=== PATIENT | male | born 1960 | race Caucasian/White ===

== ENCOUNTER 2016-07-12 05:23 | Emergency (ER) | payer BC ==
[2016-07-12] MEDS ORDERED: ONDANSETRON HCL INJ/PF 4 MG/2 ML SDV IV ONE (05:46)
[2016-07-12 05:53] LABS: ABSOLUTE BASOPHILS # (AUTO) 0.1 10^3/uL (0.0-0.2); ABSOLUTE EOSINOPHILS # (AUTO) 0.1 10^3/uL (0.0-0.6); ABSOLUTE LYMPHOCYTES (AUTO) 0.6 10^3/uL (0.5-4.7); ABSOLUTE MONOCYTES (AUTO) 0.3 10^3/uL (0.1-1.4); ABSOLUTE NEUT (AUTO) 9.6 10^3/uL (1.7-8.2); BASOPHILS % (AUTO) 0.7 % (0-2); EOSINOPHILS % (AUTO) 0.6 % (0-6); HEMATOCRIT 43.1 % (37.9-51.0); HGB HCT DIFFERENCE 1.9; LYMPHOCYTES % (AUTO) 5.7 % (13-45); MEAN CORPUSCULAR HEMOGLOBIN 31.4 pg (27.0-33.4); MEAN CORPUSCULAR HGB CONC 34.9 g/dL (32.0-36.0); MEAN CORPUSCULAR VOLUME 90 fl (80-97); MONOCYTES % (AUTO) 2.7 % (3-13); RED CELL DISTRIBUTION WIDTH 14.2 % (11.5-14.0); SEGMENTED NEUTROPHILS % (AUTO) 90.3 % (42-78); WHITE BLOOD COUNT 10.7 10^3/uL (4.0-10.5)
[2016-07-12 06:05] LABS: ALANINE AMINOTRANSFERASE 45 U/L (21-72); ALBUMIN 3.3 g/dL (3.5-5.0); ALKALINE PHOSPHATASE 145 U/L (38-126); ANION GAP 9 (5-19); ASPARTATE AMINO TRANSFERASE 26 U/L (17-59); BILIRUBIN,TOTAL 0.9 mg/dL (0.2-1.3); BLOOD UREA NITROGEN 18 mg/dL (7-20); CALCIUM 8.4 mg/dL (8.4-10.2); CARBON DIOXIDE 22 mmol/L (22-30); CHLORIDE 108 mmol/L (98-107); CREATININE RESULT 0.91 mg/dL (0.52-1.25); GLUCOSE 124 mg/dL (75-110); POTASSIUM 4.3 mmol/L (3.6-5.0); SODIUM 139.2 mmol/L (137-145); TOTAL PROTEIN 5.3 g/dL (6.3-8.2)
--- NOTE | 2016-07-12 06:48 | ER Document Report ---
ED General - General Time seen by provider: 06:33 Mode of Arrival: Ambulatory Information source: Patient TRAVEL OUTSIDE OF THE [place] IN LAST 30 DAYS: No - HPI Onset: This morning - see HPI notes Associated symptoms: Vomiting, Sweating <PALLAVI DUDLEY - Last Filed: 07/12/16 06:43> <JB VILLALOBOS - Last Filed: 07/12/16 07:26> - General Chief Complaint: Nausea/Vomiting Stated Complaint: NAUSEA,VOMITING Notes: Patient is a 55-year-old male presenting to the emergency department with complaints of dizziness, vomiting and headache. Patient states that he woke up to use the bathroom and had some dizziness where the room was spinning. Patient states he started vomiting and after he felt very "sweaty." Patient states that he vomited about 4 times. Patient also complains of a headache. At time of exam patient states that his symptoms are gone that he does not feel dizzy anymore. Patient states that he had an episode of similar dizziness that occurred approximately 10 years ago. Patient states that he had a positive flu test 1 week ago at [facility]. Patient states his symptoms were fever, chills, and body aches. Patient was taking Tamaflu for 4-5 days and has finished this dose. Patient has a history of a valve replacement in 2014, and 2 hernia surgeries. Patient takes 25 mg of metoprolol daily along with atorvastatin, ASA , Prozac, aspirin, and Claritin. Patient is allergic to penicillin. (PALLAVI DUDLEY) - Related Data Allergies/Adverse Reactions: Penicillins Allergy (Verified 06/23/15 08:07) Past Medical History - General Information source: Patient - Social History Smoking Status: Never Smoker Cigarette use (# per day): No Chew tobacco use (# tins/day): No Frequency of alcohol use: None Family History: CAD, CVA, DM, Hyperlipidemia, Hypertension, Malignancy, Other - Father is living in a assisted. At a 62 had a traumatic brain injury. He is not 82. - Past Medical History Cardiac Medical History: Reports: Hx Congestive Heart Failure - Possible, Hx Hypertension Pulmonary Medical History: Reports: Hx Pneumonia Musculoskeltal Medical History: Reports Hx Arthritis, Reports Hx Musculoskeletal Trauma - ribs Psychiatric Medical History: Reports: Hx Depression Traumatic Medical History: Reports: Hx Fractures - ribs Past Surgical History: Reports: Hx Abdominal Surgery - hernia ventral, Hx Cardiac Surgery - congenital heart defect, Hx Cholecystectomy, Hx Umbilical Hernia, Hx Valve Replacement - Immunizations Immunizations up to date: Yes Hx Diphtheria, Pertussis, Tetanus Vaccination: Yes <PALLAVI DUDLEY - Last Filed: 07/12/16 06:43> Review of Systems - Review of Systems Constitutional: See HPI, Diaphoresis EENT: No symptoms reported Cardiovascular: See HPI, Dizziness Respiratory: No symptoms reported Gastrointestinal: See HPI, Vomiting Genitourinary: No symptoms reported Male Genitourinary: No symptoms reported Musculoskeletal: No symptoms reported Skin: No symptoms reported Hematologic/Lymphatic: No symptoms reported Neurological/Psychological: See HPI, Headaches -: Yes All other systems reviewed and negative <PALLAVI DUDLEY - Last Filed: 07/12/16 06:43> Physical Exam - Vital signs Interpretation: Normal - General General appearance: Appears well, Alert In distress: Mild - HEENT Head: Normocephalic, Atraumatic Eyes: Normal Pupils: PERRL Mucous membranes: Moist - Respiratory Respiratory status: No respiratory distress Chest status: Nontender Breath sounds: Normal Chest palpation: Normal - Cardiovascular Rhythm: Regular Heart sounds: Normal auscultation Murmur: Yes - systolic ejection murmur - Abdominal Inspection: Other - paraumbilical hernia, soft and reducible Distension: No distension Bowel sounds: Normal Tenderness: Tender - paraumbilical hernia has some mild tenderness to palpation Organomegaly: No organomegaly - Back Back: Normal, Nontender - Extremities General upper extremity: Normal inspection, Normal ROM, Normal strength General lower extremity: Normal inspection, Normal ROM, Normal strength - Neurological Neuro grossly intact: Yes Cognition: Normal Orientation: AAOx4 Adelanto Coma Scale Eye Opening: Spontaneous Esteban Coma Scale Verbal: Oriented Adelanto Coma Scale Motor: Obeys Commands Esteban Coma Scale Total: 15 Speech: Normal - Psychological Associated symptoms: Normal affect, Normal mood - Skin Skin Temperature: Warm Skin Moisture: Dry <PALLAVI DUDLEY - Last Filed: 07/12/16 06:43> - Neurological Cranial nerves: Normal Cerebellar coordination: Normal Motor strength normal: LUE, RUE, LLE, RLE 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 He reports that he has had 1 prior episode of this about 10 years ago that was self-limited. The patient labs are unremarkable. Exam was normal. There were no focal neurologic deficits. There is no nystagmus. Given there are no neurologic abnormalities the patient's symptoms are gone do not feel advanced imaging of the brain is warranted at this time. Diagnosis most consistent with benign paroxysmal vertigo. We'll have patient follow up with his PCP and provided return precautions. (JB VILLALOBOS) - Vital Signs Vital signs: Temp Pulse Resp BP Pulse Ox 97.8 F 68 14 112/67 97 07/12/16 05:32 07/12/16 05:32 07/12/16 05:32 07/12/16 05:32 07/12/16 05:32 (PALLAVI DUDLEY) (JB VILLALOBOS) - Laboratory Laboratory results interpreted by me: 07/12/16 07/12/16 05:38 05:38 WBC 10.7 H RDW 14.2 H Plt Count 144 L Seg Neutrophils % 90.3 H Lymphocytes % 5.7 L Monocytes % 2.7 L Absolute Neutrophils 9.6 H Chloride 108 H Glucose 124 H Alkaline Phosphatase 145 H Total Protein 5.3 L Albumin 3.3 L (PALLAVI DUDLEY) (JB VILLALOBOS) Discharge <PALLAVI DUDLEY - Last Filed: 07/12/16 06:43> <JB VILLALOBOS - Last Filed: 07/12/16 07:26> - Discharge Clinical Impression: Paroxysmal vertigo Condition: Stable Disposition: HOME, SELF-CARE Instructions: Vertigo ([facility]) Additional Instructions: Drink plenty fluids to stay well hydrated. Follow-up the primary physician for reevaluation. Return to emergency department for recurrent vertigo, vision or speech difficulties, chest pain, difficulty breathing, numbness tingling or weakness in extremities, or any other worsening or concerning symptoms. Prescriptions: Meclizine HCl 25 mg PO PRN PRN #10 tab.chew PRN Reason: Referrals: JASON BELLE PA-C [Primary Care Provider] - Follow up as needed Scribe Attestation: 07/12/16 07:21 I personally performed the services described in the documentation, reviewed and edited the documentation which was dictated to the scribe in my presence, and it accurately records my words and actions. (JB VILLALOBOS) Scribe Documentation - Scribe Written by Scribe:: Pallavi Dudley 07/12/16 06:44 acting as scribe for :: Paz <PALLAVI DUDLEY - Last Filed: 07/12/16 06:43>
[2016-07-12 09:14] VITALS: BP 108/82
== END 2016-07-12 07:35 | disposition home or self-care (01) ==
LOC: ER 05:23
DX: H81.10 Benign paroxysmal vertigo, unspecified ear (principal); R11.2 Nausea with vomiting, unspecified; R51 Headache; I10 Essential (primary) hypertension; R61 Generalized hyperhidrosis; K42.9 Umbilical hernia without obstruction or gangrene; F32.9 Major depressive disorder, single episode, unspecified; Z95.2 Presence of prosthetic heart valve; Z79.899 Other long term (current) drug therapy; Z79.82 Long term (current) use of aspirin; Z88.0 Allergy status to penicillin; Z98.890 Other specified postprocedural states; Z90.49 Acquired absence of other specified parts of digestive tract
CPT/HCPCS: 36415; 80053; 85025; 99283

== ENCOUNTER 2016-07-18 13:26 | Emergency (ER) | payer BC ==
[2016-07-18] MEDS ORDERED: ALBUTEROL SULFATE 0.083% NEB 2.5 MG/3 ML AMPUL NEB ONE (13:50)
--- NOTE | 2016-07-18 13:50 | ER Document Report ---
ED Medical Screen (RME) - General Stated Complaint: DIFFICULTY BREATHING Notes: 55 yo male c/o difficulty breathing, chest feels "stopped up". Dx with pneumonia at [facility] on Saturday, started on Levaquin. no fever. Sat 96%. + wheezing, decreased breath sounds in left base TRAVEL OUTSIDE OF THE [place] IN LAST 30 DAYS: No - Related Data Allergies/Adverse Reactions: Penicillins Allergy (Verified 07/18/16 13:46) Past Medical History - Past Medical History Cardiac Medical History: Reports: Hx Congestive Heart Failure - Possible, Hx Hypertension Pulmonary Medical History: Reports: Hx Pneumonia Musculoskeltal Medical History: Reports Hx Arthritis, Reports Hx Musculoskeletal Trauma - ribs Psychiatric Medical History: Reports: Hx Depression Traumatic Medical History: Reports: Hx Fractures - ribs Past Surgical History: Reports: Hx Abdominal Surgery - hernia ventral, Hx Cardiac Surgery - congenital heart defect, Hx Cholecystectomy, Hx Umbilical Hernia, Hx Valve Replacement - Immunizations Immunizations up to date: Yes Hx Diphtheria, Pertussis, Tetanus Vaccination: Yes Physical Exam - Vital signs Vitals: Temp Pulse Resp BP Pulse Ox 98.1 F 76 18 100/61 96 07/18/16 13:44 07/18/16 13:44 07/18/16 13:44 07/18/16 13:44 07/18/16 13:44 Course - Vital Signs Vital signs: Temp Pulse Resp BP Pulse Ox 98.1 F 76 18 100/61 96 07/18/16 13:44 07/18/16 13:44 07/18/16 13:44 07/18/16 13:44 07/18/16 13:44
[2016-07-18] MEDS ORDERED: PREDNISONE 20 MG TABLET PO ONE (13:51)
[2016-07-18 14:06] LABS: ABSOLUTE EOSINOPHILS # (AUTO) 0.1 10^3/uL (0.0-0.6); ABSOLUTE LYMPHOCYTES (AUTO) 0.9 10^3/uL (0.5-4.7); ABSOLUTE MONOCYTES (AUTO) 0.6 10^3/uL (0.1-1.4); ABSOLUTE NEUT (AUTO) 5.8 10^3/uL (1.7-8.2); BASOPHILS % (AUTO) 0.7 % (0-2); EOSINOPHILS % (AUTO) 1.9 % (0-6); HEMATOCRIT 41.4 % (37.9-51.0); HEMOGLOBIN 14.3 g/dL (13.5-17.0); HGB HCT DIFFERENCE 1.5; LYMPHOCYTES % (AUTO) 11.8 % (13-45); MEAN CORPUSCULAR HEMOGLOBIN 30.9 pg (27.0-33.4); MEAN CORPUSCULAR HGB CONC 34.5 g/dL (32.0-36.0); MEAN CORPUSCULAR VOLUME 90 fl (80-97); MONOCYTES % (AUTO) 7.7 % (3-13); RED BLOOD COUNT 4.62 10^6/uL (4.35-5.55); RED CELL DISTRIBUTION WIDTH 13.4 % (11.5-14.0); SEGMENTED NEUTROPHILS % (AUTO) 77.9 % (42-78); WHITE BLOOD COUNT 7.4 10^3/uL (4.0-10.5)
[2016-07-18 14:20] LABS: ALANINE AMINOTRANSFERASE 40 U/L (21-72); ALBUMIN 3.2 g/dL (3.5-5.0); ALKALINE PHOSPHATASE 108 U/L (38-126); ANION GAP 11 (5-19); ASPARTATE AMINO TRANSFERASE 21 U/L (17-59); BILIRUBIN,TOTAL 0.4 mg/dL (0.2-1.3); BLOOD UREA NITROGEN 13 mg/dL (7-20); CALCIUM 8.4 mg/dL (8.4-10.2); CARBON DIOXIDE 20 mmol/L (22-30); CHLORIDE 110 mmol/L (98-107); CREATININE RESULT 0.83 mg/dL (0.52-1.25); GLUCOSE 126 mg/dL (75-110); SODIUM 140.8 mmol/L (137-145)
[2016-07-18] MEDS ORDERED: IPRATROPIUM/ALBUTEROL 0.5-2.5 MG/3 ML AMPUL NEB ONE (18:56)
[2016-07-18] MEDS ORDERED: ALBUTEROL SULFATE HFA (90 MCG/PUFF) 8 GM MDI (1 MDI/ER DISP) IH PRN (18:59)
--- NOTE | 2016-07-18 19:02 | ER Document Report ---
ED General - General Chief Complaint: Shortness Of Breath Stated Complaint: DIFFICULTY BREATHING Notes: Patient is a 55-year-old male without past medical history who presents with 4 days of cough, shortness of breath, and sputum production. States he was seen in urgent care 2 days ago and started on levofloxacin for a diagnosis of pneumonia although he notes a chest x-ray was not done. Denies any vomiting or diarrhea. States that his symptoms have worsened since onset which prompted him to come to the emergency department today. Nothing improves or worsens symptoms and he has not noted any change since starting levofloxacin. He denies any history of COPD or asthma. Denies any smoking. He denies any chest pain, syncope, or difficulty tolerating oral intake. Denies a history of similar symptoms in the past. TRAVEL OUTSIDE OF THE [place] IN LAST 30 DAYS: No - Related Data Allergies/Adverse Reactions: Penicillins Allergy (Verified 07/18/16 13:46) Past Medical History - General Information source: Patient - Social History Smoking Status: Never Smoker Chew tobacco use (# tins/day): No Frequency of alcohol use: None Drug Abuse: None Lives with: Alone Family History: CAD, CVA, DM, Hyperlipidemia, Hypertension, Malignancy, Other - Father is living in a care home. At a 62 had a traumatic brain injury. He is not 82. Patient has suicidal ideation: No Patient has homicidal ideation: No - Past Medical History Cardiac Medical History: Reports: Hx Congestive Heart Failure - Possible, Hx Hypertension Pulmonary Medical History: Reports: Hx Pneumonia Renal/ Medical History: Denies: Hx Peritoneal Dialysis Musculoskeltal Medical History: Reports Hx Arthritis, Reports Hx Musculoskeletal Trauma - ribs Psychiatric Medical History: Reports: Hx Depression Traumatic Medical History: Reports: Hx Fractures - ribs Past Surgical History: Reports: Hx Abdominal Surgery - hernia ventral, Hx Cardiac Surgery - congenital heart defect, Hx Cholecystectomy, Hx Umbilical Hernia, Hx Valve Replacement - Immunizations Immunizations up to date: Yes Hx Diphtheria, Pertussis, Tetanus Vaccination: Yes Review of Systems - Review of Systems Notes: Constitutional: Negative for fever. HENT: Negative for sore throat. Eyes: Negative for visual changes. Cardiovascular: Negative for chest pain. Respiratory: Positive for shortness of breath. Gastrointestinal: Negative for abdominal pain, vomiting or diarrhea. Genitourinary: Negative for dysuria. Musculoskeletal: Negative for back pain. Skin: Negative for rash. Neurological: Negative for headaches, weakness or numbness. 10 point ROS negative except as marked above and in HPI. Physical Exam - Vital signs Vitals: Temp Pulse Resp BP Pulse Ox 98.1 F 76 18 100/61 96 07/18/16 13:44 07/18/16 13:44 07/18/16 13:44 07/18/16 13:44 07/18/16 13:44 Interpretation: Normal Notes: PHYSICAL EXAMINATION: GENERAL: Well-appearing, well-nourished and in no acute distress. HEAD: Atraumatic, normocephalic. EYES: Pupils equal round and reactive to light, extraocular movements intact, sclera anicteric, conjunctiva are normal. ENT: nares patent, oropharynx clear without exudates. Moist mucous membranes. NECK: Normal range of motion, supple without lymphadenopathy LUNGS: Breath sounds clear to auscultation bilaterally and equal. Scattered faint wheezes throughout HEART: Regular rate and rhythm without murmurs ABDOMEN: Soft, nontender, normoactive bowel sounds. No guarding, no rebound. No masses appreciated. EXTREMITIES: Normal range of motion, no pitting or edema. No cyanosis. NEUROLOGICAL: No focal neurological deficits. Moves all extremities spontaneously and on command. PSYCH: Normal mood, normal affect. SKIN: Warm, Dry, normal turgor, no rashes or lesions noted. Course - Re-evaluation Re-evalutation: 07/18/16 18:57 Patient presents with mild shortness of breath, wheezing bilaterally but quite minimally. He is already on levofloxacin that was prescribed in urgent care for a clinical diagnosis of pneumonia but is not had any improvement. I suspect his diagnosis more likely to be an acute bronchitis given his persistent coughing as well as wheezing on exam without any history of COPD or asthma. He is in no respiratory distress time of arrival, vitals within normal limits. Saturating 97% on room air. No tachypnea or retractions. He denies any chest pain in his primary complaint is persistent coughing. Laboratories unremarkable without evidence of leukocytosis, acute kidney injury and chest x- ray does not demonstrate any evidence of pulmonary edema. Patient is been treated with nebulizer see her with moderate improvement of his symptoms. He will be discharged on a course of steroids and recommended that he continue the antibiotics as prescribed.At this time will discharge with return precautions and follow-up recommendations. Verbal discharge instructions given a the bedside and opportunity for questions given. Medication warnings reviewed. Patient is in agreement with this plan and has verbalized understanding of return precautions and the need for primary care follow-up in the next 24-72 hours. - Vital Signs Vital signs: Temp Pulse Resp BP Pulse Ox 97.9 F 76 18 113/80 96 07/18/16 19:43 07/18/16 13:44 07/18/16 19:01 07/18/16 19:01 07/18/16 19:01 - Laboratory Result Diagrams: 07/18/16 13:55 07/18/16 13:55 Laboratory results interpreted by me: 07/18/16 07/18/16 13:55 13:55 Lymphocytes % 11.8 L Chloride 110 H Carbon Dioxide 20 L Glucose 126 H Total Protein 5.0 L Albumin 3.2 L - Diagnostic Test Radiology reviewed: Image reviewed, Reports reviewed Radiology results interpreted by me: 07/19/16 04:24 Chest x-ray: No acute infiltrate Discharge - Discharge Clinical Impression: Bronchitis, Shortness of breath Condition: Good Disposition: HOME, SELF-CARE Additional Instructions: You were seen for symptoms most consistent with bronchitis. This can take up to 12 weeks to fully resolve. This is generally due to a viral infection. However , you should complete the antibiotic since this has already been started. Your chest x-ray does not show any evidence of a pneumonia. Your labs here today are normal. There is no evidence of congestive heart failure on your chest x- ray. Please follow-up with your primary doctor in the next 2-3 days. You are being sent home with an albuterol inhaler with a spacer. You can use this as needed for shortness of breath and coughing. You have also been sent home with a course of steroids. Please take as directed. Return if you develop worsening cough, vomiting, fever >100.4, pass out, begin coughing blood, or have any other symptoms that are concerning to you. Please use the medications prescribed today as directed. Prescriptions: Prednisone [Deltasone 20 mg Tablet] 3 tab PO DAILY 5 Days Referrals: JASON BELLE PA-C [Primary Care Provider] - Follow up in 3-5 days
[2016-07-18 19:05] VITALS: BP 113/80
== END 2016-07-18 19:43 | disposition home or self-care (01) ==
LOC: ER 13:26
DX: J40 Bronchitis, not specified as acute or chronic (principal); R06.02 Shortness of breath; I10 Essential (primary) hypertension; Z90.49 Acquired absence of other specified parts of digestive tract; Z88.0 Allergy status to penicillin; Z95.2 Presence of prosthetic heart valve
CPT/HCPCS: 94640 ×2; 99285; 36415; 85025; 80053; 71020; J7512; J3490; J7620

== ENCOUNTER 2017-10-11 16:43 | Emergency (ER) | payer BC ==
[2017-10-11] MEDS ORDERED: NORMAL SALINE 500 ML IV ONE (17:38)
--- NOTE | 2017-10-11 17:41 | ER Document Report ---
ED Medical Screen (RME) - General Chief Complaint: Diarrhea Stated Complaint: DIARRHEA Time Seen by Provider: 10/11/17 17:34 Notes: RAPID MEDICAL EVALUATION DISCLOSURE I have seen this patient as part of a Rapid Medical Evaluation and, if applicable, placed any initially appropriate orders. The patient will be seen and fully evaluated, including a full history and physical exam, by a provider ( in Main ED or Fast Track) when a room becomes available. 56-year-old male here with complaints of abdominal pain and diarrhea ongoing since earlier today. He has had several episodes and has "messed my pants". No nausea vomiting fevers chills dysuria hematuria. Denies any prior history of IBS colitis diverticulitis. No known sick contacts. EXAM Left lower greater than upper quadrant tenderness NOTE Patient reports his systolic blood pressure is not normally less than 100 but averages around 120 TRAVEL OUTSIDE OF THE [place] IN LAST 30 DAYS: No - Related Data Allergies/Adverse Reactions: doxycycline Allergy (Verified 10/11/17 16:46) levofloxacin [From Levaquin] Allergy (Verified 10/11/17 16:46) Penicillins Allergy (Verified 10/11/17 16:46) Past Medical History - Past Medical History Cardiac Medical History: Reports: Hx Congestive Heart Failure - Possible, Hx Hypertension Pulmonary Medical History: Reports: Hx Pneumonia Renal/ Medical History: Denies: Hx Peritoneal Dialysis Musculoskeltal Medical History: Reports Hx Arthritis, Reports Hx Musculoskeletal Trauma - ribs Psychiatric Medical History: Reports: Hx Depression Traumatic Medical History: Reports: Hx Fractures - ribs Past Surgical History: Reports: Hx Abdominal Surgery - hernia ventral, Hx Cardiac Surgery - congenital heart defect, Hx Cholecystectomy, Hx Umbilical Hernia, Hx Valve Replacement - Immunizations Immunizations up to date: Yes Hx Diphtheria, Pertussis, Tetanus Vaccination: Yes Physical Exam - Vital signs Vitals: Temp Pulse Resp BP Pulse Ox 97.8 F 58 L 16 99/60 L 98 10/11/17 16:53 10/11/17 16:53 10/11/17 16:53 10/11/17 16:53 10/11/17 16:53 Course - Vital Signs Vital signs: Temp Pulse Resp BP Pulse Ox 97.8 F 58 L 16 99/60 L 98 10/11/17 16:53 10/11/17 16:53 10/11/17 16:53 10/11/17 16:53 10/11/17 16:53
[2017-10-11 18:18] LABS: ABSOLUTE BASOPHILS # (AUTO) 0.1 10^3/uL (0.0-0.2); ABSOLUTE EOSINOPHILS # (AUTO) 0.2 10^3/uL (0.0-0.6); ABSOLUTE LYMPHOCYTES (AUTO) 1.5 10^3/uL (0.5-4.7); ABSOLUTE MONOCYTES (AUTO) 0.6 10^3/uL (0.1-1.4); ABSOLUTE NEUT (AUTO) 4.9 10^3/uL (1.7-8.2); BASOPHILS % (AUTO) 0.9 % (0-2); EOSINOPHILS % (AUTO) 2.3 % (0-6); HEMATOCRIT 46.6 % (37.9-51.0); HEMOGLOBIN 15.7 g/dL (13.5-17.0); LYMPHOCYTES % (AUTO) 20.2 % (13-45); MEAN CORPUSCULAR HGB CONC 33.8 g/dL (32.0-36.0); MEAN CORPUSCULAR VOLUME 92 fl (80-97); MONOCYTES % (AUTO) 8.3 % (3-13); PLATELET COUNT 139 10^3/uL (150-450); RED BLOOD COUNT 5.09 10^6/uL (4.35-5.55); RED CELL DISTRIBUTION WIDTH 14.1 % (11.5-14.0); SEGMENTED NEUTROPHILS % (AUTO) 68.3 % (42-78); TOTAL CELLS COUNTED % (AUTO) 100 %; WHITE BLOOD COUNT 7.2 10^3/uL (4.0-10.5)
[2017-10-11 18:37] LABS: ALANINE AMINOTRANSFERASE 62 U/L (21-72); ALBUMIN 3.7 g/dL (3.5-5.0); ALKALINE PHOSPHATASE 109 U/L (38-126); ANION GAP 13 (5-19); ASPARTATE AMINO TRANSFERASE 36 U/L (17-59); BILIRUBIN,DIRECT 0.2 mg/dL (0.0-0.4); BILIRUBIN,TOTAL 0.2 mg/dL (0.2-1.3); BLOOD UREA NITROGEN 15 mg/dL (7-20); CALCIUM 9.1 mg/dL (8.4-10.2); CARBON DIOXIDE 22 mmol/L (22-30); CHLORIDE 112 mmol/L (98-107); GLUCOSE 65 mg/dL (75-110); LIPASE 225.7 U/L (23-300); POTASSIUM 3.8 mmol/L (3.6-5.0); SODIUM 146.9 mmol/L (137-145); TOTAL PROTEIN 5.4 g/dL (6.3-8.2)
[2017-10-11 19:36] LABS: APPEARANCE,URINE CLEAR; BILIRUBIN,URINE NEGATIVE (NEGATIVE); COLOR,URINE YELLOW; GLUCOSE, URINE NEGATIVE (NEGATIVE); KETONES,URINE NEGATIVE (NEGATIVE); LEUKOCYTE ESTERASE,URINE NEGATIVE (NEGATIVE); NITRITE,URINE NEGATIVE (NEGATIVE); PROTEIN,URINE NEGATIVE (NEGATIVE); URINE SPECIFIC GRAVITY 1.016; UROBILINOGEN,URINE NEGATIVE mg/dL (<2.0)
--- NOTE | 2017-10-11 20:59 | RADIOLOGY REPORT (SQ) ---
EXAM DESCRIPTION: CT ABD/PELVIS WITH IV ONLY COMPLETED DATE/TIME: 10/11/2017 8:44 pm REASON FOR STUDY: LUQ/LLQ pain diarrhea; eval colitis diverticulitis COMPARISON: None. TECHNIQUE: CT scan of the abdomen and pelvis performed using helical scanning technique with dynamic intravenous contrast injection. No oral contrast. Images reviewed with lung, soft tissue, and bone windows. Reconstructed coronal and sagittal MPR images reviewed. Delayed images for evaluation of the urinary system also acquired. All images stored on PACS. All CT scanners at this facility use dose modulation, iterative reconstruction, and/or weight based d osing when appropriate to reduce radiation dose to as low as reasonably achievable (ALARA). [facility]: Dose Right [facility]: CareDose [facility]: Dose Right [facility]: Teradose 4D [facility]: Wiren Board CONTRAST TYPE AND DOSE: contrast/concentration: Isovue 370.00 mg/ml; Total Contrast Delivered: 78.0 ml; Total Saline Delivered: 67.0 ml RENAL FUNCTION: GFR > 60. RADIATION DOSE: CT Rad equipment meets quality standard of care and radiation dose reduction techniq ues were employed. CTDIvol: 6.8 - 9.1 mGy. DLP: 901 mGy-cm.. LIMITATIONS: None. FINDINGS: LOWER CHEST: No significant findings. No nodules or infiltrates. LIVER: Normal size. No masses. No dilated ducts. SPLEEN: Normal size. No focal lesions. PANCREAS: No masses. No significant calcifications. No adjacent inflammation or peripancreatic fluid collections. Pancreatic duct not dilated. GALLBLADDER: No identified stones by CT criteria. No inflammatory changes to suggest cholecystitis. ADRENAL GLANDS: No significant masses or asymmetry. RIGHT KIDNEY AND URETER: No solid masses. No significant calcifications. No hydronephrosis or hyd roureter. LEFT KIDNEY AND URETER: No solid masses. No significant calcifications. No hydronephrosis or hydr oureter. AORTA AND VESSELS: No aneurysm. No dissection. Renal arteries, SMA, celiac without stenosis. RETROPERITONEUM: No retroperitoneal adenopathy, hemorrhage or masses. BOWEL AND PERITONEAL CAVITY: There is diffuse colonic submucosal fat deposition which may be physiolo gic or can be seen in a patient with history of inflammatory bowel disease. There is mild asymmetric mural thickening involving the descending colon seen on series 3, image 68. No significant pericolo shashank stranding. Small bowel loops are grossly normal. APPENDIX: Not visualized. PELVIS: No mass. No free fluid. Normal bladder. ABDOMINAL WALL: No masses. The patient is status post repair of a periumbilical hernia with residual / recurrent hernia just above and the left of the mesh with 2.4 cm factual defect and 7.2 cm fat cont aining hernia sac. There is a 2nd factual defect involving the left anterolateral abdominal wall see n on series 3, image 14 measuring 12 mm with 7 cm fat containing hernia sac. BONES: Degenerative change without fracture or suspicious osseous lesion. OTHER: No other significant finding. IMPRESSION: MILD ASYMMETRIC MURAL THICKENING INVOLVING THE DESCENDING COLON WHICH COULD REPRESENT DI VERTICULITIS OR FOCAL INFECTIOUS/INFLAMMATORY COLITIS. RECOMMEND FOLLOWUP COLONOSCOPY IF NOT RECENTL Y PERFORMED TO ENSURE NO UNDERLYING MASS. FAT CONTAINING ABDOMINAL WALL HERNIAS DESCRIBED ABOVE. ADDITIONAL CHRONIC CHANGES ABOVE. TECHNICAL DOCUMENTATION: JOB ID: [id number] Quality ID # [id number]: Final reports with documentation of one or more dose reduction techniques (e.g., Au tomated exposure control, adjustment of the mA and/or kV according to patient size, use of iterative reconstruction technique) 2010 [employer]- All Rights Reserved Reading location - IP/workstation name: [email or web address]
--- NOTE | 2017-10-11 21:12 | ER Document Report ---
ED General - General Chief Complaint: Diarrhea Stated Complaint: DIARRHEA Time Seen by Provider: 10/11/17 17:34 Mode of Arrival: Ambulatory Information source: Patient Notes: 56 yr old male presents with complaints of diarrhea all day. pt denies any fevers or chills, denies any nausea or vomiting. Patient has been on multiple doses of antibiotics since May TRAVEL OUTSIDE OF THE [place] IN LAST 30 DAYS: No - HPI Onset: This morning Onset/Duration: Sudden Quality of pain: No pain Severity: Moderate Pain Level: Denies Associated symptoms: Diarrhea Exacerbated by: Denies Relieved by: Denies Similar symptoms previously: No Recently seen / treated by doctor: No - Related Data Allergies/Adverse Reactions: doxycycline Allergy (Verified 10/11/17 16:46) levofloxacin [From Levaquin] Allergy (Verified 10/11/17 16:46) Penicillins Allergy (Verified 10/11/17 16:46) Past Medical History - Social History Smoking Status: Never Smoker Cigarette use (# per day): No Chew tobacco use (# tins/day): No Smoking Education Provided: No Frequency of alcohol use: None Drug Abuse: None Family History: CAD, CVA, DM, Hyperlipidemia, Hypertension, Malignancy, Other - Father is living in a fdc. At a 62 had a traumatic brain injury. He is not 82. Patient has suicidal ideation: No Patient has homicidal ideation: No - Past Medical History Cardiac Medical History: Reports: Hx Congestive Heart Failure - Possible, Hx Hypertension Pulmonary Medical History: Reports: Hx Pneumonia Renal/ Medical History: Denies: Hx Peritoneal Dialysis Musculoskeltal Medical History: Reports Hx Arthritis, Reports Hx Musculoskeletal Trauma - ribs Psychiatric Medical History: Reports: Hx Depression Traumatic Medical History: Reports: Hx Fractures - ribs Past Surgical History: Reports: Hx Abdominal Surgery - hernia ventral, Hx Cardiac Surgery - congenital heart defect, Hx Cholecystectomy, Hx Umbilical Hernia, Hx Valve Replacement - Immunizations Immunizations up to date: Yes Hx Diphtheria, Pertussis, Tetanus Vaccination: Yes Review of Systems - Review of Systems Notes: REVIEW OF SYSTEMS: CONSTITUTIONAL : Denies fever, chills, or sweats. Denies recent illness. EENT: Denies eye, ear, throat, or mouth pain or symptoms. Denies nasal or sinus congestion or discharge. Denies throat, tongue, or mouth swelling or difficulty swallowing. CARDIOVASCULAR: Denies chest pain. Denies palpitations or racing or irregular heart beat. Denies ankle edema. RESPIRATORY: Denies cough, cold, or chest congestion. Denies shortness of breath, difficulty breathing, or wheezing. GASTROINTESTINAL: Admits to diarrhea GENITOURINARY: Denies difficulty urinating, painful urination, burning, frequency, blood in urine, or discharge. MUSCULOSKELETAL: Denies back or neck pain or stiffness. Denies joint pain or swelling. SKIN: Denies rash, lesions or sores. HEMATOLOGIC : Denies easy bruising or bleeding. LYMPHATIC: Denies swollen, enlarged glands. NEUROLOGICAL: Denies confusion or altered mental status. Denies passing out or loss of consciousness. Denies dizziness or lightheadedness. Denies headache. Denies weakness or paralysis or loss of use of either side. Denies problems with gait or speech. Denies sensory loss, numbness, or tingling. Denies seizures. PSYCHIATRIC: Denies anxiety or stress. Denies depression, suicidal ideation, or homicidal ideation. ALL OTHER SYSTEMS REVIEWED AND NEGATIVE. Dictation was performed using [employer] voice recognition software PHYSICAL EXAMINATION: GENERAL: Well-appearing, well-nourished and in no acute distress. HEAD: Atraumatic, normocephalic. EYES: Pupils equal round and reactive to light, extraocular movements intact, sclera anicteric, conjunctiva are normal. ENT: Nares patent, oropharynx clear without exudates. Moist mucous membranes. NECK: Normal range of motion, supple without lymphadenopathy LUNGS: Breath sounds clear to auscultation bilaterally and equal. No wheezes rales or rhonchi. HEART: Regular rate and rhythm without murmurs ABDOMEN: Soft, nontender, nondistended abdomen. No guarding, no rebound. No masses appreciated. Musculoskeletal: Normal range of motion, no pitting or edema. No cyanosis. NEUROLOGICAL: Cranial nerves grossly intact. Normal speech, normal gait. Normal sensory, motor exams PSYCH: Normal mood, normal affect. SKIN: Warm, Dry, normal turgor, no rashes or lesions noted. Physical Exam - Vital signs Vitals: Temp Pulse Resp BP Pulse Ox 97.8 F 58 L 16 99/60 L 98 10/11/17 16:53 10/11/17 16:53 10/11/17 16:53 10/11/17 16:53 10/11/17 16:53 Course - Re-evaluation Re-evalutation: 10/11/17 23:01 Patient was C. difficile positive, he will be started on Flagyl, he has no white count, patient has been given very strict return precautions as well as handwashing instructions CT was consistent with colitis I do not believe there is any mass underlying this however will give the patient follow-up with GI After performing a Medical Screening Examination, I estimate there is LOW risk for ACUTE APPENDICITIS, BOWEL OBSTRUCTION, ACUTE CHOLECYSTITIS, PERFORATED DIVERTICULITIS, INCARCERATED HERNIA, PANCREATITIS, TESTICULAR TORSION or PERFORATED ULCER, thus I consider the discharge disposition reasonable. Also, there is no evidence or peritonitis, sepsis, or toxicity. I have reevaluated this patient multiple times and no significant life threatening changes are noted. The patient and I have discussed the diagnosis and risks, and we agree with discharging home with close follow-up with the understanding that symptoms and presentations can change. We also discussed returning to the Emergency Department immediately if new or worsening symptoms occur. We have discussed the symptoms which are most concerning (e.g., bloody stool, fever, changing or worsening pain, intractable vomiting - standard verbal up date) that necessitate immediate return. - Vital Signs Vital signs: Temp Pulse Resp BP Pulse Ox 98.2 F 78 18 112/72 99 10/11/17 21:46 10/11/17 21:46 10/11/17 21:46 10/11/17 21:46 10/11/17 21:46 - Laboratory Result Diagrams: 10/11/17 18:09 10/11/17 18:09 Laboratory results interpreted by me: 10/11/17 10/11/17 18:09 18:09 RDW 14.1 H Plt Count 139 L Sodium 146.9 H Chloride 112 H Glucose 65 L Total Protein 5.4 L - Diagnostic Test Radiology reviewed: Image reviewed - CT abdomen pelvis consistent with colitis, Reports reviewed Discharge - Discharge Clinical Impression: C. difficile colitis Condition: Stable Disposition: HOME, SELF-CARE Instructions: C. (Clostridium) Difficile Infection ([facility]) Prescriptions: Metronidazole [Flagyl 500 mg Tablet] 500 mg PO Q8 #42 tablet Referrals: BRAYAN ZAZUETA MD [ACTIVE STAFF] - Follow up in 3-5 days
[2017-10-11] MEDS ORDERED: CIPROFLOXACIN HCL 500 MG TABLET PO ONE (21:22)
[2017-10-11] MEDS ORDERED: METRONIDAZOLE 500 MG TABLET PO ONE (21:22)
[2017-10-11 21:56] VITALS: BP 112/72
== END 2017-10-11 21:56 | disposition home or self-care (01) ==
LOC: ER 16:43
DX: A04.72 Enterocolitis due to Clostridium difficile, not specified as recurrent (principal); I50.9 Heart failure, unspecified; I11.0 Hypertensive heart disease with heart failure; Z88.0 Allergy status to penicillin; Z90.49 Acquired absence of other specified parts of digestive tract; Z95.2 Presence of prosthetic heart valve
CPT/HCPCS: 99284; 96360; 36415; 87209; 83690; 87177; 85025; 80053; 81001; 87493; 74177; J7040

== ENCOUNTER 2018-02-23 06:06 | Emergency (ER) | payer BC ==
--- NOTE | 2018-02-23 07:06 | ER Document Report ---
ED General - General Mode of Arrival: Ambulatory Information source: Patient TRAVEL OUTSIDE OF THE [place] IN LAST 30 DAYS: No <JOHN LIANG - Last Filed: 02/23/18 06:57> <TRACE HOLMAN - Last Filed: 02/23/18 07:49> - General Chief Complaint: Rib Pain Stated Complaint: RIGHT RIB PAIN Time Seen by Provider: 02/23/18 06:45 Notes: 57-year-old male who presents to the emergency department today with complaints of right upper lateral rib pain. Patient states he fell out of the back of a truck on February 19. Patient states he has had pain since the accident but was "trying not to come in". Patient states he was taking Tylenol at home with minimal relief. Patient has previously fractured ribs on the left and he states his pain today is similar to then. (JOHN LIANG) - Related Data Allergies/Adverse Reactions: doxycycline Allergy (Verified 02/23/18 06:16) levofloxacin [From Levaquin] Allergy (Verified 02/23/18 06:16) Penicillins Allergy (Verified 02/23/18 06:16) Past Medical History - General Information source: Patient, COUNT INCLUDES [facility] Records - Social History Smoking Status: Former Smoker Cigarette use (# per day): No Frequency of alcohol use: None Drug Abuse: None Lives with: Family Family History: CAD, CVA, DM, Hyperlipidemia, Hypertension, Malignancy, Other - Father is living in a senior care. At a 62 had a traumatic brain injury. He is not 82. - Past Medical History Cardiac Medical History: Reports: Hx Hypertension Pulmonary Medical History: Reports: Hx Pneumonia Musculoskeletal Medical History: Reports Hx Arthritis, Reports Hx Musculoskeletal Trauma - ribs left sided Psychiatric Medical History: Reports: Hx Depression Traumatic Medical History: Reports: Hx Fractures - ribs left sidedddddddd Past Surgical History: Reports: Hx Abdominal Surgery - hernia ventral, Hx Cardiac Surgery - PDA repair, Hx Cholecystectomy, Hx Umbilical Hernia, Hx Valve Replacement - bovine pericardial tissue aortic valve replacement February 2015 - Immunizations Immunizations up to date: Yes Hx Diphtheria, Pertussis, Tetanus Vaccination: Yes <JOHN LIANG - Last Filed: 02/23/18 06:57> Review of Systems - Review of Systems Constitutional: No symptoms reported EENT: No symptoms reported Cardiovascular: No symptoms reported Respiratory: No symptoms reported Gastrointestinal: No symptoms reported Genitourinary: No symptoms reported Male Genitourinary: No symptoms reported Musculoskeletal: See HPI, Other - right lateral upper rib pain Skin: No symptoms reported Hematologic/Lymphatic: No symptoms reported Neurological/Psychological: No symptoms reported -: Yes All other systems reviewed and negative <JOHN LIANG - Last Filed: 02/23/18 06:57> Physical Exam <JOHN LIANG - Last Filed: 02/23/18 06:57> <MANDATRACE - Last Filed: 02/23/18 07:49> - Notes Notes: Physical Exam: General: Alert, appears well. HEENT: Normocephalic. Atraumatic. PERRL. Extraocular movements intact. Oropharynx clear. Neck: Supple. Non-tender. Respiratory: No respiratory distress. Clear and equal breath sounds bilaterally. Right upper anterior axillary line tenderness with palpation at about the level of T3. Cardiovascular: Regular rate and rhythm. Abdominal: Supraumbilical hernia, left lateral abdominal wall hernia, both easily reducible. Non-tender. No distension. Normal Bowel Sounds. Back: Non-tender. No deformity or step off. Extremities: Moves all four extremities. Upper extremities: Normal inspection. Normal ROM. Lower extremities: Normal inspection. No edema. Normal ROM. Neurological: Normal cognition. AAOx4. Normal speech. Psychological: Normal affect. Normal Mood. Skin: Warm. Dry. Normal color. (JOHN LIANG) Course - Diagnostic Test Radiology reviewed: Image reviewed - No acute fractures noted., Reports reviewed - No fractures reported, old deformity in the right fourth seventh and eighth ribs. Chest x-ray reading is central pulmonary vascular congestion. <TRACE HOLMAN - Last Filed: 02/23/18 07:49> Discharge <JOHN LIANG - Last Filed: 02/23/18 06:57> <TRACE HOLMAN - Last Filed: 02/23/18 07:49> - Discharge Clinical Impression: Contusion of rib on right side Qualifiers: Encounter type: initial encounter Qualified Code(s): S20.211A - Contusion of right front wall of thorax, initial encounter Condition: Stable Disposition: HOME, SELF-CARE Additional Instructions: Rib Contusion You have been diagnosed as having bruised ribs. It will usually take a few weeks for these injured ribs to heal. You should cough or take a deep breath at least every hour or two to prevent lung complications. You should not engage in any strenuous physical activity until released by your physician. The usual rule is "if it hurts, don' t do it." Return if you develop any of the following: (1) Fever or chills. (2) Persistent cough, coughing up blood, or shortness of breath. (3) Increasing pain. (4) Weakness, lightheadedness, or fainting. There were no new fractures seen on your rib x-rays today. Bruised ribs that often hurt as bad as fractured ribs. Take the pain medication as prescribed for the next few days. Take ibuprofen 600 mg every 8 hours, or 2 Aleve every 12 hours for the next several days. Drink plenty of fluids and rest. It is not practical to participate in your usual occupation while you are ribs are so tender. Follow-up with a local medical doctor for reevaluation this week if not improving. RETURN TO THE EMERGENCY ROOM IF ANY NEW OR WORSENING SYMPTOMS. Prescriptions: Oxycodone HCl/Acetaminophen [Percocet 5-325 mg Tablet] 1 - 2 tab PO ASDIR PRN # 20 tablet PRN Reason: Referrals: SAMI CHO MD [Primary Care Provider] - Follow up as needed Scribe Attestation: 02/23/18 07:48 I personally performed the services described in the documentation, reviewed and edited the documentation which was dictated to the scribe in my presence, and it accurately records my words and actions. (TRACE HOLMAN)
--- NOTE | 2018-02-23 07:36 | RADIOLOGY REPORT (SQ) ---
EXAM DESCRIPTION: XR RIBS UNILATERAL WITH CHEST COMPLETED DATE/TME: 02/23/2018 07:00 CLINICAL HISTORY: 57 years Male, R upper ant axillary line trauma, pain COMPARISON: 2.22.17, report only. NUMBER OF VIEWS/TECHNIQUE: 3 FINDINGS: No pneumothorax. Moderate central edema pattern, normal cardiac silhouette, sternotomy. Right upper abdominal clips. Cardiac valve prosthesis. Mild rib deformities include the right fourth anterior, seventh anterior, and eighth anterolateral ribs. Small smooth bilateral pleural based thickening. IMPRESSION: 1. Mild rib deformities on the right. 2. Mild central pulmonary edema pattern.
== END 2018-02-23 08:02 | disposition home or self-care (01) ==
LOC: ER 06:06
DX: S20.211A Contusion of right front wall of thorax, initial encounter (principal); R07.81 Pleurodynia; W17.89XA Other fall from one level to another, initial encounter; Y93.89 Activity, other specified; R09.89 Other specified symptoms and signs involving the circulatory and respiratory systems; K43.9 Ventral hernia without obstruction or gangrene; I10 Essential (primary) hypertension; Z87.891 Personal history of nicotine dependence; Z95.3 Presence of xenogenic heart valve; Z88.1 Allergy status to other antibiotic agents; Z88.0 Allergy status to penicillin; Z87.81 Personal history of (healed) traumatic fracture
CPT/HCPCS: 99283

== ENCOUNTER 2018-03-19 21:26 | Emergency (ER) | payer BC ==
[2018-03-19 21:36] VITALS: BP 116/67
[2018-03-19] MEDS ORDERED: CEPHALEXIN 500 MG CAPSULE PO ONE (22:47)
[2018-03-19] MEDS ORDERED: SULFAMETHOXAZOLE/TRIMETHOPRIM 800-160 MG TABLET PO ONE (22:47)
--- NOTE | 2018-03-19 22:51 | ER Document Report ---
HPI - HPI Pain Level: 2 Notes: Patient is a 57-year-old male who presents with chief complaint of rash to his right wrist. 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 Patient also reports a smaller area of erythema to the left wrist. Patient denies any history of MRSA. - REPRODUCTIVE Reproductive: DENIES: : Past Medical History - General Information source: Patient - Social History Smoking Status: Never Smoker Family History: CAD, CVA, DM, Hyperlipidemia, Hypertension, Malignancy, Other - Father is living in a usp. At a 62 had a traumatic brain injury. He is not 82. - Past Medical History Cardiac Medical History: Denies: Hx Hypertension - heart valve replacement. Pulmonary Medical History: Reports: Hx Pneumonia Renal/ Medical History: Denies: Hx Peritoneal Dialysis Musculoskeletal Medical History: Reports Hx Arthritis, Reports Hx Musculoskeletal Trauma - ribs left sided Psychiatric Medical History: Reports: Hx Depression Traumatic Medical History: Reports: Hx Fractures - ribs left sidedddddddd Past Surgical History: Reports: Hx Abdominal Surgery - hernia ventral, Hx Cardiac Surgery - PDA repair, Hx Cholecystectomy, Hx Umbilical Hernia, Hx Valve Replacement - bovine pericardial tissue aortic valve replacement February 2015 - Immunizations Immunizations up to date: Yes Hx Diphtheria, Pertussis, Tetanus Vaccination: Yes Vertical Provider Document - CONSTITUTIONAL Notes: PHYSICAL EXAMINATION: GENERAL: Well-appearing, well-nourished and in no acute distress. HEAD: Atraumatic, normocephalic. EYES: Pupils equal round extraocular movements intact, conjunctiva are normal. ENT: Nares patent NECK: Normal range of motion LUNGS: No respiratory distress Musculoskeletal: Normal range of motion NEUROLOGICAL: Normal speech, normal gait. PSYCH: Normal mood, normal affect. SKIN: Warm, Dry, normal turgor, erythema noted to bilateral wrists, more so to the right wrist. There are also areas with white pustules across the right wrist. Nothing that is drainable, no fluctuance or induration. - INFECTION CONTROL TRAVEL OUTSIDE OF THE [place] IN LAST 30 DAYS: No Course - Re-evaluation Re-evalutation: Patient's examination is consistent with cellulitis. Patient is allergic to doxycycline and Levaquin which are both the indicated antibiotics for cellulitis in the presence of salt water exposure. I will start patient on both Bactrim and Keflex at this time. Patient instructed to have close follow- up with his primary care, have them do a wound recheck in 2-3 days. Return to the emergency department if he develops worsening symptoms. Patient and family member at bedside verbalized understanding of same. - Vital Signs Vital signs: Temp Pulse Resp BP Pulse Ox 97.8 F 60 18 116/67 98 03/19/18 21:35 03/19/18 21:35 03/19/18 21:35 03/19/18 21:35 03/19/18 21:35 Discharge - Discharge Clinical Impression: Cellulitis Qualifiers: Site of cellulitis: extremity Site of cellulitis of extremity: upper extremity Laterality: right Qualified Code(s): L03.113 - Cellulitis of right upper limb Condition: Stable Disposition: HOME, SELF-CARE Additional Instructions: Cellulitis You have an infection of your skin and underlying soft tissues called cellulitis. This is due to bacteria, which can enter through any break in the skin, or even through an irritated hair follicle. Untreated, cellulitis will usually worsen. Antibiotics are required. Usually, warm packs or warm soaks, and elevation of the infected area are recommended. You should start getting better within 24 to 36 hours. Most infections respond quickly to the right medication. Follow-up care is important, however, to check for abscess (boil) formation, unsuspected foreign body, or resistant infection. If you develop fever, chills, or if the area of infection is becoming rapidly more swollen or painful, call the doctor at once. Please follow-up with your primary care provider in the next 3-5 days for follow-up. Apply warm compresses 3-4 times daily. Keep the area clean and dry. Prescriptions: Cephalexin [Cephalexin 500 MG Tablet] 500 mg PO QID #28 tablet Sulfamethoxazole/Trimethoprim [Bactrim Ds Tablet] 1 tab PO BID #14 tablet Referrals: SAMI CHO MD [Primary Care Provider] - Follow up as needed
== END 2018-03-19 23:00 | disposition home or self-care (01) ==
LOC: ER 21:26
DX: L03.113 Cellulitis of right upper limb (principal); R21 Rash and other nonspecific skin eruption
CPT/HCPCS: 99282

== ENCOUNTER 2018-09-05 01:08 | Emergency (ER) | payer BC ==
[2018-09-05] MEDS ORDERED: NORMAL SALINE 1000 ML 1,000 ML IV ONE (02:36)
[2018-09-05] MEDS ORDERED: ONDANSETRON HCL INJ/PF 4 MG/2 ML SDV IV ONE (02:36)
--- NOTE | 2018-09-05 02:36 | ER Document Report ---
ED General - General Chief Complaint: Nausea/Vomiting/Diarrhea Stated Complaint: NAUSEA Time Seen by Provider: 09/05/18 02:06 Primary Care Provider: BRAYAN ZAZUETA MD [ACTIVE STAFF] - Follow up in 3-5 days SAMI CHO MD [Primary Care Provider] - Follow up in 3-5 days Notes: Patient is a 57-year-old male that presents to the emergency department for chief complaint of chronic diarrhea. Patient reports his been having diarrhea for about 2 weeks now, nonbloody and watery. Today he has been having some nausea and vomiting associated as well. He states that he was recently on Diflucan, for esophageal candidiasis, he was on it for 10 days, but states he was having diarrhea prior to this. He denies having any fevers, chills, night sweats, chest pain, shortness of breath or difficulty breathing. He is been having some abdominal cramping, but denies any significant abdominal pain associated with this. He was prescribed Bentyl to try to help with some of his symptoms. Past Medical History: COPD Past Surgical History: Cholecystectomy, heart valve replacement Social History: Denies tobacco, alcohol or illicit drug use. Family History: Reviewed and noncontributory for presenting illness Allergies: Reviewed, see documented allergy list. REVIEW OF SYSTEMS: Other than noted above, the 12 point review of systems was reviewed with the patient and were negative, all pertinent findings are included in the HPI. PHYSICAL EXAMINATION: Vital signs reviewed, nursing noted reviewed. GENERAL: Well-appearing, well-nourished and in no acute distress. HEAD: Atraumatic, normocephalic. EYES: Eyes appear normal, extraocular movements intact, sclera anicteric, conjunctiva are normal. ENT: nares patent, oropharynx clear without exudates. Moist mucous membranes. NECK: Normal range of motion, supple without lymphadenopathy LUNGS: Breath sounds clear to auscultation bilaterally and equal. No wheezes rales or rhonchi. HEART: Regular rate and rhythm without murmurs ABDOMEN: Soft, nontender, normoactive bowel sounds. No rebound, guarding, or rigidity. No masses appreciated. Ventral hernia palpated, large, and reducible, there is a second hernia noted laterally, also noted to be rather large, these are chronic according to the patient and are nontender. EXTREMITIES: Nontender, good range of motion, no pitting or edema. NEUROLOGICAL: No focal neurological deficits. Moves all extremities spontaneously Motor and sensory grossly intact on exam. PSYCH: Normal mood, normal affect. SKIN: Warm, Dry, normal turgor, no rashes or lesions noted on exposed skin TRAVEL OUTSIDE OF THE [place] IN LAST 30 DAYS: No - Related Data Allergies/Adverse Reactions: doxycycline Allergy (Verified 02/23/18 06:16) levofloxacin [From Levaquin] Allergy (Verified 02/23/18 06:16) Past Medical History - Social History Smoking Status: Never Smoker Family History: CAD, CVA, DM, Hyperlipidemia, Hypertension, Malignancy, Other - Father is living in a shelter. At a 62 had a traumatic brain injury. He is not 82. - Past Medical History Cardiac Medical History: Denies: Hx Hypertension - heart valve replacement. Pulmonary Medical History: Reports: Hx Pneumonia Renal/ Medical History: Denies: Hx Peritoneal Dialysis Musculoskeletal Medical History: Reports Hx Arthritis, Reports Hx Musculoskeletal Trauma - ribs left sided Psychiatric Medical History: Reports: Hx Depression Traumatic Medical History: Reports: Hx Fractures - ribs left sidedddddddd Past Surgical History: Reports: Hx Abdominal Surgery - hernia ventral, Hx Cardiac Surgery - PDA repair, Hx Cholecystectomy, Hx Umbilical Hernia, Hx Valve Replacement - bovine pericardial tissue aortic valve replacement February 2015 - Immunizations Immunizations up to date: Yes Hx Diphtheria, Pertussis, Tetanus Vaccination: Yes Physical Exam - Vital signs Vitals: Temp Pulse Resp BP Pulse Ox 97.8 F 71 24 H 116/66 97 09/05/18 01:13 09/05/18 01:13 09/05/18 01:13 09/05/18 01:13 09/05/18 01:13 Course - Re-evaluation Re-evalutation: Patient seen and examined vital signs reviewed. Laboratory data and/or imaging were ordered as appropriate for the patient's presenting symptoms and complaint, with consideration of any critical or life threatening conditions that may be associated with their obtained history and exam as noted above. Patient was treated with 2 L of IV fluids and IV Zofran Results were reviewed when available and demonstrated prerenal azotemia, likely secondary to the patient's chronic diarrhea he is been experiencing, is also noted to have mild metabolic acidosis, likely due to bicarbonate losses from diarrhea. The patient was re-evaluated and was improved, no vomiting, did not have diarrhea in the ED, he was noted to be C. difficile negative. Evaluation was most consistent with chronic diarrhea, with mild metabolic acidosis and prerenal azotemia, which should improve dramatically just with the IV fluids, advised follow-up with his primary care, and follow-up with gastroenterology, patient was agreeable, given prescription for Zofran, he was advised if he absolutely wanted to he could use [id number] antidiarrheal medications given he had a negative C. difficile. Stool cultures were sent and pending. Results were discussed with the patient at this point, after careful consideration I feel that that patient can be discharged from the emergency department, the patient was educated treatments and reasons to return to the [facility] based on their presumed diagnosis as noted above, they were advised to followup with a primary care physician in 2-3 days. Patient was agreeable to plan of care. *Note is created using voice recognition software and may contain spelling, syntax or grammatical errors. Laboratory 09/05/18 09/05/18 09/05/18 02:42 02:42 02:42 WBC 9.8 RBC 5.29 Hgb 16.2 Hct 46.7 MCV 88 MCH 30.7 MCHC 34.7 RDW 14.1 H Plt Count 201 Seg Neutrophils % 87.5 H Lymphocytes % 6.5 L Monocytes % 5.2 Eosinophils % 0.5 Basophils % 0.3 Absolute Neutrophils 8.6 H Absolute Lymphocytes 0.6 Absolute Monocytes 0.5 Absolute Eosinophils 0.1 Absolute Basophils 0.0 Sodium 140.1 Potassium 4.9 Chloride 112 H Carbon Dioxide 17 L Anion Gap 11 BUN 35 H Creatinine 1.27 H Est GFR ( Amer) > 60 Est GFR (Non-Af Amer) 58 L Glucose 132 H Calcium 9.6 Total Bilirubin 0.6 Direct Bilirubin 0.3 Neonat Total Bilirubin Not Reportable Neonat Direct Bilirubin Not Reportable Neonat Indirect Bili Not Reportable AST 23 ALT 28 Alkaline Phosphatase 117 Total Protein 6.0 L Albumin 4.1 Lipase 122.8 Urine Color Urine Appearance Urine pH Ur Specific [place] Urine Protein Urine Glucose (UA) Urine Ketones Urine Blood Urine Nitrite Urine Bilirubin Urine Urobilinogen Ur Leukocyte Esterase Urine WBC (Auto) Urine RBC (Auto) Squamous Epi Cells Auto Urine Mucus (Auto) Urine Ascorbic Acid C. difficile Tox (PCR) NEGATIVE 09/05/18 02:42 WBC RBC Hgb Hct MCV MCH MCHC RDW Plt Count Seg Neutrophils % Lymphocytes % Monocytes % Eosinophils % Basophils % Absolute Neutrophils Absolute Lymphocytes Absolute Monocytes Absolute Eosinophils Absolute Basophils Sodium Potassium Chloride Carbon Dioxide Anion Gap BUN Creatinine Est GFR ( Amer) Est GFR (Non-Af Amer) Glucose Calcium Total Bilirubin Direct Bilirubin Neonat Total Bilirubin Neonat Direct Bilirubin Neonat Indirect Bili AST ALT Alkaline Phosphatase Total Protein Albumin Lipase Urine Color CAROL Urine Appearance SLIGHTLY-CLOUDY Urine pH 5.0 Ur Specific [place] 1.029 Urine Protein NEGATIVE Urine Glucose (UA) NEGATIVE Urine Ketones NEGATIVE Urine Blood NEGATIVE Urine Nitrite NEGATIVE Urine Bilirubin NEGATIVE Urine Urobilinogen NEGATIVE Ur Leukocyte Esterase NEGATIVE Urine WBC (Auto) 2 Urine RBC (Auto) 1 Squamous Epi Cells Auto 2 Urine Mucus (Auto) FEW Urine Ascorbic Acid NEGATIVE C. difficile Tox (PCR) - Vital Signs Vital signs: Temp Pulse Resp BP Pulse Ox 98 F 84 14 120/72 98 09/05/18 04:10 09/05/18 04:10 09/05/18 04:10 09/05/18 04:10 09/05/18 04:10 - Laboratory Result Diagrams: 09/05/18 02:42 09/05/18 02:42 Laboratory results interpreted by me: 09/05/18 09/05/18 02:42 02:42 RDW 14.1 H Seg Neutrophils % 87.5 H Lymphocytes % 6.5 L Absolute Neutrophils 8.6 H Chloride 112 H Carbon Dioxide 17 L BUN 35 H Creatinine 1.27 H Est GFR (Non-Af Amer) 58 L Glucose 132 H Total Protein 6.0 L Discharge - Discharge Clinical Impression: Chronic diarrhea, Dehydration, Prerenal azotemia, Metabolic acidosis Condition: Stable Disposition: HOME, SELF-CARE Instructions: Diarrhea, Nonspecific ([facility]), Vomiting ([facility]) Additional Instructions: Please return to the emergency department if you have any worsening, or concern of your symptoms. Please return to the emergency department if you develop chest pain, difficulty breathing, severe abdominal pain, or ongoing vomiting. Please follow-up with your primary care physician in 2-3 days and any other recommended physicians. If prescribed, take all medications as directed. If you have any questions or concerns do not hesitate to return the emergency department for evaluation. Prescriptions: Ondansetron [Zofran Odt 4 mg Tablet] 1 tab PO Q8H PRN #15 tab.rapdis PRN Reason: For Nausea/Vomiting Referrals: SAMI CHO MD [Primary Care Provider] - Follow up in 3-5 days BRAYAN ZAZUETA MD [ACTIVE STAFF] - Follow up in 3-5 days
[2018-09-05 03:05] LABS: APPEARANCE,URINE SLIGHTLY-CLOUDY; BILIRUBIN,URINE NEGATIVE (NEGATIVE); COLOR,URINE AMBER; GLUCOSE, URINE NEGATIVE (NEGATIVE); KETONES,URINE NEGATIVE (NEGATIVE); LEUKOCYTE ESTERASE,URINE NEGATIVE (NEGATIVE); NITRITE,URINE NEGATIVE (NEGATIVE); PROTEIN,URINE NEGATIVE (NEGATIVE); URINE SPECIFIC GRAVITY 1.029; UROBILINOGEN,URINE NEGATIVE mg/dL (<2.0)
[2018-09-05 03:15] LABS: ABSOLUTE EOSINOPHILS # (AUTO) 0.1 10^3/uL (0.0-0.6); ABSOLUTE LYMPHOCYTES (AUTO) 0.6 10^3/uL (0.5-4.7); ABSOLUTE MONOCYTES (AUTO) 0.5 10^3/uL (0.1-1.4); ABSOLUTE NEUT (AUTO) 8.6 10^3/uL (1.7-8.2); BASOPHILS % (AUTO) 0.3 % (0-2); EOSINOPHILS % (AUTO) 0.5 % (0-6); HEMATOCRIT 46.7 % (37.9-51.0); HEMOGLOBIN 16.2 g/dL (13.5-17.0); LYMPHOCYTES % (AUTO) 6.5 % (13-45); MEAN CORPUSCULAR HEMOGLOBIN 30.7 pg (27.0-33.4); MEAN CORPUSCULAR HGB CONC 34.7 g/dL (32.0-36.0); MEAN CORPUSCULAR VOLUME 88 fl (80-97); MONOCYTES % (AUTO) 5.2 % (3-13); PLATELET COUNT 201 10^3/uL (150-450); RED BLOOD COUNT 5.29 10^6/uL (4.35-5.55); RED CELL DISTRIBUTION WIDTH 14.1 % (11.5-14.0); SEGMENTED NEUTROPHILS % (AUTO) 87.5 % (42-78); TOTAL CELLS COUNTED % (AUTO) 100 %; WHITE BLOOD COUNT 9.8 10^3/uL (4.0-10.5)
[2018-09-05 03:23] LABS: ALANINE AMINOTRANSFERASE 28 U/L (21-72); ALBUMIN 4.1 g/dL (3.5-5.0); ALKALINE PHOSPHATASE 117 U/L (38-126); ANION GAP 11 (5-19); ASPARTATE AMINO TRANSFERASE 23 U/L (17-59); BILIRUBIN,DIRECT 0.3 mg/dL (0.0-0.4); BILIRUBIN,TOTAL 0.6 mg/dL (0.2-1.3); BLOOD UREA NITROGEN 35 mg/dL (7-20); CALCIUM 9.6 mg/dL (8.4-10.2); CARBON DIOXIDE 17 mmol/L (22-30); CHLORIDE 112 mmol/L (98-107); GLUCOSE 132 mg/dL (75-110); LIPASE 122.8 U/L (23-300); POTASSIUM 4.9 mmol/L (3.6-5.0); SODIUM 140.1 mmol/L (137-145)
[2018-09-05] MEDS ORDERED: RINGERS SOLUTION,LACTATED 1,000 ML IV ONE (03:39)
[2018-09-05 05:29] VITALS: BP 110/69
== END 2018-09-05 05:29 | disposition home or self-care (01) ==
LOC: ER 01:08
DX: K52.9 Noninfective gastroenteritis and colitis, unspecified (principal); E86.0 Dehydration; R79.89 Other specified abnormal findings of blood chemistry; E87.2 Acidosis; Z90.49 Acquired absence of other specified parts of digestive tract; Z95.3 Presence of xenogenic heart valve
CPT/HCPCS: 99284; 96361; 96374; 36415; 87045; 87205; 83690; 85025; 80053; 81001; 87493; J2405; J7030; J7120

== ENCOUNTER 2018-11-11 22:59 | Inpatient (IN) | payer BC ==
[2018-11-11] MEDS ORDERED: RINGERS SOLUTION,LACTATED 1,000 ML IV ONE (23:28)
[2018-11-11] MEDS ORDERED: ONDANSETRON HCL INJ/PF 4 MG/2 ML SDV IV ONE (23:30)
[2018-11-11] MEDS ORDERED: ACETAMINOPHEN 325 MG TABLET PO ONE (23:31)
--- NOTE | 2018-11-11 23:32 | ER Document Report ---
ED General - General Chief Complaint: Nausea/Vomiting Stated Complaint: ABDOMINAL PAIN Time Seen by Provider: 11/11/18 23:22 Notes: Patient is a pleasant 58-year-old male who presents with complaint of fever, diarrhea, and some vomiting. Patient says that he has had diarrhea now for over a month. He was seen by Dr. Inman, local GI physician, who did a colonoscopy approximately 2 weeks ago. After colonoscopy he said he has some mild inflammation: Therefore placement steroids. Is been taking steroids. 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 Today he was on a boat started to feel very bad and then therefore came to ER. When paramedics arrived at his house he was mildly hypotensive and had a fever and therefore they gave him Tylenol. Patient denies any blood in stool. He says his diarrhea became much worse today and is been consistently passing watery stools throughout the day. No recent antibiotic use. TRAVEL OUTSIDE OF THE [place] IN LAST 30 DAYS: No - Related Data Allergies/Adverse Reactions: doxycycline Allergy (Verified 02/23/18 06:16) levofloxacin [From Levaquin] Allergy (Verified 02/23/18 06:16) Past Medical History - Social History Smoking Status: Unknown if Ever Smoked Frequency of alcohol use: Occasional Drug Abuse: None Family History: CAD, CVA, DM, Hyperlipidemia, Hypertension, Malignancy, Other - Father is living in a [facility]. At a 62 had a traumatic brain injury. He is not 82. - Past Medical History Cardiac Medical History: Denies: Hx Hypertension - heart valve replacement. Pulmonary Medical History: Reports: Hx Pneumonia Renal/ Medical History: Denies: Hx Peritoneal Dialysis Musculoskeletal Medical History: Reports Hx Arthritis, Reports Hx Musculoskeletal Trauma - ribs left sided Psychiatric Medical History: Reports: Hx Depression Traumatic Medical History: Reports: Hx Fractures - ribs left sidedddddddd Past Surgical History: Reports: Hx Abdominal Surgery - hernia ventral, Hx Cardiac Surgery - PDA repair, Hx Cholecystectomy, Hx Umbilical Hernia, Hx Valve Replacement - bovine pericardial tissue aortic valve replacement February 2015 - Immunizations Immunizations up to date: Yes Hx Diphtheria, Pertussis, Tetanus Vaccination: Yes Review of Systems - Review of Systems Notes: My Normal Review Basic REVIEW OF SYSTEMS: CONSTITUTIONAL : Denies fever, chills, or sweats. Denies recent illness. RESPIRATORY: Denies cough, cold, or chest congestion. Denies shortness of breath, difficulty breathing, or wheezing. GASTROINTESTINAL: Mild diffuse abdominal pain. Recurrent watery stools. GENITOURINARY: Denies difficulty urinating, painful urination, burning, frequency, or blood in urine. MUSCULOSKELETAL: Denies neck or back pain or joint pain or swelling. SKIN: Denies rash or skin lesions. NEUROLOGICAL: Denies altered mental status or loss of consciousness. Denies headache. Denies weakness or paralysis or loss of use of either side. Denies problems with gait or speech. Denies sensory or motor loss. ALL OTHER SYSTEMS REVIEWED AND NEGATIVE. Physical Exam - Vital signs Vitals: Temp Pulse Ox 99.5 F 93 11/11/18 23:09 11/11/18 23:09 - Notes Notes: General Appearance: Well nourished, alert, cooperative, mild obvious discomfort. Ill-appearing. Vitals: reviewed, See vital signs table. Head: no swelling or tenderness to the head Eyes: PERRL, EOMI, Conjuctiva clear Mouth: No decreasd moisture Lungs: No wheezing, No rales, No rhonci, No accessory muscle use, good air exchange bilaterally. Heart: Normal rate, Regular rythm, No murmur, no rub Abdomen: Normal BS, soft, No rigidity, mild diffuse abdominal tenderness to palpation., No guarding, no rebound, no abdominal masses, no organomegaly. moderste amount of watery stools coming from rectum. Extremities: good pulses in all extremities, no swelling or tenderness in the extremities, no edema. Skin: warm, dry, appropriate color, no rash Neuro: speech clear, oriented x 3, normal affect, responds appropriately to questions. Course - Re-evaluation Re-evalutation: 11/11/18 23:31 Patient showing signs of sepsis and that he is hypotensive and febrile. I have ordered septic work-up. Avoid IV fluids. He is a received approximately 1 L of LR from the paramedics. I have ordered a second liter. His abdomen is soft and minimally tender to palpation however he has recent colitis diagnosis and has been on steroids. Therefore before the CT scans abdomen pelvis is suspect this may be a source of infection. Have ordered stool cultures. 11/12/18 01:11 Patient's blood pressure was initially improving with the first bolus of fluids. His blood pressure systolically was in the 110s. He then started to downtrend again and outs into the 70s. I have ordered another liter of IV fluids. He does drink 1 bottle of oral contrast but feels as if he cannot drink anymore and started having some pain in his abdomen. I do not want delay CT scan any further as he is ill-appearing and become more hypotensive. He will be taken to CT scan now. If he continues to be hypotensive despite this next bolus of fluids then I will place a central line and will start pressor medication. 11/12/18 01:34 I reviewed the patient's CT scan it appears that he has a large amount of inflammation around the bowel. I do not see evidence of perforation currently but does have a lot of diverticula. I am waiting the radiologist report. In the meantime I will start him on Zosyn as I suspect that he probably has an intra-abdominal infection is causing his sepsis. 11/12/18 03:01 Patient continued to have recurrent hypotension despite receiving a total of 3 L of fluid. He received 1 L in the ambulance and 2 L here. I therefore placed central line and start him on levo fed. Patient's blood pressure stabilized on Levophed. He has redness diffuse colitis. He continues to have recurrent diarrheal stools. He started to develop a little bit of altered mental status. I started him on Zosyn. I have spoken with the hospitalist, Dr. Bobo, who agrees to evaluate the patient for admission. C. difficile testing is negative. Stools has been sent for culture. We did discuss the base stability of vibrio being that the patient is a commercial hvac technician as this would be a likely cause of his diarrhea. Doxycycline is the preferred antibiotic for this. Patient does have doxycycline as an allergy; however, when I asked him what his allergy has he says "because my mouth to burn". We will give an IV. I suspect less likely have this reaction of causing his mouth burn and I feel that its safe medication to give and the benefit outweighs the risks at this time. 11/12/18 03:17 - Vital Signs Vital signs: Temp Pulse Resp BP Pulse Ox 101.5 F H 32 H 94/55 L 96 11/12/18 01:00 11/12/18 04:16 11/12/18 04:16 11/12/18 04:16 - Laboratory Result Diagrams: 11/12/18 03:42 11/12/18 03:42 Laboratory results interpreted by me: 11/11/18 11/11/18 11/11/18 23:03 23:03 23:58 RBC 5.91 H Hgb 18.2 H Hct 55.4 H RDW 15.5 H Plt Count Seg Neutrophils % 85.1 H Lymphocytes % Monocytes % 1.5 L Sodium 136.3 L Potassium Carbon Dioxide 20 L BUN 37 H Creatinine 1.49 H Est GFR ( Amer) 59 L Est GFR (Non-Af Amer) 48 L Glucose 117 H Lactic Acid 2.4 H Calcium Total Bilirubin 1.4 H Direct Bilirubin 0.8 H ALT 153 H Total Protein 5.8 L Albumin 11/12/18 11/12/18 11/12/18 03:42 03:42 03:42 RBC 5.60 H Hgb 17.2 H Hct 51.9 H RDW 15.3 H Plt Count 138 L Seg Neutrophils % 85.6 H Lymphocytes % 12.1 L Monocytes % 1.8 L Sodium 133.9 L Potassium 3.4 L Carbon Dioxide 17 L BUN 39 H Creatinine 1.69 H Est GFR ( Amer) 51 L Est GFR (Non-Af Amer) 42 L Glucose 135 H Lactic Acid 3.7 H Calcium 7.6 L Total Bilirubin 1.9 H Direct Bilirubin 1.2 H ALT 106 H Total Protein 4.8 L Albumin 2.8 L - EKG Interpretation by Me Additional EKG results interpreted by me: 11/11/18 23:43 EKG is reviewed and interpreted by me. EKG shows sinus rhythm with a rate of [address] segment elevation or depression. No ischemic T wave inversions. [place] interval, QRS duration, QT intervals are within normal range. Old EKG for comparison is from June 22, 2015. Procedures - Central Line Right Internal jugular Consent obtained: Yes - verbal form patient and family Central line pre-insertion: Sterile PPE donned, Chloraprep applied, Sterile drapes applied Central line lumen type: Triple Anesthetic type: 1% Lidocaine mL's of anesthesia: 3 Ultrasound guided: Yes CM at insertion site: 15 Line secured with sutures: Yes Central line post-insertion: Blood return from lumens, Biopatch applied, Sutured, Position confirmed w/ CXR Critical Care Note - Critical Care Note Total time excluding time spent on procedures (mins): 45 Comments: Critical care time for the patient not including time spent in procedures approximately 45 minutes due to frequent re-evaluations, management of sepsis, management of hypotension, management of pressor therapy. Discharge - Discharge Clinical Impression: Colitis Sepsis Qualifiers: Sepsis type: sepsis due to unspecified organism Qualified Code(s): A41.9 - Sepsis, unspecified organism Condition: Serious Disposition: ADMITTED INPATIENT Admitting Provider: Jeramie (Hospitalist) Unit Admitted: ICU
[2018-11-12 00:24] LABS: VENOUS BLOOD BASE EXCESS -4.5 mmol/L; VENOUS BLOOD HCO3 21.4 mmol/L (20-32); VENOUS BLOOD PCO2 42.4 mmHg (35-63); VENOUS BLOOD PH 7.32 (7.30-7.42)
[2018-11-12 00:27] LABS: ABSOLUTE LYMPHOCYTES (AUTO) 0.8 10^3/uL (0.5-4.7); ABSOLUTE MONOCYTES (AUTO) 0.1 10^3/uL (0.1-1.4); BASOPHILS % (AUTO) 0.2 % (0-2); EOSINOPHILS % (AUTO) 0.1 % (0-6); HEMOGLOBIN 18.2 g/dL (13.5-17.0); LYMPHOCYTES % (AUTO) 13.1 % (13-45); MEAN CORPUSCULAR HEMOGLOBIN 30.7 pg (27.0-33.4); MEAN CORPUSCULAR HGB CONC 32.8 g/dL (32.0-36.0); MEAN CORPUSCULAR VOLUME 94 fl (80-97); MONOCYTES % (AUTO) 1.5 % (3-13); PLATELET COUNT 168 10^3/uL (150-450); RED BLOOD COUNT 5.91 10^6/uL (4.35-5.55); RED CELL DISTRIBUTION WIDTH 15.5 % (11.5-14.0); SEGMENTED NEUTROPHILS % (AUTO) 85.1 % (42-78); TOTAL CELLS COUNTED % (AUTO) 100 %; WHITE BLOOD COUNT 5.9 10^3/uL (4.0-10.5)
[2018-11-12 00:29] LABS: HEMATOCRIT 55.4 % (37.9-51.0)
[2018-11-12 00:32] LABS: INTERNATIONAL RATION (INR) 1.01; PROTHROMBIN TIME 13.8 SEC (11.4-15.4)
[2018-11-12 00:33] LABS: PARTIAL THROMBOPLASTIN TIME 24.5 SEC (23.5-35.8)
[2018-11-12 00:40] LABS: ALANINE AMINOTRANSFERASE 153 U/L (21-72); ALBUMIN 3.9 g/dL (3.5-5.0); ALKALINE PHOSPHATASE 111 U/L (38-126); ANION GAP 15 (5-19); ASPARTATE AMINO TRANSFERASE 41 U/L (17-59); BILIRUBIN,DIRECT 0.8 mg/dL (0.0-0.4); BILIRUBIN,TOTAL 1.4 mg/dL (0.2-1.3); BLOOD UREA NITROGEN 37 mg/dL (7-20); CALCIUM 8.7 mg/dL (8.4-10.2); CARBON DIOXIDE 20 mmol/L (22-30); CHLORIDE 101 mmol/L (98-107); GLUCOSE 117 mg/dL (75-110); LIPASE 79.9 U/L (23-300); POTASSIUM 3.7 mmol/L (3.6-5.0); SODIUM 136.3 mmol/L (137-145); TOTAL PROTEIN 5.8 g/dL (6.3-8.2)
--- NOTE | 2018-11-12 00:55 | RADIOLOGY REPORT (SQ) ---
EXAM DESCRIPTION: XR CHEST 1 VIEW COMPLETED DATE/TME: 11/11/2018 23:32 CLINICAL HISTORY: 58 years Male, fever COMPARISON: 07/18/16, 02/23/18 NUMBER OF VIEWS/TECHNIQUE: 1/AP FINDINGS: Moderate chronic patchy opacity of the left midlung field may indicate scar or fibrosis. Adequate lung volume, normal cardiac silhouette, and sternotomy. Cardiac/mediastinal hardware/clips. IMPRESSION: No acute cardiopulmonary findings. Chronic opacity of the left mid-lower lung field may indicate scar or fibrosis.
[2018-11-12] MEDS ORDERED: RINGERS SOLUTION,LACTATED 1,000 ML IV ONE (00:58)
[2018-11-12] MEDS ORDERED: PIPERACILLIN/TAZOBACTAM 4.5 GM VIAL IV ONE (01:33)
--- NOTE | 2018-11-12 01:59 | RADIOLOGY REPORT (SQ) ---
CT ABDOMEN PELVIS WITH IV CONTRAST EXAM DATE: 11/12/2018 12:00 AM CDT HISTORY: Fever, abdominal pain, and vomiting. COMPARISON: 10/11/2017 TECHNIQUE: CT scan of the abdomen and pelvis was performed with IV contrast. This exam was performed according to our departmental dose-optimization program, which includes automated exposure control, adjustment of the mA and/or kV according to patient size and/or use of iterative reconstruction technique. FINDINGS: The lung bases are clear. No pleural or pericardial effusions. There is no hiatal hernia. There has been a prior cholecystectomy. The liver, spleen, pancreas, adrenal glands, and kidneys are unremarkable. Simple cysts are present in both kidneys. The pelvic organs are unremarkable. There is diffuse wall thickening with mucosal hyperenhancement throughout the colon with loss of haustral markings distal to the hepatic flexure, consistent with diffuse colitis. There is marked submucosal fatty infiltration involving the ascending colon consistent with chronic colitis. There is also mild wall thickening throughout the small bowel which are prominent and fluid-filled. The appendix is normal. No intraperitoneal free fluid or free air is seen. Mild degenerative disc disease at L5-S1. The aorta and IVC are unremarkable. There is a fat-containing umbilical hernia without inflammatory changes or bowel loops in the hernia sac. IMPRESSION: Findings consistent with diffuse enterocolitis with a diarrheal illness. This may be infectious or inflammatory in etiology.
[2018-11-12] MEDS ORDERED: DEXTROSE 5%-WATER 250 ML with NOREPINEPHRINE BITARTRATE 4 MG IV PRN ×2 (02:12)
[2018-11-12] MEDS ORDERED: NOREPINEPHRINE BITARTRATE INJ/PF 4 MG/4 ML SDV IV ONE ×2 (02:21→07:01)
[2018-11-12] MEDS ORDERED: DOXYCYCLINE HYCLATE INJ 100 MG VIAL IV ONE (03:16)
[2018-11-12] MEDS ORDERED: ONDANSETRON HCL INJ/PF 4 MG/2 ML SDV IV PRN (03:25)
[2018-11-12] MEDS ORDERED: IPRATROPIUM/ALBUTEROL 0.5-2.5 MG/3 ML AMPUL NEB PRN (03:25)
--- NOTE | 2018-11-12 03:29 | RADIOLOGY REPORT (SQ) ---
CLINICAL HISTORY: CENTRAL LINE PLACEMENT COMPARISON: 11/12/2018. TECHNIQUE: XR CHEST 1 VIEW 11/12/2018 12:00 AM CDT FINDINGS: The heart is mildly enlarged following sternotomy. Lungs are clear without consolidation, atelectasis, mass or edema. There is no pleural effusion. There is no pneumothorax. There are no acute osseous findings. Right IJ central line tip is in the upper SVC. IMPRESSION: No pneumothorax following right IJ central line placement.
[2018-11-12] MEDS ORDERED: NORMAL SALINE 1000 ML 1,000 ML IV PRN (03:30)
[2018-11-12 03:53] LABS: ABSOLUTE LYMPHOCYTES (AUTO) 0.7 10^3/uL (0.5-4.7); ABSOLUTE MONOCYTES (AUTO) 0.1 10^3/uL (0.1-1.4); BASOPHILS % (AUTO) 0.4 % (0-2); EOSINOPHILS % (AUTO) 0.1 % (0-6); HEMATOCRIT 51.9 % (37.9-51.0); HEMOGLOBIN 17.2 g/dL (13.5-17.0); LYMPHOCYTES % (AUTO) 12.1 % (13-45); MEAN CORPUSCULAR HEMOGLOBIN 30.7 pg (27.0-33.4); MEAN CORPUSCULAR HGB CONC 33.1 g/dL (32.0-36.0); MEAN CORPUSCULAR VOLUME 93 fl (80-97); MONOCYTES % (AUTO) 1.8 % (3-13); PLATELET COUNT 138 10^3/uL (150-450); RED CELL DISTRIBUTION WIDTH 15.3 % (11.5-14.0); SEGMENTED NEUTROPHILS % (AUTO) 85.6 % (42-78); TOTAL CELLS COUNTED % (AUTO) 100 %; WHITE BLOOD COUNT 5.8 10^3/uL (4.0-10.5)
[2018-11-12] MEDS ORDERED: ATORVASTATIN CALCIUM 40 MG TABLET PO ONE (04:00)
[2018-11-12 04:10] LABS: ALANINE AMINOTRANSFERASE 106 U/L (21-72); ALBUMIN 2.8 g/dL (3.5-5.0); ALKALINE PHOSPHATASE 68 U/L (38-126); ANION GAP 14 (5-19); ASPARTATE AMINO TRANSFERASE 40 U/L (17-59); BILIRUBIN,DIRECT 1.2 mg/dL (0.0-0.4); BILIRUBIN,TOTAL 1.9 mg/dL (0.2-1.3); BLOOD UREA NITROGEN 39 mg/dL (7-20); CALCIUM 7.6 mg/dL (8.4-10.2); CARBON DIOXIDE 17 mmol/L (22-30); CHLORIDE 103 mmol/L (98-107); GLUCOSE 135 mg/dL (75-110); POTASSIUM 3.4 mmol/L (3.6-5.0); SODIUM 133.9 mmol/L (137-145); TOTAL PROTEIN 4.8 g/dL (6.3-8.2)
[2018-11-12] MEDS: ACETAMINOPHEN 325 MG TABLET PO PRN (04:49)
--- NOTE | 2018-11-12 06:45 | PDOC H&P ---
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 Patient presents with nausea vomiting abdominal pain 6 hours prior to presentation he is found with severe sepsis requiring central line placement 3 L of normal saline bolus, IV antibiotics and levofed. CT imaging reveals diffuse colitis with loss of haustra inflammatory versus infectious. 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 Past Medical History Cardiac Medical History: Denies: Hypertension - heart valve replacement. Pulmonary Medical History: Reports: Pneumonia Musculoskeltal Medical History: Reports: Arthritis Psychiatric Medical History: Reports: Depression Past Surgical History Past Surgical History: Reports: Cholecystectomy, Valve Replacement - bovine pericardial tissue aortic valve replacement February 2015 Social History Information Source: Patient, Relative, Emergency Med Personnel, [facility] Records Lives with: Family Smoking Status: Never Smoker Frequency of Alcohol Use: Occasional Hx Recreational Drug Use: No Drugs: None Hx Prescription Drug Abuse: No - Advance Directive Resuscitation Status: Full Code Family History Family History: CAD, CVA, DM, Hyperlipidemia, Hypertension, Malignancy, Other - Father is living in a halfway. At a 62 had a traumatic brain injury. He is not 82. Parental Family History Reviewed: Yes Children Family History Reviewed: Yes Sibling(s) Family History Reviewed.: Yes Medication/Allergy Home Medications: Aspirin [Aspirin 81 mg Chewable Tablet] 81 mg PO DAILY #90 tab 09/30/13 Fluoxetine HCl [Prozac 20 mg Capsule] 20 mg PO DAILY 09/10/14 Atorvastatin Calcium 40 mg PO DAILY 06/23/15 Mv-Mins/Folic/Lycopene/Ginkgo [One Daily For Men 50+ Adv Tab] 1 each PO DAILY 06/23/15 Desloratadine [Clarinex] 5 mg PO DAILY 10/11/17 Metoprolol Succinate [Toprol Xl 25 mg Tab.sr] 25 mg PO DAILY 10/11/17 Metronidazole [Flagyl 500 mg Tablet] 500 mg PO Q8 #42 tablet 10/11/17 Oxycodone HCl/Acetaminophen [Percocet 5-325 mg Tablet] 1 - 2 tab PO ASDIR PRN #20 tablet 02/23/18 Cephalexin [Cephalexin 500 MG Tablet] 500 mg PO QID #28 tablet 03/19/18 Sulfamethoxazole/Trimethoprim [Bactrim Ds Tablet] 1 tab PO BID #14 tablet 03/19/18 Ondansetron [Zofran Odt 4 mg Tablet] 1 tab PO Q8H PRN #15 tab.rapdis 09/05/18 Allergies/Adverse Reactions: doxycycline Allergy (Verified 02/23/18 06:16) levofloxacin [From Levaquin] Allergy (Verified 02/23/18 06:16) Review of Systems ROS unobtainable: Due to mental status Physical Exam Vital Signs: Temp Pulse Resp BP Pulse Ox 100.8 F H 106 H 30 H 97/32 L 95 11/12/18 05:15 11/12/18 05:15 11/12/18 06:00 11/12/18 05:48 11/12/18 06:00 Intake & Output 11/10/18 11/11/18 11/12/18 11:59 11:59 11:59 Intake Total 2037 Balance 2037 Weight 75.1 kg General appearance: PRESENT: disheveled, severe distress, well-developed, well-nourished. ABSENT: cooperative Head exam: PRESENT: atraumatic, normocephalic Eye exam: PRESENT: conjunctiva pink, EOMI, PERRLA. ABSENT: scleral icterus Ear exam: PRESENT: normal external ear exam Mouth exam: PRESENT: dry mucosa, tongue midline Neck exam: ABSENT: carotid bruit, JVD, lymphadenopathy, thyromegaly Respiratory exam: PRESENT: clear to auscultation trevin, tachypnea. ABSENT: rales, rhonchi, wheezes Cardiovascular exam: PRESENT: gallop, +S1, +S2, systolic murmur, tachycardia Pulses: PRESENT: normal dorsalis pedis pul Vascular exam: PRESENT: normal capillary refill GI/Abdominal exam: PRESENT: diminished bowel sounds, distended, firm, tende rness. ABSENT: guarding Rectal exam: PRESENT: deferred Extremities exam: PRESENT: full ROM. ABSENT: calf tenderness, clubbing, pedal edema Neurological exam: PRESENT: altered, awake, oriented to person, oriented to place, oriented to time, oriented to situation, CN II-XII grossly intact. ABSENT: motor sensory deficit Psychiatric exam: PRESENT: appropriate affect, normal mood. ABSENT: homicidal ideation, suicidal ideation Skin exam: PRESENT: dry, intact, warm. ABSENT: cyanosis, rash Results Laboratory Results: 11/12/18 03:42 11/12/18 03:42 11/11/18 11/11/18 11/11/18 23:03 23:03 23:58 WBC 5.9 RBC 5.91 H Hgb 18.2 H Hct 55.4 H MCV 94 MCH 30.7 MCHC 32.8 RDW 15.5 H Plt Count 168 Seg Neutrophils % 85.1 H Lymphocytes % 13.1 Monocytes % 1.5 L Eosinophils % 0.1 Basophils % 0.2 Absolute Neutrophils 5.0 Absolute Lymphocytes 0.8 Absolute Monocytes 0.1 Absolute Eosinophils 0.0 Absolute Basophils 0.0 VBG pH VBG pCO2 VBG HCO3 VBG Base Excess Sodium 136.3 L Potassium 3.7 Chloride 101 Carbon Dioxide 20 L Anion Gap 15 BUN 37 H Creatinine 1.49 H Est GFR ( Amer) 59 L Est GFR (Non-Af Amer) 48 L Glucose 117 H Lactic Acid 2.4 H Calcium 8.7 Total Bilirubin 1.4 H AST 41 ALT 153 H Alkaline Phosphatase 111 Total Protein 5.8 L Albumin 3.9 Lipase 79.9 11/11/18 11/12/18 11/12/18 23:58 03:42 03:42 WBC 5.8 RBC 5.60 H Hgb 17.2 H Hct 51.9 H MCV 93 MCH 30.7 MCHC 33.1 RDW 15.3 H Plt Count 138 L Seg Neutrophils % 85.6 H Lymphocytes % 12.1 L Monocytes % 1.8 L Eosinophils % 0.1 Basophils % 0.4 Absolute Neutrophils 5.0 Absolute Lymphocytes 0.7 Absolute Monocytes 0.1 Absolute Eosinophils 0.0 Absolute Basophils 0.0 VBG pH 7.32 VBG pCO2 42.4 VBG HCO3 21.4 VBG Base Excess -4.5 Sodium Potassium Chloride Carbon Dioxide Anion Gap BUN Creatinine Est GFR ( Amer) Est GFR (Non-Af Amer) Glucose Lactic Acid 3.7 H Calcium Total Bilirubin AST ALT Alkaline Phosphatase Total Protein Albumin Lipase 11/12/18 03:42 WBC RBC Hgb Hct MCV MCH MCHC RDW Plt Count Seg Neutrophils % Lymphocytes % Monocytes % Eosinophils % Basophils % Absolute Neutrophils Absolute Lymphocytes Absolute Monocytes Absolute Eosinophils Absolute Basophils VBG pH VBG pCO2 VBG HCO3 VBG Base Excess Sodium 133.9 L Potassium 3.4 L Chloride 103 Carbon Dioxide 17 L Anion Gap 14 BUN 39 H Creatinine 1.69 H Est GFR ( Amer) 51 L Est GFR (Non-Af Amer) 42 L Glucose 135 H Lactic Acid Calcium 7.6 L Total Bilirubin 1.9 H AST 40 ALT 106 H Alkaline Phosphatase 68 Total Protein 4.8 L Albumin 2.8 L Lipase Impressions: Abdomen/Pelvis CT 11/12/18 00:00 IMPRESSION: Findings consistent with diffuse enterocolitis with a diarrheal illness. This may be infectious or inflammatory in etiology. Chest X-Ray 11/12/18 00:00 IMPRESSION: No pneumothorax following right IJ central line placement. Assessment and Plan - Diagnosis (1) Colitis Is this a current diagnosis for this admission?: Yes Plan: Inflammatory, infectious versus ischemic, antibiotics for coverage of vibrio given occupation risk. Surgical consult given loss of haustra and rising lactic acid. Follow-up stool culture, C. difficile PCR, stool studies, CBC and blood culture (2) Severe sepsis Is this a current diagnosis for this admission?: Yes Plan: IV fluid challenge, empiric antibiotics, levofed, follow-up cortisol level given recent steroids (3) Hypotension Is this a current diagnosis for this admission?: Yes Plan: Secondary to severe colitis, IV fluid challenge and pressors initiated - Time Time Spent with patient: 35 or more minutes - Inpatient Certification Medical Necessity: Need Close Monitoring Due to Risk of Patient Decompensation
[2018-11-12] MEDS: HEPARIN SOD (PORCINE) 5,000 UNIT/ML 1 ML SYRINGE SUBCUT SCH ×3 (07:49→21:08)
--- NOTE | 2018-11-12 07:54 | EKG REPORT ---
SEVERITY:- ABNORMAL ECG - SINUS RHYTHM LEFT ATRIAL ABNORMALITY BORDERLINE INFERIOR Q WAVES NONSPECIFIC T ABNORMALITIES, LATERAL LEADS : Confirmed by: Aaliyah Jimenez MD 12-Nov-2018 07:53:19
[2018-11-12] MEDS: DEXTROSE 5%-WATER 250 ML with NOREPINEPHRINE BITARTRATE 4 MG IV PRN ×6 (07:56→20:22)
[2018-11-12] MEDS: POTASSI CL 20 MEQ/50 ML RIDER 20 MEQ/50 ML RTUPB IV SCH ×2 (07:57→09:47)
[2018-11-12] MEDS ORDERED: NORMAL SALINE 1000 ML 2,000 ML IV ONE ×2 (08:15→12:34)
--- NOTE | 2018-11-12 08:20 | PDOC CONSULTATION ---
Consultation Consult Date: 11/12/18 Provider Consulted: BHAVIN BEVERLY Consult reason:: colitis with sepsis,hypotension History of Present Illness Admission Date/PCP: 11/12/18 03:43 SAMI CHO MD Patient complains of: abdominal pains,nausea and vomiting History of Present Illness: BLU JIMENES JR is a 58 year old male poat aortic valve bovine replacement andt treated with steroids for auto immune (ulcerative) colotis past 2 weeks suddenly c/o abdominal pains, nausea and vomiting. Seen at ED with severe sepsis with hypotension. CT scan abd/pelvis showed colitis.Lactic acid noted to be increasing despite at least 2 liters of saline. Seen in the unit tachycardic with hypotension on Levophed denying any abdominal pains and very thirsty. 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 Pulmonary Medical History: Reports: Pneumonia Musculoskeltal Medical History: Reports: Arthritis Psychiatric Medical History: Reports: Depression Past Surgical History Past Surgical History: Reports: Cholecystectomy, Valve Replacement - bovine pericardial tissue aortic valve replacement February 2015 Social History Lives with: Family Smoking Status: Never Smoker Frequency of Alcohol Use: Occasional Hx Recreational Drug Use: No Drugs: None Hx Prescription Drug Abuse: No - Advance Directive Resuscitation Status: Full Code Family History Family History: CAD, CVA, DM, Hyperlipidemia, Hypertension, Malignancy, Other - Father is living in a shelter. At a 62 had a traumatic brain injury. He is not 82. Parental Family History Reviewed: Yes Children Family History Reviewed: No Sibling(s) Family History Reviewed.: No Medication/Allergy Allergies/Adverse Reactions: doxycycline Allergy (Verified 02/23/18 06:16) levofloxacin [From Levaquin] Allergy (Verified 02/23/18 06:16) Review of Systems Constitutional: PRESENT: as per HPI Gastrointestinal: PRESENT: abdominal pain, nausea, vomiting Physical Exam Vital Signs: Temp Pulse Resp BP Pulse Ox 100.8 F H 106 H 30 H 97/32 L 95 11/12/18 05:15 11/12/18 05:15 11/12/18 06:00 11/12/18 05:48 11/12/18 06:00 Intake & Output 11/11/18 11/12/18 11/13/18 06:59 06:59 06:59 Intake Total 2037 Balance 2037 Weight 75.1 kg General appearance: PRESENT: severe distress Eye exam: PRESENT: conjunctiva pink Mouth exam: PRESENT: dry mucosa Neck exam: PRESENT: full ROM Respiratory exam: PRESENT: clear to auscultation trevin Cardiovascular exam: PRESENT: tachycardia Pulses: PRESENT: normal radial pulses GI/Abdominal exam: PRESENT: distended, soft, tenderness - denies on examination. But he is on steroids which may mask pains Rectal exam: PRESENT: deferred Extremities exam: PRESENT: full ROM Musculoskeletal exam: PRESENT: full ROM Neurological exam: PRESENT: alert, oriented to person, oriented to place, oriented to time, oriented to situation Psychiatric exam: PRESENT: anxious Skin exam: PRESENT: normal color, warm Results Laboratory Results: 11/12/18 03:42 11/12/18 03:42 11/11/18 11/11/18 11/11/18 23:03 23:03 23:58 WBC 5.9 RBC 5.91 H Hgb 18.2 H Hct 55.4 H MCV 94 MCH 30.7 MCHC 32.8 RDW 15.5 H Plt Count 168 Seg Neutrophils % 85.1 H Lymphocytes % 13.1 Monocytes % 1.5 L Eosinophils % 0.1 Basophils % 0.2 Absolute Neutrophils 5.0 Absolute Lymphocytes 0.8 Absolute Monocytes 0.1 Absolute Eosinophils 0.0 Absolute Basophils 0.0 VBG pH VBG pCO2 VBG HCO3 VBG Base Excess Sodium 136.3 L Potassium 3.7 Chloride 101 Carbon Dioxide 20 L Anion Gap 15 BUN 37 H Creatinine 1.49 H Est GFR ( Amer) 59 L Est GFR (Non-Af Amer) 48 L Glucose 117 H Lactic Acid 2.4 H Calcium 8.7 Total Bilirubin 1.4 H AST 41 ALT 153 H Alkaline Phosphatase 111 Total Protein 5.8 L Albumin 3.9 Lipase 79.9 11/11/18 11/12/18 11/12/18 23:58 03:42 03:42 WBC 5.8 RBC 5.60 H Hgb 17.2 H Hct 51.9 H MCV 93 MCH 30.7 MCHC 33.1 RDW 15.3 H Plt Count 138 L Seg Neutrophils % 85.6 H Lymphocytes % 12.1 L Monocytes % 1.8 L Eosinophils % 0.1 Basophils % 0.4 Absolute Neutrophils 5.0 Absolute Lymphocytes 0.7 Absolute Monocytes 0.1 Absolute Eosinophils 0.0 Absolute Basophils 0.0 VBG pH 7.32 VBG pCO2 42.4 VBG HCO3 21.4 VBG Base Excess -4.5 Sodium Potassium Chloride Carbon Dioxide Anion Gap BUN Creatinine Est GFR ( Amer) Est GFR (Non-Af Amer) Glucose Lactic Acid 3.7 H Calcium Total Bilirubin AST ALT Alkaline Phosphatase Total Protein Albumin Lipase 11/12/18 03:42 WBC RBC Hgb Hct MCV MCH MCHC RDW Plt Count Seg Neutrophils % Lymphocytes % Monocytes % Eosinophils % Basophils % Absolute Neutrophils Absolute Lymphocytes Absolute Monocytes Absolute Eosinophils Absolute Basophils VBG pH VBG pCO2 VBG HCO3 VBG Base Excess Sodium 133.9 L Potassium 3.4 L Chloride 103 Carbon Dioxide 17 L Anion Gap 14 BUN 39 H Creatinine 1.69 H Est GFR ( Amer) 51 L Est GFR (Non-Af Amer) 42 L Glucose 135 H Lactic Acid Calcium 7.6 L Total Bilirubin 1.9 H AST 40 ALT 106 H Alkaline Phosphatase 68 Total Protein 4.8 L Albumin 2.8 L Lipase Impressions: Abdomen/Pelvis CT 11/12/18 00:00 IMPRESSION: Findings consistent with diffuse enterocolitis with a diarrheal illness. This may be infectious or inflammatory in etiology. Chest X-Ray 11/12/18 00:00 IMPRESSION: No pneumothorax following right IJ central line placement. Assessment & Plan - Diagnosis (1) Colitis Is this a current diagnosis for this admission?: Yes (2) Hypotension Is this a current diagnosis for this admission?: Yes (3) Severe sepsis Is this a current diagnosis for this admission?: Yes (4) Aortic valve prosthesis present Is this a current diagnosis for this admission?: No - Time Time Spent: 30 to 50 Minutes - Inpatient Certification Medical Necessity: Need Close Monitoring Due to Risk of Patient Decompensation, Need For IV Fluids, Need for IV Antibiotics, Risk of Complication if Not Cared For in Hospital - Plan Summary Plan Summary: D/W Dr Davis who is the incoming surgeon. He will place him on IV steroids while being resuscitated then taper when stabilized. Also ordered more fluids Will follow closely
[2018-11-12] MEDS ORDERED: DEXTROSE 5%-WATER 250 ML with VASOPRESSIN 100 UNIT IV PRN ×2 (09:09)
[2018-11-12] MEDS ORDERED: POTASSI CL 20 MEQ/50 ML RIDER 20 MEQ/50 ML RTUPB IV SCH (09:15)
[2018-11-12] MEDS ORDERED: VASOPRESSIN INJ 20 UNIT/1 ML VIAL ONE (09:20)
[2018-11-12] MEDS: HYDROCORTISONE SOD SUCCINATE INJ/PF 100 MG/2 ML SDV IV SCH ×3 (10:16→22:12)
[2018-11-12] MEDS: FLUOXETINE HCL 20 MG CAPSULE PO SCH (10:18)
[2018-11-12] MEDS: ASPIRIN 81 MG TABLET, CHEWABLE PO SCH (10:18)
[2018-11-12 11:11] LABS: ARTERIAL BLOOD BASE EXCESS -12.4 mmol/L; ARTERIAL BLOOD H2CO3 0.61 mmol/L (1.05-1.35); ARTERIAL BLOOD HCO3 10.7 mmol/L (20-24); ARTERIAL BLOOD O2 SATURATION 98.8 % (94-98); ARTERIAL BLOOD PH 7.34 (7.35-7.45); ARTERIAL BLOOD PO2 142.6 mmHg (80-100); ARTERIAL BLOOD TOTAL CO2 11.3 mmol/L (23-27)
[2018-11-12 11:19] LABS: ARTERIAL BLOOD FIO2 3L
[2018-11-12 11:21] LABS: ARTERIAL BLOOD PCO2 20.2 mmHg (35-45)
[2018-11-12] MEDS ORDERED: DEXTROSE 5%-WATER 250 ML with PHENYLEPHRINE HCL 40 MG IV PRN ×2 (11:24)
[2018-11-12 11:31] LABS: APPEARANCE,URINE SLIGHTLY-CLOUDY; BILIRUBIN,URINE NEGATIVE (NEGATIVE); COLOR,URINE AMBER; GLUCOSE, URINE NEGATIVE (NEGATIVE); KETONES,URINE NEGATIVE (NEGATIVE); LEUKOCYTE ESTERASE,URINE NEGATIVE (NEGATIVE); NITRITE,URINE NEGATIVE (NEGATIVE); PROTEIN,URINE 30 mg/dL (NEGATIVE); URINE SPECIFIC GRAVITY 1.051; UROBILINOGEN,URINE NEGATIVE mg/dL (<2.0)
--- NOTE | 2018-11-12 11:56 | RADIOLOGY REPORT (SQ) ---
EXAM DESCRIPTION: CHEST SINGLE VIEW COMPLETED DATE/TIME: 11/12/2018 11:39 am REASON FOR STUDY: SOB COMPARISON: Earlier same day. NUMBER OF VIEWS: One view. TECHNIQUE: Single frontal radiographic image of the chest acquired. LIMITATIONS: None. FINDINGS: LUNGS AND PLEURA: Increasing airspace opacities in both lungs. MEDIASTINUM AND HEART: Stable heart size and mediastinal structures. SUPPORT DEVICES: Appropriate location without change. BONY STRUCTURES: No acute findings. HARDWARE: None. OTHER: No other significant finding. IMPRESSION: Rehydration versus worsening edema or sepsis. No pneumothorax. Reading location - IP/workstation name: [email or web address]
[2018-11-12] MEDS ORDERED: SODIUM BICARBONATE 8.4% INJ 50 MEQ/50 ML DISP.SYRIN IV ONE ×2 (12:30→17:30)
--- NOTE | 2018-11-12 12:34 | Progress Note ---
Provider Note Provider Note: Lactate slightly improved after fluid administration. CVP now 5-6. UOP marginal. Repeat fluid bolus of 2 liters. Cont with resuscitation. 2 amps bicarbonate for metabolic acidosis. Wean pressors if possible. Still severely septic. If pt does not adequately improve with medical measures, he may require total abdominal colectomy. This has been discussed with the patient.
[2018-11-12] MEDS ORDERED: SODIUM BICARBONATE 4.2% INJ (2.5 MEQ/5 ML) VIAL INJ ONE (12:37)
[2018-11-12] MEDS: PIPERACILLIN SODIUM/TAZOBACTAM 3.375 GM in NORMAL SALINE 100 ML IV SCH ×3 (13:43→23:36)
[2018-11-12] MEDS: NORMAL SALINE 1000 ML 1,000 ML IV PRN ×2 (15:30→22:11)
[2018-11-12 16:17] LABS: ALANINE AMINOTRANSFERASE 82 U/L (21-72); ALKALINE PHOSPHATASE 44 U/L (38-126); ANION GAP 13 (5-19); ASPARTATE AMINO TRANSFERASE 33 U/L (17-59); BILIRUBIN,DIRECT 1.2 mg/dL (0.0-0.4); BILIRUBIN,TOTAL 1.6 mg/dL (0.2-1.3); BLOOD UREA NITROGEN 36 mg/dL (7-20); CARBON DIOXIDE 13 mmol/L (22-30); CHLORIDE 109 mmol/L (98-107); GLUCOSE 144 mg/dL (75-110); SODIUM 134.7 mmol/L (137-145); TOTAL PROTEIN 3.5 g/dL (6.3-8.2)
[2018-11-12 16:37] LABS: ANION GAP 11 (5-19); BLOOD UREA NITROGEN 37 mg/dL (7-20); CARBON DIOXIDE 14 mmol/L (22-30); CHLORIDE 109 mmol/L (98-107); GLUCOSE 135 mg/dL (75-110); SODIUM 134.1 mmol/L (137-145)
[2018-11-12] MEDS ORDERED: CALCIUM GLUCONATE 1000 MG/10 ML INJ IV ONE (16:54)
[2018-11-12] MEDS ORDERED: CALCIUM GLUCONATE 2,000 MG in DEXTROSE 5%-WATER 100 ML IV ONE (18:00)
--- NOTE | 2018-11-12 18:12 | PDOC PROGRESS REPORT ---
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 He was noted to have diffuse colitis on CT of the abdomen. He was also noted to be tachycardic and slightly hypotensive. He received an initial 3 L of normal saline bolus in the ER and was started on levophed. Upon encounter in the ICU, patient is currently getting his seventh liter of fluid. He remains hypotensive on Levophed. Vasopressin will be added. Start IV Zosyn. Surgery is considering possible total colectomy. Reason For Visit: SEVERE SEPSIS,COLITIS Physical Exam Vital Signs: Temp Pulse Resp BP Pulse Ox 99.9 F 100 33 H 83/53 L 98 11/12/18 08:00 11/12/18 10:00 11/12/18 10:00 11/12/18 10:00 11/12/18 10:00 Intake & Output 11/11/18 11/12/18 11/13/18 06:59 06:59 06:59 Intake Total 2038 Output Total 350 Balance 2038 -350 Weight 165 lb 9.074 oz General appearance: PRESENT: mild distress, well-developed Head exam: PRESENT: atraumatic, normocephalic Eye exam: PRESENT: conjunctiva pink, EOMI, PERRLA. ABSENT: scleral icterus Ear exam: PRESENT: normal external ear exam Mouth exam: PRESENT: moist, tongue midline Neck exam: ABSENT: carotid bruit, JVD, lymphadenopathy, thyromegaly Respiratory exam: PRESENT: clear to auscultation trevin. ABSENT: rales, rhonchi, wheezes Cardiovascular exam: PRESENT: RRR. ABSENT: diastolic murmur, rubs, systolic murmur Pulses: PRESENT: normal dorsalis pedis pul GI/Abdominal exam: PRESENT: normal bowel sounds, soft, tenderness - Mild generalized direct tenderness, negative rebound tenderness. ABSENT: guarding, mass, organolmegaly, rebound Rectal exam: PRESENT: deferred Extremities exam: PRESENT: full ROM. ABSENT: calf tenderness, clubbing, pedal edema Neurological exam: PRESENT: alert, awake, oriented to person, oriented to place, oriented to time, oriented to situation, CN II-XII grossly intact. ABSENT: motor sensory deficit Results Laboratory Results: 11/12/18 03:42 11/12/18 03:42 11/11/18 11/11/18 11/11/18 23:03 23:03 23:58 WBC 5.9 RBC 5.91 H Hgb 18.2 H Hct 55.4 H MCV 94 MCH 30.7 MCHC 32.8 RDW 15.5 H Plt Count 168 Seg Neutrophils % 85.1 H Lymphocytes % 13.1 Monocytes % 1.5 L Eosinophils % 0.1 Basophils % 0.2 Absolute Neutrophils 5.0 Absolute Lymphocytes 0.8 Absolute Monocytes 0.1 Absolute Eosinophils 0.0 Absolute Basophils 0.0 Carbonic Acid HCO3/H2CO3 Ratio ABG pH ABG pCO2 ABG pO2 ABG HCO3 ABG O2 Saturation ABG Base Excess VBG pH VBG pCO2 VBG HCO3 VBG Base Excess FiO2 Sodium 136.3 L Potassium 3.7 Chloride 101 Carbon Dioxide 20 L Anion Gap 15 BUN 37 H Creatinine 1.49 H Est GFR ( Amer) 59 L Est GFR (Non-Af Amer) 48 L Glucose 117 H Lactic Acid 2.4 H Calcium 8.7 Total Bilirubin 1.4 H AST 41 ALT 153 H Alkaline Phosphatase 111 Total Protein 5.8 L Albumin 3.9 Lipase 79.9 Urine Color Urine Appearance Urine pH Ur Specific [facility] Urine Protein Urine Glucose (UA) Urine Ketones Urine Blood Urine Nitrite Ur Leukocyte Esterase Urine WBC (Auto) Urine RBC (Auto) 11/11/18 11/12/18 11/12/18 23:58 03:42 03:42 WBC 5.8 RBC 5.60 H Hgb 17.2 H Hct 51.9 H MCV 93 MCH 30.7 MCHC 33.1 RDW 15.3 H Plt Count 138 L Seg Neutrophils % 85.6 H Lymphocytes % 12.1 L Monocytes % 1.8 L Eosinophils % 0.1 Basophils % 0.4 Absolute Neutrophils 5.0 Absolute Lymphocytes 0.7 Absolute Monocytes 0.1 Absolute Eosinophils 0.0 Absolute Basophils 0.0 Carbonic Acid HCO3/H2CO3 Ratio ABG pH ABG pCO2 ABG pO2 ABG HCO3 ABG O2 Saturation ABG Base Excess VBG pH 7.32 VBG pCO2 42.4 VBG HCO3 21.4 VBG Base Excess -4.5 FiO2 Sodium Potassium Chloride Carbon Dioxide Anion Gap BUN Creatinine Est GFR ( Amer) Est GFR (Non-Af Amer) Glucose Lactic Acid 3.7 H Calcium Total Bilirubin AST ALT Alkaline Phosphatase Total Protein Albumin Lipase Urine Color Urine Appearance Urine pH Ur Specific [facility] Urine Protein Urine Glucose (UA) Urine Ketones Urine Blood Urine Nitrite Ur Leukocyte Esterase Urine WBC (Auto) Urine RBC (Auto) 11/12/18 11/12/18 11/12/18 03:42 10:44 10:44 WBC RBC Hgb Hct MCV MCH MCHC RDW Plt Count Seg Neutrophils % Lymphocytes % Monocytes % Eosinophils % Basophils % Absolute Neutrophils Absolute Lymphocytes Absolute Monocytes Absolute Eosinophils Absolute Basophils Carbonic Acid HCO3/H2CO3 Ratio ABG pH ABG pCO2 ABG pO2 ABG HCO3 ABG O2 Saturation ABG Base Excess VBG pH VBG pCO2 VBG HCO3 VBG Base Excess FiO2 Sodium 133.9 L Potassium 3.4 L Chloride 103 Carbon Dioxide 17 L Anion Gap 14 BUN 39 H Creatinine 1.69 H Est GFR ( Amer) 51 L Est GFR (Non-Af Amer) 42 L Glucose 135 H Lactic Acid 3.1 H Calcium 7.6 L Total Bilirubin 1.9 H AST 40 ALT 106 H Alkaline Phosphatase 68 Total Protein 4.8 L Albumin 2.8 L Lipase Urine Color CAROL Urine Appearance SLIGHTLY-CLOUDY Urine pH 5.0 Ur Specific [facility] 1.051 Urine Protein 30 H Urine Glucose (UA) NEGATIVE Urine Ketones NEGATIVE Urine Blood SMALL H Urine Nitrite NEGATIVE Ur Leukocyte Esterase NEGATIVE Urine WBC (Auto) 2 Urine RBC (Auto) 4 11/12/18 10:44 WBC RBC Hgb Hct MCV MCH MCHC RDW Plt Count Seg Neutrophils % Lymphocytes % Monocytes % Eosinophils % Basophils % Absolute Neutrophils Absolute Lymphocytes Absolute Monocytes Absolute Eosinophils Absolute Basophils Carbonic Acid 0.61 L HCO3/H2CO3 Ratio 17:1 ABG pH 7.34 L ABG pCO2 20.2 L* ABG pO2 142.6 H ABG HCO3 10.7 L ABG O2 Saturation 98.8 H ABG Base Excess -12.4 VBG pH VBG pCO2 VBG HCO3 VBG Base Excess FiO2 3L Sodium Potassium Chloride Carbon Dioxide Anion Gap BUN Creatinine Est GFR ( Amer) Est GFR (Non-Af Amer) Glucose Lactic Acid Calcium Total Bilirubin AST ALT Alkaline Phosphatase Total Protein Albumin Lipase Urine Color Urine Appearance Urine pH Ur Specific [facility] Urine Protein Urine Glucose (UA) Urine Ketones Urine Blood Urine Nitrite Ur Leukocyte Esterase Urine WBC (Auto) Urine RBC (Auto) Impressions: Abdomen/Pelvis CT 11/12/18 00:00 IMPRESSION: Findings consistent with diffuse enterocolitis with a diarrheal illness. This may be infectious or inflammatory in etiology. Assessment and Plan - Diagnosis (1) Septic shock Is this a current diagnosis for this admission?: Yes Plan: Currently on levophed. Add vasopressin. On hydrocortisone. Start IV Zosyn. (2) Colitis Is this a current diagnosis for this admission?: Yes Plan: Surgery considering possible total colectomy. (3) Lactic acidosis Is this a current diagnosis for this admission?: Yes Plan: Slightly improved down to 3.1. Continue IV fluids. Will continue to trend lactic acid. - Time Time Spent with patient: 25-34 minutes
[2018-11-12] MEDS ORDERED: NORMAL SALINE 1000 ML 1,000 ML IV ONE (20:00)
[2018-11-12] MEDS ORDERED: KETOROLAC TROMETHAMINE INJ/PF 30 MG/1 ML SDV ONE (20:14)
[2018-11-12] MEDS ORDERED: KETOROLAC TROMETHAMINE INJ/PF 30 MG/1 ML SDV IV ONE (20:30)
[2018-11-12] MEDS: ATORVASTATIN CALCIUM 40 MG TABLET PO SCH (21:08)
[2018-11-13 04:17] LABS: HEMATOCRIT 43.9 % (37.9-51.0); MEAN CORPUSCULAR HEMOGLOBIN 30.5 pg (27.0-33.4); MEAN CORPUSCULAR HGB CONC 33.3 g/dL (32.0-36.0); MEAN CORPUSCULAR VOLUME 92 fl (80-97); RED BLOOD COUNT 4.78 10^6/uL (4.35-5.55); RED CELL DISTRIBUTION WIDTH 15.4 % (11.5-14.0)
[2018-11-13 04:23] LABS: HEMOGLOBIN 14.6 g/dL (13.5-17.0); WHITE BLOOD COUNT 16.5 10^3/uL (4.0-10.5)
[2018-11-13 04:30] LABS: ALANINE AMINOTRANSFERASE 88 U/L (21-72); ALBUMIN 1.9 g/dL (3.5-5.0); ALKALINE PHOSPHATASE 37 U/L (38-126); ANION GAP 10 (5-19); ASPARTATE AMINO TRANSFERASE 48 U/L (17-59); BILIRUBIN,DIRECT 1.2 mg/dL (0.0-0.4); BILIRUBIN,TOTAL 1.6 mg/dL (0.2-1.3); BLOOD UREA NITROGEN 33 mg/dL (7-20); CARBON DIOXIDE 18 mmol/L (22-30); CHLORIDE 110 mmol/L (98-107); GLUCOSE 139 mg/dL (75-110); POTASSIUM 3.6 mmol/L (3.6-5.0); SODIUM 138.1 mmol/L (137-145); TOTAL PROTEIN 3.4 g/dL (6.3-8.2)
[2018-11-13 04:58] LABS: ABSOLUTE LYMPHOCYTES# (MANUAL) 0.8 10^3/uL (0.5-4.7); BAND NEUTROPHILS % (MANUAL) 8 % (3-5); BASOPHILS % (MANUAL) 0 % (0-2); EOSINOPHILS % (MANUAL) 0 % (0-6); LYMPHOCYTES % (MANUAL) 5 % (13-45); METAMYELOCYTES % (MANUAL) 2 % (0); MONOCYTES % (MANUAL) 12 % (3-13); SEGMENTED NEUTROPHILS % (MAN) 73 % (42-78); TOTAL CELLS COUNTED 100
[2018-11-13] MEDS ORDERED: CALCIUM GLUCONATE 1,000 MG in DEXTROSE 5%-WATER 50 ML IV ONE (05:00)
[2018-11-13 05:08] LABS: PLATELET COMMENT DECREASED
[2018-11-13] MEDS ORDERED: CALCIUM GLUCONATE 1000 MG/10 ML INJ IV ONE (05:21)
[2018-11-13] MEDS: NORMAL SALINE 1000 ML 1,000 ML IV PRN ×3 (05:32→21:32)
[2018-11-13] MEDS: HYDROCORTISONE SOD SUCCINATE INJ/PF 100 MG/2 ML SDV IV SCH ×3 (05:32→21:32)
[2018-11-13] MEDS: DEXTROSE 5%-WATER 250 ML with NOREPINEPHRINE BITARTRATE 4 MG IV PRN ×4 (05:33→16:52)
[2018-11-13] MEDS: HEPARIN SOD (PORCINE) 5,000 UNIT/ML 1 ML SYRINGE SUBCUT SCH ×3 (05:34→21:26)
[2018-11-13] MEDS: PIPERACILLIN SODIUM/TAZOBACTAM 3.375 GM in NORMAL SALINE 100 ML IV SCH ×4 (05:44→23:07)
[2018-11-13 07:05] LABS: PLATELET COUNT 88 10^3/uL (150-450)
[2018-11-13] MEDS: ACETAMINOPHEN 325 MG TABLET PO PRN ×2 (09:21→17:44)
[2018-11-13] MEDS: ASPIRIN 81 MG TABLET, CHEWABLE PO SCH (09:22)
[2018-11-13] MEDS: FLUOXETINE HCL 20 MG CAPSULE PO SCH (09:22)
--- NOTE | 2018-11-13 09:52 | PDOC PROGRESS REPORT ---
Subjective Progress Note for:: 11/13/18 Subjective:: Feeling much better this am. Denies abdominal pains though on steroids. Rectal tube in place Still thirsty Reason For Visit: SEVERE SEPSIS,COLITIS Physical Exam Vital Signs: Temp Pulse Resp BP Pulse Ox 100.2 F 88 29 H 101/72 98 11/13/18 08:00 11/13/18 09:00 11/13/18 08:00 11/13/18 09:00 11/13/18 08:00 Intake & Output 11/12/18 11/13/18 11/14/18 06:59 06:59 06:59 Intake Total 8 8362 Output Total 3355 300 Balance 2037 5007 -300 Weight 75.1 kg 79.4 kg Exam: abd less distended soft non tender Levophed being tapered Results Laboratory Results: 11/13/18 03:49 11/13/18 03:49 11/12/18 11/12/18 11/12/18 10:44 10:44 10:44 WBC RBC Hgb Hct MCV MCH MCHC RDW Plt Count Seg Neutrophils % Lymphocytes % Monocytes % Eosinophils % Basophils % Absolute Neutrophils Absolute Lymphocytes Absolute Monocytes Absolute Eosinophils Absolute Basophils Carbonic Acid 0.61 L HCO3/H2CO3 Ratio 17:1 ABG pH 7.34 L ABG pCO2 20.2 L* ABG pO2 142.6 H ABG HCO3 10.7 L ABG O2 Saturation 98.8 H ABG Base Excess -12.4 FiO2 3L Sodium Potassium Chloride Carbon Dioxide Anion Gap BUN Creatinine Est GFR ( Amer) Est GFR (Non-Af Amer) Glucose Lactic Acid 3.1 H Calcium Total Bilirubin AST ALT Alkaline Phosphatase Total Protein Albumin Urine Color CAROL Urine Appearance SLIGHTLY-CLOUDY Urine pH 5.0 Ur Specific [place] 1.051 Urine Protein 30 H Urine Glucose (UA) NEGATIVE Urine Ketones NEGATIVE Urine Blood SMALL H Urine Nitrite NEGATIVE Ur Leukocyte Esterase NEGATIVE Urine WBC (Auto) 2 Urine RBC (Auto) 4 Stool for White Cells 11/12/18 11/12/18 11/12/18 11:55 13:50 15:45 WBC RBC Hgb Hct MCV MCH MCHC RDW Plt Count Seg Neutrophils % Lymphocytes % Monocytes % Eosinophils % Basophils % Absolute Neutrophils Absolute Lymphocytes Absolute Monocytes Absolute Eosinophils Absolute Basophils Carbonic Acid HCO3/H2CO3 Ratio ABG pH ABG pCO2 ABG pO2 ABG HCO3 ABG O2 Saturation ABG Base Excess FiO2 Sodium 134.1 L 134.7 L Potassium 4.0 4.0 Chloride 109 H 109 H Carbon Dioxide 14 L 13 L Anion Gap 11 13 BUN 37 H 36 H Creatinine 1.86 H 1.78 H Est GFR ( Amer) 45 L 48 L Est GFR (Non-Af Amer) 38 L 39 L Glucose 135 H 144 H Lactic Acid Calcium 6.0 L* 6.0 L* Total Bilirubin 1.6 H AST 33 ALT 82 H Alkaline Phosphatase 44 Total Protein 3.5 L Albumin 2.0 L Urine Color Urine Appearance Urine pH Ur Specific [place] Urine Protein Urine Glucose (UA) Urine Ketones Urine Blood Urine Nitrite Ur Leukocyte Esterase Urine WBC (Auto) Urine RBC (Auto) Stool for White Cells MANY H 11/12/18 11/12/18 11/13/18 15:45 22:20 03:49 WBC 16.5 H D RBC 4.78 Hgb 14.6 D Hct 43.9 MCV 92 MCH 30.5 MCHC 33.3 RDW 15.4 H Plt Count 88 L Seg Neutrophils % Not Reportable Lymphocytes % Not Reportable Monocytes % Not Reportable Eosinophils % Not Reportable Basophils % Not Reportable Absolute Neutrophils Not Reportable Absolute Lymphocytes Not Reportable Absolute Monocytes Not Reportable Absolute Eosinophils Not Reportable Absolute Basophils Not Reportable Carbonic Acid HCO3/H2CO3 Ratio ABG pH ABG pCO2 ABG pO2 ABG HCO3 ABG O2 Saturation ABG Base Excess FiO2 Sodium Potassium Chloride Carbon Dioxide Anion Gap BUN Creatinine Est GFR ( Amer) Est GFR (Non-Af Amer) Glucose Lactic Acid 3.4 H 2.8 H Calcium Total Bilirubin AST ALT Alkaline Phosphatase Total Protein Albumin Urine Color Urine Appearance Urine pH Ur Specific [place] Urine Protein Urine Glucose (UA) Urine Ketones Urine Blood Urine Nitrite Ur Leukocyte Esterase Urine WBC (Auto) Urine RBC (Auto) Stool for White Cells 11/13/18 11/13/18 03:49 03:49 WBC RBC Hgb Hct MCV MCH MCHC RDW Plt Count Seg Neutrophils % Lymphocytes % Monocytes % Eosinophils % Basophils % Absolute Neutrophils Absolute Lymphocytes Absolute Monocytes Absolute Eosinophils Absolute Basophils Carbonic Acid HCO3/H2CO3 Ratio ABG pH ABG pCO2 ABG pO2 ABG HCO3 ABG O2 Saturation ABG Base Excess FiO2 Sodium 138.1 Potassium 3.6 Chloride 110 H Carbon Dioxide 18 L Anion Gap 10 BUN 33 H Creatinine 1.43 H Est GFR ( Amer) > 60 Est GFR (Non-Af Amer) 51 L Glucose 139 H Lactic Acid 2.4 H Calcium 6.0 L* Total Bilirubin 1.6 H AST 48 ALT 88 H Alkaline Phosphatase 37 L Total Protein 3.4 L Albumin 1.9 L Urine Color Urine Appearance Urine pH Ur Specific [place] Urine Protein Urine Glucose (UA) Urine Ketones Urine Blood Urine Nitrite Ur Leukocyte Esterase Urine WBC (Auto) Urine RBC (Auto) Stool for White Cells Impressions: Abdomen/Pelvis CT 11/12/18 00:00 IMPRESSION: Findings consistent with diffuse enterocolitis with a diarrheal illness. This may be infectious or inflammatory in etiology. Chest X-Ray 11/12/18 09:09 IMPRESSION: Rehydration versus worsening edema or sepsis. No pneumothorax. Assessment & Plan - Diagnosis (1) Colitis Is this a current diagnosis for this admission?: Yes (2) Hypotension Is this a current diagnosis for this admission?: Yes (3) Severe sepsis Is this a current diagnosis for this admission?: Yes (4) Aortic valve prosthesis present Is this a current diagnosis for this admission?: No - Time Time Spent with patient: 15-24 minutes - Inpatient Certification Medical Necessity: Need Close Monitoring Due to Risk of Patient Decompensation, Need For IV Fluids, Need for IV Antibiotics - Plan Summary Plan Summary: OK to start clears today Continue weaning Levophed Continue steroids,antibiotics
--- NOTE | 2018-11-13 18:15 | PDOC PROGRESS REPORT ---
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 He was noted to have diffuse colitis on CT of the abdomen. He was also noted to be tachycardic and slightly hypotensive. He received an initial 3 L of normal saline bolus in the ER and was started on levophed. Upon encounter in the ICU, patient is currently getting his seventh liter of fluid. He remains hypotensive on Levophed. Vasopressin will be added. Start IV Zosyn. Surgery is considering possible total colectomy. 11/13: No acute event overnight. He appears more comfortable today and says that he does feel better today. Denies significant abdominal pain. Currently on vasopressin. He is now on minimal dose of Levophed. Continue to wean off levophed. Lactic acid has normalized. Plan to decrease IV fluids if blood pressures continue to remain stable off vasopressors. Reason For Visit: SEVERE SEPSIS,COLITIS Physical Exam Vital Signs: Temp Pulse Resp BP Pulse Ox 98.6 F 85 25 H 130/92 H 97 11/13/18 16:00 11/13/18 17:00 11/13/18 16:00 11/13/18 17:00 11/13/18 16:00 Intake & Output 11/12/18 11/13/18 11/14/18 06:59 06:59 06:59 Intake Total 2038 8362 2324 Output Total 3355 635 Balance 2038 5007 1689 Weight 165 lb 9.074 oz 175 lb 0.752 oz General appearance: PRESENT: no acute distress, well-developed, well-nourished Head exam: PRESENT: atraumatic, normocephalic Eye exam: PRESENT: conjunctiva pink, EOMI, PERRLA. ABSENT: scleral icterus Ear exam: PRESENT: normal external ear exam Mouth exam: PRESENT: moist, tongue midline Neck exam: ABSENT: carotid bruit, JVD, lymphadenopathy, thyromegaly Respiratory exam: PRESENT: clear to auscultation trevin. ABSENT: rales, rhonchi, wheezes Cardiovascular exam: PRESENT: RRR. ABSENT: diastolic murmur, rubs, systolic murmur Pulses: PRESENT: normal dorsalis pedis pul GI/Abdominal exam: PRESENT: normal bowel sounds, soft. ABSENT: distended, guarding, mass, organolmegaly, rebound, tenderness Rectal exam: PRESENT: deferred Extremities exam: PRESENT: full ROM. ABSENT: calf tenderness, clubbing, pedal edema Neurological exam: PRESENT: alert, awake, oriented to person, oriented to place, oriented to time, oriented to situation, CN II-XII grossly intact. ABSENT: m otor sensory deficit Results Laboratory Results: 11/13/18 03:49 11/13/18 03:49 11/12/18 11/13/18 11/13/18 22:20 03:49 03:49 WBC 16.5 H D RBC 4.78 Hgb 14.6 D Hct 43.9 MCV 92 MCH 30.5 MCHC 33.3 RDW 15.4 H Plt Count 88 L Seg Neutrophils % Not Reportable Lymphocytes % Not Reportable Monocytes % Not Reportable Eosinophils % Not Reportable Basophils % Not Reportable Absolute Neutrophils Not Reportable Absolute Lymphocytes Not Reportable Absolute Monocytes Not Reportable Absolute Eosinophils Not Reportable Absolute Basophils Not Reportable Sodium 138.1 Potassium 3.6 Chloride 110 H Carbon Dioxide 18 L Anion Gap 10 BUN 33 H Creatinine 1.43 H Est GFR ( Amer) > 60 Est GFR (Non-Af Amer) 51 L Glucose 139 H Lactic Acid 2.8 H Calcium 6.0 L* Total Bilirubin 1.6 H AST 48 ALT 88 H Alkaline Phosphatase 37 L Total Protein 3.4 L Albumin 1.9 L 11/13/18 11/13/18 03:49 15:00 WBC RBC Hgb Hct MCV MCH MCHC RDW Plt Count Seg Neutrophils % Lymphocytes % Monocytes % Eosinophils % Basophils % Absolute Neutrophils Absolute Lymphocytes Absolute Monocytes Absolute Eosinophils Absolute Basophils Sodium Potassium Chloride Carbon Dioxide Anion Gap BUN Creatinine Est GFR ( Amer) Est GFR (Non-Af Amer) Glucose Lactic Acid 2.4 H 1.8 Calcium Total Bilirubin AST ALT Alkaline Phosphatase Total Protein Albumin Impressions: Abdomen/Pelvis CT 11/12/18 00:00 IMPRESSION: Findings consistent with diffuse enterocolitis with a diarrheal illness. This may be infectious or inflammatory in etiology. Chest X-Ray 11/12/18 09:09 IMPRESSION: Rehydration versus worsening edema or sepsis. No pneumothorax. Assessment and Plan - Diagnosis (1) Septic shock Is this a current diagnosis for this admission?: Yes Plan: 11/12: Currently on levophed. Add vasopressin. On hydrocortisone. Start IV Zosyn. 11/13: Improving. Currently on vasopressin. He is now on minimal dose of Levophed. Continue to wean off levophed. Lactic acid has normalized. Plan to decrease IV fluids if blood pressures continue to remain stable off vasopressor s. (2) Colitis Is this a current diagnosis for this admission?: Yes Plan: 11/12: Surgery considering possible total colectomy. 11/13: Surgery deferred for now as he shows significant improvement from yesterday. Stool culture is growing Salmonella. Plan to de escalate Zosyn to Rcoephin. Will consult ID for further recommendations. (3) Lactic acidosis Is this a current diagnosis for this admission?: Yes Plan: Slightly improved down to 3.1. Continue IV fluids. Will continue to trend lactic acid. 11/13: Resolved. (4) Acute kidney failure Is this a current diagnosis for this admission?: Yes Plan: Improving. From septic ATN. - Time Time Spent with patient: 25-34 minutes
[2018-11-13] MEDS: ATORVASTATIN CALCIUM 40 MG TABLET PO SCH (21:32)
[2018-11-14] MEDS: ACETAMINOPHEN 325 MG TABLET PO PRN (03:37)
[2018-11-14] MEDS: NORMAL SALINE 1000 ML 1,000 ML IV PRN ×2 (04:39→12:25)
[2018-11-14] MEDS: HEPARIN SOD (PORCINE) 5,000 UNIT/ML 1 ML SYRINGE SUBCUT SCH ×3 (05:05→21:23)
[2018-11-14] MEDS: HYDROCORTISONE SOD SUCCINATE INJ/PF 100 MG/2 ML SDV IV SCH ×3 (05:05→21:24)
[2018-11-14] MEDS: PIPERACILLIN SODIUM/TAZOBACTAM 3.375 GM in NORMAL SALINE 100 ML IV SCH ×2 (05:05→12:24)
[2018-11-14 05:11] LABS: HEMATOCRIT 39.5 % (37.9-51.0); HEMOGLOBIN 13.4 g/dL (13.5-17.0); MEAN CORPUSCULAR HEMOGLOBIN 30.8 pg (27.0-33.4); MEAN CORPUSCULAR HGB CONC 34.1 g/dL (32.0-36.0); MEAN CORPUSCULAR VOLUME 90 fl (80-97); RED BLOOD COUNT 4.37 10^6/uL (4.35-5.55); RED CELL DISTRIBUTION WIDTH 15.5 % (11.5-14.0); WHITE BLOOD COUNT 7.9 10^3/uL (4.0-10.5)
[2018-11-14 06:26] LABS: PLATELET COUNT 67 10^3/uL (150-450)
[2018-11-14 07:06] LABS: ABSOLUTE LYMPHOCYTES# (MANUAL) 0.3 10^3/uL (0.5-4.7); ABSOLUTE MONOCYTES # (MANUAL) 0.4 10^3/uL (0.1-1.4); BAND NEUTROPHILS % (MANUAL) 1 % (3-5); BASOPHILS % (MANUAL) 0 % (0-2); EOSINOPHILS % (MANUAL) 0 % (0-6); LYMPHOCYTES % (MANUAL) 4 % (13-45); MONOCYTES % (MANUAL) 5 % (3-13); SEGMENTED NEUTROPHILS % (MAN) 90 % (42-78); TOTAL CELLS COUNTED 100
[2018-11-14 07:08] LABS: ANISOCYTOSIS SLIGHT; OVALOCYTES SLIGHT; PLATELET COMMENT DECREASED; POIKILOCYTOSIS SLIGHT; SCHISTOCYTES 1+
[2018-11-14] MEDS: FLUOXETINE HCL 20 MG CAPSULE PO SCH (09:18)
[2018-11-14] MEDS: ASPIRIN 81 MG TABLET, CHEWABLE PO SCH (09:18)
[2018-11-14] MEDS: PANTOPRAZOLE SODIUM 20 MG TABLET.DR PO SCH (12:24)
--- NOTE | 2018-11-14 14:36 | PDOC PROGRESS REPORT ---
Subjective Progress Note for:: 11/14/18 Subjective:: no pains,hungry,tolerating full iquids Has BM Reason For Visit: SEVERE SEPSIS,COLITIS Physical Exam Vital Signs: Temp Pulse Resp BP Pulse Ox 98.4 F 81 31 H 129/100 H 98 11/14/18 13:16 11/14/18 12:00 11/14/18 13:16 11/14/18 13:16 11/14/18 13:16 Intake & Output 11/13/18 11/14/18 11/15/18 06:59 06:59 06:59 Intake Total 8305 5067 559 Output Total 3350 6944 400 Balance 5007 -0003 159 Weight 79.4 kg 76.7 kg General appearance: PRESENT: no acute distress Exam: Abdomen is soft and non tender Results Laboratory Results: 11/14/18 04:48 11/13/18 03:49 11/13/18 11/14/18 15:00 04:48 WBC 7.9 RBC 4.37 Hgb 13.4 L Hct 39.5 MCV 90 MCH 30.8 MCHC 34.1 RDW 15.5 H Plt Count 67 L Seg Neutrophils % Not Reportable Lymphocytes % Not Reportable Monocytes % Not Reportable Eosinophils % Not Reportable Basophils % Not Reportable Absolute Neutrophils Not Reportable Absolute Lymphocytes Not Reportable Absolute Monocytes Not Reportable Absolute Eosinophils Not Reportable Absolute Basophils Not Reportable Lactic Acid 1.8 Impressions: Abdomen/Pelvis CT 11/12/18 00:00 IMPRESSION: Findings consistent with diffuse enterocolitis with a diarrheal illness. This may be infectious or inflammatory in etiology. Chest X-Ray 11/12/18 09:09 IMPRESSION: Rehydration versus worsening edema or sepsis. No pneumothorax. Assessment & Plan - Diagnosis (1) Colitis Is this a current diagnosis for this admission?: Yes (2) Hypotension Is this a current diagnosis for this admission?: Yes (3) Severe sepsis Is this a current diagnosis for this admission?: Yes (4) Aortic valve prosthesis present Is this a current diagnosis for this admission?: No - Time Time Spent with patient: 15-24 minutes - Inpatient Certification Medical Necessity: Need For IV Fluids, Need For Continuous Telemetry Monitoring, Need for IV Antibiotics, Risk of Complication if Not Cared For in Hospital - Plan Summary Plan Summary: Off pressors and hemodynamically stable. OK to increase diet to soft and decrease IVF OK to downgrade to IMCU
--- NOTE | 2018-11-14 15:54 | Progress Note ---
Provider Note Provider Note: ID Consult Note Asked to review patient's chart by Dr. Contreras. Pt not seen or examined. Reviewed VS, lab results, provider reports. 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 He has had chronic diarrhea since early August 2018, per prior ED note. Stool culture from 09/05/18 ED visit for diarrhea was negative for enteric pathogens including Salmonella. Outpatient evaluation led to colonoscopy, and 2 weeks ago steroid therapy for presumed autoimmune or ulcerative colitis. The day of presentation, he was on a shrimp boat when he started to feel very bad and reported acute worsening of his diarrhea. On admission, he was noted to be ill-appearing, hypotensive, febrile with dry oral mucosa, a systolic murmur, tachycardia, and abdominal distention. His labs included an elevated lactate, transaminitis, and CLARISSE with elevated creatinine 1.86. The patient required vasopressor support and ICU admission. Imaging included - Initial CXR showed no acute cardiopulmonary findings. - CT abdomen/pelvis with IV contrast that showed diffuse wall thickening and mucosal enhancement throughout the colon consistent with diffuse colitis and unremarkable aorta and IVC. Microbiological studies included - BCx on 11/11, 11/12: no growth to date - stool C difficile PCR 11/11: Negative - Stool cx 11/11: presumptive Salmonella species Per most recent notes, pt has started to feel better, with less distended abdomen, diet was advanced to clears, improved hemodynamic stability with Levophed and vasopressin weaned off yesterday. 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 Contreras to streamline Zosyn to Rocephin 2 grams daily IV given the presumptively identified Salmonella species isolated in the patient's stool culture as the source of his illness. Pt is improving, and >97% of n ontyphoidal Salmonella in the [place] should be susceptible to Rocephin. - Duration of therapy: He has no evidence of extraintestinal infection, but he has been immunosuppressed due to corticosteroids, is older, and has a prosthetic valve. I would favor treating for at least 7 days. Anticipate completing treatment with PO stepdown therapy once pt is ready for discharge home, based on susceptibility results. If the isolate is susceptible to Bactrim or amoxicillin, one of these agents could be used to finish treatment, for instance. - The role of his occupation in terms of his presentation? 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 Sources of Salmonella are most commonly eggs, poultry, and undercooked meat. Could also include contaminated fresh produce (e.g. precut melons). In terms of his occupation, Salmonella is not typically associated with marine water exposure and fish, but cross- contamination with more typical sources of Salmonella can occur in handling or preparing fish, and perhaps depending on where he fishes, maybe there could be some animal waste runoff in the [place] and further downstream. - It is possible that Salmonella could mimic intestinal changes of inflammatory bowel disease, but I would not expect it to account for the patient's chronic diarrhea preceding admission. Salmonella causes acute diarrhea, usually <10 days in duration, and prior stool culture when pt presented to the ED in August with complaint of 2 weeks of diarrhea was negative for Salmonella. Kevin Celeste MD [facility] Infectious Diseases pager [phone]
--- NOTE | 2018-11-14 16:08 | PDOC PROGRESS REPORT ---
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 He was noted to have diffuse colitis on CT of the abdomen. He was also noted to be tachycardic and slightly hypotensive. He received an initial 3 L of normal saline bolus in the ER and was started on levophed. Upon encounter in the ICU, patient is currently getting his seventh liter of fluid. He remains hypotensive on Levophed. Vasopressin will be added. Start IV Zosyn. Surgery is considering possible total colectomy. 11/13: He appears more comfortable today and says that he does feel better today. Denies significant abdominal pain. Currently on vasopressin. He is now on minimal dose of Levophed. Continue to wean off levophed. Lactic acid has normalized. Plan to decrease IV fluids if blood pressures continue to remain stable off vasopressors. 11/14: No acute event overnight. He has been off vasopressors since yesterday afternoon. His diet has been advanced to full liquid by surgery and has been doing well so far. He appears very comfortable and denies abdominal pain at this time. Advanced to soft diet pain surgery. Patient will be downgraded from ICU. Reason For Visit: SEVERE SEPSIS,COLITIS Physical Exam Vital Signs: Temp Pulse Resp BP Pulse Ox 97.7 F 79 22 H 125/90 H 97 11/14/18 08:00 11/14/18 10:00 11/14/18 10:00 11/14/18 10:00 11/14/18 10:00 Intake & Output 11/13/18 11/14/18 11/15/18 06:59 06:59 06:59 Intake Total 8362 5067 Output Total 3355 6950 325 Balance 5007 -1883 -325 Weight 175 lb 0.752 oz 169 lb 1.513 oz General appearance: PRESENT: no acute distress, well-developed, well-nourished Head exam: PRESENT: atraumatic, normocephalic Eye exam: PRESENT: conjunctiva pink, EOMI, PERRLA. ABSENT: scleral icterus Ear exam: PRESENT: normal external ear exam Mouth exam: PRESENT: moist, tongue midline Neck exam: ABSENT: carotid bruit, JVD, lymphadenopathy, thyromegaly Respiratory exam: PRESENT: clear to auscultation trevin. ABSENT: rales, rhonchi, wheezes Cardiovascular exam: PRESENT: RRR. ABSENT: diastolic murmur, rubs, systolic murmur Pulses: PRESENT: normal dorsalis pedis pul GI/Abdominal exam: PRESENT: normal bowel sounds, soft. ABSENT: distended, guard ing, mass, organolmegaly, rebound, tenderness Rectal exam: PRESENT: deferred Extremities exam: PRESENT: full ROM. ABSENT: calf tenderness, clubbing, pedal edema Neurological exam: PRESENT: alert, awake, oriented to person, oriented to place, oriented to time, oriented to situation, CN II-XII grossly intact. ABSENT: motor sensory deficit Results Laboratory Results: 11/14/18 04:48 11/13/18 03:49 11/13/18 11/14/18 15:00 04:48 WBC 7.9 RBC 4.37 Hgb 13.4 L Hct 39.5 MCV 90 MCH 30.8 MCHC 34.1 RDW 15.5 H Plt Count 67 L Seg Neutrophils % Not Reportable Lymphocytes % Not Reportable Monocytes % Not Reportable Eosinophils % Not Reportable Basophils % Not Reportable Absolute Neutrophils Not Reportable Absolute Lymphocytes Not Reportable Absolute Monocytes Not Reportable Absolute Eosinophils Not Reportable Absolute Basophils Not Reportable Lactic Acid 1.8 Impressions: Abdomen/Pelvis CT 11/12/18 00:00 IMPRESSION: Findings consistent with diffuse enterocolitis with a diarrheal illness. This may be infectious or inflammatory in etiology. Chest X-Ray 11/12/18 09:09 IMPRESSION: Rehydration versus worsening edema or sepsis. No pneumothorax. Assessment and Plan - Diagnosis (1) Septic shock Is this a current diagnosis for this admission?: Yes Plan: 11/12: Currently on levophed. Add vasopressin. On hydrocortisone. Start IV Zosyn. 11/13: Improving. Currently on vasopressin. He is now on minimal dose of Levophed. Continue to wean off levophed. Lactic acid has normalized. Plan to decrease IV fluids if blood pressures continue to remain stable off vasopressors. 11/14: Resolved. He has been off vasopressors since yesterday afternoon. Reduce hydrocortisone to 50 mg q8h. (2) Colitis Is this a current diagnosis for this admission?: Yes Plan: 11/12: Surgery considering possible total colectomy. 11/13: Surgery deferred for now as he shows significant improvement from yesterday. Stool culture is growing Salmonella. Plan to de escalate Zosyn to Rocephin. Will consult ID for further recommendations. 11/14: Infectious in origin from Salmonella. His diet has been advanced to full liquid by surgery and has been doing well so far. He appears very comfortable and denies abdominal pain at this time. Advanced to soft diet pain surgery. Zosyn swithced to Rocephin. (3) Lactic acidosis Is this a current diagnosis for this admission?: Yes Plan: Slightly improved down to 3.1. Continue IV fluids. Will continue to trend lactic acid. 11/13: Resolved. (4) Acute kidney failure Is this a current diagnosis for this admission?: Yes Plan: Improving. From septic ATN. 11/14: Resolved. Reduce IV fluids to 50 cc/hr. - Time Time Spent with patient: 25-34 minutes
[2018-11-14 17:54] LABS: ANION GAP 9 (5-19); BLOOD UREA NITROGEN 25 mg/dL (7-20); CALCIUM 7.3 mg/dL (8.4-10.2); CARBON DIOXIDE 19 mmol/L (22-30); CHLORIDE 110 mmol/L (98-107); GLUCOSE 120 mg/dL (75-110); POTASSIUM 3.1 mmol/L (3.6-5.0); SODIUM 138.4 mmol/L (137-145)
[2018-11-14] MEDS: ATORVASTATIN CALCIUM 40 MG TABLET PO SCH (21:24)
[2018-11-15] MEDS: NORMAL SALINE 1000 ML 1,000 ML IV PRN ×2 (00:09→20:41)
[2018-11-15 04:45] LABS: ABSOLUTE LYMPHOCYTES (AUTO) 0.5 10^3/uL (0.5-4.7); ABSOLUTE MONOCYTES (AUTO) 0.3 10^3/uL (0.1-1.4); ABSOLUTE NEUT (AUTO) 7.6 10^3/uL (1.7-8.2); EOSINOPHILS % (AUTO) 0.1 % (0-6); HEMATOCRIT 42.2 % (37.9-51.0); HEMOGLOBIN 14.4 g/dL (13.5-17.0); LYMPHOCYTES % (AUTO) 6.1 % (13-45); MEAN CORPUSCULAR HEMOGLOBIN 31.2 pg (27.0-33.4); MEAN CORPUSCULAR HGB CONC 34.1 g/dL (32.0-36.0); MEAN CORPUSCULAR VOLUME 91 fl (80-97); RED BLOOD COUNT 4.62 10^6/uL (4.35-5.55); RED CELL DISTRIBUTION WIDTH 15.3 % (11.5-14.0); SEGMENTED NEUTROPHILS % (AUTO) 89.8 % (42-78); TOTAL CELLS COUNTED % (AUTO) 100 %; WHITE BLOOD COUNT 8.5 10^3/uL (4.0-10.5)
[2018-11-15] MEDS: HYDROCORTISONE SOD SUCCINATE INJ/PF 100 MG/2 ML SDV IV SCH ×2 (04:59→14:22)
[2018-11-15 05:27] LABS: PLATELET COUNT 57 10^3/uL (150-450)
[2018-11-15] MEDS: HEPARIN SOD (PORCINE) 5,000 UNIT/ML 1 ML SYRINGE SUBCUT SCH (05:57)
[2018-11-15] MEDS: FLUOXETINE HCL 20 MG CAPSULE PO SCH (09:39)
[2018-11-15] MEDS: CEFTRIAXONE 2 GM/D5W RTU 2 GM/50 ML RTUPB IV SCH (09:39)
[2018-11-15] MEDS: PANTOPRAZOLE SODIUM 20 MG TABLET.DR PO SCH (09:40)
[2018-11-15] MEDS: ASPIRIN 81 MG TABLET, CHEWABLE PO SCH (09:40)
--- NOTE | 2018-11-15 13:10 | PDOC PROGRESS REPORT ---
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 He was noted to have diffuse colitis on CT of the abdomen. He was also noted to be tachycardic and slightly hypotensive. He received an initial 3 L of normal saline bolus in the ER and was started on levophed. Upon encounter in the ICU, patient is currently getting his seventh liter of fluid. He remains hypotensive on Levophed. Vasopressin will be added. Start IV Zosyn. Surgery is considering possible total colectomy. 11/13: He appears more comfortable today and says that he does feel better today. Denies significant abdominal pain. Currently on vasopressin. He is now on minimal dose of Levophed. Continue to wean off levophed. Lactic acid has normalized. Plan to decrease IV fluids if blood pressures continue to remain stable off vasopressors. 11/14: He has been off vasopressors since yesterday afternoon. His diet has been advanced to full liquid by surgery and has been doing well so far. He appears very comfortable and denies abdominal pain at this time. Advanced to soft diet pain surgery. 11/15: No acute event overnight. He continues to do well. He has been tolerating soft diet well. Blood pressures remain stable. Denies abdominal pain. He does continue to have loose stools. Platelets trending down. SQ Heparin discontinued. Switched to Arixtra. HIT antibodies ordered. Reason For Visit: SEVERE SEPSIS,COLITIS Physical Exam Vital Signs: Temp Pulse Resp BP Pulse Ox 97.9 F 76 32 H 124/91 H 97 11/15/18 10:00 11/15/18 08:41 11/15/18 10:00 11/15/18 09:46 11/15/18 10:00 Intake & Output 11/14/18 11/15/18 11/16/18 06:59 06:59 06:59 Intake Total 5867 1590 Output Total 0584 0858 Balance -3483 -9114 Weight 169 lb 1.513 oz 163 lb 2.273 oz General appearance: PRESENT: no acute distress, well-developed, well-nourished Head exam: PRESENT: atraumatic, normocephalic Eye exam: PRESENT: conjunctiva pink, EOMI, PERRLA. ABSENT: scleral icterus Ear exam: PRESENT: normal external ear exam Mouth exam: PRESENT: moist, tongue midline Neck exam: ABSENT: carotid bruit, JVD, lymphadenopathy, thyromegaly Respiratory exam: PRESENT: clear to auscultation trevin. ABSENT: rales, rhonchi, wheezes Cardiovascular exam: PRESENT: RRR. ABSENT: diastolic murmur, rubs, systolic murmur Pulses: PRESENT: normal dorsalis pedis pul Vascular exam: PRESENT: normal capillary refill GI/Abdominal exam: PRESENT: normal bowel sounds, soft. ABSENT: distended, guarding, mass, organolmegaly, rebound, tenderness Rectal exam: PRESENT: deferred Extremities exam: PRESENT: full ROM. ABSENT: calf tenderness, clubbing, pedal edema Neurological exam: PRESENT: alert, awake, oriented to person, oriented to place, oriented to time, oriented to situation, CN II-XII grossly intact. ABSENT: motor sensory deficit Results Laboratory Results: 11/15/18 04:30 11/14/18 17:23 11/14/18 11/15/18 17:23 04:30 WBC 8.5 RBC 4.62 Hgb 14.4 Hct 42.2 MCV 91 MCH 31.2 MCHC 34.1 RDW 15.3 H Plt Count 57 L Seg Neutrophils % 89.8 H Lymphocytes % 6.1 L Monocytes % 4.0 Eosinophils % 0.1 Basophils % 0.0 Absolute Neutrophils 7.6 Absolute Lymphocytes 0.5 Absolute Monocytes 0.3 Absolute Eosinophils 0.0 Absolute Basophils 0.0 Sodium 138.4 Potassium 3.1 L Chloride 110 H Carbon Dioxide 19 L Anion Gap 9 BUN 25 H Creatinine 0.96 Est GFR ( Amer) > 60 Est GFR (Non-Af Amer) > 60 Glucose 120 H Calcium 7.3 L 11/11/18 23:58 Stool - Stool - Final Impressions: Abdomen/Pelvis CT 11/12/18 00:00 IMPRESSION: Findings consistent with diffuse enterocolitis with a diarrheal illness. This may be infectious or inflammatory in etiology. Chest X-Ray 11/12/18 09:09 IMPRESSION: Rehydration versus worsening edema or sepsis. No pneumothorax. Assessment and Plan - Diagnosis (1) Septic shock Is this a current diagnosis for this admission?: Yes Plan: 11/12: Currently on levophed. Add vasopressin. On hydrocortisone. Start IV Zosyn. 11/13: Improving. Currently on vasopressin. He is now on minimal dose of Levophed. Continue to wean off levophed. Lactic acid has normalized. Plan to decrease IV fluids if blood pressures continue to remain stable off v asopressors. 11/14: Resolved. He has been off vasopressors since yesterday afternoon. Reduce hydrocortisone to 50 mg q8h. (2) Colitis Is this a current diagnosis for this admission?: Yes Plan: 11/12: Surgery considering possible total colectomy. 11/13: Surgery deferred for now as he shows significant improvement from yesterday. Stool culture is growing Salmonella. Plan to de escalate Zosyn to Rocephin. Will consult ID for further recommendations. 11/14: Infectious in origin from Salmonella. His diet has been advanced to full liquid by surgery and has been doing well so far. He appears very comfortable and denies abdominal pain at this time. Advanced to soft diet pain surgery. Zosyn swithced to Rocephin. 11/15: Improving. Continue Rocephin. (3) Lactic acidosis Is this a current diagnosis for this admission?: Yes Plan: Slightly improved down to 3.1. Continue IV fluids. Will continue to trend lactic acid. 11/13: Resolved. (4) Acute kidney failure Is this a current diagnosis for this admission?: Yes Plan: Improving. From septic ATN. 11/14: Resolved. Reduce IV fluids to 50 cc/hr. (5) Thrombocytopenia Is this a current diagnosis for this admission?: Yes Plan: Platelets trending down. SQ Heparin discontinued. Switched to Arixtra. HIT antibodies ordered. - Time Time Spent with patient: 15-24 minutes
[2018-11-15 14:01] LABS: ANION GAP 9 (5-19); BLOOD UREA NITROGEN 22 mg/dL (7-20); CALCIUM 7.9 mg/dL (8.4-10.2); CARBON DIOXIDE 21 mmol/L (22-30); CHLORIDE 107 mmol/L (98-107); GLUCOSE 129 mg/dL (75-110); SODIUM 136.6 mmol/L (137-145)
[2018-11-15] MEDS: POTASSIUM CHLORIDE 20 MEQ/50 ML RTU IV SCH ×2 (15:20→17:14)
[2018-11-15] MEDS ORDERED: POTASSIUM CHLORIDE 10 MEQ CAPSULE.ER PO ONE (16:00)
[2018-11-15] MEDS ORDERED: PREDNISONE 20 MG TABLET PO SCH (18:00)
--- NOTE | 2018-11-15 19:06 | PDOC PROGRESS REPORT ---
Subjective Progress Note for:: 11/15/18 Subjective:: This is a 58-year-old male with pancolitis, presumably from ulcerative colitis. The patient reports feeling well today. He is tolerating his diet. He denies nausea or vomiting. He reports constant, uncontrollable diarrhea. He denies chest pain, shortness of breath, fevers, chills, dizziness, orthostasis, blurry vision, rash, or pruritus Reason For Visit: SEVERE SEPSIS,COLITIS Physical Exam Vital Signs: Temp Pulse Resp BP Pulse Ox 99.0 F 76 22 H 122/93 H 96 11/15/18 18:00 11/15/18 08:41 11/15/18 18:00 11/15/18 16:00 11/15/18 18:00 Intake & Output 11/14/18 11/15/18 11/16/18 06:59 06:59 06:59 Intake Total 5067 1590 Output Total 6950 4575 450 Balance -1883 -2985 -450 Weight 76.7 kg 74 kg General appearance: PRESENT: no acute distress, cooperative Head exam: PRESENT: atraumatic, normocephalic Eye exam: PRESENT: EOMI, PERRLA. ABSENT: scleral icterus Mouth exam: PRESENT: moist, neck supple Neck exam: ABSENT: meningismus, tenderness, thyromegaly, tracheal deviation Respiratory exam: PRESENT: clear to auscultation trevin, unlabored. ABSENT: tachypnea Cardiovascular exam: PRESENT: RRR Pulses: PRESENT: normal radial pulses GI/Abdominal exam: PRESENT: soft. ABSENT: firm, guarding, tenderness Rectal exam: PRESENT: deferred Extremities exam: ABSENT: clubbing Musculoskeletal exam: ABSENT: deformity Neurological exam: PRESENT: alert, awake, oriented to person, oriented to place, oriented to time, oriented to situation, CN II-XII grossly intact Psychiatric exam: ABSENT: agitated, anxious, depressed Focused psych exam: ABSENT: delusional Skin exam: ABSENT: cyanosis, erythema, jaundice Results Laboratory Results: 11/15/18 04:30 11/15/18 13:37 11/15/18 11/15/18 04:30 13:37 WBC 8.5 RBC 4.62 Hgb 14.4 Hct 42.2 MCV 91 MCH 31.2 MCHC 34.1 RDW 15.3 H Plt Count 57 L Seg Neutrophils % 89.8 H Lymphocytes % 6.1 L Monocytes % 4.0 Eosinophils % 0.1 Basophils % 0.0 Absolute Neutrophils 7.6 Absolute Lymphocytes 0.5 Absolute Monocytes 0.3 Absolute Eosinophils 0.0 Absolute Basophils 0.0 Sodium 136.6 L Potassium 3.0 L* Chloride 107 Carbon Dioxide 21 L Anion Gap 9 BUN 22 H Creatinine 0.85 Est GFR ( Amer) > 60 Est GFR (Non-Af Amer) > 60 Glucose 129 H Calcium 7.9 L Magnesium 1.7 11/11/18 23:58 Stool - Stool - Final 11/11/18 23:58 Stool - Stool Stool Culture - Final Salmonella Species Impressions: Abdomen/Pelvis CT 11/12/18 00:00 IMPRESSION: Findings consistent with diffuse enterocolitis with a diarrheal illness. This may be infectious or inflammatory in etiology. Chest X-Ray 11/12/18 09:09 IMPRESSION: Rehydration versus worsening edema or sepsis. No pneumothorax. Assessment & Plan - Diagnosis (1) Colitis Is this a current diagnosis for this admission?: Yes (2) Sepsis Qualifiers: Sepsis type: sepsis due to unspecified organism Qualified Code(s): A41.9 - Sepsis, unspecified organism Is this a current diagnosis for this admission?: Yes - Plan Summary Plan Summary: This is a 58-year-old male with pancolitis (presumably from ulcerative colitis) and severe sepsis. His sepsis is resolving. His pressors are off. His steroids are being weaned. He has been started on a diet, which he is tolerating. The nurse reports that he will be moved out of the intensive care unit soon. Continue with antibiotics. Once his IV steroids have been weaned, he should be restarted on his home dose of oral steroids. We will continue to follow.
[2018-11-15] MEDS: ATORVASTATIN CALCIUM 40 MG TABLET PO SCH (21:58)
[2018-11-15] MEDS: PREDNISONE 20 MG TABLET PO SCH (22:01)
[2018-11-16] MEDS: CEFTRIAXONE 2 GM/D5W RTU 2 GM/50 ML RTUPB IV SCH (10:24)
[2018-11-16] MEDS: PANTOPRAZOLE SODIUM 20 MG TABLET.DR PO SCH (10:25)
[2018-11-16] MEDS: PREDNISONE 20 MG TABLET PO SCH (10:25)
[2018-11-16] MEDS: ASPIRIN 81 MG TABLET, CHEWABLE PO SCH (10:25)
[2018-11-16] MEDS: FLUOXETINE HCL 20 MG CAPSULE PO SCH (10:25)
[2018-11-16] MEDS: FONDAPARINUX SODIUM INJ 2.5 MG/0.5 ML DISP.SYRIN SUBCUT SCH (10:34)
--- NOTE | 2018-11-16 11:03 | PDOC PROGRESS REPORT ---
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 He was noted to have diffuse colitis on CT of the abdomen. He was also noted to be tachycardic and slightly hypotensive. He received an initial 3 L of normal saline bolus in the ER and was started on levophed. Upon encounter in the ICU, patient is currently getting his seventh liter of fluid. He remains hypotensive on Levophed. Vasopressin will be added. Start IV Zosyn. Surgery is considering possible total colectomy. 11/13: He appears more comfortable today and says that he does feel better today. Denies significant abdominal pain. Currently on vasopressin. He is now on minimal dose of Levophed. Continue to wean off levophed. Lactic acid has normalized. Plan to decrease IV fluids if blood pressures continue to remain stable off vasopressors. 11/14: He has been off vasopressors since yesterday afternoon. His diet has been advanced to full liquid by surgery and has been doing well so far. He appears very comfortable and denies abdominal pain at this time. Advanced to soft diet per surgery. 11/15: He continues to do well. He has been tolerating soft diet well. Blood pressures remain stable. Denies abdominal pain. He does continue to have loose stools. Platelets trending down. SQ Heparin discontinued. Switched to Arixtra. HIT antibodies ordered. 11/16: No acute event overnight. He continues to improve. He does continue to have watery stools. He is tolerating soft diet well. No abdominal pain upon encounter. Denies chest pain, shortness of breath or leg pain. Reason For Visit: SEVERE SEPSIS,COLITIS Physical Exam Vital Signs: Temp Pulse Resp BP Pulse Ox 97.4 F 71 20 117/88 H 100 11/16/18 03:45 11/16/18 07:00 11/16/18 03:45 11/16/18 03:45 11/16/18 03:45 Intake & Output 11/15/18 11/16/18 11/17/18 06:59 06:59 06:59 Intake Total 1590 1290 Output Total 4575 3050 Balance -2985 -1760 Weight 163 lb 2.273 oz 156 lb 8.451 oz General appearance: PRESENT: no acute distress, well-developed, well-nourished Head exam: PRESENT: atraumatic, normocephalic Eye exam: PRESENT: conjunctiva pink, EOMI, PERRLA. ABSENT: scleral icterus Ear exam: PRESENT: normal external ear exam Mouth exam: PRESENT: moist, tongue midline Neck exam: ABSENT: carotid bruit, JVD, lymphadenopathy, thyromegaly Respiratory exam: PRESENT: clear to auscultation trevin. ABSENT: rales, rhonchi, wheezes Cardiovascular exam: PRESENT: RRR. ABSENT: diastolic murmur, rubs, systolic murmur Pulses: PRESENT: normal dorsalis pedis pul GI/Abdominal exam: PRESENT: normal bowel sounds, soft. ABSENT: distended, guarding, mass, organolmegaly, rebound, tenderness Rectal exam: PRESENT: deferred Extremities exam: PRESENT: full ROM. ABSENT: calf tenderness, clubbing, pedal edema Neurological exam: PRESENT: alert, awake, oriented to person, oriented to place, oriented to time, oriented to situation, CN II-XII grossly intact. ABSENT: motor sensory deficit Results Laboratory Results: 11/15/18 04:30 11/15/18 13:37 11/15/18 13:37 Sodium 136.6 L Potassium 3.0 L* Chloride 107 Carbon Dioxide 21 L Anion Gap 9 BUN 22 H Creatinine 0.85 Est GFR ( Amer) > 60 Est GFR (Non-Af Amer) > 60 Glucose 129 H Calcium 7.9 L Magnesium 1.7 11/11/18 23:58 Stool - Stool - Final 11/11/18 23:58 Stool - Stool Stool Culture - Final Salmonella Species Impressions: Abdomen/Pelvis CT 11/12/18 00:00 IMPRESSION: Findings consistent with diffuse enterocolitis with a diarrheal illness. This may be infectious or inflammatory in etiology. Chest X-Ray 11/12/18 09:09 IMPRESSION: Rehydration versus worsening edema or sepsis. No pneumothorax. Assessment and Plan - Diagnosis (1) Septic shock Is this a current diagnosis for this admission?: Yes Plan: 11/12: Currently on levophed. Add vasopressin. On hydrocortisone. Start IV Zosyn. 11/13: Improving. Currently on vasopressin. He is now on minimal dose of Levophed. Continue to wean off levophed. Lactic acid has normalized. Plan to decrease IV fluids if blood pressures continue to remain stable off vasopressors. 11/14: Resolved. He has been off vasopressors since yesterday afternoon. Reduce hydrocortisone to 50 mg q8h. 11/16: Further decrease prednisone and switch back to home dose. (2) Colitis Is this a current diagnosis for this admission?: Yes Plan: 11/12: Surgery considering possible total colectomy. 11/13: Surgery deferred for now as he shows significant improvement from yesterday. Stool culture is growing Salmonella. Plan to de escalate Zosyn to Rocephin. Will consult ID for further recommendations. 11/14: Infectious in origin from Salmonella. His diet has been advanced to full liquid by surgery and has been doing well so far. He appears very comfortable and denies abdominal pain at this time. Advanced to soft diet pain surgery. Zosyn swithced to Rocephin. 11/15: Improving. Continue Rocephin. 11/16: He does continue to have watery stools. He is tolerating soft diet well. He will need a total of 7 days of IV Rocephin therapy. (3) Colitis due to Salmonella species Is this a current diagnosis for this admission?: Yes Plan: As per number 2. Appreciate ID recommendations. (4) Lactic acidosis Is this a current diagnosis for this admission?: Yes Plan: Slightly improved down to 3.1. Continue IV fluids. Will continue to trend lact ic acid. 11/13: Resolved. (5) Acute kidney failure Is this a current diagnosis for this admission?: Yes Plan: Improving. From septic ATN. 11/14: Resolved. Reduce IV fluids to 50 cc/hr. (6) Thrombocytopenia Is this a current diagnosis for this admission?: Yes Plan: Platelets trending down. SQ Heparin discontinued. Switched to Arixtra. HIT antibodies ordered. 11/16: Repeat CBC today. HIT Ab pending.
--- NOTE | 2018-11-16 12:06 | PDOC PROGRESS REPORT ---
Subjective Progress Note for:: 11/16/18 Subjective:: This is a 58-year-old male with pancolitis, presumably from ulcerative colitis. The pt has also grown Salmonella on stool culture. The patient reports feeling well today. He is tolerating his diet. He denies nausea or vomiting. He reports constant, uncontrollable diarrhea. He denies chest pain, shortness of breath, fevers, chills, dizziness, orthostasis, blurry vision, rash, or pruritus. Reason For Visit: SEVERE SEPSIS,COLITIS Physical Exam Vital Signs: Temp Pulse Resp BP Pulse Ox 97.4 F 71 20 117/88 H 100 11/16/18 03:45 11/16/18 07:00 11/16/18 03:45 11/16/18 03:45 11/16/18 03:45 Intake & Output 11/15/18 11/16/18 11/17/18 06:59 06:59 06:59 Intake Total 1590 1290 Output Total 4575 3050 Balance -2985 -1760 Weight 74 kg 71 kg Exam: General appearance: PRESENT: no acute distress, cooperative Head exam: PRESENT: atraumatic, normocephalic Eye exam: PRESENT: EOMI, PERRLA. ABSENT: scleral icterus Mouth exam: PRESENT: moist, neck supple Neck exam: ABSENT: meningismus, tenderness, thyromegaly, tracheal deviation Respiratory exam: PRESENT: clear to auscultation trevin, unlabored. ABSENT: tachypnea Cardiovascular exam: PRESENT: RRR Pulses: PRESENT: normal radial pulses GI/Abdominal exam: PRESENT: soft. ABSENT: firm, guarding, tenderness Rectal exam: PRESENT: deferred Extremities exam: ABSENT: clubbing Musculoskeletal exam: ABSENT: deformity Neurological exam: PRESENT: alert, awake, oriented to person, oriented to place, oriented to time, oriented to situation, CN II-XII grossly intact Psychiatric exam: ABSENT: agitated, anxious, depressed Focused psych exam: ABSENT: delusional Skin exam: ABSENT: cyanosis, erythema, jaundice Results Laboratory Results: 11/15/18 04:30 11/15/18 13:37 11/15/18 13:37 Sodium 136.6 L Potassium 3.0 L* Chloride 107 Carbon Dioxide 21 L Anion Gap 9 BUN 22 H Creatinine 0.85 Est GFR ( Amer) > 60 Est GFR (Non-Af Amer) > 60 Glucose 129 H Calcium 7.9 L Magnesium 1.7 11/11/18 23:58 Stool - Stool - Final 11/11/18 23:58 Stool - Stool Stool Culture - Final Salmonella Species Impressions: Abdomen/Pelvis CT 11/12/18 00:00 IMPRESSION: Findings consistent with diffuse enterocolitis with a diarrheal illness. This may be infectious or inflammatory in etiology. Chest X-Ray 11/12/18 09:09 IMPRESSION: Rehydration versus worsening edema or sepsis. No pneumothorax. Assessment & Plan - Diagnosis (1) Colitis Is this a current diagnosis for this admission?: Yes (2) Sepsis Qualifiers: Sepsis type: sepsis due to unspecified organism Qualified Code(s): A41.9 - Sepsis, unspecified organism Is this a current diagnosis for this admission?: Yes - Plan Summary Plan Summary: This is a 58-year-old male with pancolitis (pt with known ulcerative colitis and also has grown Salmonella from a stool culture) and severe sepsis. His sepsis is resolved. His pressors are off. His steroids are being weaned. He is tolerating a regular diet. Continue with antibiotics. Once his IV steroids have been weaned, he should be restarted on his home dose of oral steroids. I will see him again on an as-needed basis. No indication for surgery at this time. The pt will need to followup with his personal caregiver for further treatment of his ulcerative colitis (and management of his steroids). Please renotify with any questions or concerns.
[2018-11-16 12:43] LABS: HEMATOCRIT 43.2 % (37.9-51.0); HEMOGLOBIN 14.6 g/dL (13.5-17.0); MEAN CORPUSCULAR HEMOGLOBIN 30.7 pg (27.0-33.4); MEAN CORPUSCULAR HGB CONC 33.8 g/dL (32.0-36.0); MEAN CORPUSCULAR VOLUME 91 fl (80-97); RED BLOOD COUNT 4.76 10^6/uL (4.35-5.55); RED CELL DISTRIBUTION WIDTH 15.3 % (11.5-14.0); WHITE BLOOD COUNT 9.8 10^3/uL (4.0-10.5)
[2018-11-16 12:59] LABS: ALANINE AMINOTRANSFERASE 61 U/L (21-72); ALBUMIN 2.4 g/dL (3.5-5.0); ALKALINE PHOSPHATASE 80 U/L (38-126); ANION GAP 7 (5-19); ASPARTATE AMINO TRANSFERASE 28 U/L (17-59); BILIRUBIN,DIRECT 0.5 mg/dL (0.0-0.4); BILIRUBIN,TOTAL 0.7 mg/dL (0.2-1.3); BLOOD UREA NITROGEN 21 mg/dL (7-20); CALCIUM 7.7 mg/dL (8.4-10.2); CARBON DIOXIDE 21 mmol/L (22-30); CHLORIDE 108 mmol/L (98-107); GLUCOSE 164 mg/dL (75-110); POTASSIUM 3.5 mmol/L (3.6-5.0); TOTAL PROTEIN 4.1 g/dL (6.3-8.2)
[2018-11-16 13:43] LABS: PLATELET COUNT 57 10^3/uL (150-450)
[2018-11-16 13:46] LABS: ABSOLUTE MONOCYTES # (MANUAL) 0.3 10^3/uL (0.1-1.4); BAND NEUTROPHILS % (MANUAL) 1 % (3-5); BASOPHILS % (MANUAL) 0 % (0-2); EOSINOPHILS % (MANUAL) 0 % (0-6); LYMPHOCYTES % (MANUAL) 10 % (13-45); MONOCYTES % (MANUAL) 3 % (3-13); SEGMENTED NEUTROPHILS % (MAN) 86 % (42-78); TOTAL CELLS COUNTED 100
[2018-11-16 13:49] LABS: ANISOCYTOSIS SLIGHT; OVALOCYTES 1+; PLATELET COMMENT DECREASED; POIKILOCYTOSIS 1+
[2018-11-16] MEDS ORDERED: POTASSIUM CHLORIDE 10 MEQ CAPSULE.ER PO ONE (16:38)
[2018-11-16] MEDS: ATORVASTATIN CALCIUM 40 MG TABLET PO SCH (21:19)
[2018-11-17] MEDS: ACETAMINOPHEN 325 MG TABLET PO PRN ×2 (01:20→08:41)
[2018-11-17 03:09] LABS: HEMATOCRIT 42.5 % (37.9-51.0); HEMOGLOBIN 14.4 g/dL (13.5-17.0); MEAN CORPUSCULAR HEMOGLOBIN 30.7 pg (27.0-33.4); MEAN CORPUSCULAR HGB CONC 33.8 g/dL (32.0-36.0); MEAN CORPUSCULAR VOLUME 91 fl (80-97); RED BLOOD COUNT 4.68 10^6/uL (4.35-5.55); RED CELL DISTRIBUTION WIDTH 15.1 % (11.5-14.0); WHITE BLOOD COUNT 10.7 10^3/uL (4.0-10.5)
[2018-11-17 03:30] LABS: ANION GAP 8 (5-19); BLOOD UREA NITROGEN 20 mg/dL (7-20); CALCIUM 7.6 mg/dL (8.4-10.2); CARBON DIOXIDE 21 mmol/L (22-30); CHLORIDE 109 mmol/L (98-107); GLUCOSE 122 mg/dL (75-110); POTASSIUM 3.5 mmol/L (3.6-5.0); SODIUM 137.8 mmol/L (137-145)
[2018-11-17 03:37] LABS: PLATELET COUNT 68 10^3/uL (150-450)
[2018-11-17 03:38] LABS: ABSOLUTE LYMPHOCYTES# (MANUAL) 1.2 10^3/uL (0.5-4.7); BASOPHILS % (MANUAL) 0 % (0-2); EOSINOPHILS % (MANUAL) 0 % (0-6); LYMPHOCYTES % (MANUAL) 11 % (13-45); MONOCYTES % (MANUAL) 0 % (3-13); OVALOCYTES SLIGHT; POIKILOCYTOSIS 1+; SEGMENTED NEUTROPHILS % (MAN) 89 % (42-78); TOTAL CELLS COUNTED 100
[2018-11-17 03:39] LABS: BURR CELLS SLIGHT; PLATELET COMMENT ADEQUATE
[2018-11-17] MEDS: FONDAPARINUX SODIUM INJ 2.5 MG/0.5 ML DISP.SYRIN SUBCUT SCH (09:59)
[2018-11-17] MEDS: ASPIRIN 81 MG TABLET, CHEWABLE PO SCH (10:10)
[2018-11-17] MEDS: PREDNISONE 20 MG TABLET PO SCH (10:11)
[2018-11-17] MEDS: FLUOXETINE HCL 20 MG CAPSULE PO SCH (10:11)
[2018-11-17] MEDS: PANTOPRAZOLE SODIUM 20 MG TABLET.DR PO SCH (10:11)
[2018-11-17] MEDS: CEFTRIAXONE 2 GM/D5W RTU 2 GM/50 ML RTUPB IV SCH (10:11)
[2018-11-17] MEDS: NORMAL SALINE 1000 ML 1,000 ML IV PRN (13:12)
--- NOTE | 2018-11-17 14:20 | PDOC PROGRESS REPORT ---
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 He was noted to have diffuse colitis on CT of the abdomen. He was also noted to be tachycardic and slightly hypotensive. He received an initial 3 L of normal saline bolus in the ER and was started on levophed. Upon encounter in the ICU, patient is currently getting his seventh liter of fluid. He remains hypotensive on Levophed. Vasopressin will be added. Start IV Zosyn. Surgery is considering possible total colectomy. 11/13: He appears more comfortable today and says that he does feel better today. Denies significant abdominal pain. Currently on vasopressin. He is now on minimal dose of Levophed. Continue to wean off levophed. Lactic acid has normalized. Plan to decrease IV fluids if blood pressures continue to remain stable off vasopressors. 11/14: He has been off vasopressors since yesterday afternoon. His diet has been advanced to full liquid by surgery and has been doing well so far. He appears very comfortable and denies abdominal pain at this time. Advanced to soft diet per surgery. 11/15: He continues to do well. He has been tolerating soft diet well. Blood pressures remain stable. Denies abdominal pain. He does continue to have loose stools. Platelets trending down. SQ Heparin discontinued. Switched to Arixtra. HIT antibodies ordered. 11/16: He continues to improve. He does continue to have watery stools. He is tolerating soft diet well. No abdominal pain upon encounter. Denies chest pain, shortness of breath or leg pain. 11/17: No acute event overnight. He continues to improve but still does have loose stools. Denies abdominal pain. He is tolerating diet well. No nausea or vomiting. Reason For Visit: SEVERE SEPSIS,COLITIS Physical Exam Vital Signs: Temp Pulse Resp BP Pulse Ox 97.2 F 74 17 117/82 92 11/17/18 07:29 11/17/18 07:29 11/17/18 07:29 11/17/18 07:29 11/17/18 07:29 Intake & Output 11/16/18 11/17/18 11/18/18 06:59 06:59 06:59 Intake Total 1290 1725 50 Output Total 3050 3550 Balance -1760 -1825 50 Weight 156 lb 8.451 oz 156 lb 4.924 oz General appearance: PRESENT: no acute distress, well-developed, well-nourished Head exam: PRESENT: atraumatic, normocephalic Eye exam: PRESENT: conjunctiva pink, EOMI, PERRLA. ABSENT: scleral icterus Ear exam: PRESENT: normal external ear exam Mouth exam: PRESENT: moist, tongue midline Neck exam: ABSENT: carotid bruit, JVD, lymphadenopathy, thyromegaly Respiratory exam: PRESENT: clear to auscultation trevin. ABSENT: rales, rhonchi, wheezes Cardiovascular exam: PRESENT: RRR. ABSENT: diastolic murmur, rubs, systolic murmur Pulses: PRESENT: normal dorsalis pedis pul GI/Abdominal exam: PRESENT: normal bowel sounds, soft. ABSENT: distended, guarding, mass, organolmegaly, rebound, tenderness Rectal exam: PRESENT: deferred Extremities exam: PRESENT: full ROM. ABSENT: calf tenderness, clubbing, pedal edema Neurological exam: PRESENT: alert, awake, oriented to person, oriented to place, oriented to time, oriented to situation, CN II-XII grossly intact. ABSENT: motor sensory deficit Results Laboratory Results: 11/17/18 02:43 11/17/18 02:43 11/16/18 11/16/18 11/17/18 12:26 12:26 02:43 WBC 9.8 RBC 4.76 Hgb 14.6 Hct 43.2 MCV 91 MCH 30.7 MCHC 33.8 RDW 15.3 H Plt Count 57 L Seg Neutrophils % Not Reportable Lymphocytes % Not Reportable Monocytes % Not Reportable Eosinophils % Not Reportable Basophils % Not Reportable Absolute Neutrophils Not Reportable Absolute Lymphocytes Not Reportable Absolute Monocytes Not Reportable Absolute Eosinophils Not Reportable Absolute Basophils Not Reportable Sodium 136.0 L 137.8 Potassium 3.5 L 3.5 L Chloride 108 H 109 H Carbon Dioxide 21 L 21 L Anion Gap 7 8 BUN 21 H 20 Creatinine 0.70 0.76 Est GFR ( Amer) > 60 > 60 Est GFR (Non-Af Amer) > 60 > 60 Glucose 164 H 122 H Calcium 7.7 L 7.6 L Total Bilirubin 0.7 AST 28 ALT 61 Alkaline Phosphatase 80 Total Protein 4.1 L Albumin 2.4 L 11/17/18 02:43 WBC 10.7 H RBC 4.68 Hgb 14.4 Hct 42.5 MCV 91 MCH 30.7 MCHC 33.8 RDW 15.1 H Plt Count 68 L Seg Neutrophils % Not Reportable Lymphocytes % Not Reportable Monocytes % Not Reportable Eosinophils % Not Reportable Basophils % Not Reportable Absolute Neutrophils Not Reportable Absolute Lymphocytes Not Reportable Absolute Monocytes Not Reportable Absolute Eosinophils Not Reportable Absolute Basophils Not Reportable Sodium Potassium Chloride Carbon Dioxide Anion Gap BUN Creatinine Est GFR ( Amer) Est GFR (Non-Af Amer) Glucose Calcium Total Bilirubin AST ALT Alkaline Phosphatase Total Protein Albumin 11/12/18 00:40 Blood Blood Culture - Final NO GROWTH IN 5 DAYS 11/11/18 23:58 Blood Blood Culture - Final NO GROWTH IN 5 DAYS Impressions: Abdomen/Pelvis CT 11/12/18 00:00 IMPRESSION: Findings consistent with diffuse enterocolitis with a diarrheal illness. This may be infectious or inflammatory in etiology. Chest X-Ray 11/12/18 09:09 IMPRESSION: Rehydration versus worsening edema or sepsis. No pneumothorax. Assessment and Plan - Diagnosis (1) Septic shock Is this a current diagnosis for this admission?: Yes Plan: Resolved. 11/12: Currently on levophed. Add vasopressin. On hydrocortisone. Start IV Zosyn. 11/13: Improving. Currently on vasopressin. He is now on minimal dose of Levophed. Continue to wean off levophed. Lactic acid has normalized. Plan to decrease IV fluids if blood pressures continue to remain stable off vasopressors . 11/14: Resolved. He has been off vasopressors since yesterday afternoon. Reduce hydrocortisone to 50 mg q8h. 11/16: Further decrease prednisone and switch back to home dose. (2) Colitis Is this a current diagnosis for this admission?: Yes Plan: 11/12: Surgery considering possible total colectomy. 11/13: Surgery deferred for now as he shows significant improvement from yesterday. Stool culture is growing Salmonella. Plan to de escalate Zosyn to Rocephin. Will consult ID for further recommendations. 11/14: Infectious in origin from Salmonella. His diet has been advanced to full liquid by surgery and has been doing well so far. He appears very comfortable and denies abdominal pain at this time. Advanced to soft diet pain surgery. Lizandro swithced to Rocephin. 11/15: Improving. Continue Rocephin. 11/16: He does continue to have watery stools. He is tolerating soft diet well. 11/17: He still has loose stools but abdominal pain has resolved. He is tolerating his diet well. He will need a total of 7 days of IV Rocephin therapy. (3) Colitis due to Salmonella species Is this a current diagnosis for this admission?: Yes Plan: As per number 2. Appreciate ID recommendations. (4) Lactic acidosis Is this a current diagnosis for this admission?: Yes Plan: Slightly improved down to 3.1. Continue IV fluids. Will continue to trend lactic acid. 11/13: Resolved. (5) Acute kidney failure Is this a current diagnosis for this admission?: Yes Plan: Improving. From septic ATN. 11/14: Resolved. Reduce IV fluids to 50 cc/hr. (6) Thrombocytopenia Is this a current diagnosis for this admission?: Yes Plan: Platelets trending down. SQ Heparin discontinued. Switched to Arixtra. HIT antibodies ordered. 11/16: Repeat CBC today. 11/17: Platelet count stable. HIT Ab pending.
[2018-11-17] MEDS: ATORVASTATIN CALCIUM 40 MG TABLET PO SCH (21:16)
[2018-11-18] MEDS: ACETAMINOPHEN 325 MG TABLET PO PRN ×2 (04:51→09:22)
[2018-11-18] MEDS ORDERED: ALBUTEROL SULFATE 0.083% NEB 2.5 MG/3 ML AMPUL NEB PRN (07:28)
--- NOTE | 2018-11-18 09:11 | PDOC PROGRESS REPORT ---
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 He was noted to have diffuse colitis on CT of the abdomen. He was also noted to be tachycardic and slightly hypotensive. He received an initial 3 L of normal saline bolus in the ER and was started on levophed. Upon encounter in the ICU, patient is currently getting his seventh liter of fluid. He remains hypotensive on Levophed. Vasopressin will be added. Start IV Zosyn. Surgery is considering possible total colectomy. 11/13: He appears more comfortable today and says that he does feel better today. Denies significant abdominal pain. Currently on vasopressin. He is now on minimal dose of Levophed. Continue to wean off levophed. Lactic acid has normalized. Plan to decrease IV fluids if blood pressures continue to remain stable off vasopressors. 11/14: He has been off vasopressors since yesterday afternoon. His diet has been advanced to full liquid by surgery and has been doing well so far. He appears very comfortable and denies abdominal pain at this time. Advanced to soft diet per surgery. 11/15: He continues to do well. He has been tolerating soft diet well. Blood pr essures remain stable. Denies abdominal pain. He does continue to have loose stools. Platelets trending down. SQ Heparin discontinued. Switched to Arixtra. HIT antibodies ordered. 11/16: He continues to improve. He does continue to have watery stools. He is tolerating soft diet well. No abdominal pain upon encounter. Denies chest pain, shortness of breath or leg pain. 11/17: No acute event overnight. He continues to improve but still does have loose stools. Denies abdominal pain. He is tolerating diet well. No nausea or vomiting. 11/18/2018-no acute events in the last 24 hours. He still have a rectal tube and De Souza's catheter plan is to remove both of them today. Physical therapy consult is going to be requested. Because patient is complaining of weakness is in the bed for almost 1 week. No acute events in the last 24 hours. Able to tolerate the cardiac diet. T-max is 98. Reason For Visit: SEVERE SEPSIS,COLITIS Physical Exam Vital Signs: Temp Pulse Resp BP Pulse Ox 98.0 F 74 20 116/77 95 11/18/18 03:36 11/18/18 07:00 11/18/18 03:36 11/18/18 03:36 11/18/18 03:36 Intake & Output 11/17/18 11/18/18 11/19/18 06:59 06:59 06:59 Intake Total 2727 1896 Output Total 3550 6058 Balance -825 -6280 Weight 70.9 kg 71.5 kg General appearance: PRESENT: no acute distress, well-developed Head exam: PRESENT: atraumatic Eye exam: PRESENT: PERRLA Mouth exam: PRESENT: moist, tongue midline Teeth exam: PRESENT: poor dentation Neck exam: ABSENT: carotid bruit, JVD, lymphadenopathy, thyromegaly Respiratory exam: PRESENT: clear to auscultation trevin. ABSENT: rales, rhonchi, wheezes Cardiovascular exam: PRESENT: RRR. ABSENT: diastolic murmur, rubs, systolic murmur GI/Abdominal exam: PRESENT: normal bowel sounds, soft. ABSENT: distended, guarding, mass, organolmegaly, rebound, tenderness Rectal exam: PRESENT: deferred, other - Rectal tube present. Gentrourinary exam: PRESENT: indwelling catheter Extremities exam: PRESENT: full ROM. ABSENT: calf tenderness, clubbing, pedal edema Neurological exam: PRESENT: alert, awake, oriented to person, oriented to place, oriented to time, oriented to situation, CN II-XII grossly intact. ABSENT: motor sensory deficit Psychiatric exam: PRESENT: appropriate affect, normal mood. ABSENT: homicidal ideation, suicidal ideation Results Laboratory Results: 11/17/18 02:43 11/17/18 02:43 Impressions: Abdomen/Pelvis CT 11/12/18 00:00 IMPRESSION: Findings consistent with diffuse enterocolitis with a diarrheal illness. This may be infectious or inflammatory in etiology. Chest X-Ray 11/12/18 09:09 IMPRESSION: Rehydration versus worsening edema or sepsis. No pneumothorax. Assessment and Plan - Diagnosis (1) Septic shock Is this a current diagnosis for this admission?: Yes Plan: Resolved. 11/12: Currently on levophed. Add vasopressin. On hydrocortisone. Start IV Zosyn. 11/13: Improving. Currently on vasopressin. He is now on minimal dose of Levophed. Continue to wean off levophed. Lactic acid has normalized. Plan to decrease IV fluids if blood pressures continue to remain stable off vasopressors. 11/14: Resolved. He has been off vasopressors since yesterday afternoon. Reduce hydrocortisone to 50 mg q8h. 11/16: Further decrease prednisone and switch back to home dose. 11/18/2018-patient was admitted with septic shock which was resolved. Initially is on Levophed and vasopressin. Those medications were taken off. Stool cultures initially came back positive for Salmonella. Plan is to continue ceftriaxone for at least 2 more days. Blood pressure today is 114/77. Asymptomatic. Able to tolerate the oral diet. (2) Colitis Is this a current diagnosis for this admission?: Yes Plan: 11/12: Surgery considering possible total colectomy. 11/13: Surgery deferred for now as he shows significant improvement from yesterday. Stool culture is growing Salmonella. Plan to de escalate Zosyn to Rocephin. Will consult ID for further recommendations. 11/14: Infectious in origin from Salmonella. His diet has been advanced to full liquid by surgery and has been doing well so far. He appears very comfortable and denies abdominal pain at this time. Advanced to soft diet pain surgery. Zosyn swithced to Rocephin. 11/15: Improving. Continue Rocephin. 11/16: He does continue to have watery stools. He is tolerating soft diet well. 11/17: He still has loose stools but abdominal pain has resolved. He is tolerating his diet well. He will need a total of 7 days of IV Rocephin therapy. 11/18/2018-patient has a rectal tube denies any loose stools. Abdominal pain was resolved. Tolerating the diet very well. Is going to be on 1 more day of IV antibiotic therapy. Initial stool culture came back positive for Salmonella. Plan is to remove the rectal tube and De Souza's catheter today. (3) Colitis due to Salmonella species Is this a current diagnosis for this admission?: Yes Plan: As per number 2. Appreciate ID recommendations. 11/18/2018-plan is to continue ceftriaxone at least for 1 more day. (4) Lactic acidosis Is this a current diagnosis for this admission?: Yes Plan: Slightly improved down to 3.1. Continue IV fluids. Will continue to trend lactic acid. 11/13: Resolved. 11/17/2018-patient came in with lactic acidosis 2.1 initially and it was resolved now. (5) Acute kidney failure Is this a current diagnosis for this admission?: Yes Plan: Improving. From septic ATN. 11/14: Resolved. Reduce IV fluids to 50 cc/hr. 11/17/2018-latest creatinine is 2.76 acute kidney injury is resolved. Most likely secondary to septic ATN. Patient's baseline creatinine is around 0.8 worsened to 1.86 now it is 0.76. (6) Thrombocytopenia Is this a current diagnosis for this admission?: Yes Plan: Platelets trending down. SQ Heparin discontinued. Switched to Arixtra. HIT antibodies ordered. 11/16: Repeat CBC today. 11/17: Platelet count stable. HIT Ab pending. 11/18/2018-platelet count is 68,000 slightly improved. Presently on Arixtra. Heparin was discontinued. Plan is to recheck the labs tomorrow. - Time Time Spent with patient: 25-34 minutes Medications reviewed and adjusted accordingly: Yes Anticipated discharge: Home
[2018-11-18] MEDS: FLUOXETINE HCL 20 MG CAPSULE PO SCH ×2 (09:22→09:24)
[2018-11-18] MEDS: METOPROLOL SUCCINATE 25 MG TAB.SR.24H PO SCH (09:22)
[2018-11-18] MEDS: NORMAL SALINE 1000 ML 1,000 ML IV PRN (09:22)
[2018-11-18] MEDS: CEFTRIAXONE 2 GM/D5W RTU 2 GM/50 ML RTUPB IV SCH (09:23)
[2018-11-18] MEDS: LORATADINE 10 MG TABLET PO SCH (09:23)
[2018-11-18] MEDS: PANTOPRAZOLE SODIUM 20 MG TABLET.DR PO SCH (09:23)
[2018-11-18] MEDS: PREDNISONE 20 MG TABLET PO SCH (09:23)
[2018-11-18] MEDS: ASPIRIN 81 MG TABLET, ENT COATED PO SCH (09:23)
[2018-11-18] MEDS: ASPIRIN 81 MG TABLET, CHEWABLE PO SCH (09:24)
[2018-11-18] MEDS: FLUTICASONE/VILANTEROL 200-25 MCG/DOSE IH SCH (09:24)
[2018-11-18] MEDS: FONDAPARINUX SODIUM INJ 2.5 MG/0.5 ML DISP.SYRIN SUBCUT SCH (09:24)
[2018-11-18] MEDS ORDERED: (PENDING PHARMACY ID) (Desloratadine [Clarinex] 5 MG) PO SCH (10:00)
[2018-11-18] MEDS ORDERED: (PENDING PHARMACY ID) (Fluticasone/Salmeterol 1 PUFF) IH SCH (10:00)
[2018-11-18 10:49] LABS: HEMATOCRIT 46.2 % (37.9-51.0); HEMOGLOBIN 15.7 g/dL (13.5-17.0); MEAN CORPUSCULAR HEMOGLOBIN 30.4 pg (27.0-33.4); MEAN CORPUSCULAR HGB CONC 33.9 g/dL (32.0-36.0); MEAN CORPUSCULAR VOLUME 90 fl (80-97); RED BLOOD COUNT 5.15 10^6/uL (4.35-5.55)
[2018-11-18 11:12] LABS: ALANINE AMINOTRANSFERASE 61 U/L (21-72); ALBUMIN 2.6 g/dL (3.5-5.0); ALKALINE PHOSPHATASE 102 U/L (38-126); ANION GAP 10 (5-19); ASPARTATE AMINO TRANSFERASE 18 U/L (17-59); BILIRUBIN,DIRECT 0.4 mg/dL (0.0-0.4); BILIRUBIN,TOTAL 0.7 mg/dL (0.2-1.3); BLOOD UREA NITROGEN 15 mg/dL (7-20); CALCIUM 7.6 mg/dL (8.4-10.2); CARBON DIOXIDE 22 mmol/L (22-30); CHLORIDE 105 mmol/L (98-107); GLUCOSE 164 mg/dL (75-110); SODIUM 136.5 mmol/L (137-145); TOTAL PROTEIN 4.4 g/dL (6.3-8.2)
[2018-11-18 11:19] LABS: PLATELET COUNT 94 10^3/uL (150-450)
[2018-11-18 11:20] LABS: POTASSIUM 2.9 mmol/L (3.6-5.0)
[2018-11-18 11:23] LABS: ABSOLUTE LYMPHOCYTES# (MANUAL) 1.3 10^3/uL (0.5-4.7); ABSOLUTE MONOCYTES # (MANUAL) 0.1 10^3/uL (0.1-1.4); BAND NEUTROPHILS % (MANUAL) 1 % (3-5); BASOPHILS % (MANUAL) 0 % (0-2); EOSINOPHILS % (MANUAL) 0 % (0-6); LYMPHOCYTES % (MANUAL) 9 % (13-45); MONOCYTES % (MANUAL) 1 % (3-13); SEGMENTED NEUTROPHILS % (MAN) 89 % (42-78); TOTAL CELLS COUNTED 100
[2018-11-18 11:25] LABS: BURR CELLS 1+; PLATELET COMMENT DECREASED; PLATELET LARGE PRESENT
[2018-11-18 11:26] LABS: POIKILOCYTOSIS SLIGHT
[2018-11-18] MEDS ORDERED: MAGNESIUM SULFATE 4 GM/100 ML RTUPB IV ONE (12:00)
[2018-11-18] MEDS ORDERED: POTASSIUM CHLORIDE 10 MEQ CAPSULE.ER PO ONE (12:30)
[2018-11-18] MEDS: MONTELUKAST SODIUM 10 MG TABLET PO SCH (17:43)
[2018-11-18] MEDS: ATORVASTATIN CALCIUM 20 MG TABLET PO SCH (21:48)
[2018-11-18] MEDS: ATORVASTATIN CALCIUM 40 MG TABLET PO SCH (21:52)
[2018-11-19 08:15] LABS: HEMATOCRIT 42.6 % (37.9-51.0); HEMOGLOBIN 14.3 g/dL (13.5-17.0); MEAN CORPUSCULAR HEMOGLOBIN 30.4 pg (27.0-33.4); MEAN CORPUSCULAR HGB CONC 33.7 g/dL (32.0-36.0); MEAN CORPUSCULAR VOLUME 90 fl (80-97); PLATELET COUNT 103 10^3/uL (150-450); RED BLOOD COUNT 4.71 10^6/uL (4.35-5.55); RED CELL DISTRIBUTION WIDTH 14.9 % (11.5-14.0)
[2018-11-19 08:45] LABS: ABSOLUTE LYMPHOCYTES# (MANUAL) 1.8 10^3/uL (0.5-4.7); ABSOLUTE MONOCYTES # (MANUAL) 0.5 10^3/uL (0.1-1.4); BASOPHILS % (MANUAL) 0 % (0-2); EOSINOPHILS % (MANUAL) 1 % (0-6); LYMPHOCYTES % (MANUAL) 12 % (13-45); MONOCYTES % (MANUAL) 3 % (3-13); SEGMENTED NEUTROPHILS % (MAN) 84 % (42-78); TOTAL CELLS COUNTED 100
[2018-11-19 08:46] LABS: ANISOCYTOSIS SLIGHT; BURR CELLS SLIGHT; OVALOCYTES SLIGHT; PLATELET COMMENT DECREASED; POIKILOCYTOSIS SLIGHT
[2018-11-19 08:47] LABS: ALANINE AMINOTRANSFERASE 50 U/L (21-72); ALBUMIN 2.6 g/dL (3.5-5.0); ALKALINE PHOSPHATASE 121 U/L (38-126); ANION GAP 9 (5-19); ASPARTATE AMINO TRANSFERASE 15 U/L (17-59); BILIRUBIN,DIRECT 0.4 mg/dL (0.0-0.4); BILIRUBIN,TOTAL 0.6 mg/dL (0.2-1.3); BLOOD UREA NITROGEN 19 mg/dL (7-20); CALCIUM 7.7 mg/dL (8.4-10.2); CARBON DIOXIDE 24 mmol/L (22-30); CHLORIDE 104 mmol/L (98-107); GLUCOSE 119 mg/dL (75-110); POTASSIUM 3.4 mmol/L (3.6-5.0); SODIUM 136.5 mmol/L (137-145); TOTAL PROTEIN 4.2 g/dL (6.3-8.2)
[2018-11-19] MEDS ORDERED: POTASSIUM CHLORIDE 10 MEQ CAPSULE.ER PO ONE (10:19)
[2018-11-19] MEDS: LORATADINE 10 MG TABLET PO SCH (10:27)
[2018-11-19] MEDS: PREDNISONE 20 MG TABLET PO SCH (10:28)
[2018-11-19] MEDS: PANTOPRAZOLE SODIUM 20 MG TABLET.DR PO SCH (10:28)
[2018-11-19] MEDS: ASPIRIN 81 MG TABLET, CHEWABLE PO SCH (10:28)
[2018-11-19] MEDS: FLUTICASONE/VILANTEROL 200-25 MCG/DOSE IH SCH (10:28)
[2018-11-19] MEDS: METOPROLOL SUCCINATE 25 MG TAB.SR.24H PO SCH (10:28)
[2018-11-19] MEDS: FONDAPARINUX SODIUM INJ 2.5 MG/0.5 ML DISP.SYRIN SUBCUT SCH (10:28)
[2018-11-19] MEDS: FLUOXETINE HCL 20 MG CAPSULE PO SCH ×2 (10:30→10:33)
[2018-11-19] MEDS: ASPIRIN 81 MG TABLET, ENT COATED PO SCH (10:30)
[2018-11-19] MEDS: CEFTRIAXONE 2 GM/D5W RTU 2 GM/50 ML RTUPB IV SCH (10:33)
[2018-11-19] MEDS: MAGNESIUM OXIDE 400 MG TABLET PO SCH ×2 (11:15→17:27)
--- NOTE | 2018-11-19 11:22 | PDOC PROGRESS REPORT ---
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 He was noted to have diffuse colitis on CT of the abdomen. He was also noted to be tachycardic and slightly hypotensive. He received an initial 3 L of normal saline bolus in the ER and was started on levophed. Upon encounter in the ICU, patient is currently getting his seventh liter of fluid. He remains hypotensive on Levophed. Vasopressin will be added. Start IV Zosyn. Surgery is considering possible total colectomy. 11/13: He appears more comfortable today and says that he does feel better today. Denies significant abdominal pain. Currently on vasopressin. He is now on minimal dose of Levophed. Continue to wean off levophed. Lactic acid has normalized. Plan to decrease IV fluids if blood pressures continue to remain stable off vasopressors. 11/14: He has been off vasopressors since yesterday afternoon. His diet has been advanced to full liquid by surgery and has been doing well so far. He appears very comfortable and denies abdominal pain at this time. Advanced to soft diet per surgery. 11/15: He continues to do well. He has been tolerating soft diet well. Blood pr essures remain stable. Denies abdominal pain. He does continue to have loose stools. Platelets trending down. SQ Heparin discontinued. Switched to Arixtra. HIT antibodies ordered. 11/16: He continues to improve. He does continue to have watery stools. He is tolerating soft diet well. No abdominal pain upon encounter. Denies chest pain, shortness of breath or leg pain. 11/17: No acute event overnight. He continues to improve but still does have loose stools. Denies abdominal pain. He is tolerating diet well. No nausea or vomiting. 11/18/2018-no acute events in the last 24 hours. He still have a rectal tube and De Souza's catheter plan is to remove both of them today. Physical therapy consult is going to be requested. Because patient is complaining of weakness is in the bed for almost 1 week. No acute events in the last 24 hours. Able to tolerate the cardiac diet. T-max is 98. 11/19/2018-no acute events in the last 24 hours. Patient is afebrile. Able to tolerate the diet well. potassium is 3.4 which is going to be supplemented magnesium is 1.6 which is going to be supplemented. Reason For Visit: SEVERE SEPSIS,COLITIS Physical Exam Vital Signs: Temp Pulse Resp BP Pulse Ox 97.4 F 65 16 111/71 98 11/19/18 07:42 11/19/18 07:42 11/19/18 07:42 11/19/18 07:42 11/19/18 07:42 Intake & Output 11/18/18 11/19/18 11/20/18 06:59 06:59 06:59 Intake Total 1896 2976 Output Total 6050 1100 Balance -4154 1876 Weight 71.5 kg 70 kg General appearance: PRESENT: no acute distress, well-developed Head exam: PRESENT: atraumatic Eye exam: PRESENT: PERRLA Mouth exam: PRESENT: moist, tongue midline Teeth exam: PRESENT: poor dentation Neck exam: ABSENT: carotid bruit, JVD, lymphadenopathy, thyromegaly Respiratory exam: PRESENT: clear to auscultation trevin. ABSENT: rales, rhonchi, wheezes Cardiovascular exam: PRESENT: RRR. ABSENT: diastolic murmur, rubs, systolic murmur GI/Abdominal exam: PRESENT: normal bowel sounds, soft. ABSENT: distended, guarding, mass, organolmegaly, rebound, tenderness Rectal exam: PRESENT: deferred Extremities exam: PRESENT: full ROM. ABSENT: calf tenderness, clubbing, pedal edema Neurological exam: PRESENT: alert, awake, oriented to person, oriented to place, oriented to time, oriented to situation, CN II-XII grossly intact. ABSENT: motor sensory deficit Psychiatric exam: PRESENT: appropriate affect, normal mood. ABSENT: homicidal ideation, suicidal ideation Results Laboratory Results: 11/19/18 07:04 11/19/18 07:04 11/18/18 11/18/18 11/19/18 09:53 09:53 07:04 WBC 14.0 H 15.0 H RBC 5.15 4.71 Hgb 15.7 14.3 Hct 46.2 42.6 MCV 90 90 MCH 30.4 30.4 MCHC 33.9 33.7 RDW 15.0 H 14.9 H Plt Count 94 L 103 L Seg Neutrophils % Not Reportable Not Reportable Lymphocytes % Not Reportable Not Reportable Monocytes % Not Reportable Not Reportable Eosinophils % Not Reportable Not Reportable Basophils % Not Reportable Not Reportable Absolute Neutrophils Not Reportable Not Reportable Absolute Lymphocytes Not Reportable Not Reportable Absolute Monocytes Not Reportable Not Reportable Absolute Eosinophils Not Reportable Not Reportable Absolute Basophils Not Reportable Not Reportable Sodium 136.5 L Potassium 2.9 L* Chloride 105 Carbon Dioxide 22 Anion Gap 10 BUN 15 Creatinine 0.68 Est GFR ( Amer) > 60 Est GFR (Non-Af Amer) > 60 Glucose 164 H Calcium 7.6 L Magnesium 1.0 L* Total Bilirubin 0.7 AST 18 ALT 61 Alkaline Phosphatase 102 Total Protein 4.4 L Albumin 2.6 L 11/19/18 07:04 WBC RBC Hgb Hct MCV MCH MCHC RDW Plt Count Seg Neutrophils % Lymphocytes % Monocytes % Eosinophils % Basophils % Absolute Neutrophils Absolute Lymphocytes Absolute Monocytes Absolute Eosinophils Absolute Basophils Sodium 136.5 L Potassium 3.4 L Chloride 104 Carbon Dioxide 24 Anion Gap 9 BUN 19 Creatinine 0.66 Est GFR ( Amer) > 60 Est GFR (Non-Af Amer) > 60 Glucose 119 H Calcium 7.7 L Magnesium 1.6 Total Bilirubin 0.6 AST 15 L ALT 50 Alkaline Phosphatase 121 Total Protein 4.2 L Albumin 2.6 L Impressions: Abdomen/Pelvis CT 11/12/18 00:00 IMPRESSION: Findings consistent with diffuse enterocolitis with a diarrheal illness. This may be infectious or inflammatory in etiology. Chest X-Ray 11/12/18 09:09 IMPRESSION: Rehydration versus worsening edema or sepsis. No pneumothorax. Assessment and Plan - Diagnosis (1) Septic shock Is this a current diagnosis for this admission?: Yes Plan: Resolved. 11/12: Currently on levophed. Add vasopressin. On hydrocortisone. Start IV Zosyn. 11/13: Improving. Currently on vasopressin. He is now on minimal dose of Levophed. Continue to wean off levophed. Lactic acid has normalized. Plan to decrease IV fluids if blood pressures continue to remain stable off vasopressors. 11/14: Resolved. He has been off vasopressors since yesterday afternoon. Reduce hydrocortisone to 50 mg q8h. 11/16: Further decrease prednisone and switch back to home dose. 11/18/2018-patient was admitted with septic shock which was resolved. Initially is on Levophed and vasopressin. Those medications were taken off. Stool cultures initially came back positive for Salmonella. Plan is to continue ceftriaxone for at least 2 more days. Blood pressure today is 114/77. Asymptomatic. Able to tolerate the oral diet. 11/19/2018 septic shock is resolved blood pressure today is 108/70 pulse ox is 100% room air temperature is 97.8. BC count is 15,000. Stool culture was positive for Salmonella receiving IV Rocephin. (2) Colitis Is this a current diagnosis for this admission?: Yes Plan: 11/12: Surgery considering possible total colectomy. 11/13: Surgery deferred for now as he shows significant improvement from yesterday. Stool culture is growing Salmonella. Plan to de escalate Zosyn to Rocephin. Will consult ID for further recommendations. 11/14: Infectious in origin from Salmonella. His diet has been advanced to full liquid by surgery and has been doing well so far. He appears very comfortable and denies abdominal pain at this time. Advanced to soft diet pain surgery. Zosyn swithced to Rocephin. 11/15: Improving. Continue Rocephin. 11/16: He does continue to have watery stools. He is tolerating soft diet well. 11/17: He still has loose stools but abdominal pain has resolved. He is tolerating his diet well. He will need a total of 7 days of IV Rocephin therapy. 11/18/2018-patient has a rectal tube denies any loose stools. Abdominal pain was resolved. Tolerating the diet very well. Is going to be on 1 more day of IV a ntibiotic therapy. Initial stool culture came back positive for Salmonella. Plan is to remove the rectal tube and De Souza's catheter today. 11/19/2018-rectal tube was removed yesterday no diarrhea noticed. Stool culture was positive for Salmonella receiving IV Rocephin. (3) Colitis due to Salmonella species Is this a current diagnosis for this admission?: Yes (4) Lactic acidosis Is this a current diagnosis for this admission?: Yes (5) Acute kidney failure Is this a current diagnosis for this admission?: Yes Plan: Improving. From septic ATN. 11/14: Resolved. Reduce IV fluids to 50 cc/hr. 11/17/2018-latest creatinine is 2.76 acute kidney injury is resolved. Most likely secondary to septic ATN. Patient's baseline creatinine is around 0.8 worsened to 1.86 now it is 0.76. 11/19/2018-serum creatinine today is at 0.66 CLARISSE resolved. (6) Thrombocytopenia Is this a current diagnosis for this admission?: Yes Plan: Platelets trending down. SQ Heparin discontinued. Switched to Arixtra. HIT antibodies ordered. 11/16: Repeat CBC today. 11/17: Platelet count stable. HIT Ab pending. 11/18/2018-platelet count is 68,000 slightly improved. Presently on Arixtra. Heparin was discontinued. Plan is to recheck the labs tomorrow. 11/19/2018-platelet count is 103 today continue to improve. HIT is 0.045. Close to normal limits. - Time Time Spent with patient: 25-34 minutes Medications reviewed and adjusted accordingly: Yes Anticipated discharge: Home
[2018-11-19] MEDS: MONTELUKAST SODIUM 10 MG TABLET PO SCH (17:27)
[2018-11-19] MEDS ORDERED: MAGNESIUM OXIDE 400 MG TABLET PO SCH (18:00)
[2018-11-19] MEDS: ACETAMINOPHEN 325 MG TABLET PO PRN (18:12)
[2018-11-19] MEDS: ATORVASTATIN CALCIUM 20 MG TABLET PO SCH (21:42)
[2018-11-20] MEDS: ACETAMINOPHEN 325 MG TABLET PO PRN (01:04)
[2018-11-20 05:31] LABS: ABSOLUTE EOSINOPHILS # (AUTO) 0.1 10^3/uL (0.0-0.6); ABSOLUTE LYMPHOCYTES (AUTO) 1.3 10^3/uL (0.5-4.7); ABSOLUTE MONOCYTES (AUTO) 0.4 10^3/uL (0.1-1.4); ABSOLUTE NEUT (AUTO) 10.9 10^3/uL (1.7-8.2); BASOPHILS % (AUTO) 0.1 % (0-2); EOSINOPHILS % (AUTO) 0.7 % (0-6); HEMATOCRIT 39.5 % (37.9-51.0); HEMOGLOBIN 13.5 g/dL (13.5-17.0); LYMPHOCYTES % (AUTO) 10.1 % (13-45); MEAN CORPUSCULAR HEMOGLOBIN 30.6 pg (27.0-33.4); MEAN CORPUSCULAR HGB CONC 34.3 g/dL (32.0-36.0); MEAN CORPUSCULAR VOLUME 89 fl (80-97); MONOCYTES % (AUTO) 3.3 % (3-13); PLATELET COUNT 105 10^3/uL (150-450); RED BLOOD COUNT 4.42 10^6/uL (4.35-5.55); RED CELL DISTRIBUTION WIDTH 14.8 % (11.5-14.0); SEGMENTED NEUTROPHILS % (AUTO) 85.8 % (42-78); TOTAL CELLS COUNTED % (AUTO) 100 %; WHITE BLOOD COUNT 12.7 10^3/uL (4.0-10.5)
[2018-11-20 05:53] LABS: ALANINE AMINOTRANSFERASE 51 U/L (21-72); ALBUMIN 2.3 g/dL (3.5-5.0); ALKALINE PHOSPHATASE 127 U/L (38-126); ANION GAP 9 (5-19); ASPARTATE AMINO TRANSFERASE 12 U/L (17-59); BILIRUBIN,DIRECT 0.3 mg/dL (0.0-0.4); BILIRUBIN,TOTAL 0.4 mg/dL (0.2-1.3); BLOOD UREA NITROGEN 18 mg/dL (7-20); CALCIUM 7.8 mg/dL (8.4-10.2); CARBON DIOXIDE 19 mmol/L (22-30); CHLORIDE 105 mmol/L (98-107); GLUCOSE 251 mg/dL (75-110); POTASSIUM 3.5 mmol/L (3.6-5.0); SODIUM 132.7 mmol/L (137-145); TOTAL PROTEIN 3.9 g/dL (6.3-8.2)
[2018-11-20] MEDS ORDERED: POTASSIUM CHLORIDE 10 MEQ CAPSULE.ER PO ONE (09:00)
[2018-11-20] MEDS: CEFTRIAXONE 2 GM/D5W RTU 2 GM/50 ML RTUPB IV SCH (10:04)
[2018-11-20] MEDS: PREDNISONE 20 MG TABLET PO SCH (10:04)
[2018-11-20] MEDS: MAGNESIUM OXIDE 400 MG TABLET PO SCH (10:04)
[2018-11-20] MEDS: LORATADINE 10 MG TABLET PO SCH (10:04)
[2018-11-20] MEDS: PANTOPRAZOLE SODIUM 20 MG TABLET.DR PO SCH (10:05)
[2018-11-20] MEDS: FLUOXETINE HCL 20 MG CAPSULE PO SCH (10:05)
[2018-11-20] MEDS: FONDAPARINUX SODIUM INJ 2.5 MG/0.5 ML DISP.SYRIN SUBCUT SCH (10:05)
[2018-11-20] MEDS: ASPIRIN 81 MG TABLET, ENT COATED PO SCH (10:05)
[2018-11-20] MEDS: METOPROLOL SUCCINATE 25 MG TAB.SR.24H PO SCH (10:05)
[2018-11-20] MEDS: FLUTICASONE/VILANTEROL 200-25 MCG/DOSE IH SCH (10:06)
--- NOTE | 2018-11-20 11:09 | PDOC DISCHARGE SUMMARY ---
General - Admit/Disc Date/PCP Admission Date/Primary Care Provider: 11/12/18 03:43 SAMI CHO MD Discharge Date: 11/20/18 - Discharge Diagnosis (1) Septic shock Is this a current diagnosis for this admission?: Yes Summary: Resolved. 11/12: Currently on levophed. Add vasopressin. On hydrocortisone. Start IV Zosyn. 11/13: Improving. Currently on vasopressin. He is now on minimal dose of Levophed. Continue to wean off levophed. Lactic acid has normalized. Plan to decrease IV fluids if blood pressures continue to remain stable off vasopressors. 11/14: Resolved. He has been off vasopressors since yesterday afternoon. Reduce hydrocortisone to 50 mg q8h. 11/16: Further decrease prednisone and switch back to home dose. 11/18/2018-patient was admitted with septic shock which was resolved. Initially is on Levophed and vasopressin. Those medications were taken off. Stool cultures initially came back positive for Salmonella. Plan is to continue ceftriaxone for at least 2 more days. Blood pressure today is 114/77. Asymptomatic. Able to tolerate the oral diet. 11/19/2018 septic shock is resolved blood pressure today is 108/70 pulse ox is 100% room air temperature is 97.8. BC count is 15,000. Stool culture was positive for Salmonella receiving IV Rocephin. 11/20/2018-this 58-year-old male admitted with sepsis secondary to colitis caused by Salmonella sepsis was resolved. Pulse oxes 100% on room air blood pressure is 125/76 temperature is 97.7. WBC count is 12,700 may be secondary to steroids. pt is going home on Flagyl 500 mg p.o. 3 times daily for 1 week. (2) Colitis Is this a current diagnosis for this admission?: Yes Summary: 11/12: Surgery considering possible total colectomy. 11/13: Surgery deferred for now as he shows significant improvement from yesterday. Stool culture is growing Salmonella. Plan to de escalate Zosyn to Rocephin. Will consult ID for further recommendations. 11/14: Infectious in origin from Salmonella. His diet has been advanced to full liquid by surgery and has been doing well so far. He appears very comfortable and denies abdominal pain at this time. Advanced to soft diet pain surgery. Zosyn swithced to Rocephin. 11/15: Improving. Continue Rocephin. 11/16: He does continue to have watery stools. He is tolerating soft diet well. 11/17: He still has loose stools but abdominal pain has resolved. He is tolerating his diet well. He will need a total of 7 days of IV Rocephin therapy. 11/18/2018-patient has a rectal tube denies any loose stools. Abdominal pain was resolved. Tolerating the diet very well. Is going to be on 1 more day of IV antibiotic therapy. Initial stool culture came back positive for Salmonella. Plan is to remove the rectal tube and De Souza's catheter today. 11/19/2018-rectal tube was removed yesterday no diarrhea noticed. Stool culture was positive for Salmonella receiving IV Rocephin. 11/[id number]-old male admitted with colitis no loose stools anymore rectal tube was removed he was treated for Salmonella. He completed the antibiotic course he is going home on Flagyl 500 mg p.o. 3 times daily for 1 week. (3) Colitis due to Salmonella species Is this a current diagnosis for this admission?: Yes Summary: 11/20/2018-patient is admitted with abdominal pain found to have a colitis stool culture came back positive for Salmonella as per ID recommendations he was treated with IV Rocephin abdominal pain was resolved he was able to tolerate the diet no diarrhea no fever. (4) Lactic acidosis Is this a current diagnosis for this admission?: Yes Summary: 11/20/2018-lactic acid levels were elevated at the time of admission follow-up the labs shows normalization of the lactic acid levels. (5) Acute kidney failure Is this a current diagnosis for this admission?: Yes Summary: Improving. From septic ATN. 11/14: Resolved. Reduce IV fluids to 50 cc/hr. 11/17/2018-latest creatinine is 2.76 acute kidney injury is resolved. Most likely secondary to septic ATN. Patient's baseline creatinine is around 0.8 worsened to 1.86 now it is 0.76. 11/19/2018-serum creatinine today is at 0.66 CLARISSE resolved. 11/20/2018-patient came in with acute kidney injury latest creatinine 0.6. Acute kidney injury may be secondary to septic ATN. CLARISSE is resolved. (6) Thrombocytopenia Is this a current diagnosis for this admission?: Yes - Additional Information Resuscitation Status: Full Code Discharge Activity: Activity As Tolerated Prescriptions: Metronidazole [Flagyl 500 mg Tablet] 500 mg PO TID #21 tablet Home Medications: Albuterol Sulfate [Ventolin 0.083% Neb 2.5 mg/3 mL Ampul] 2.5 mg NEB [id number] PRN 11/12/18 Aspirin [Adult Low Dose Aspirin EC] 81 mg PO DAILY 11/12/18 Atorvastatin Calcium [Lipitor 20 mg Tablet] 20 mg PO QHS 11/12/18 Desloratadine [Clarinex] 5 mg PO DAILY 11/12/18 Fluoxetine HCl [Prozac 20 mg Capsule] 20 mg PO DAILY 11/12/18 Fluticasone/Salmeterol [Advair 250-50 Diskus 14 Dose/Diskus] 1 puff IH Q12 11/12/18 Metoprolol Succinate [Toprol Xl 25 mg Tab.sr] 25 mg PO DAILY 11/12/18 Montelukast Sodium [Singulair 10 mg Tablet] 10 mg PO QPM 11/12/18 Omeprazole 20 mg PO DAILY 11/12/18 Metronidazole [Flagyl 500 mg Tablet] 500 mg PO TID #21 tablet 11/20/18 History of Present Illness History of Present Illness: BLU JIMENES JR is a 58 year old male 58 year old male with a past medical history of 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 Patient presents with nausea vomiting abdominal pain 6 hours prior to presentation he is found with severe sepsis requiring central line placement 3 L of normal saline bolus, IV antibiotics and levofed. CT imaging reveals diffuse colitis with loss of haustra inflammatory versus infectious. 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 Hospital Course Hospital Course: 58-year-old male came to the emergency room with abdominal pains found to have colitis stool culture was positive for Salmonella he was treated with IV Rocephin initially is on rectal tube which was removed he was able to tolerate the diet adequately for the last couple of days rectal tube was removed no diarrhea was noticed afebrile completed the course of Salmonella treatment. He is going home on Flagyl 500 mg p.o. 3 times daily for 1 week. Physical Exam Vital Signs: Temp Pulse Resp BP Pulse Ox 97.5 F 59 L 17 109/70 100 11/20/18 07:42 11/20/18 07:42 11/20/18 07:42 11/20/18 07:42 11/20/18 07:42 Intake & Output 11/19/18 11/20/18 11/21/18 06:59 06:59 06:59 Intake Total 2976 2199 420 Output Total 1100 Balance 1876 2199 420 Weight 70 kg 70.4 kg General appearance: PRESENT: no acute distress, thin Head exam: PRESENT: atraumatic Eye exam: PRESENT: PERRLA Mouth exam: PRESENT: moist, tongue midline Teeth exam: PRESENT: poor dentation Neck exam: ABSENT: carotid bruit, JVD, lymphadenopathy, thyromegaly Respiratory exam: PRESENT: clear to auscultation trevin. ABSENT: rales, rhonchi, wheezes Cardiovascular exam: PRESENT: RRR. ABSENT: diastolic murmur, rubs, systolic murmur GI/Abdominal exam: PRESENT: ascites Rectal exam: PRESENT: deferred Extremities exam: PRESENT: full ROM. ABSENT: calf tenderness, clubbing, pedal edema Neurological exam: PRESENT: alert, awake, oriented to person, oriented to place, oriented to time, oriented to situation, CN II-XII grossly intact. ABSENT: arcelia r sensory deficit Psychiatric exam: PRESENT: appropriate affect, normal mood. ABSENT: homicidal ideation, suicidal ideation Results Laboratory Results: 11/20/18 04:38 11/20/18 04:38 11/20/18 11/20/18 04:38 04:38 WBC 12.7 H RBC 4.42 Hgb 13.5 Hct 39.5 MCV 89 MCH 30.6 MCHC 34.3 RDW 14.8 H Plt Count 105 L Seg Neutrophils % 85.8 H Lymphocytes % 10.1 L Monocytes % 3.3 Eosinophils % 0.7 Basophils % 0.1 Absolute Neutrophils 10.9 H Absolute Lymphocytes 1.3 Absolute Monocytes 0.4 Absolute Eosinophils 0.1 Absolute Basophils 0.0 Sodium 132.7 L Potassium 3.5 L Chloride 105 Carbon Dioxide 19 L Anion Gap 9 BUN 18 Creatinine 0.59 Est GFR ( Amer) > 60 Est GFR (Non-Af Amer) > 60 Glucose 251 H Calcium 7.8 L Magnesium 1.4 L Total Bilirubin 0.4 AST 12 L ALT 51 Alkaline Phosphatase 127 H Total Protein 3.9 L Albumin 2.3 L Impressions: Abdomen/Pelvis CT 11/12/18 00:00 IMPRESSION: Findings consistent with diffuse enterocolitis with a diarrheal illness. This may be infectious or inflammatory in etiology. Chest X-Ray 11/12/18 09:09 IMPRESSION: Rehydration versus worsening edema or sepsis. No pneumothorax. Qualifiers - * PATIENT BEING DISCHARGED WITH ANY OF THE FOLLOWING DIAGNOSIS: No VTE patient discharged on overlapping Therapy?: No Acute Heart Failure - Is this a Heart Failure Patient?: No Plan Discharge Plan: Patient is going home today. Time Spent: Greater than 30 Minutes
[2018-11-20 12:00] VITALS: BP 113/84
== END 2018-11-20 14:11 | disposition home or self-care (01) | DRG 871 ==
LOC: ER 22:59 → EH 11-12 03:43 → ICU 11-12 05:00 → 3N 11-15 23:39 → 4W 11-18 20:27
PROVIDERS: ADMIT Internal Medicine; ATTEND Internal Medicine
PROC: 02HV33Z Insertion of Infusion Device into Superior Vena Cava, Percutaneous Approach (ICD-10-PCS; principal; 2018-11-12)
DX: A41.9 Sepsis, unspecified organism (principal); R65.21 Severe sepsis with septic shock; N17.0 Acute kidney failure with tubular necrosis; E87.2 Acidosis; A02.0 Salmonella enteritis; K51.90 Ulcerative colitis, unspecified, without complications; M19.90 Unspecified osteoarthritis, unspecified site; F32.9 Major depressive disorder, single episode, unspecified; D69.59 Other secondary thrombocytopenia
CPT/HCPCS: 36415; 71045; 74177; 80048; 80053; 81001; 82533; 82803; 82962; 83605; 83690; 83735; 85025; 85610; 85652; 85730; 86022; 87040; 87045; 87077; 87186; 87205; 87493; 89055; 93005; 93010; 94640; 96361; 96374; 99291; C1751; J0610; J0696; J1644; J1652; J1720; J1885; J2405; J2543; J3475; J3480; J3490; J7030; J7050; J7060; J7120; J7512; J7620

== ENCOUNTER 2018-11-26 18:49 | Inpatient (IN) | payer BC ==
[2018-11-26] MEDS ORDERED: NORMAL SALINE 1000 ML 1,000 ML IV ONE (19:04)
--- NOTE | 2018-11-26 19:12 | ER Document Report ---
ED Medical Screen (RME) - General Chief Complaint: Fever Stated Complaint: FEVER, CHILLS Time Seen by Provider: 11/26/18 19:02 Primary Care Provider: SAMI CHO MD [Primary Care Provider] - Follow up as needed Mode of Arrival: Ambulatory Information source: Patient TRAVEL OUTSIDE OF THE [place] 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 Patient did have a temperature of 100.8 prior to taking Tylenol. Patient was seen by her primary care provider approximately 1 day ago, was cleared for medical purposes. Patient does have 3 more doses of Flagyl left to take for his colitis. 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 No nausea vomiting diarrhea, no chest pain or shortness of breath. ROS: Other than noted above, the 12 point review of systems was reviewed with the patient and were negative, all pertinent findings are included in the HPI. PHYSICAL EXAMINATION: Vital signs reviewed. GENERAL: Well-appearing, well-nourished and in no acute distress. CV: Heart regular rate and rhythm LUNGS: No respiratory distress ABD: generalized abd pain Musculoskeletal: Normal range of motion NEUROLOGICAL: Normal speech PSYCH: Normal mood, normal affect. MDM: Patient seen and examined for rapid initial assessment. Vital signs reviewed. A comprehensive ED assessment and evaluation of the patient, analysis of test results and completion of the medical decision making process will be conducted by additional ED providers. *Note is created using voice recognition software and may contain spelling, syntax or grammatical errors. - Related Data Allergies/Adverse Reactions: doxycycline Allergy (Verified 11/26/18 18:53) levofloxacin [From Levaquin] Allergy (Verified 11/26/18 18:53) Past Medical History - Past Medical History Cardiac Medical History: Denies: Hx Hypertension - heart valve replacement. Pulmonary Medical History: Reports: Hx Pneumonia Renal/ Medical History: Denies: Hx Peritoneal Dialysis Musculoskeltal Medical History: Reports Hx Arthritis, Reports Hx Musculoskeletal Trauma - ribs left sided Psychiatric Medical History: Reports: Hx Depression Traumatic Medical History: Reports: Hx Fractures - ribs left sidedddddddd Past Surgical History: Reports: Hx Abdominal Surgery - hernia ventral, Hx Cardiac Surgery - PDA repair, Hx Cholecystectomy, Hx Umbilical Hernia, Hx Valve Replacement - bovine pericardial tissue aortic valve replacement February 2015 - Immunizations Immunizations up to date: Yes Hx Diphtheria, Pertussis, Tetanus Vaccination: Yes Physical Exam - Vital signs Vitals: Temp Pulse Resp BP Pulse Ox 98.6 F 77 18 87/54 L 95 11/26/18 18:57 11/26/18 18:57 11/26/18 18:57 11/26/18 18:57 11/26/18 18:57 Course - Vital Signs Vital signs: Temp Pulse Resp BP Pulse Ox 98.6 F 77 18 96/53 L 95 11/26/18 18:57 11/26/18 18:57 11/26/18 18:57 11/26/18 18:58 11/26/18 18:57 Doctor's Discharge - Discharge Referrals: SAMI CHO MD [Primary Care Provider] - Follow up as needed
--- NOTE | 2018-11-26 19:43 | RADIOLOGY REPORT (SQ) ---
EXAM DESCRIPTION: CHEST SINGLE VIEW COMPLETED DATE/TIME: 11/26/2018 7:28 pm REASON FOR STUDY: fever COMPARISON: 11/12/2018 TECHNIQUE: Single frontal radiographic view of the chest acquired. NUMBER OF VIEWS: One view. LIMITATIONS: None. FINDINGS: LUNGS AND PLEURA: No pneumothorax. Persistent left basilar airspace opacities. Mild inte rstitial prominence appears slightly improved compared to the prior study. No significant pleural ef fusion. MEDIASTINUM AND HILAR STRUCTURES: Stable. HEART AND VASCULAR STRUCTURES: Stable. BONES: No acute findings. HARDWARE: Sternotomy-AVR. OTHER: No other significant finding. IMPRESSION: Persistent left basilar airspace opacities. Mild interstitial prominence appears slight ly improved compared to the prior study. No significant pleural effusion. TECHNICAL DOCUMENTATION: JOB ID: [id number] [employer]- All Rights Reserved Reading location - IP/workstation name: [email or web address]
[2018-11-26 20:01] LABS: ABSOLUTE BASOPHILS # (AUTO) 0.1 10^3/uL (0.0-0.2); ABSOLUTE EOSINOPHILS # (AUTO) 0.1 10^3/uL (0.0-0.6); ABSOLUTE LYMPHOCYTES (AUTO) 0.6 10^3/uL (0.5-4.7); ABSOLUTE MONOCYTES (AUTO) 0.4 10^3/uL (0.1-1.4); BASOPHILS % (AUTO) 1.2 % (0-2); HEMATOCRIT 40.7 % (37.9-51.0); HEMOGLOBIN 13.7 g/dL (13.5-17.0); LYMPHOCYTES % (AUTO) 10.2 % (13-45); MEAN CORPUSCULAR HEMOGLOBIN 30.7 pg (27.0-33.4); MEAN CORPUSCULAR HGB CONC 33.7 g/dL (32.0-36.0); MEAN CORPUSCULAR VOLUME 91 fl (80-97); MONOCYTES % (AUTO) 6.3 % (3-13); PLATELET COUNT 234 10^3/uL (150-450); RED BLOOD COUNT 4.47 10^6/uL (4.35-5.55); SEGMENTED NEUTROPHILS % (AUTO) 81.3 % (42-78); TOTAL CELLS COUNTED % (AUTO) 100 %; WHITE BLOOD COUNT 6.1 10^3/uL (4.0-10.5)
[2018-11-26 20:10] LABS: APPEARANCE,URINE CLEAR; BILIRUBIN,URINE NEGATIVE (NEGATIVE); GLUCOSE, URINE NEGATIVE (NEGATIVE); KETONES,URINE NEGATIVE (NEGATIVE); LEUKOCYTE ESTERASE,URINE TRACE (NEGATIVE); NITRITE,URINE NEGATIVE (NEGATIVE); PROTEIN,URINE NEGATIVE (NEGATIVE); URINE SPECIFIC GRAVITY 1.021; UROBILINOGEN,URINE NEGATIVE mg/dL (<2.0)
[2018-11-26 20:17] LABS: COLOR,URINE YELLOW
[2018-11-26 20:25] LABS: ALANINE AMINOTRANSFERASE 37 U/L (21-72); ALBUMIN 2.8 g/dL (3.5-5.0); ALKALINE PHOSPHATASE 110 U/L (38-126); ANION GAP 10 (5-19); ASPARTATE AMINO TRANSFERASE 21 U/L (17-59); BILIRUBIN,DIRECT 0.4 mg/dL (0.0-0.4); BILIRUBIN,TOTAL 0.7 mg/dL (0.2-1.3); BLOOD UREA NITROGEN 18 mg/dL (7-20); CALCIUM 8.1 mg/dL (8.4-10.2); CARBON DIOXIDE 19 mmol/L (22-30); CHLORIDE 106 mmol/L (98-107); GLUCOSE 87 mg/dL (75-110); POTASSIUM 4.2 mmol/L (3.6-5.0); SODIUM 134.8 mmol/L (137-145); TOTAL PROTEIN 4.6 g/dL (6.3-8.2)
[2018-11-26 20:30] LABS: CREATINE KINASE < 20 U/L (55-170)
[2018-11-26 20:36] LABS: CREATINE KINASE MB 1.46 ng/mL (<4.55); TROPONIN I 0.013 ng/mL
--- NOTE | 2018-11-26 22:01 | ER Document Report ---
Entered by VAN CAMACHO SCRIBE 11/26/182017 Acting as scribe for:TRACE HOLMAN MD ED General - General Chief Complaint: Fever Stated Complaint: FEVER, CHILLS Time Seen by Provider: 11/26/18 19:02 Primary Care Provider: SAMI CHO MD [Primary Care Provider] - Follow up as needed Mode of Arrival: Ambulatory Notes: This 58-year-old male patient comes emergency room for fever and chills. He reports tonight about 6 PM he had temperature 100.8, he also had a headache with this. He took some Tylenol at the same time and that has helped. He reports he has been having chills like this with headaches since he was discharged from the hospital here on 11/20/2018. He has been taking Tylenol for his headaches and chills and it is been helping. He is also felt weak since discharge. His underlying history is that he was seen by his primary care and referred to a corsetier for abdominal pains. He had a colonoscopy probably in August 2018. He was put on mesalamine on September 23, 2018. On October 21, 2018, mesalamine was stopped because it did not seem to be helping, and he was put on prednisone 40 mg twice daily. He reports the prednisone helped immensely. He was doing well until 11/11/2018 when he was out on his boat tripping and developed severe abdominal pains and diarrhea. He was admitted to the hospital that evening, ultimately developed septic shock and found to have a Salmonella colitis. He was discharged on 11/20/2018, has had no diarrhea since before he was discharged. Was sent home on Flagyl and is almost finished on that medication. He states that since he has been home he has continued to have these chills and headaches and feel weak. He saw his primary care provider yesterday who cleared him to go back to work. He states he has had no pain with this, just the headache, chills and feeling weak. He is found to be hypotensive at triage. TRAVEL OUTSIDE OF THE [place] IN LAST 30 DAYS: No - Related Data Allergies/Adverse Reactions: doxycycline Allergy (Verified 11/26/18 18:53) levofloxacin [From Levaquin] Allergy (Verified 11/26/18 18:53) Past Medical History - General Information source: Patient - Social History Smoking Status: Never Smoker Chew tobacco use (# tins/day): No Frequency of alcohol use: None Drug Abuse: None Family History: CAD, CVA, DM, Hyperlipidemia, Hypertension, Malignancy, Other - Father is living in a shelter. At a 62 had a traumatic brain injury. He is not 82. Patient has suicidal ideation: No Patient has homicidal ideation: No Pulmonary Medical History: Reports: Hx Pneumonia Musculoskeletal Medical History: Reports Hx Arthritis, Reports Hx Musculoskeletal Trauma - ribs left sided Psychiatric Medical History: Reports: Hx Depression Traumatic Medical History: Reports: Hx Fractures - ribs left sidedddddddd Past Surgical History: Reports: Hx Abdominal Surgery - hernia ventral, Hx Cardiac Surgery - PDA repair, Hx Cholecystectomy, Hx Umbilical Hernia, Hx Valve Replacement - bovine pericardial tissue aortic valve replacement February 2015 - Immunizations Immunizations up to date: Yes Hx Diphtheria, Pertussis, Tetanus Vaccination: Yes Review of Systems - Review of Systems Constitutional: See HPI, Chills EENT: No symptoms reported Cardiovascular: No symptoms reported Respiratory: No symptoms reported Gastrointestinal: See HPI, Abdominal pain Genitourinary: No symptoms reported Male Genitourinary: No symptoms reported Musculoskeletal: No symptoms reported Skin: No symptoms reported Hematologic/Lymphatic: No symptoms reported Neurological/Psychological: No symptoms reported Physical Exam - Vital signs Vitals: Temp Pulse Resp BP Pulse Ox 98.6 F 77 18 87/54 L 95 11/26/18 18:57 11/26/18 18:57 11/26/18 18:57 11/26/18 18:57 11/26/18 18:57 - Notes Notes: Physical Exam: General: Alert, appears well. HEENT: Normocephalic. Atraumatic. PERRL. Extraocular movements intact. Oropharynx clear. Neck: Supple. Non-tender. Respiratory: No respiratory distress. Rhonchi bilaterally. Cardiovascular: Regular rate and rhythm. Abdominal: Normal Inspection. Non-tender. No distension. Normal Bowel Sounds. Back: Non-tender. No deformity or step off. Extremities: Moves all four extremities. Upper extremities: Normal inspection. Normal ROM. Lower extremities: Normal inspection. No edema. Normal ROM. Neurological: Normal cognition. AAOx4. Normal speech. Psychological: Normal affect. Normal Mood. Skin: Warm. Dry. Normal color. Course - Vital Signs Vital signs: Temp Pulse Resp BP Pulse Ox 98.6 F 77 18 96/53 L 95 11/26/18 18:57 11/26/18 18:57 11/26/18 18:57 11/26/18 18:58 11/26/18 18:57 - Laboratory Result Diagrams: 11/26/18 16:46 11/26/18 16:46 Laboratory results interpreted by me: 11/26/18 11/26/18 11/26/18 16:46 16:46 16:46 RDW 15.0 H Seg Neutrophils % 81.3 H Lymphocytes % 10.2 L Sodium 134.8 L Carbon Dioxide 19 L Calcium 8.1 L Magnesium Creatine Kinase < 20 L Total Protein 4.6 L Albumin 2.8 L Ur Leukocyte Esterase TRACE H 11/26/18 16:46 RDW Seg Neutrophils % Lymphocytes % Sodium Carbon Dioxide Calcium Magnesium 1.2 L* Creatine Kinase Total Protein Albumin Ur Leukocyte Esterase Discharge - Discharge Clinical Impression: Fever and chills, Weakness Hypotension Qualifiers: Hypotension type: unspecified hypotension type Qualified Code(s): I95.9 - Hypot ension, unspecified Left lower lobe pneumonia Qualifiers: Pneumonia type: due to unspecified organism Qualified Code(s): J18.1 - Lobar pneumonia, unspecified organism Condition: Fair Disposition: ADMITTED INPATIENT Admitting Provider: Jeramie (Hospitalist) Unit Admitted: Telemetry Referrals: SAMI CHO MD [Primary Care Provider] - Follow up as needed Scribe Attestation: 11/26/18 22:06 I personally performed the services described in the documentation, reviewed and edited the documentation which was dictated to the scribe in my presence, and it accurately records my words and actions. I personally performed the services described in the documentation, reviewed and edited the documentation which was dictated to the scribe in my presence, and it accurately records my words and actions.
[2018-11-26] MEDS ORDERED: GUAIFENESIN SYRP 200 MG/10 ML UDC PO PRN (22:05)
[2018-11-26] MEDS ORDERED: IPRATROPIUM/ALBUTEROL 0.5-2.5 MG/3 ML AMPUL NEB PRN (22:05)
[2018-11-26] MEDS ORDERED: RINGERS SOLUTION,LACTATED 1,000 ML IV ONE (22:05)
[2018-11-26] MEDS ORDERED: AZITHROMYCIN INJ 500 MG VIAL IV PRN (22:13)
[2018-11-26] MEDS ORDERED: NORMAL SALINE 1000 ML 1,000 ML IV SCH (22:15)
[2018-11-26] MEDS: MAGNESIUM SULFATE/D5W 1 GM/100 ML RTUPB IV SCH (22:33)
[2018-11-26] MEDS ORDERED: AZITHROMYCIN 500 MG in DEXTROSE 5%-WATER 250 ML IV ONE ×2 (23:00→23:59)
--- NOTE | 2018-11-26 23:30 | RADIOLOGY REPORT (SQ) ---
CLINICAL HISTORY: facial pain COMPARISON: None. TECHNIQUE: CT MAXILLOFACIAL WITHOUT IV CONTRAST on 11/26/2018 12:00 AM CDT This exam was performed according to our departmental dose-optimization program, which includes automated exposure control, adjustment of the mA and/or kV according to patient size and/or use of iterative reconstruction technique. FINDINGS: There is no acute fracture. There is a small air-fluid level in the right maxillary sinus. There is mild thickening of the left maxillary sinus. There is mild thickening of the ethmoid air cells. Orbits and globes are unremarkable. Mastoid air cells are clear. Temporomandibular joints are intact. There are no significant soft tissue abnormalities. IMPRESSION: No significant acute abnormality.
--- NOTE | 2018-11-26 23:34 | RADIOLOGY REPORT (SQ) ---
EXAM DESCRIPTION: RadLex: CT CHEST WITH IV CONTRAST CLINICAL HISTORY: 58 years Male; Persistent left basilar infiltrate w/ fever chills TECHNIQUE: CT of the chest using intravenous contrast. All CT scans at this facility use dose modulation, iterative reconstruction, and/or weight based dosing when appropriate to reduce radiation dose to as low as reasonably achievable. COMPARISON: CT 06/23/2015 FINDINGS: Chest: Lungs: There are mild diffuse groundglass densities in the right upper lobe. Mild peripheral groundglass densities in the anterior left upper lobe and to a lesser degree the lingula. Mild patchy groundglass densities are also noted in the left lower lobe. No pneumothorax or pleural effusion. Mediastinum: Changes of previous sternotomy are again noted. There is a prosthetic aortic valve. Enlarged superior right paratracheal lymph node 2.5 cm in diameter is again noted, also enlarged on prior exam. Enlarged 1.4 cm node at the thoracic inlet to the right of the esophagus is also unchanged. AP window lymph node is 1.2 cm, unchanged. Narrowing of the aorta at the ductus is 1.2 cm, similar to prior exams. Descending thoracic aorta is 2.8 cm. No dissection. Bones:No acute bone findings. Gallbladder is surgically absent. IMPRESSION: 1. Mild patchy bilateral infiltrates. Distribution favors an atypical pneumonia, rather than cardiogenic pulmonary edema. 2. Previous aortic valve replacement. 3. Mediastinal adenopathy, stable since 06/23/2015. 4. Unchanged coarctation of the aorta
--- NOTE | 2018-11-26 23:38 | EKG REPORT ---
SEVERITY:- BORDERLINE ECG - SINUS RHYTHM BORDERLINE T ABNORMALITIES, ANT-LAT LEADS BORDERLINE PROLONGED QT INTERVAL : Confirmed by: Jose Benites 26-Nov-2018 23:37:57
[2018-11-27] MEDS ORDERED: CEFTRIAXONE 1 GM/D5W RTU 1 GM/50 ML RTUPB IV ONE
[2018-11-27] MEDS: MAGNESIUM SULFATE/D5W 1 GM/100 ML RTUPB IV SCH (00:02)
[2018-11-27] MEDS: IPRATROPIUM/ALBUTEROL 0.5-2.5 MG/3 ML AMPUL NEB SCH ×3 (00:47→15:36)
[2018-11-27] MEDS: NORMAL SALINE 1000 ML 1,000 ML IV PRN ×2 (01:45→09:16)
[2018-11-27] MEDS: ACETAMINOPHEN 325 MG TABLET PO PRN ×5 (01:47→21:01)
[2018-11-27] MEDS: CHLORPHENIRAMINE MALEATE 4 MG TABLET PO SCH ×4 (01:59→17:42)
[2018-11-27 05:08] LABS: ABSOLUTE LYMPHOCYTES (AUTO) 0.4 10^3/uL (0.5-4.7); ABSOLUTE MONOCYTES (AUTO) 0.2 10^3/uL (0.1-1.4); ABSOLUTE NEUT (AUTO) 3.7 10^3/uL (1.7-8.2); BASOPHILS % (AUTO) 0.7 % (0-2); EOSINOPHILS % (AUTO) 0.7 % (0-6); HEMATOCRIT 35.3 % (37.9-51.0); HEMOGLOBIN 11.8 g/dL (13.5-17.0); LYMPHOCYTES % (AUTO) 9.2 % (13-45); MEAN CORPUSCULAR HEMOGLOBIN 30.6 pg (27.0-33.4); MEAN CORPUSCULAR HGB CONC 33.5 g/dL (32.0-36.0); MEAN CORPUSCULAR VOLUME 91 fl (80-97); MONOCYTES % (AUTO) 4.7 % (3-13); PLATELET COUNT 177 10^3/uL (150-450); RED BLOOD COUNT 3.86 10^6/uL (4.35-5.55); RED CELL DISTRIBUTION WIDTH 15.1 % (11.5-14.0); SEGMENTED NEUTROPHILS % (AUTO) 84.7 % (42-78); TOTAL CELLS COUNTED % (AUTO) 100 %; WHITE BLOOD COUNT 4.3 10^3/uL (4.0-10.5)
[2018-11-27 05:27] LABS: ANION GAP 7 (5-19); BLOOD UREA NITROGEN 13 mg/dL (7-20); CALCIUM 7.2 mg/dL (8.4-10.2); CARBON DIOXIDE 18 mmol/L (22-30); CHLORIDE 109 mmol/L (98-107); GLUCOSE 199 mg/dL (75-110); POTASSIUM 3.7 mmol/L (3.6-5.0); SODIUM 134.3 mmol/L (137-145)
--- NOTE | 2018-11-27 05:34 | PDOC H&P ---
History of Present Illness Admission Date/PCP: 11/26/18 22:40 SAMI CHO MD Patient complains of: Facial pain, fever and nonproductive cough History of Present Illness: BLU JIMENES JR is a 58 year old male with a past medical history of prosthetic aortic valve without anticoagulation, depression, and recent Salmonella colitis with resolution of diarrhea. He presents with 3 days of facial pain, rhinorrhea, postnasal drip and nonproductive cough. He is now developed fever prompting evaluation in the emergency room where he is found to have facial pain to percussion over the maxillary and frontal sinuses and bilateral pulmonary infiltrates. He started on empiric antibiotics and referred to the hospitalist for admission. Past Medical History Cardiac Medical History: Reports: Other - Aortic valve replacement Denies: Hypertension - heart valve replacement. Pulmonary Medical History: Reports: Pneumonia Musculoskeltal Medical History: Reports: Arthritis Psychiatric Medical History: Reports: Depression Past Surgical History Past Surgical History: Reports: Cholecystectomy, Valve Replacement - bovine pericardial tissue aortic valve replacement February 2015 Social History Information Source: Patient, [facility] Lives with: Family Smoking Status: Never Smoker Frequency of Alcohol Use: None Hx Recreational Drug Use: No Drugs: None Hx Prescription Drug Abuse: No - Advance Directive Resuscitation Status: Full Code Family History Family History: CAD, CVA, DM, Hyperlipidemia, Hypertension, Malignancy, Other - Father is living in a [facility]. At a 62 had a traumatic brain injury. He is not 82. Parental Family History Reviewed: Yes Children Family History Reviewed: Yes Sibling(s) Family History Reviewed.: Yes Medication/Allergy Home Medications: Albuterol Sulfate [Ventolin 0.083% Neb 2.5 mg/3 mL Ampul] 2.5 mg NEB [id number] PRN 11/12/18 Aspirin [Adult Low Dose Aspirin EC] 81 mg PO DAILY 11/12/18 Atorvastatin Calcium [Lipitor 20 mg Tablet] 20 mg PO QHS 11/12/18 Desloratadine [Clarinex] 5 mg PO DAILY 11/12/18 Fluoxetine HCl [Prozac 20 mg Capsule] 20 mg PO DAILY 11/12/18 Fluticasone/Salmeterol [Advair 250-50 Diskus 14 Dose/Diskus] 1 puff IH Q12 11/12/18 Metoprolol Succinate [Toprol Xl 25 mg Tab.sr] 25 mg PO DAILY 11/12/18 Montelukast Sodium [Singulair 10 mg Tablet] 10 mg PO QPM 11/12/18 Omeprazole 20 mg PO DAILY 11/12/18 Metronidazole [Flagyl 500 mg Tablet] 500 mg PO TID #21 tablet 11/20/18 Allergies/Adverse Reactions: doxycycline Allergy (Verified 11/26/18 18:53) levofloxacin [From Levaquin] Allergy (Verified 11/26/18 18:53) Review of Systems Constitutional: ABSENT: chills, fever(s), headache(s), weight gain, weight loss Eyes: ABSENT: visual disturbances Ears: ABSENT: hearing changes Cardiovascular: ABSENT: chest pain, dyspnea on exertion, edema, orthropnea, palpitations Respiratory: ABSENT: cough, hemoptysis Gastrointestinal: ABSENT: abdominal pain, constipation, diarrhea, hematemesis, hematochezia, nausea, vomiting Genitourinary: ABSENT: dysuria, hematuria Musculoskeletal: ABSENT: joint swelling Integumentary: ABSENT: rash, wounds Neurological: ABSENT: abnormal gait, abnormal speech, confusion, dizziness, focal weakness, syncope Psychiatric: ABSENT: anxiety, depression, homidical ideation, suicidal ideation Endocrine: ABSENT: cold intolerance, heat intolerance, polydipsia, polyuria Hematologic/Lymphatic: ABSENT: easy bleeding, easy bruising Physical Exam Vital Signs: Temp Pulse Resp BP Pulse Ox 99.5 F 89 17 134/75 H 99 11/27/18 01:37 11/27/18 02:00 11/27/18 01:37 11/27/18 01:37 11/27/18 01:37 Intake & Output 11/25/18 11/26/18 11/27/18 11:59 11:59 11:59 Intake Total 2500 Balance 2500 Weight 69.5 kg General appearance: PRESENT: cooperative, mild distress, well-developed, well- nourished. ABSENT: disheveled Head exam: PRESENT: atraumatic, normocephalic Eye exam: PRESENT: conjunctiva pink, EOMI, PERRLA. ABSENT: scleral icterus Ear exam: PRESENT: normal external ear exam Mouth exam: PRESENT: moist, tongue midline Neck exam: ABSENT: carotid bruit, JVD, lymphadenopathy, thyromegaly Respiratory exam: PRESENT: accessory muscle use, prolonged expiratory phas, rales, retraction, rhonchi, tachypnea. ABSENT: wheezes Cardiovascular exam: PRESENT: RRR. ABSENT: diastolic murmur, rubs, systolic murmur Pulses: PRESENT: normal dorsalis pedis pul Vascular exam: PRESENT: normal capillary refill GI/Abdominal exam: PRESENT: normal bowel sounds, soft. ABSENT: distended, guarding, mass, organolmegaly, rebound, tenderness Rectal exam: PRESENT: deferred Extremities exam: PRESENT: full ROM. ABSENT: calf tenderness, clubbing, pedal edema Neurological exam: PRESENT: alert, awake, oriented to person, oriented to place, oriented to time, oriented to situation, CN II-XII grossly intact. ABSENT: motor sensory deficit Psychiatric exam: PRESENT: appropriate affect, normal mood. ABSENT: homicidal ideation, suicidal ideation Skin exam: PRESENT: dry, intact, warm. ABSENT: cyanosis, rash Results Laboratory Results: 11/27/18 04:37 11/26/18 11/26/18 11/26/18 16:46 16:46 16:46 WBC 6.1 RBC 4.47 Hgb 13.7 Hct 40.7 MCV 91 MCH 30.7 MCHC 33.7 RDW 15.0 H Plt Count 234 Seg Neutrophils % 81.3 H Lymphocytes % 10.2 L Monocytes % 6.3 Eosinophils % 1.0 Basophils % 1.2 Absolute Neutrophils 5.0 Absolute Lymphocytes 0.6 Absolute Monocytes 0.4 Absolute Eosinophils 0.1 Absolute Basophils 0.1 Sodium 134.8 L Potassium 4.2 Chloride 106 Carbon Dioxide 19 L Anion Gap 10 BUN 18 Creatinine 0.97 Est GFR ( Amer) > 60 Est GFR (Non-Af Amer) > 60 Glucose 87 Lactic Acid 0.9 Calcium 8.1 L Magnesium Total Bilirubin 0.7 AST 21 ALT 37 Alkaline Phosphatase 110 Total Protein 4.6 L Albumin 2.8 L Urine Color Urine Appearance Urine pH Ur Specific [place] Urine Protein Urine Glucose (UA) Urine Ketones Urine Blood Urine Nitrite Ur Leukocyte Esterase Urine WBC (Auto) Urine RBC (Auto) 11/26/18 11/26/18 11/26/18 16:46 16:46 23:17 WBC RBC Hgb Hct MCV MCH MCHC RDW Plt Count Seg Neutrophils % Lymphocytes % Monocytes % Eosinophils % Basophils % Absolute Neutrophils Absolute Lymphocytes Absolute Monocytes Absolute Eosinophils Absolute Basophils Sodium Potassium Chloride Carbon Dioxide Anion Gap BUN Creatinine Est GFR ( Amer) Est GFR (Non-Af Amer) Glucose Lactic Acid Calcium Magnesium 1.2 L* 1.6 Total Bilirubin AST ALT Alkaline Phosphatase Total Protein Albumin Urine Color YELLOW Urine Appearance CLEAR Urine pH 5.0 Ur Specific [place] 1.021 Urine Protein NEGATIVE Urine Glucose (UA) NEGATIVE Urine Ketones NEGATIVE Urine Blood NEGATIVE Urine Nitrite NEGATIVE Ur Leukocyte Esterase TRACE H Urine WBC (Auto) 1 Urine RBC (Auto) 1 11/27/18 04:37 WBC 4.3 RBC 3.86 L Hgb 11.8 L Hct 35.3 L MCV 91 MCH 30.6 MCHC 33.5 RDW 15.1 H Plt Count 177 Seg Neutrophils % 84.7 H Lymphocytes % 9.2 L Monocytes % 4.7 Eosinophils % 0.7 Basophils % 0.7 Absolute Neutrophils 3.7 Absolute Lymphocytes 0.4 L Absolute Monocytes 0.2 Absolute Eosinophils 0.0 Absolute Basophils 0.0 Sodium Potassium Chloride Carbon Dioxide Anion Gap BUN Creatinine Est GFR ( Amer) Est GFR (Non-Af Amer) Glucose Lactic Acid Calcium Magnesium Total Bilirubin AST ALT Alkaline Phosphatase Total Protein Albumin Urine Color Urine Appearance Urine pH Ur Specific [place] Urine Protein Urine Glucose (UA) Urine Ketones Urine Blood Urine Nitrite Ur Leukocyte Esterase Urine WBC (Auto) Urine RBC (Auto) 11/26/18 11/26/18 16:46 16:46 Creatine Kinase < 20 L CK-MB (CK-2) 1.46 Troponin I 0.013 Impressions: Facial Bones CT 11/26/18 00:00 IMPRESSION: No significant acute abnormality. Chest X-Ray 11/26/18 19:03 IMPRESSION: Persistent left basilar airspace opacities. Mild interstitial prominence appears slightly improved compared to the prior study. No significant pleural effusion. Chest CT 11/26/18 22:04 IMPRESSION: 1. Mild patchy bilateral infiltrates. Distribution favors an atypical pneumonia, rather than cardiogenic pulmonary edema. 2. Previous aortic valve replacement. 3. Mediastinal adenopathy, stable since 06/23/2015. 4. Unchanged coarctation of the aorta Assessment and Plan - Diagnosis (1) Bilateral pneumonia Is this a current diagnosis for this admission?: Yes Plan: Pneumonia care set deployed, follow-up CBC and blood culture. Consider pulmonology consult for adenopathy (2) Acute sinusitis Is this a current diagnosis for this admission?: Yes Plan: Likely cause of #1, Flonase, chlorpheniramine, empiric antibiotics initiated, follow-up CBC (3) Hypomagnesemia Is this a current diagnosis for this admission?: Yes Plan: IV replacement and reevaluation of chemistry (4) Mediastinal adenopathy Is this a current diagnosis for this admission?: Yes Plan: Consider pulmonology consult for bronchoscopy - Time Time Spent with patient: 35 or more minutes - Inpatient Certification Medical Necessity: Need Close Monitoring Due to Risk of Patient Decompensation
[2018-11-27] MEDS: HEPARIN SOD (PORCINE) 5,000 UNIT/ML 1 ML SYRINGE SUBCUT SCH ×3 (05:56→21:02)
[2018-11-27] MEDS: FLUTICASONE NASAL SPRAY 50 MCG/SPRY 120 SPRAY/16 GM NASL SCH ×2 (09:15→21:01)
[2018-11-27] MEDS: MAGNESIUM OXIDE 400 MG TABLET PO SCH ×2 (09:15→17:42)
--- NOTE | 2018-11-27 12:01 | PDOC PROGRESS REPORT ---
Subjective Progress Note for:: 11/27/18 Subjective:: BLU JIMENES JR is a 58 year old male with a past medical history of prosthetic aortic valve without anticoagulation, depression, and recent Salmonella colitis with resolution of diarrhea. He presents with 3 days of facial pain, rhinorrhea, postnasal drip and nonproductive cough. He is now developed fever prompting evaluation in the emergency room where he is found to have facial pain to percussion over the maxillary and frontal sinuses and bilateral pulmonary infiltrates. He started on empiric antibiotics and referred to the hospitalist for admission. 11/27/2018. Patient complaining of chills, cough, denies any shortness of breath, chest pain, nausea, vomiting, diarrhea, constipation or any urinary symptoms. Reason For Visit: HYPOMAG,PNEUMONIA Physical Exam Vital Signs: Temp Pulse Resp BP Pulse Ox 98.9 F 74 18 108/64 95 11/27/18 08:05 11/27/18 08:18 11/27/18 08:18 11/27/18 08:05 11/27/18 08:18 Intake & Output 11/26/18 11/27/18 11/28/18 06:59 06:59 06:59 Intake Total 3500 Balance 3500 Weight 73.4 kg General appearance: PRESENT: no acute distress, well-developed, well-nourished Head exam: PRESENT: atraumatic, normocephalic Respiratory exam: PRESENT: crackles, decreased breath sounds, symmetrical. ABSENT: rales, rhonchi, wheezes Cardiovascular exam: PRESENT: RRR, tachycardia. ABSENT: diastolic murmur, rubs, systolic murmur GI/Abdominal exam: PRESENT: normal bowel sounds, soft. ABSENT: distended, guarding, mass, organolmegaly, rebound, tenderness Extremities exam: PRESENT: full ROM. ABSENT: calf tenderness, clubbing, pedal edema Neurological exam: PRESENT: alert, awake, oriented to person, oriented to place, oriented to time, oriented to situation, CN II-XII grossly intact. ABSENT: motor sensory deficit Results Laboratory Results: 11/27/18 04:37 11/27/18 04:37 11/26/18 11/26/18 11/26/18 16:46 16:46 16:46 WBC 6.1 RBC 4.47 Hgb 13.7 Hct 40.7 MCV 91 MCH 30.7 MCHC 33.7 RDW 15.0 H Plt Count 234 Seg Neutrophils % 81.3 H Lymphocytes % 10.2 L Monocytes % 6.3 Eosinophils % 1.0 Basophils % 1.2 Absolute Neutrophils 5.0 Absolute Lymphocytes 0.6 Absolute Monocytes 0.4 Absolute Eosinophils 0.1 Absolute Basophils 0.1 Sodium 134.8 L Potassium 4.2 Chloride 106 Carbon Dioxide 19 L Anion Gap 10 BUN 18 Creatinine 0.97 Est GFR ( Amer) > 60 Est GFR (Non-Af Amer) > 60 Glucose 87 Lactic Acid 0.9 Calcium 8.1 L Magnesium Total Bilirubin 0.7 AST 21 ALT 37 Alkaline Phosphatase 110 Total Protein 4.6 L Albumin 2.8 L Urine Color Urine Appearance Urine pH Ur Specific [place] Urine Protein Urine Glucose (UA) Urine Ketones Urine Blood Urine Nitrite Ur Leukocyte Esterase Urine WBC (Auto) Urine RBC (Auto) 11/26/18 11/26/18 11/26/18 16:46 16:46 23:17 WBC RBC Hgb Hct MCV MCH MCHC RDW Plt Count Seg Neutrophils % Lymphocytes % Monocytes % Eosinophils % Basophils % Absolute Neutrophils Absolute Lymphocytes Absolute Monocytes Absolute Eosinophils Absolute Basophils Sodium Potassium Chloride Carbon Dioxide Anion Gap BUN Creatinine Est GFR ( Amer) Est GFR (Non-Af Amer) Glucose Lactic Acid Calcium Magnesium 1.2 L* 1.6 Total Bilirubin AST ALT Alkaline Phosphatase Total Protein Albumin Urine Color YELLOW Urine Appearance CLEAR Urine pH 5.0 Ur Specific [place] 1.021 Urine Protein NEGATIVE Urine Glucose (UA) NEGATIVE Urine Ketones NEGATIVE Urine Blood NEGATIVE Urine Nitrite NEGATIVE Ur Leukocyte Esterase TRACE H Urine WBC (Auto) 1 Urine RBC (Auto) 1 11/27/18 11/27/18 04:37 04:37 WBC 4.3 RBC 3.86 L Hgb 11.8 L Hct 35.3 L MCV 91 MCH 30.6 MCHC 33.5 RDW 15.1 H Plt Count 177 Seg Neutrophils % 84.7 H Lymphocytes % 9.2 L Monocytes % 4.7 Eosinophils % 0.7 Basophils % 0.7 Absolute Neutrophils 3.7 Absolute Lymphocytes 0.4 L Absolute Monocytes 0.2 Absolute Eosinophils 0.0 Absolute Basophils 0.0 Sodium 134.3 L Potassium 3.7 Chloride 109 H Carbon Dioxide 18 L Anion Gap 7 BUN 13 Creatinine 0.68 Est GFR ( Amer) > 60 Est GFR (Non-Af Amer) > 60 Glucose 199 H Lactic Acid Calcium 7.2 L Magnesium Total Bilirubin AST ALT Alkaline Phosphatase Total Protein Albumin Urine Color Urine Appearance Urine pH Ur Specific [place] Urine Protein Urine Glucose (UA) Urine Ketones Urine Blood Urine Nitrite Ur Leukocyte Esterase Urine WBC (Auto) Urine RBC (Auto) 11/26/18 11/26/18 16:46 16:46 Creatine Kinase < 20 L CK-MB (CK-2) 1.46 Troponin I 0.013 Impressions: Facial Bones CT 11/26/18 00:00 IMPRESSION: No significant acute abnormality. Chest X-Ray 11/26/18 19:03 IMPRESSION: Persistent left basilar airspace opacities. Mild interstitial prominence appears slightly improved compared to the prior study. No significant pleural effusion. Chest CT 11/26/18 22:04 IMPRESSION: 1. Mild patchy bilateral infiltrates. Distribution favors an atypical pneumonia, rather than cardiogenic pulmonary edema. 2. Previous aortic valve replacement. 3. Mediastinal adenopathy, stable since 06/23/2015. 4. Unchanged coarctation of the aorta Assessment and Plan - Diagnosis (1) Bilateral pneumonia Is this a current diagnosis for this admission?: Yes Plan: Pneumonia care set deployed, follow-up CBC and blood culture. Continue empiric IV antibiotics. Cultures no growth so far. (2) Mediastinal adenopathy Is this a current diagnosis for this admission?: Yes Plan: Pulmonology consulted. Follow recommendation. (3) Hypomagnesemia Is this a current diagnosis for this admission?: Yes Plan: IV replacement and reevaluation of chemistry (4) Acute sinusitis Is this a current diagnosis for this admission?: Yes Plan: Likely cause of #1, Flonase, chlorpheniramine, empiric antibiotics initiated, follow-up CBC
[2018-11-27] MEDS ORDERED: AZITHROMYCIN 500 MG in DEXTROSE 5%-WATER 250 ML IV SCH (22:00)
[2018-11-27] MEDS ORDERED: CEFTRIAXONE 1 GM/D5W RTU 1 GM/50 ML RTUPB IV SCH (22:00)
[2018-11-28] MEDS: IPRATROPIUM/ALBUTEROL 0.5-2.5 MG/3 ML AMPUL NEB SCH ×4 (00:03→23:59)
[2018-11-28] MEDS: ACETAMINOPHEN 325 MG TABLET PO PRN ×3 (02:39→16:46)
[2018-11-28] MEDS: KETOROLAC TROMETHAMINE INJ/PF 30 MG/1 ML SDV IV PRN ×2 (04:00→17:54)
[2018-11-28 05:05] LABS: ABSOLUTE LYMPHOCYTES (AUTO) 0.4 10^3/uL (0.5-4.7); ABSOLUTE MONOCYTES (AUTO) 0.2 10^3/uL (0.1-1.4); ABSOLUTE NEUT (AUTO) 4.3 10^3/uL (1.7-8.2); BASOPHILS % (AUTO) 0.9 % (0-2); EOSINOPHILS % (AUTO) 0.5 % (0-6); HEMATOCRIT 40.7 % (37.9-51.0); HEMOGLOBIN 13.6 g/dL (13.5-17.0); LYMPHOCYTES % (AUTO) 8.8 % (13-45); MEAN CORPUSCULAR HEMOGLOBIN 30.4 pg (27.0-33.4); MEAN CORPUSCULAR HGB CONC 33.4 g/dL (32.0-36.0); MEAN CORPUSCULAR VOLUME 91 fl (80-97); MONOCYTES % (AUTO) 4.4 % (3-13); PLATELET COUNT 184 10^3/uL (150-450); RED BLOOD COUNT 4.47 10^6/uL (4.35-5.55); SEGMENTED NEUTROPHILS % (AUTO) 85.4 % (42-78); TOTAL CELLS COUNTED % (AUTO) 100 %; WHITE BLOOD COUNT 5.1 10^3/uL (4.0-10.5)
[2018-11-28 05:23] LABS: ALANINE AMINOTRANSFERASE 28 U/L (21-72); ALBUMIN 2.5 g/dL (3.5-5.0); ALKALINE PHOSPHATASE 94 U/L (38-126); ANION GAP 11 (5-19); ASPARTATE AMINO TRANSFERASE 19 U/L (17-59); BILIRUBIN,DIRECT 0.4 mg/dL (0.0-0.4); BILIRUBIN,TOTAL 0.7 mg/dL (0.2-1.3); BLOOD UREA NITROGEN 9 mg/dL (7-20); CALCIUM 7.9 mg/dL (8.4-10.2); CARBON DIOXIDE 18 mmol/L (22-30); CHLORIDE 108 mmol/L (98-107); GLUCOSE 163 mg/dL (75-110); POTASSIUM 3.7 mmol/L (3.6-5.0); SODIUM 137.1 mmol/L (137-145); TOTAL PROTEIN 4.3 g/dL (6.3-8.2)
[2018-11-28] MEDS ORDERED: MAGNESIUM SULFATE 4 GM/D5W 100 ML IV ONE (06:00)
[2018-11-28] MEDS ORDERED: MAGNESIUM SULFATE 4 GM/100 ML RTUPB IV ONE (06:16)
[2018-11-28] MEDS: HEPARIN SOD (PORCINE) 5,000 UNIT/ML 1 ML SYRINGE SUBCUT SCH ×3 (06:54→21:33)
[2018-11-28] MEDS: MAGNESIUM OXIDE 400 MG TABLET PO SCH ×2 (10:13→17:48)
[2018-11-28] MEDS: FLUTICASONE NASAL SPRAY 50 MCG/SPRY 120 SPRAY/16 GM NASL SCH (10:14)
[2018-11-28] MEDS: MAGNESIUM SULFATE/D5W 1 GM/100 ML RTUPB IV SCH ×3 (11:51→18:54)
[2018-11-28] MEDS ORDERED: VANCOMYCIN HCL 0 MG in DEXTROSE 5%-WATER 250 ML IV NR (14:15)
--- NOTE | 2018-11-28 14:20 | PDOC PROGRESS REPORT ---
Subjective Progress Note for:: 11/28/18 Subjective:: Saw patient at bedside along with his girlfriend in the room. He was okay with his girlfriend staying well we discussed his medical care. Per family he was recently admitted to the hospital and was discharged not only about a week ago that he had to come in to the hospital again this time. He denies any chest pain, shortness of breath, abdominal pain, nausea vomiting or dizziness. He does admit to feeling some chills and shivering and he does continue to have some temperature while in the hospital. He still on some oxygen but I have talked to nursing about weaning that oxygen. He denies any history of smoking currently but has a remote history of smoking many many years ago. States he has probably smoked about 20 years about 1 pack/week. He denies any history of COPD but girlfriend states that 1 of his doctors have prescribed him inhalers at home. He does have a history of valvular disease and does have a h/o valve replacement surgery a few years ago Reason For Visit: HYPOMAG,PNEUMONIA Physical Exam Vital Signs: Temp Pulse Resp BP Pulse Ox 98.8 F 91 17 104/63 97 11/28/18 11:47 11/28/18 11:47 11/28/18 11:47 11/28/18 11:47 11/28/18 11:47 Intake & Output 11/27/18 11/28/18 11/29/18 06:59 06:59 06:59 Intake Total 3500 2430 Balance 3500 2430 Weight 161 lb 13.109 oz 162 lb 0.636 oz General appearance: PRESENT: no acute distress Head exam: PRESENT: atraumatic, normocephalic Eye exam: PRESENT: EOMI. ABSENT: scleral icterus Ear exam: PRESENT: normal external ear exam Mouth exam: PRESENT: moist, tongue midline Respiratory exam: PRESENT: decreased breath sounds - Bilaterally with occasional expiratory wheezing of the right base., symmetrical Cardiovascular exam: PRESENT: +S1, +S2 Pulses: PRESENT: +2 pedal pulses bilateral GI/Abdominal exam: PRESENT: normal bowel sounds, soft. ABSENT: tenderness Extremities exam: ABSENT: pedal edema Neurological exam: PRESENT: alert, awake, oriented to person, oriented to place, CN II-XII grossly intact Results Laboratory Results: 11/28/18 04:53 11/28/18 04:53 11/28/18 11/28/18 04:53 04:53 WBC 5.1 RBC 4.47 Hgb 13.6 Hct 40.7 MCV 91 MCH 30.4 MCHC 33.4 RDW 15.0 H Plt Count 184 Seg Neutrophils % 85.4 H Lymphocytes % 8.8 L Monocytes % 4.4 Eosinophils % 0.5 Basophils % 0.9 Absolute Neutrophils 4.3 Absolute Lymphocytes 0.4 L Absolute Monocytes 0.2 Absolute Eosinophils 0.0 Absolute Basophils 0.0 Sodium 137.1 Potassium 3.7 Chloride 108 H Carbon Dioxide 18 L Anion Gap 11 BUN 9 Creatinine 0.75 Est GFR ( Amer) > 60 Est GFR (Non-Af Amer) > 60 Glucose 163 H Calcium 7.9 L Magnesium 1.1 L* Total Bilirubin 0.7 AST 19 ALT 28 Alkaline Phosphatase 94 Total Protein 4.3 L Albumin 2.5 L 11/26/18 11/26/18 16:46 16:46 Creatine Kinase < 20 L CK-MB (CK-2) 1.46 Troponin I 0.013 Impressions: Facial Bones CT 11/26/18 00:00 IMPRESSION: No significant acute abnormality. Chest X-Ray 11/26/18 19:03 IMPRESSION: Persistent left basilar airspace opacities. Mild interstitial prominence appears slightly improved compared to the prior study. No significant pleural effusion. Chest CT 11/26/18 22:04 IMPRESSION: 1. Mild patchy bilateral infiltrates. Distribution favors an atypical pneumonia, rather than cardiogenic pulmonary edema. 2. Previous aortic valve replacement. 3. Mediastinal adenopathy, stable since 06/23/2015. 4. Unchanged coarctation of the aorta Assessment and Plan - Diagnosis (1) Bilateral pneumonia Is this a current diagnosis for this admission?: Yes (3) Hypomagnesemia Is this a current diagnosis for this admission?: Yes (4) Aortic valve prosthesis present Is this a current diagnosis for this admission?: Yes (5) H/O repair of patent ductus arteriosus Is this a current diagnosis for this admission?: Yes (6) Mediastinal adenopathy Is this a current diagnosis for this admission?: Yes (7) Healthcare associated bacterial pneumonia Is this a current diagnosis for this admission?: Yes - Plan Summary Plan Summary: Healthcare associated bilateral pneumonia-he was started on Rocephin and azithromycin on admission but he was recently admitted about a month ago for severe sepsis, colitis and Salmonella bacteremia. He was discharged home on Flagyl. He is returning now with shortness of breath, fevers and chills-CT chest is showing bilateral pneumonia. Continue with bronchial hygiene. Hypomagnesemia-replete as needed-continue with 400 mg magnesium twice a day. History of aortic valve replacement-noted Hypertension-we will hold his beta-uriel now as he is still on the soft side with his blood pressure. Otherwise we will restart his aspirin and statin.
[2018-11-28] MEDS: VANCOMYCIN HCL 1,000 MG in DEXTROSE 5%-WATER 250 ML IV SCH ×2 (14:49→21:32)
[2018-11-28] MEDS: PIPERACILLIN SODIUM/TAZOBACTAM 3.375 GM in NORMAL SALINE 100 ML IV SCH (17:48)
[2018-11-28] MEDS ORDERED: MAGNESIUM SULFATE/D5W 1 GM/100 ML RTUPB IV ONE (18:53)
[2018-11-28] MEDS ORDERED: CEFTRIAXONE SODIUM 1,000 MG in DEXTROSE 5%-WATER 50 ML IV SCH (22:00)
[2018-11-29] MEDS: FLUTICASONE NASAL SPRAY 50 MCG/SPRY 120 SPRAY/16 GM NASL SCH ×3 (01:49→21:54)
[2018-11-29] MEDS: PIPERACILLIN SODIUM/TAZOBACTAM 3.375 GM in NORMAL SALINE 100 ML IV SCH ×4 (01:54→17:15)
[2018-11-29 04:36] LABS: ABSOLUTE BASOPHILS # (AUTO) 0.1 10^3/uL (0.0-0.2); ABSOLUTE LYMPHOCYTES (AUTO) 0.3 10^3/uL (0.5-4.7); ABSOLUTE MONOCYTES (AUTO) 0.2 10^3/uL (0.1-1.4); ABSOLUTE NEUT (AUTO) 5.1 10^3/uL (1.7-8.2); BASOPHILS % (AUTO) 1.2 % (0-2); EOSINOPHILS % (AUTO) 0.4 % (0-6); HEMOGLOBIN 12.9 g/dL (13.5-17.0); LYMPHOCYTES % (AUTO) 5.1 % (13-45); MEAN CORPUSCULAR HEMOGLOBIN 30.5 pg (27.0-33.4); MEAN CORPUSCULAR VOLUME 90 fl (80-97); MONOCYTES % (AUTO) 3.5 % (3-13); PLATELET COUNT 186 10^3/uL (150-450); RED BLOOD COUNT 4.24 10^6/uL (4.35-5.55); RED CELL DISTRIBUTION WIDTH 15.3 % (11.5-14.0); SEGMENTED NEUTROPHILS % (AUTO) 89.8 % (42-78); TOTAL CELLS COUNTED % (AUTO) 100 %; WHITE BLOOD COUNT 5.6 10^3/uL (4.0-10.5)
[2018-11-29 04:51] LABS: ANION GAP 9 (5-19); BLOOD UREA NITROGEN 9 mg/dL (7-20); CALCIUM 7.6 mg/dL (8.4-10.2); CARBON DIOXIDE 17 mmol/L (22-30); CHLORIDE 107 mmol/L (98-107); GLUCOSE 115 mg/dL (75-110); POTASSIUM 3.4 mmol/L (3.6-5.0); SODIUM 133.3 mmol/L (137-145)
[2018-11-29] MEDS: KETOROLAC TROMETHAMINE INJ/PF 30 MG/1 ML SDV IV PRN ×2 (06:29→17:15)
[2018-11-29] MEDS: ACETAMINOPHEN 325 MG TABLET PO PRN ×2 (06:30→17:15)
[2018-11-29] MEDS: HEPARIN SOD (PORCINE) 5,000 UNIT/ML 1 ML SYRINGE SUBCUT SCH ×3 (06:31→21:54)
[2018-11-29] MEDS: VANCOMYCIN HCL 1,000 MG in DEXTROSE 5%-WATER 250 ML IV SCH ×3 (07:18→21:55)
[2018-11-29 07:22] LABS: ARTERIAL BLOOD BASE EXCESS -3.8 mmol/L; ARTERIAL BLOOD H2CO3 0.69 mmol/L (1.05-1.35); ARTERIAL BLOOD HCO3 17.4 mmol/L (20-24); ARTERIAL BLOOD O2 SATURATION 93.8 % (94-98); ARTERIAL BLOOD TOTAL CO2 18.1 mmol/L (23-27)
[2018-11-29 07:23] LABS: ARTERIAL BLOOD FIO2 21%
[2018-11-29] MEDS: IPRATROPIUM/ALBUTEROL 0.5-2.5 MG/3 ML AMPUL NEB SCH ×2 (08:06→15:34)
--- NOTE | 2018-11-29 08:26 | RADIOLOGY REPORT (SQ) ---
EXAM DESCRIPTION: CHEST SINGLE VIEW COMPLETED DATE/TIME: 11/29/2018 8:10 am REASON FOR STUDY: pna COMPARISON: 07/18/2016, 11/12/2018, 11/26/2018 EXAM PARAMETERS: NUMBER OF VIEWS: One view. TECHNIQUE: Single frontal radiographic view of the chest acquired. RADIATION DOSE: NA LIMITATIONS: None. FINDINGS: LUNGS AND PLEURA: Bilateral perihilar pulmonary edema with pulmonary vascular congestion. This is increased compared to 11/26/2018. No pleural effusion. No pneumothorax. MEDIASTINUM AND HILAR STRUCTURES: Bold HEART AND VASCULAR STRUCTURES: Borderline cardiomegaly with old sternotomy and aortic valve replaceme nt BONES: No acute findings. HARDWARE: None in the chest. OTHER: No other significant finding. IMPRESSION: Fluid overload or congestive failure pattern with pulmonary edema TECHNICAL DOCUMENTATION: JOB ID: [id number] [email or web address]- All Rights Reserved Reading location - IP/workstation name: [email or web address]
[2018-11-29] MEDS ORDERED: FUROSEMIDE INJ/PF 20 MG/2 ML SDV ONE (09:28)
[2018-11-29] MEDS: ATORVASTATIN CALCIUM 20 MG TABLET PO SCH (09:39)
[2018-11-29] MEDS: MAGNESIUM OXIDE 400 MG TABLET PO SCH ×2 (09:39→17:14)
[2018-11-29] MEDS: FLUOXETINE HCL 20 MG CAPSULE PO SCH (09:39)
[2018-11-29] MEDS: ASPIRIN 81 MG TABLET, ENT COATED PO SCH (09:39)
[2018-11-29 09:48] LABS: ARTERIAL BLOOD BASE EXCESS -5.8 mmol/L; ARTERIAL BLOOD FIO2 30%; ARTERIAL BLOOD H2CO3 0.79 mmol/L (1.05-1.35); ARTERIAL BLOOD HCO3 17.1 mmol/L (20-24); ARTERIAL BLOOD O2 SATURATION 98.3 % (94-98); ARTERIAL BLOOD PCO2 26.4 mmHg (35-45); ARTERIAL BLOOD PH 7.43 (7.35-7.45); ARTERIAL BLOOD PO2 113.6 mmHg (80-100); ARTERIAL BLOOD TOTAL CO2 17.9 mmol/L (23-27)
--- NOTE | 2018-11-29 12:51 | PDOC CONSULTATION ---
Consultation Consult Date: 11/28/18 Attending physician:: LAURA FERRARO Provider Consulted: OLIVA GUIDO Consult reason:: mediastinal adenopathy History of Present Illness Admission Date/PCP: 11/26/18 22:40 SAMI CHO MD History of Present Illness: BLU JIMENES JR is a 58 year old male, complains of 4 to 7 days of weakness increasing cough denies any shortness of breath which seemed to present to the emergency room was he was hypoxic and appeared to have an pneumonia he was subsequently admitted to the hospitalist service routinely he denies shortness of breath dyspnea on exertion he rarely coughs and he denies hemoptysis his PPD status is unknown. He has no history of chronic lung disease as a child or adolescent. He is to exposure to large amounts of passive lower especially as a child. He states he has never smoked. 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 He has no pets no recent travel he denies angina-like chest pain sleeps on 2 pillows no PND rare nocturnal cough no edema he is unaware of any snoring he admits to some restless sleep he denies any nocturia unrestful sleep or excessive daytime somnolence Past Medical History Cardiac Medical History: Reports: Other - Aortic valve replacement Denies: Hypertension - heart valve replacement. Pulmonary Medical History: Reports: Pneumonia Musculoskeltal Medical History: Reports: Arthritis Psychiatric Medical History: Reports: Depression Traumatic Medical History: Denies: Gunshot Wound, Pneumothorax, Stab Wound Hematology: Denies: Sickle Cell Disease Infectious Medical History: Denies: Clostridium Difficile, HIV Past Surgical History Past Surgical History: Reports: Cholecystectomy, Valve Replacement - bovine pericardial tissue aortic valve replacement February 2015 Social History Information Source: Patient, [facility] Records Lives with: Family Smoking Status: Never Smoker Passive smoke exposure as: Child Frequency of Alcohol Use: None Hx Recreational Drug Use: No Drugs: None Hx Prescription Drug Abuse: No Do you have pets?: Yes Have you had any respiratory illnesses as a child?: No Have you been exposed to any sick contacts recently?: No Have you had any recent respiratory illnesses?: No Have you travelled outside of [place] in the past 12 months?: No - Advance Directive Resuscitation Status: Full Code Family History Family History: CAD, CVA, DM, Hyperlipidemia, Hypertension, Malignancy, Other - Father is living in a senior living. At a 62 had a traumatic brain injury. He i s not 82. Parental Family History Reviewed: Yes Children Family History Reviewed: Yes Sibling(s) Family History Reviewed.: Yes - [id number] Medication/Allergy Home Medications: Albuterol Sulfate [Ventolin 0.083% Neb 2.5 mg/3 ml Ampul] 1 vial NEB Q4HP PRN 11/27/18 Aspirin [Ecotrin 81 mg EC Tablet] 81 mg PO DAILY 11/27/18 Atorvastatin Calcium [Lipitor 20 mg Tablet] 20 mg PO DAILY 11/27/18 Desloratadine [Clarinex] 5 mg PO DAILY 11/27/18 Fluoxetine HCl [Prozac 20 mg Capsule] 20 mg PO DAILY 11/27/18 Fluticasone/Salmeterol [Advair 250-50 Diskus 14 Dose/Diskus] 2 puff IH Q12 11/27/18 Metoprolol Succinate [Toprol Xl 25 mg Tab.sr] 25 mg PO DAILY 11/27/18 Omeprazole 20 mg PO DAILY 11/27/18 Allergies/Adverse Reactions: doxycycline Allergy (Verified 11/26/18 18:53) levofloxacin [From Levaquin] Allergy (Verified 11/26/18 18:53) Review of Systems Constitutional: ABSENT: anorexia, headache(s), night sweats Eyes: ABSENT: visual disturbances Ears: ABSENT: hearing changes Nose, Mouth, and Throat: ABSENT: mouth pain, sore throat Cardiovascular: PRESENT: dyspnea on exertion. ABSENT: chest pain, edema, or thropnea, palpitations Respiratory: PRESENT: cough, dyspnea. ABSENT: hemoptysis Gastrointestinal: ABSENT: abdominal pain, bloating, coffee ground emesis, constipation, diarrhea, heartburn, hematemesis, hematochezia, melena Genitourinary: ABSENT: dysuria, hematuria, nocturia Integumentary: ABSENT: pruritus, rash Neurological: ABSENT: abnormal gait, abnormal movements, abnormal speech, confusion, convulsions, frequent falls, lack of coordination, memory loss, numbness Psychiatric: PRESENT: depression. ABSENT: hallucinations, homidical ideation Endocrine: ABSENT: cold intolerance - [address], heat intolerance, polydipsia, polyuria Hematologic/Lymphatic: ABSENT: easy bruising, lymphadenopathy Allergic/Immunologic: ABSENT: seasonal rhinorrhea Physical Exam Vital Signs: Temp Pulse Resp BP Pulse Ox 98.1 F 78 19 106/70 96 11/28/18 07:38 11/28/18 07:59 11/28/18 07:59 11/28/18 07:38 11/28/18 07:59 Intake & Output 11/27/18 11/28/18 11/29/18 06:59 06:59 06:59 Intake Total 3500 2430 Balance 3500 2430 Weight 73.4 kg 73.5 kg General appearance: PRESENT: no acute distress, cooperative, disheveled, well- developed, well-nourished Head exam: PRESENT: atraumatic, normocephalic Eye exam: PRESENT: conjunctiva pale, EOMI. ABSENT: nystagmus, scleral icterus Mouth exam: PRESENT: moist, neck supple, tongue midline Neck exam: ABSENT: carotid bruit, full ROM - [address]4831, JVD, lymphadenopathy, meningismus, tenderness, thyromegaly, tracheal deviation, tracheostomy, other Respiratory exam: PRESENT: decreased breath sounds, prolonged expiratory phas, rhonchi, wheezes. ABSENT: retraction, stridor, tachypnea, unlabored Cardiovascular exam: PRESENT: RRR, +S1, +S2 - 70484 Pulses: PRESENT: normal radial pulses - [address]3559 GI/Abdominal exam: PRESENT: soft. ABSENT: mass, tenderness Gentrourinary exam: PRESENT: indwelling catheter Extremities exam: ABSENT: calf tenderness, clubbing, joint swelling, +1 edema, +2 edema Musculoskeletal exam: PRESENT: ambulatory. ABSENT: deformity, dislocation Neurological exam: PRESENT: alert, awake Psychiatric exam: PRESENT: appropriate affect - [address] Skin exam: PRESENT: dry, warm Results Laboratory Results: 11/28/18 04:53 11/28/18 04:53 11/28/18 11/28/18 04:53 04:53 WBC 5.1 RBC 4.47 Hgb 13.6 Hct 40.7 MCV 91 MCH 30.4 MCHC 33.4 RDW 15.0 H Plt Count 184 Seg Neutrophils % 85.4 H Lymphocytes % 8.8 L Monocytes % 4.4 Eosinophils % 0.5 Basophils % 0.9 Absolute Neutrophils 4.3 Absolute Lymphocytes 0.4 L Absolute Monocytes 0.2 Absolute Eosinophils 0.0 Absolute Basophils 0.0 Sodium 137.1 Potassium 3.7 Chloride 108 H Carbon Dioxide 18 L Anion Gap 11 BUN 9 Creatinine 0.75 Est GFR ( Amer) > 60 Est GFR (Non-Af Amer) > 60 Glucose 163 H Calcium 7.9 L Magnesium 1.1 L* Total Bilirubin 0.7 AST 19 ALT 28 Alkaline Phosphatase 94 Total Protein 4.3 L Albumin 2.5 L 11/26/18 11/26/18 16:46 16:46 Creatine Kinase < 20 L CK-MB (CK-2) 1.46 Troponin I 0.013 Impressions: Facial Bones CT 11/26/18 00:00 IMPRESSION: No significant acute abnormality. Chest X-Ray 11/26/18 19:03 IMPRESSION: Persistent left basilar airspace opacities. Mild interstitial prominence appears slightly improved compared to the prior study. No significant pleural effusion. Chest CT 11/26/18 22:04 IMPRESSION: 1. Mild patchy bilateral infiltrates. Distribution favors an atypical pneumonia, rather than cardiogenic pulmonary edema. 2. Previous aortic valve replacement. 3. Mediastinal adenopathy, stable since 06/23/2015. 4. Unchanged coarctation of the aorta Assessment & Plan - Diagnosis (1) Abnormal CT of the chest Is this a current diagnosis for this admission?: Yes Plan: Serial CT scans displayed mediastinal adenopathy essentially unchanged (2) Left lower lobe pneumonia Qualifiers: Pneumonia type: due to unspecified organism Qualified Code(s): J18.1 - Lobar pneumonia, unspecified organism Is this a current diagnosis for this admission?: Yes Plan: Treat as CAP (3) Mediastinal adenopathy Is this a current diagnosis for this admission?: Yes Plan: I will follow closely as outpatient based on Fleischner criteria
[2018-11-29] MEDS ORDERED: (PENDING PHARMACY ID) (Fluticasone/Salmeterol 2 PUFF) IH SCH (13:45)
--- NOTE | 2018-11-29 13:45 | PDOC PROGRESS REPORT ---
Subjective Progress Note for:: 11/29/18 Subjective:: Called by nursing this morning that patient was having increased tachypnea. Ordered a chest x-ray. Went to see patient this morning with his girlfriend at bedside. Spoke with patient and he feels better now he states. Because the chest x-ray this morning showed pulmonary edema and I gave him once dose of IV Lasix 20 mg and he tells me that he has put out a lot of urine. Listen to his lungs and it does not seem to bad and I told him that I do not hear much cr ackles. Reason For Visit: HYPOMAG,PNEUMONIA Physical Exam Vital Signs: Temp Pulse Resp BP Pulse Ox 97.9 F 97 23 H 94/58 L 96 11/29/18 08:30 11/29/18 08:30 11/29/18 08:30 11/29/18 09:05 11/29/18 08:30 Intake & Output 11/28/18 11/29/18 11/30/18 06:59 06:59 06:59 Intake Total 2430 3440 250 Output Total 2 Balance 2430 3438 250 Weight 162 lb 0.636 oz 157 lb 6.561 oz General appearance: PRESENT: no acute distress Head exam: PRESENT: atraumatic, normocephalic Eye exam: PRESENT: EOMI. ABSENT: scleral icterus Ear exam: PRESENT: normal external ear exam Mouth exam: PRESENT: moist, tongue midline Neck exam: ABSENT: tracheal deviation Respiratory exam: PRESENT: decreased breath sounds - Slightly decreased bilaterally, symmetrical, unlabored. ABSENT: accessory muscle use, crackles, rales, retraction, rhonchi, tachypnea, wheezes Cardiovascular exam: PRESENT: +S1, +S2 Pulses: PRESENT: +2 pedal pulses bilateral GI/Abdominal exam: PRESENT: normal bowel sounds, soft. ABSENT: tenderness Extremities exam: ABSENT: pedal edema Neurological exam: PRESENT: alert, awake, oriented to person, oriented to place, oriented to time, CN II-XII grossly intact Skin exam: PRESENT: dry, warm Results Laboratory Results: 11/29/18 04:17 11/29/18 04:17 11/29/18 11/29/18 11/29/18 04:17 04:17 07:00 WBC 5.6 RBC 4.24 L Hgb 12.9 L Hct 38.0 MCV 90 MCH 30.5 MCHC 34.0 RDW 15.3 H Plt Count 186 Seg Neutrophils % 89.8 H Lymphocytes % 5.1 L Monocytes % 3.5 Eosinophils % 0.4 Basophils % 1.2 Absolute Neutrophils 5.1 Absolute Lymphocytes 0.3 L Absolute Monocytes 0.2 Absolute Eosinophils 0.0 Absolute Basophils 0.1 Carbonic Acid 0.69 L HCO3/H2CO3 Ratio 25:1 ABG pH 7.50 H ABG pCO2 23.0 L ABG pO2 61.0 L ABG HCO3 17.4 L ABG O2 Saturation 93.8 L ABG Base Excess -3.8 FiO2 21% Sodium 133.3 L Potassium 3.4 L Chloride 107 Carbon Dioxide 17 L Anion Gap 9 BUN 9 Creatinine 0.72 Est GFR ( Amer) > 60 Est GFR (Non-Af Amer) > 60 Glucose 115 H Calcium 7.6 L Magnesium 1.8 11/29/18 09:23 WBC RBC Hgb Hct MCV MCH MCHC RDW Plt Count Seg Neutrophils % Lymphocytes % Monocytes % Eosinophils % Basophils % Absolute Neutrophils Absolute Lymphocytes Absolute Monocytes Absolute Eosinophils Absolute Basophils Carbonic Acid 0.79 L HCO3/H2CO3 Ratio 21:1 ABG pH 7.43 ABG pCO2 26.4 L ABG pO2 113.6 H ABG HCO3 17.1 L ABG O2 Saturation 98.3 H ABG Base Excess -5.8 FiO2 30% Sodium Potassium Chloride Carbon Dioxide Anion Gap BUN Creatinine Est GFR ( Amer) Est GFR (Non-Af Amer) Glucose Calcium Magnesium 11/26/18 11/26/18 16:46 16:46 Creatine Kinase < 20 L CK-MB (CK-2) 1.46 Troponin I 0.013 Impressions: Facial Bones CT 11/26/18 00:00 IMPRESSION: No significant acute abnormality. Chest CT 11/26/18 22:04 IMPRESSION: 1. Mild patchy bilateral infiltrates. Distribution favors an atypical pneumonia, rather than cardiogenic pulmonary edema. 2. Previous aortic valve replacement. 3. Mediastinal adenopathy, stable since 06/23/2015. 4. Unchanged coarctation of the aorta Chest X-Ray 11/29/18 06:00 IMPRESSION: Fluid overload or congestive failure pattern with pulmonary edema Assessment and Plan - Diagnosis (1) Bilateral pneumonia Is this a current diagnosis for this admission?: Yes (3) Hypomagnesemia Is this a current diagnosis for this admission?: Yes (4) Aortic valve prosthesis present Is this a current diagnosis for this admission?: Yes (5) H/O repair of patent ductus arteriosus Is this a current diagnosis for this admission?: Yes (6) Mediastinal adenopathy Is this a current diagnosis for this admission?: Yes (7) Healthcare associated bacterial pneumonia Is this a current diagnosis for this admission?: Yes (8) Acute pulmonary edema Is this a current diagnosis for this admission?: Yes - Plan Summary Plan Summary: Healthcare associated bilateral pneumonia-continue with Zosyn and vancomycin, day 2. He was recently admitted about a month ago for severe sepsis, colitis and Salmonella bacteremia. He was discharged home on Flagyl. He is returning now with shortness of breath, fevers and chills-CT chest is showing bilateral pneumonia. Continue with bronchial hygiene. Supposedly he takes Advair at home and I have restarted this today. He denies any history of COPD to me. Acute pulmonary edema-called by nursing this morning that patient is tachypneic- I got a stat chest x-ray which showed pulmonary vascular congestion- I gave him 1 dose of 20 mg IV Lasix-could not give him any more since his blood pressure was on the low side. He put out a good amount of urine. On exam after that his lungs sounded clear. I think this happened because he has been getting a lot of IV fluids which included medications and maintenance fluids. Currently he does not have any IV fluids running on him. I will consider giving him another small dose of Lasix later today or tomorrow morning to continue and dry him out a little bit. I think this is acute and not secondary to any type of heart failure. If he does not improve then we will consider getting an echocardiogram. Hypomagnesemia-replete as needed-continue with 400 mg magnesium twice a day. History of aortic valve replacement-noted Hypertension-continue to hold his beta-uriel now as he is still on the soft side with his blood pressure. Otherwise we will restart his aspirin and statin.
[2018-11-29] MEDS: PANTOPRAZOLE SODIUM 20 MG TABLET.DR PO SCH (14:49)
[2018-11-29 14:52] LABS: VANCOMYCIN,TROUGH 17.3 ug/mL (5.0-20.0)
[2018-11-29] MEDS ORDERED: TUBERCULIN,PURIF.PROT.DERIV. 5 TU/0.1 ML TEST 1 ML VIAL ID ONE (15:00)
[2018-11-29] MEDS: FUROSEMIDE 20 MG TABLET PO SCH (17:14)
[2018-11-29 21:50] LABS: APPEARANCE,URINE CLEAR; BILIRUBIN,URINE NEGATIVE (NEGATIVE); COLOR,URINE YELLOW; GLUCOSE, URINE 500 mg/dL (NEGATIVE); KETONES,URINE NEGATIVE (NEGATIVE); PROTEIN,URINE NEGATIVE (NEGATIVE); UROBILINOGEN,URINE NEGATIVE mg/dL (<2.0)
[2018-11-29 21:51] LABS: LEUKOCYTE ESTERASE,URINE NEGATIVE (NEGATIVE); NITRITE,URINE NEGATIVE (NEGATIVE)
[2018-11-30] MEDS: IPRATROPIUM/ALBUTEROL 0.5-2.5 MG/3 ML AMPUL NEB SCH ×4 (00:03→23:48)
[2018-11-30] MEDS: PIPERACILLIN SODIUM/TAZOBACTAM 3.375 GM in NORMAL SALINE 100 ML IV SCH ×4 (00:03→19:59)
[2018-11-30] MEDS: HEPARIN SOD (PORCINE) 5,000 UNIT/ML 1 ML SYRINGE SUBCUT SCH ×3 (05:58→22:59)
[2018-11-30] MEDS: VANCOMYCIN HCL 1,000 MG in DEXTROSE 5%-WATER 250 ML IV SCH ×3 (08:19→21:00)
[2018-11-30 08:25] LABS: ANION GAP 11 (5-19); BLOOD UREA NITROGEN 12 mg/dL (7-20); CALCIUM 8.3 mg/dL (8.4-10.2); CARBON DIOXIDE 20 mmol/L (22-30); CHLORIDE 106 mmol/L (98-107); GLUCOSE 120 mg/dL (75-110); POTASSIUM 3.7 mmol/L (3.6-5.0); SODIUM 136.7 mmol/L (137-145)
[2018-11-30] MEDS: FUROSEMIDE 20 MG TABLET PO SCH ×2 (09:15→18:44)
[2018-11-30] MEDS: ASPIRIN 81 MG TABLET, ENT COATED PO SCH (09:15)
[2018-11-30] MEDS: MAGNESIUM OXIDE 400 MG TABLET PO SCH ×2 (09:15→18:44)
[2018-11-30] MEDS: PANTOPRAZOLE SODIUM 20 MG TABLET.DR PO SCH (09:16)
[2018-11-30] MEDS: FLUTICASONE/VILANTEROL 200-25 MCG/DOSE IH SCH (09:16)
[2018-11-30] MEDS: ATORVASTATIN CALCIUM 20 MG TABLET PO SCH (09:16)
[2018-11-30] MEDS: FLUOXETINE HCL 20 MG CAPSULE PO SCH (09:16)
[2018-11-30] MEDS: FLUTICASONE NASAL SPRAY 50 MCG/SPRY 120 SPRAY/16 GM NASL SCH ×2 (09:17→22:58)
[2018-11-30] MEDS: MAGNESIUM SULFATE/D5W 1 GM/100 ML RTUPB IV SCH ×3 (12:48→18:29)
--- NOTE | 2018-11-30 16:51 | PDOC PROGRESS REPORT ---
Subjective Progress Note for:: 11/30/18 Subjective:: Spoke with patient and girlfriend in the room this morning. States that he has some shortness of breath early this morning but feels much better now. Discussed about his pneumonia and about his fluid accumulation in his lungs. He seems to be a little tachypneic. He is breathing faster than he should. States he gets very anxious and this was causing him to breathe faster. Discussed with him about his current care. He denies any chest pain, abdominal pain, n ausea/vomiting or dizziness. Reason For Visit: HYPOMAG,PNEUMONIA Physical Exam Vital Signs: Temp Pulse Resp BP Pulse Ox 98.9 F 104 H 26 H 97/62 L 94 11/30/18 04:00 11/30/18 16:15 11/30/18 16:15 11/30/18 11:24 11/30/18 16:15 Intake & Output 11/29/18 11/30/18 12/01/18 06:59 06:59 06:59 Intake Total 3440 1830 970 Output Total 2 400 450 Balance 3438 1430 520 Weight 157 lb 6.561 oz 157 lb 6.561 oz Results Laboratory Results: 11/29/18 04:17 11/30/18 04:20 11/29/18 11/30/18 21:30 04:20 Sodium 136.7 L Potassium 3.7 Chloride 106 Carbon Dioxide 20 L Anion Gap 11 BUN 12 Creatinine 0.95 Est GFR ( Amer) > 60 Est GFR (Non-Af Amer) > 60 Glucose 120 H Calcium 8.3 L Magnesium 1.5 L Urine Color YELLOW Urine Appearance CLEAR Urine pH 5.0 Ur Specific [place] 1.010 Urine Protein NEGATIVE Urine Glucose (UA) 500 H Urine Ketones NEGATIVE Urine Blood NEGATIVE Urine Nitrite NEGATIVE Ur Leukocyte Esterase NEGATIVE Urine WBC (Auto) 2 Urine RBC (Auto) 0 11/26/18 11/26/18 16:46 16:46 Creatine Kinase < 20 L CK-MB (CK-2) 1.46 Troponin I 0.013 Impressions: Facial Bones CT 11/26/18 00:00 IMPRESSION: No significant acute abnormality. Chest CT 11/26/18 22:04 IMPRESSION: 1. Mild patchy bilateral infiltrates. Distribution favors an atypical pneumonia, rather than cardiogenic pulmonary edema. 2. Previous aortic valve replacement. 3. Mediastinal adenopathy, stable since 06/23/2015. 4. Unchanged coarctation of the aorta Chest X-Ray 11/29/18 06:00 IMPRESSION: Fluid overload or congestive failure pattern with pulmonary edema Assessment and Plan - Diagnosis (1) Bilateral pneumonia Is this a current diagnosis for this admission?: Yes (3) Hypomagnesemia Is this a current diagnosis for this admission?: Yes (4) Aortic valve prosthesis present Is this a current diagnosis for this admission?: Yes (5) H/O repair of patent ductus arteriosus Is this a current diagnosis for this admission?: Yes (6) Mediastinal adenopathy Is this a current diagnosis for this admission?: Yes (7) Healthcare associated bacterial pneumonia Is this a current diagnosis for this admission?: Yes (8) Acute pulmonary edema Is this a current diagnosis for this admission?: Yes - Plan Summary Plan Summary: Healthcare associated bilateral pneumonia-continue with Zosyn and vancomycin, day 3. He was recently admitted about a month ago for severe sepsis, colitis and Salmonella bacteremia. He was discharged home on Flagyl at that time. He is returning now with shortness of breath, fevers and chills-CT chest is showing bilateral pneumonia. Continue with bronchial hygiene. Supposedly he takes Advair at home and I have restarted it. He denies any history of COPD to me. Acute pulmonary edema-he continues to have some shortness of breath and tachypnea. Chest x-ray had showed some increasing pulmonary vascular congestion. Yesterday I gave him some IV Lasix 20 mg and also started him on 20 mg Lasix twice a day by mouth. His pressure is on the soft side and I am unable to give him higher dose of the Lasix at this time. This morning I saw him and he feels somewhat better than he did yesterday. I have also fluid restricted him to 1.5 L for now. Continue with the gentle diuresis. I will also consider getting an echocardiogram in the morning if he does not improve. I do not see a history of heart failure in his chart Hyponatremia-likely secondary to volume overload and acute pulmonary edema. I have fluid restricted him and start him on Lasix. Sodium seems to be improving. Hypomagnesemia-replete as needed-continue with 400 mg magnesium twice a day. History of aortic valve replacement-noted Hypertension-at home he is on 25 mg XL metoprolol-I have held this initially but given that he has a history of aortic valve replacement I think I will start him back on it as he is starting to become slightly tachycardic. Since he is inpatient I will start him on metoprolol 12-1/2 twice daily dosing. Continue with aspirin and statin.
[2018-11-30] MEDS ORDERED: MAGNESIUM SULFATE/D5W 1 GM/100 ML RTUPB IV ONE (17:45)
[2018-11-30] MEDS: ACETAMINOPHEN 325 MG TABLET PO PRN (18:45)
[2018-11-30 22:16] LABS: ABSOLUTE BASOPHILS # (AUTO) 0.1 10^3/uL (0.0-0.2); ABSOLUTE LYMPHOCYTES (AUTO) 0.6 10^3/uL (0.5-4.7); ABSOLUTE MONOCYTES (AUTO) 0.4 10^3/uL (0.1-1.4); ABSOLUTE NEUT (AUTO) 8.4 10^3/uL (1.7-8.2); BASOPHILS % (AUTO) 0.6 % (0-2); EOSINOPHILS % (AUTO) 0.5 % (0-6); HEMATOCRIT 34.3 % (37.9-51.0); HEMOGLOBIN 11.6 g/dL (13.5-17.0); LYMPHOCYTES % (AUTO) 5.8 % (13-45); MEAN CORPUSCULAR HEMOGLOBIN 30.5 pg (27.0-33.4); MEAN CORPUSCULAR HGB CONC 33.9 g/dL (32.0-36.0); MEAN CORPUSCULAR VOLUME 90 fl (80-97); PLATELET COUNT 187 10^3/uL (150-450); RED BLOOD COUNT 3.82 10^6/uL (4.35-5.55); RED CELL DISTRIBUTION WIDTH 14.7 % (11.5-14.0); SEGMENTED NEUTROPHILS % (AUTO) 89.1 % (42-78); TOTAL CELLS COUNTED % (AUTO) 100 %; WHITE BLOOD COUNT 9.4 10^3/uL (4.0-10.5)
[2018-11-30] MEDS: METOPROLOL TARTRATE 25 MG TABLET PO SCH (22:59)
[2018-12-01] MEDS: PIPERACILLIN SODIUM/TAZOBACTAM 3.375 GM in NORMAL SALINE 100 ML IV SCH ×4 (00:21→20:53)
[2018-12-01] MEDS: VANCOMYCIN HCL 1,000 MG in DEXTROSE 5%-WATER 250 ML IV SCH ×3 (03:46→17:26)
[2018-12-01] MEDS: HEPARIN SOD (PORCINE) 5,000 UNIT/ML 1 ML SYRINGE SUBCUT SCH ×3 (06:31→21:29)
[2018-12-01] MEDS: IPRATROPIUM/ALBUTEROL 0.5-2.5 MG/3 ML AMPUL NEB SCH ×3 (07:47→23:35)
--- NOTE | 2018-12-01 09:39 | PDOC PROGRESS REPORT ---
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 He presents with 3 days of facial pain, rhinorrhea, postnasal drip and nonproductive cough. He is now developed fever prompting evaluation in the emergency room where he is found to have facial pain to percussion over the maxillary and frontal sinuses and bilateral pulmonary infiltrates. He started on empiric antibiotics and referred to the hospitalist for admission. [id number]-old male with multiple medical problems recently discharged from the hospital 3 weeks ago for Salmonella colitis admitted for a hospital acquired pneumonia. His T-max is 100.6 and on Zosyn and vancomycin. Cultures came back positive for Gabby albicans. Magnesium is 1.6 which is going to be supplemented. Last night he has a huge bowel movement and C. difficile was done which came back negative. Patient is increasing shortness of breath pulse ox on 3 L he is in the 80s. Plan to move him to IMCU and repeat the CAT scan today. Go to arrange for BiPAP at bedside. Reason For Visit: HYPOMAG,PNEUMONIA Physical Exam Vital Signs: Temp Pulse Resp BP Pulse Ox 100.6 F H 108 H 20 104/66 77 L 12/01/18 07:22 12/01/18 07:47 12/01/18 07:47 12/01/18 07:22 12/01/18 07:47 Intake & Output 11/30/18 12/01/18 12/02/18 06:59 06:59 06:59 Intake Total 1830 2448 100 Output Total 400 2475 Balance 1430 -27 100 Weight 71.4 kg 71.4 kg General appearance: PRESENT: cooperative, other - mild to moderate distress Head exam: PRESENT: atraumatic Eye exam: PRESENT: PERRLA Mouth exam: PRESENT: moist, tongue midline Teeth exam: PRESENT: poor dentation Neck exam: ABSENT: carotid bruit, JVD, lymphadenopathy, thyromegaly Respiratory exam: PRESENT: decreased breath sounds, wheezes Cardiovascular exam: PRESENT: tachycardia GI/Abdominal exam: PRESENT: normal bowel sounds, soft. ABSENT: ascites, distended, guarding, mass, organolmegaly, rebound, tenderness Rectal exam: PRESENT: deferred Extremities exam: PRESENT: full ROM. ABSENT: calf tenderness, clubbing, pedal edema Neurological exam: PRESENT: alert, awake, oriented to person, oriented to place, oriented to time, oriented to situation, CN II-XII grossly intact. ABSENT: motor sensory deficit Psychiatric exam: PRESENT: appropriate affect, normal mood. ABSENT: homicidal ideation, suicidal ideation Results Laboratory Results: 11/30/18 22:00 11/30/18 04:20 11/30/18 12/01/18 22:00 04:42 WBC 9.4 RBC 3.82 L Hgb 11.6 L Hct 34.3 L MCV 90 MCH 30.5 MCHC 33.9 RDW 14.7 H Plt Count 187 Seg Neutrophils % 89.1 H Lymphocytes % 5.8 L Monocytes % 4.0 Eosinophils % 0.5 Basophils % 0.6 Absolute Neutrophils 8.4 H Absolute Lymphocytes 0.6 Absolute Monocytes 0.4 Absolute Eosinophils 0.0 Absolute Basophils 0.1 Magnesium 1.6 11/26/18 11/26/18 16:46 16:46 Creatine Kinase < 20 L CK-MB (CK-2) 1.46 Troponin I 0.013 Impressions: Facial Bones CT 11/26/18 00:00 IMPRESSION: No significant acute abnormality. Chest CT 11/26/18 22:04 IMPRESSION: 1. Mild patchy bilateral infiltrates. Distribution favors an atypical pneumonia, rather than cardiogenic pulmonary edema. 2. Previous aortic valve replacement. 3. Mediastinal adenopathy, stable since 06/23/2015. 4. Unchanged coarctation of the aorta Chest X-Ray 11/29/18 06:00 IMPRESSION: Fluid overload or congestive failure pattern with pulmonary edema Assessment and Plan - Diagnosis (1) Healthcare associated bacterial pneumonia Is this a current diagnosis for this admission?: Yes Plan: 12/01/2018-patient was admitted with healthcare associated pneumonia the cultures are negative so far stool culture came back positive for Gabby albicans. Presently on IV vancomycin and Zosyn plan is to continue the present management. Patient is moved to [facility] we are going to arrange for the bedside BiPAP. Chest physical therapy was requested. (2) Bilateral pneumonia Is this a current diagnosis for this admission?: Yes Plan: Pneumonia care set deployed, follow-up CBC and blood culture. Continue empiric IV antibiotics. Cultures no growth so far. 12/01/2018-patient admitted with bilateral pneumonia on IV vancomycin and Zosyn most likely combination of gram-negative and anaerobic organisms responsible. (3) Hypomagnesemia Is this a current diagnosis for this admission?: Yes Plan: IV replacement and reevaluation of chemistry 12/01/2018-patient magnesium level is 1.6 presently on 400 mg of magnesium twice a day plan is to increase the dose to 800 mg p.o. twice daily. (4) Abnormal CT of the chest Is this a current diagnosis for this admission?: Yes Plan: 12/01/2018-abnormal CT scan findings seen on 2018 respiratory symptoms are worsening repeat the CT scan today. Pulmonary consult was done Dr. Resendez's recommendation is to treated as community-acquired pneumonia. Blood cultures are negative. Presently on IV vancomycin and Zosyn. CT scan also shows mediastinal lymphadenopathy Dr. Resendez is going to follow him as an outpatient. (5) Acute pulmonary edema Is this a current diagnosis for this admission?: Yes Plan: Acute pulmonary edema-he continues to have some shortness of breath and tachypn ea. Chest x-ray had showed some increasing pulmonary vascular congestion. Yesterday I gave him some IV Lasix 20 mg and also started him on 20 mg Lasix twice a day by mouth. His pressure is on the soft side and I am unable to give him higher dose of the Lasix at this time. This morning I saw him and he feels somewhat better than he did yesterday. I have also fluid restricted him to 1.5 L for now. Continue with the gentle diuresis. I will also consider getting an echocardiogram in the morning if he does not improve. I do not see a history of heart failure in his chart 12/01/2018-patient is continued to have shortness of breath and tachypneic. Plan is to repeat the CT chest today. He was given a small dose of IV Lasix because of blood pressures on the softer side unable to give a bigger dose of Lasix. He is on fluid restriction at 1.5 L. Patient does not have any history of ujstin estive heart failure we are going to request for echocardiogram. (6) Aortic valve prosthesis present Is this a current diagnosis for this admission?: No Plan: 12/01/2018-patient history of aortic valve replacement. Patient is not on anticoagulation. Arrange for the echocardiogram. (7) Hyponatremia Is this a current diagnosis for this admission?: Yes Plan: 12/01/2018-latest serum sodium is 136.7 improved from 133 hyponatremia most likely secondary to volume overload resolved. - Time Time Spent with patient: 25-34 minutes Smoking Cessation Education: over 10 minutes Medications reviewed and adjusted accordingly: Yes Anticipated discharge: Home
[2018-12-01] MEDS: ASPIRIN 81 MG TABLET, ENT COATED PO SCH (09:40)
[2018-12-01] MEDS: MAGNESIUM OXIDE 400 MG TABLET PO SCH ×2 (09:40→17:21)
[2018-12-01] MEDS: FUROSEMIDE 20 MG TABLET PO SCH (09:41)
[2018-12-01] MEDS: METOPROLOL TARTRATE 25 MG TABLET PO SCH ×2 (09:41→21:28)
[2018-12-01] MEDS: PANTOPRAZOLE SODIUM 20 MG TABLET.DR PO SCH (09:43)
[2018-12-01] MEDS: FLUOXETINE HCL 20 MG CAPSULE PO SCH (09:43)
[2018-12-01] MEDS: FLUTICASONE NASAL SPRAY 50 MCG/SPRY 120 SPRAY/16 GM NASL SCH ×2 (09:43→21:29)
[2018-12-01] MEDS: FLUTICASONE/VILANTEROL 200-25 MCG/DOSE IH SCH (09:43)
[2018-12-01] MEDS: ATORVASTATIN CALCIUM 20 MG TABLET PO SCH (10:37)
--- NOTE | 2018-12-01 12:34 | RADIOLOGY REPORT (SQ) ---
EXAM DESCRIPTION: CT CHEST WITHOUT COMPLETED DATE/TIME: 12/01/2018 11:47 am REASON FOR STUDY: shortness of breath COMPARISON: CT chest 11/26/2018, 06/23/2015, 09/11/2014 AP chest 11/29/2018 TECHNIQUE: CT scan performed of the chest without intravenous contrast. Images reviewed with lung, soft tissue and bone windows. Reconstructed coronal and sagittal MPR images reviewed. All images st ored on PACS. All CT scanners at this facility use dose modulation, iterative reconstruction, and/or weight based d osing when appropriate to reduce radiation dose to as low as reasonably achievable (ALARA). [facility]: Dose Right [facility]: CareDose [facility]: Dose Right [facility]: Teradose 4D [facility]: BLAZER & FLIP FLOPS RADIATION DOSE: CT Rad equipment meets quality standard of care and radiation dose reduction techniq ues were employed. CTDIvol: 8.2 mGy. DLP: 308 mGy-cm. mGy. LIMITATIONS: No technical limitations. FINDINGS: LUNGS AND PLEURA: Diffuse bilateral alveolar and interstitial infiltrates are present worr isome for pulmonary edema. These are similar compared to chest films 11/29/2018. No significant pleural effusions. No pneumothorax. Airways are patent. HILAR AND MEDIASTINAL STRUCTURES: Right paratracheal 2.7 x 2.2 cm lymph node is present, similar comp ared to 11/26/2018, minimally larger than on CT angio chest 09/11/2014 HEART AND VASCULAR STRUCTURES: Old sternotomy for CABG and aortic valve replacement. Mild cardiomega ly. No pericardial effusion UPPER ABDOMEN: Post cholecystectomy THYROID AND OTHER SOFT TISSUES: No masses. No adenopathy. BONES: Old bilateral healed rib fractures HARDWARE: None in the chest. OTHER: No other significant findings. IMPRESSION: Fluid overload or congestive failure pattern similar compared to chest film 11/29/2018 TECHNICAL DOCUMENTATION: JOB ID: [id number] Quality ID # [id number]: Final reports with documentation of one or more dose reduction techniques (e.g., Au tomated exposure control, adjustment of the mA and/or kV according to patient size, use of iterative reconstruction technique) 2010 [employer]- All Rights Reserved Reading location - IP/workstation name: [email or web address]
[2018-12-01] MEDS: FUROSEMIDE 40 MG TABLET PO SCH (17:20)
--- NOTE | 2018-12-01 20:40 | XCELERA REPORT ---
[address] [address] Transthoracic Echocardiogram Report Name: JALIL BUL GERMAN JR Age: 58 yrs Gender: Male : 1960 Patient Status: Inpatient Patient Location: [address] [place], [place] [address] Study Date: 12/01/2018 03:20 PM Height: 69 in Weight: 157 lb BSA: 1.9 m2 Procedure: A two-dimensional transthoracic echocardiogram with color flow and Doppler was performed. Study Quality: Fair. Reason For Study: CHF / AVR History: CHF / AVR. Ordering Physician: QUINTEN CHANEY Performed By: Cinthya Kong Interpretation Summary Recommend antibiotics for SBA prohylaxis. The left ventricle is normal in size. There is normal left ventricular wall thickness. LV EF is 60% The left ventricular ejection fraction is within normal limits. Doppler measurements suggest impaired left ventricular relaxation, which is associated with grade I/IV or mild diastolic dysfunction The left ventricular wall motion is normal. There is no thrombus. No ASD,VSD,or PFO seen. The right ventricle is grossly normal size. The right ventricle is not well visualized secondary to technical limitations The right atrium is normal. The left atrium is mildly dilated. There is mild mitral annular calcification. There is no evidence of mitral valve prolapse. There is no vegetation seen on the mitral valve. There is no mitral valve stenosis. There is a trace amount of mitral regurgitation No aortic regurgitation is present. There is no aortic valvular vegetation. There is a bioprosthetic aortic valve. Peak gradient of 45 mm of Hg ,hence moderate restenosis. There is no tricuspid stenosis. There is a mild amount of tricuspid regurgitation There is mild pulmonary hypertension by echo RVSP is 43 to 48 mm of Hg , with RA mean of 5 to 10. There is no pulmonic valvular stenosis. There is no pulmonic valvular regurgitation. The aortic root is normal size. The inferior vena cava appeared normal and decreased > 50% with respiration (RAP 5-10 mmHg) There is no pericardial effusion. Recommend antibiotics for SBA prohylaxis. MMode/2D Measurements & Calculations RVDd: 3.9 cm LVIDd: 4.7 cm FS: 32.7 % Ao root diam: 2.5 cm IVSd: 1.0 cm LVIDs: 3.2 cm EDV(Teich): Ao root area: LVPWd: 0.91 cm 101.4 ml 5.0 cm2 ESV(Teich): 39.4 mlLA dimension: 4.1 cm EF(Teich): 61.1 % LVOT diam: 2.4 cm LVLd ap4: 8.3 cm SV(MOD-sp4): LVOT area: EDV(MOD-sp4): 57.0 ml 92.0 ml 4.5 cm2 LVLs ap4: 7.6 cm ESV(MOD-sp4): 35.0 ml EF(MOD-sp4): 62.0 % Doppler Measurements & Calculations MV E max ijeoma: MV P1/2t max ijeoma: Ao V2 max: LV V1 max P.4 cm/sec 88.4 cm/sec 335.1 cm/sec 18.3 mmHg MV A max ijeoma: MV P1/2t: 53.2 msec Ao max PG: LV V1 mean P.8 cm/sec MVA(P1/2t): 4.1 cm2 44.9 mmHg 9.0 mmHg MV E/A: 0.68 MV dec slope: Ao V2 mean: LV V1 max: 486.5 cm/sec2 230.4 cm/sec 213.9 cm/sec MV dec time: 0.19 sec Ao mean PG: LV V1 mean: 25.8 mmHg 137.0 cm/sec Ao V2 VTI: 61.3 cmLV V1 VTI: 36.7 cm SHEILA(I,D): 2.7 cm2 SHEILA(V,D): 2.9 cm2 SV(LVOT): 165.9 ml PA V2 max: TR max ijeoma: MV P1/2t-pr_phl: 129.3 cm/sec 306.8 cm/sec 53.2 msec PA max P.7 mmHg TR max P.6 mmHg Left Ventricle The left ventricle is normal in size. There is normal left ventricular wall thickness. LV EF is 60%. The left ventricular ejection fraction is within normal limits. Doppler measurements suggest impaired left ventricular relaxation, which is associated with grade I/IV or mild diastolic dysfunction. The left ventricular wall motion is normal. There is no thrombus. No ASD,VSD,or PFO seen. Right Ventricle The right ventricle is grossly normal size. The right ventricle is not well visualized secondary to technical limitations. Atria The right atrium is normal. The left atrium is mildly dilated. Mitral Valve There is mild mitral annular calcification. There is no evidence of mitral valve prolapse. There is no vegetation seen on the mitral valve. There is no mitral valve stenosis. There is a trace amount of mitral regurgitation. Aortic Valve There is no aortic valvular vegetation. No aortic regurgitation is present. There is a bioprosthetic aortic valve. Peak gradient of 45 mm of Hg ,hence moderate restenosis. Tricuspid Valve There is no tricuspid stenosis. There is a mild amount of tricuspid regurgitation. There is mild pulmonary hypertension by echo. RVSP is 43 to 48 mm of Hg , with RA mean of 5 to 10. Pulmonic Valve There is no pulmonic valvular stenosis. There is no pulmonic valvular regurgitation. Great Vessels The aortic root is normal size. The inferior vena cava appeared normal and decreased > 50% with respiration (RAP 5-10 mmHg). Effusions There is no pericardial effusion. : QUINTEN CHANEY > Aaliyah Jimenez
[2018-12-02] MEDS: VANCOMYCIN HCL 1,000 MG in DEXTROSE 5%-WATER 250 ML IV SCH ×3 (01:48→17:03)
[2018-12-02] MEDS: PIPERACILLIN SODIUM/TAZOBACTAM 3.375 GM in NORMAL SALINE 100 ML IV SCH ×4 (03:13→21:35)
[2018-12-02] MEDS: ACETAMINOPHEN 325 MG TABLET PO PRN ×2 (03:55→17:08)
[2018-12-02] MEDS: HEPARIN SOD (PORCINE) 5,000 UNIT/ML 1 ML SYRINGE SUBCUT SCH ×3 (05:40→21:35)
[2018-12-02] MEDS: IPRATROPIUM/ALBUTEROL 0.5-2.5 MG/3 ML AMPUL NEB SCH ×2 (07:52→15:58)
[2018-12-02] MEDS: MAGNESIUM OXIDE 400 MG TABLET PO SCH ×2 (09:34→17:03)
[2018-12-02] MEDS: PANTOPRAZOLE SODIUM 20 MG TABLET.DR PO SCH (09:34)
[2018-12-02] MEDS: FLUOXETINE HCL 20 MG CAPSULE PO SCH (09:34)
[2018-12-02] MEDS: METOPROLOL TARTRATE 25 MG TABLET PO SCH ×2 (09:35→21:35)
[2018-12-02] MEDS: FLUTICASONE NASAL SPRAY 50 MCG/SPRY 120 SPRAY/16 GM NASL SCH ×2 (09:35→21:35)
[2018-12-02] MEDS: ATORVASTATIN CALCIUM 20 MG TABLET PO SCH (09:35)
[2018-12-02] MEDS: FUROSEMIDE 40 MG TABLET PO SCH ×2 (09:35→17:26)
[2018-12-02] MEDS: FLUTICASONE/VILANTEROL 200-25 MCG/DOSE IH SCH (09:36)
[2018-12-02] MEDS: ASPIRIN 81 MG TABLET, ENT COATED PO SCH (09:36)
--- NOTE | 2018-12-02 13:45 | PDOC PROGRESS REPORT ---
Subjective Progress Note for:: 12/02/18 Subjective:: Mr. Eckert very pleasant 58-year-old gentleman with past medical history of aortic valve replacement without anticoagulation, depression and a recent Salmonella colitis. He presented to the ER with a 3-day history of facial pain, rhinorrhea postnasal drip and nonproductive cough. Patient continues to have increased shortness of breath despite use of 5 L/min nasal cannula. Patient did have a CAT scan performed yesterday showed pulmonary overload as well as a e chocardiogram showing a ejection fraction of 60%. Patient has BiPAP at the bedside which he does not like to use at this time but was educated to the positive benefits. Patient also had cultures for which were still awaiting final results on blood cultures. Patient did show positive for Gabby and was placed on Diflucan. Reason For Visit: HYPOMAG,PNEUMONIA Physical Exam Vital Signs: Temp Pulse Resp BP Pulse Ox 99.2 F 92 20 101/58 L 96 12/02/18 03:09 12/02/18 07:52 12/02/18 07:52 12/02/18 03:09 12/02/18 07:52 Intake & Output 12/01/18 12/02/18 12/03/18 06:59 06:59 06:59 Intake Total 2448 1630 350 Output Total 2475 Balance -27 1630 350 Weight 71.4 kg 67.7 kg General appearance: PRESENT: no acute distress Head exam: PRESENT: atraumatic, normocephalic Eye exam: PRESENT: conjunctiva pink, EOMI, PERRLA. ABSENT: scleral icterus Respiratory exam: PRESENT: accessory muscle use, crackles - Bilateral bases to two thirds up, wheezes Cardiovascular exam: PRESENT: clicks, RRR. ABSENT: diastolic murmur, rubs, systolic murmur Pulses: PRESENT: normal dorsalis pedis pul Vascular exam: PRESENT: normal capillary refill GI/Abdominal exam: PRESENT: normal bowel sounds, soft. ABSENT: distended, guarding, mass, organolmegaly, rebound, tenderness Extremities exam: PRESENT: full ROM. ABSENT: calf tenderness, clubbing, pedal edema Neurological exam: PRESENT: alert, awake, oriented to person, oriented to place, oriented to time, oriented to situation, CN II-XII grossly intact. ABSENT: motor sensory deficit Psychiatric exam: PRESENT: appropriate affect, normal mood. ABSENT: homicidal ideation, suicidal ideation Skin exam: PRESENT: dry, intact, warm. ABSENT: cyanosis, rash Results Laboratory Results: 11/30/18 22:00 11/30/18 04:20 11/29/18 18:35 Stool - Stool - Final 11/29/18 18:35 Stool - Stool Stool Culture - Final C.albicans/C.dubliniensis 11/26/18 21:36 Blood Blood Culture - Final NO GROWTH IN 5 DAYS 11/26/18 21:56 Blood Blood Culture - Final NO GROWTH IN 5 DAYS 11/26/18 11/26/18 16:46 16:46 Creatine Kinase < 20 L CK-MB (CK-2) 1.46 Troponin I 0.013 Impressions: Facial Bones CT 11/26/18 00:00 IMPRESSION: No significant acute abnormality. Chest X-Ray 11/29/18 06:00 IMPRESSION: Fluid overload or congestive failure pattern with pulmonary edema Chest CT 12/01/18 00:00 IMPRESSION: Fluid overload or congestive failure pattern similar compared to chest film 11/29/2018 Assessment and Plan - Diagnosis (1) Healthcare associated bacterial pneumonia Is this a current diagnosis for this admission?: Yes Plan: Still awaiting all cultures. Patient did show positive for Gabby for which he is on Diflucan. Patient continues on IV vancomycin and Zosyn. Await further sensitivities and may change Medicare to antibiotic therapy as needed. Patient also has BiPAP at bedside as well as incentive spirometry. Patient was educated and encouraged to use both as much as possible. (2) Hypomagnesemia Is this a current diagnosis for this admission?: Yes Plan: Resolved (3) Acute pulmonary edema Is this a current diagnosis for this admission?: Yes Plan: CT scan from yesterday showed continued pulmonary vascular congestion suggestive of pulmonary edema. Patient was given extra Lasix yesterday and started on Lasix twice daily by mouth. Patient does have a soft blood pressure at this time and cannot receive much more Lasix. Patient does have a fluid resection of 1.5 L at this time. We are going to continue gentle diuresis. I have educated patient to use BiPAP as much as possible as this will help displace this fluid. Patient does continue to be short of breath he continue with 5 L per minute nasal cannula and is slightly tachypneic. Echo shows an ejection fraction of 60%. (4) Hyponatremia Is this a current diagnosis for this admission?: Yes Plan: Most likely secondary to for volume overload. We will continue to follow daily BMP. - Time Time Spent with patient: 15-24 minutes - Inpatient Certification Medical Necessity: Need Close Monitoring Due to Risk of Patient Decompensation, Need For IV Fluids, Need for IV Antibiotics, Risk of Complication if Not Cared For in Hospital
[2018-12-03] MEDS: IPRATROPIUM/ALBUTEROL 0.5-2.5 MG/3 ML AMPUL NEB SCH ×3 (00:28→16:01)
[2018-12-03] MEDS: VANCOMYCIN HCL 1,000 MG in DEXTROSE 5%-WATER 250 ML IV SCH ×3 (02:38→18:34)
[2018-12-03] MEDS: PIPERACILLIN SODIUM/TAZOBACTAM 3.375 GM in NORMAL SALINE 100 ML IV SCH ×4 (03:04→21:15)
[2018-12-03 05:24] LABS: ANION GAP 9 (5-19); BLOOD UREA NITROGEN 14 mg/dL (7-20); CALCIUM 7.7 mg/dL (8.4-10.2); CARBON DIOXIDE 22 mmol/L (22-30); CHLORIDE 103 mmol/L (98-107); GLUCOSE 138 mg/dL (75-110); SODIUM 134.3 mmol/L (137-145)
[2018-12-03 05:32] LABS: POTASSIUM 3.1 mmol/L (3.6-5.0)
[2018-12-03] MEDS: HEPARIN SOD (PORCINE) 5,000 UNIT/ML 1 ML SYRINGE SUBCUT SCH ×3 (06:04→21:16)
[2018-12-03] MEDS: METOPROLOL TARTRATE 25 MG TABLET PO SCH (10:11)
[2018-12-03] MEDS: FLUTICASONE NASAL SPRAY 50 MCG/SPRY 120 SPRAY/16 GM NASL SCH ×2 (10:18→21:16)
[2018-12-03] MEDS: FLUOXETINE HCL 20 MG CAPSULE PO SCH (10:18)
[2018-12-03] MEDS: ASPIRIN 81 MG TABLET, ENT COATED PO SCH (10:18)
[2018-12-03] MEDS: PANTOPRAZOLE SODIUM 20 MG TABLET.DR PO SCH (10:18)
[2018-12-03] MEDS: FLUTICASONE/VILANTEROL 200-25 MCG/DOSE IH SCH (10:18)
[2018-12-03] MEDS: MAGNESIUM OXIDE 400 MG TABLET PO SCH ×2 (10:18→18:33)
[2018-12-03] MEDS: ATORVASTATIN CALCIUM 20 MG TABLET PO SCH (10:22)
[2018-12-03] MEDS ORDERED: POTASSIUM CHLORIDE 10 MEQ CAPSULE.ER PO ONE (10:57)
--- NOTE | 2018-12-03 11:16 | PDOC PROGRESS REPORT ---
Subjective Progress Note for:: 12/03/18 Subjective:: Mr. Eckert very pleasant 58-year-old gentleman with past medical history of aortic valve replacement without anticoagulation, depression and a recent Salmonella colitis. He presented to the ER with a 3-day history of facial pain, rhinorrhea postnasal drip and nonproductive cough. Patient continues to have increased shortness of breath despite use of 5 L/min nasal cannula. Patient did have a CAT scan performed yesterday showed pulmonary overload as well as a e chocardiogram showing a ejection fraction of 60%. Patient has BiPAP at the bedside which he does not like to use at this time but was educated to the positive benefits. Patient also had cultures for which were still awaiting final results on blood cultures. Patient did show positive for Gabby and was placed on Diflucan. Continues with 5 L/min nasal cannula. Patient's rales in bilateral bases and two thirds up continues. Patient is being diuresed with p.o. Lasix however his blood pressure at this point time is soft with a systolic of 81 not allowing us to give patient Lasix. Patient states this time he is feeling overall better but continues to have these issues. Patient was able to wear BiPAP last night for 6 hours. I will encourage use as much as possible. Reason For Visit: HYPOMAG,PNEUMONIA Physical Exam Vital Signs: Temp Pulse Resp BP Pulse Ox 97.9 F 86 18 81/46 L 94 12/03/18 08:05 12/03/18 09:12 12/03/18 09:12 12/03/18 08:05 12/03/18 09:12 Intake & Output 12/02/18 12/03/18 12/04/18 06:59 06:59 06:59 Intake Total 1630 1862 350 Output Total 1675 Balance 1630 187 350 Weight 67.7 kg 65.4 kg General appearance: PRESENT: no acute distress, well-developed, well-nourished Neck exam: ABSENT: carotid bruit, JVD, lymphadenopathy, thyromegaly Respiratory exam: PRESENT: accessory muscle use, rales, tachypnea, wheezes Cardiovascular exam: PRESENT: RRR. ABSENT: diastolic murmur, rubs, systolic murmur Pulses: PRESENT: normal dorsalis pedis pul Vascular exam: PRESENT: normal capillary refill GI/Abdominal exam: PRESENT: normal bowel sounds, soft. ABSENT: distended, guarding, mass, organolmegaly, rebound, tenderness Extremities exam: PRESENT: full ROM. ABSENT: calf tenderness, clubbing, pedal edema Neurological exam: PRESENT: alert, awake, oriented to person, oriented to place, oriented to time, oriented to situation, CN II-XII grossly intact. ABSENT: motor sensory deficit Psychiatric exam: PRESENT: appropriate affect, normal mood. ABSENT: homicidal ideation, suicidal ideation Skin exam: PRESENT: dry, intact, warm. ABSENT: cyanosis, rash Results Laboratory Results: 11/30/18 22:00 12/03/18 04:15 12/02/18 12/03/18 14:30 04:15 Sodium 134.3 L Potassium 3.1 L Chloride 103 Carbon Dioxide 22 Anion Gap 9 BUN 14 Creatinine 0.96 0.99 Est GFR ( Amer) > 60 > 60 Est GFR (Non-Af Amer) > 60 > 60 Glucose 138 H Calcium 7.7 L 11/29/18 18:35 Stool - Stool - Final 11/26/18 11/26/18 16:46 16:46 Creatine Kinase < 20 L CK-MB (CK-2) 1.46 Troponin I 0.013 Impressions: Facial Bones CT 11/26/18 00:00 IMPRESSION: No significant acute abnormality. Chest X-Ray 11/29/18 06:00 IMPRESSION: Fluid overload or congestive failure pattern with pulmonary edema Chest CT 12/01/18 00:00 IMPRESSION: Fluid overload or congestive failure pattern similar compared to chest film 11/29/2018 Assessment and Plan - Diagnosis (1) Healthcare associated bacterial pneumonia Is this a current diagnosis for this admission?: Yes Plan: Still awaiting all cultures. Patient did show positive for Gabby for which he is on Diflucan. Patient continues on IV vancomycin and Zosyn. Await further sensitivities and may change Medicare to antibiotic therapy as needed. Patient also has BiPAP at bedside as well as incentive spirometry. Patient was educated and encouraged to use both as much as possible. 12/03/2018-cultures have not returned with a final at this time. Continue IV vancomycin and Zosyn. Incentive spirometry as much as possible. (2) Hypomagnesemia Is this a current diagnosis for this admission?: Yes (3) Acute pulmonary edema Is this a current diagnosis for this admission?: Yes Plan: CT scan from yesterday showed continued pulmonary vascular congestion suggestive of pulmonary edema. Patient was given extra Lasix yesterday and started on Lasix twice daily by mouth. Patient does have a soft blood pressure at this time and cannot receive much more Lasix. Patient does have a fluid resection of 1.5 L at this time. We are going to continue gentle diuresis. I have educated patient to use BiPAP as much as possible as this will help displace this fluid. Patient does continue to be short of breath he continue with 5 L per minute nasal cannula and is slightly tachypneic. Echo shows an ejection fraction of 60%. 12/03/2018-echocardiogram shows a preserved ejection fraction 60%. Patient at t his time has no pedal edema he does have pulmonary edema. This is showing an acute diastolic right-sided heart failure. Patient unable to tolerate oral Lasix at this time secondary to low blood pressure. At this time we will place patient on dobutamine 5 mics per kilo per minute no titration for cardiac kick as well as BP support. At that time hopefully we can adjust Lasix dosing as patient has gross rales throughout bilateral bases up to two thirds high in his lungs. Patient is going he is encouraged to wear BiPAP as much as possible. We will continuously reassess patient. I also discontinued his Lopressor and given the lower dose of Coreg 3.125 mg twice daily so he would have the benefit of beta-blockers without the effects of added blood pressure lowering. (4) Hyponatremia Is this a current diagnosis for this admission?: Yes Plan: Most likely secondary to for volume overload. We will continue to follow daily BMP. 12/03/2018-persistent most likely secondary to volume overload. Hopefully with the addition of dobutamine will be able to diurese patient further will follow. (5) Hypokalemia Is this a current diagnosis for this admission?: Yes Plan: 710 2018-40 mg KCl p.o. x1. Will repeat BMP in a.m. - Time Time Spent with patient: 15-24 minutes - Inpatient Certification Medical Necessity: Other - Patient continues with severe congestive heart failure requiring IV dobutamine and IV Lasix.
[2018-12-03] MEDS: DOBUTAMINE HCL/D5W 500 MG/250 ML RTUINJ IV PRN (13:23)
[2018-12-03] MEDS ORDERED: NORMAL SALINE 250 ML with FUROSEMIDE 250 MG IV PRN ×2 (14:30)
[2018-12-03] MEDS: FUROSEMIDE 40 MG TABLET PO SCH ×2 (15:17→18:20)
[2018-12-03] MEDS ORDERED: CARVEDILOL 6.25 MG TABLET ONE (20:59)
[2018-12-03] MEDS: CARVEDILOL 3.125 MG TABLET PO SCH (21:31)
[2018-12-04] MEDS: IPRATROPIUM/ALBUTEROL 0.5-2.5 MG/3 ML AMPUL NEB SCH ×3 (00:06→16:20)
[2018-12-04] MEDS: VANCOMYCIN HCL 1,000 MG in DEXTROSE 5%-WATER 250 ML IV SCH ×2 (02:34→11:29)
[2018-12-04] MEDS: PIPERACILLIN SODIUM/TAZOBACTAM 3.375 GM in NORMAL SALINE 100 ML IV SCH ×4 (03:34→21:52)
[2018-12-04] MEDS: HEPARIN SOD (PORCINE) 5,000 UNIT/ML 1 ML SYRINGE SUBCUT SCH ×3 (05:44→21:47)
[2018-12-04 06:13] LABS: HEMATOCRIT 34.4 % (37.9-51.0); HEMOGLOBIN 11.7 g/dL (13.5-17.0); MEAN CORPUSCULAR HEMOGLOBIN 30.1 pg (27.0-33.4); MEAN CORPUSCULAR HGB CONC 33.9 g/dL (32.0-36.0); MEAN CORPUSCULAR VOLUME 89 fl (80-97); PLATELET COUNT 326 10^3/uL (150-450); RED BLOOD COUNT 3.87 10^6/uL (4.35-5.55); RED CELL DISTRIBUTION WIDTH 14.8 % (11.5-14.0)
[2018-12-04 06:27] LABS: ANION GAP 10 (5-19); BLOOD UREA NITROGEN 18 mg/dL (7-20); CALCIUM 7.8 mg/dL (8.4-10.2); CARBON DIOXIDE 24 mmol/L (22-30); CHLORIDE 100 mmol/L (98-107); GLUCOSE 173 mg/dL (75-110); SODIUM 133.7 mmol/L (137-145)
[2018-12-04 06:34] LABS: POTASSIUM 2.7 mmol/L (3.6-5.0)
--- NOTE | 2018-12-04 06:41 | Progress Note Acknowledgement ---
Progress Note Acknowledgement Progess Note Acknowledgement: I, the undersigned member of the medical staff with appropriate privileges and with supervisory authority over Fadi Everett, a [facility] practice allied health professional, acknowledge that I have reviewed the progress notes entered on this patient, and in my professional judgment believe that the assessment made and/or any care evidenced was appropriate
--- NOTE | 2018-12-04 06:41 | ADVANCED CARE ---
- Diagnosis (1) Healthcare associated bacterial pneumonia Diagnosis Current: Yes (3) Acute pulmonary edema Diagnosis Current: Yes Attendance: Patient his and son Resuscitation Status: Full Code Discussion: A lengthy discussion with patient and son about patient's congestive heart failure. Educated patient that with his blood pressure being so low we were unable to give him Lasix which was required to expedite the release of this pulmonary edema. Discussed at length with patient and son about the use of dobutamine to increase both the blood pressure as well as increasing cardiac kick of patient so that we may use IV Lasix to treat his congestive heart failure. Also discussed with patient and family the role pneumonia has in causing acute pulmonary edema. We also discussed the importance of BiPAP at night and the role of displacing this pulmonary edema. Care Planning Goals: Increased cardiac output thus increasing blood pressure in an effort to have a reliable means to diurese patient so the patient may go back to baseline breathing. Time Spent: Total 25 minutes spent discussing with patient and family
[2018-12-04 06:46] LABS: VANCOMYCIN,TROUGH 53.8 ug/mL (5.0-20.0)
[2018-12-04] MEDS: POTASSIUM CHLORIDE 20 MEQ PACKET PO SCH ×3 (08:43→16:32)
[2018-12-04] MEDS ORDERED: MORPHINE SULFATE 10 MG/ML INJ IV ONE (08:45)
--- NOTE | 2018-12-04 08:58 | PDOC PROGRESS REPORT ---
Subjective Progress Note for:: 12/04/18 Subjective:: Mr. Eckert very pleasant 58-year-old gentleman with past medical history of aortic valve replacement without anticoagulation, depression and a recent Salmonella colitis. He presented to the ER with a 3-day history of facial pain, rhinorrhea postnasal drip and nonproductive cough. Patient continues to have increased shortness of breath despite use of 5 L/min nasal cannula. Patient did have a CAT scan performed yesterday showed pulmonary overload as well as a e chocardiogram showing a ejection fraction of 60%. Patient has BiPAP at the bedside which he does not like to use at this time but was educated to the positive benefits. Patient also had cultures for which were still awaiting final results on blood cultures. Patient did show positive for Gabby and was placed on Diflucan. Continues with 5 L/min nasal cannula. Patient's rales in bilateral bases and two thirds up continues. Patient is being diuresed with p.o. Lasix however his blood pressure at this point time is soft with a systolic of 81 not allowing us to give patient Lasix. Patient states this time he is feeling overall better but continues to have these issues. Patient was able to wear BiPAP last night for 6 hours. I will encourage use as much as possible. 12/04/2018-patient seen on side of bed eating breakfast at this time. Complains of being weak which educated him he would for a while. States he uses BiPAP some last night not a lot. Patient has been on a Lasix drip overnight and has diuresis significantly. He has no other complaints at this time. Reason For Visit: HYPOMAG,PNEUMONIA Physical Exam Vital Signs: Temp Pulse Resp BP Pulse Ox 98.4 F 96 18 108/65 93 12/04/18 07:27 12/04/18 08:08 12/04/18 08:08 12/04/18 07:27 12/04/18 08:08 Intake & Output 12/03/18 12/04/18 12/05/18 06:59 06:59 06:59 Intake Total 1862 2335 Output Total 1675 1805 Balance 187 530 Weight 65.4 kg 65.5 kg General appearance: PRESENT: no acute distress, well-developed, well-nourished Neck exam: ABSENT: carotid bruit, JVD, lymphadenopathy, thyromegaly Respiratory exam: PRESENT: accessory muscle use, crackles, tachypnea, wheezes Cardiovascular exam: PRESENT: RRR. ABSENT: diastolic murmur, rubs, systolic murmur Pulses: PRESENT: normal dorsalis pedis pul Vascular exam: PRESENT: normal capillary refill GI/Abdominal exam: PRESENT: normal bowel sounds, soft. ABSENT: distended, guarding, mass, organolmegaly, rebound, tenderness Extremities exam: PRESENT: full ROM. ABSENT: calf tenderness, clubbing, pedal edema Neurological exam: PRESENT: alert, awake, oriented to person, oriented to place, oriented to time, oriented to situation, CN II-XII grossly intact. ABSENT: motor sensory deficit Psychiatric exam: PRESENT: appropriate affect, normal mood. ABSENT: homicidal ideation, suicidal ideation Skin exam: PRESENT: dry, intact, warm. ABSENT: cyanosis, rash Results Laboratory Results: 12/04/18 05:54 12/04/18 05:54 12/04/18 12/04/18 05:54 05:54 WBC 13.0 H RBC 3.87 L Hgb 11.7 L Hct 34.4 L MCV 89 MCH 30.1 MCHC 33.9 RDW 14.8 H Plt Count 326 Sodium 133.7 L Potassium 2.7 L* Chloride 100 Carbon Dioxide 24 Anion Gap 10 BUN 18 Creatinine 1.36 H Est GFR ( Amer) > 60 Est GFR (Non-Af Amer) 54 L Glucose 173 H Calcium 7.8 L 11/29/18 18:35 Stool - Stool - Final 11/26/18 11/26/18 16:46 16:46 Creatine Kinase < 20 L CK-MB (CK-2) 1.46 Troponin I 0.013 Impressions: Facial Bones CT 11/26/18 00:00 IMPRESSION: No significant acute abnormality. Chest X-Ray 11/29/18 06:00 IMPRESSION: Fluid overload or congestive failure pattern with pulmonary edema Chest CT 12/01/18 00:00 IMPRESSION: Fluid overload or congestive failure pattern similar compared to chest film 11/29/2018 Assessment and Plan - Diagnosis (1) Healthcare associated bacterial pneumonia Is this a current diagnosis for this admission?: Yes Plan: Still awaiting all cultures. Patient did show positive for Gabby for which he is on Diflucan. Patient continues on IV vancomycin and Zosyn. Await further sensitivities and may change Medicare to antibiotic therapy as needed. Patient also has BiPAP at bedside as well as incentive spirometry. Patient was educated and encouraged to use both as much as possible. 12/03/2018-cultures have not returned with a final at this time. Continue IV vancomycin and Zosyn. Incentive spirometry as much as possible. 12/04/2018-continue to await stool cultures. Pulmonary stool culture shows VRE enterococcus faecium most likely a contaminant. Await full report. Continue Di flucan as patient does have a Gabby infection. Continue in Zosyn and vancomycin for his actual pneumonia continue incentive spirometry and submental oxygen. (2) Hypomagnesemia Is this a current diagnosis for this admission?: Yes (3) Acute pulmonary edema Is this a current diagnosis for this admission?: Yes Plan: CT scan from yesterday showed continued pulmonary vascular congestion suggestive of pulmonary edema. Patient was given extra Lasix yesterday and started on Lasix twice daily by mouth. Patient does have a soft blood pressure at this time and cannot receive much more Lasix. Patient does have a fluid resection of 1.5 L at this time. We are going to continue gentle diuresis. I have educated patient to use BiPAP as much as possible as this will help displace this fluid. Patient does continue to be short of breath he continue with 5 L per minute nasal cannula and is slightly tachypneic. Echo shows an ejection fraction of 60%. 12/03/2018-echocardiogram shows a preserved ejection fraction 60%. Patient at this time has no pedal edema he does have pulmonary edema. This is showing an acute diastolic right-sided heart failure. Patient unable to tolerate oral Las ix at this time secondary to low blood pressure. At this time we will place patient on dobutamine 5 mics per kilo per minute no titration for cardiac kick as well as BP support. At that time hopefully we can adjust Lasix dosing as patient has gross rales throughout bilateral bases up to two thirds high in his lungs. Patient is going he is encouraged to wear BiPAP as much as possible. We will continuously reassess patient. I also discontinued his Lopressor and given the lower dose of Coreg 3.125 mg twice daily so he would have the benefit of beta-blockers without the effects of added blood pressure lowering. 12/04/2018-patient continued on Lasix drip and dobutamine overnight. Patient has diuresed well. Patient's lung sounds are much improved today still has slight rales bilateral bases. At this time and want to DC the IV Lasix drip, continue dobutamine, place him back on oral Lasix 40 m p.o. twice daily, Nitropaste 1/2 inch every 8 hours and given 2 mg of morphine to assist with diuresis. I will continue to monitor him throughout the day. (4) Hyponatremia Is this a current diagnosis for this admission?: Yes Plan: Most likely secondary to for volume overload. We will continue to follow daily BMP. 12/03/2018-persistent most likely secondary to volume overload. Hopefully with the addition of dobutamine will be able to diurese patient further will follow. 12/04/2018-persists. Continue to diurese (5) Hypokalemia Is this a current diagnosis for this admission?: Yes Plan: 710 2018-40 mg KCl p.o. x1. Will repeat BMP in a.m. Potassium 2.7 this a.m. secondary to his Lasix drip. I will give him 40 mg KCl p.o. every 4 hours x3 doses. Repeat potassium level at 5 PM. - Time Time Spent with patient: 15-24 minutes - Inpatient Certification Medical Necessity: Other - Patient continues on dobutamine drip. Continue to diurese have physical therapy see patient.
[2018-12-04] MEDS: FLUTICASONE/VILANTEROL 200-25 MCG/DOSE IH SCH (09:43)
[2018-12-04] MEDS: MAGNESIUM OXIDE 400 MG TABLET PO SCH ×2 (09:43→18:40)
[2018-12-04] MEDS: NITROGLYCERIN 2% OINTMENT 1 GM PACKET TP SCH ×2 (09:43→13:56)
[2018-12-04] MEDS: FLUTICASONE NASAL SPRAY 50 MCG/SPRY 120 SPRAY/16 GM NASL SCH (09:43)
[2018-12-04] MEDS: ASPIRIN 81 MG TABLET, ENT COATED PO SCH (09:43)
[2018-12-04] MEDS: FUROSEMIDE 40 MG TABLET PO SCH ×2 (09:44→18:35)
[2018-12-04] MEDS: FLUOXETINE HCL 20 MG CAPSULE PO SCH (09:44)
[2018-12-04] MEDS: CARVEDILOL 3.125 MG TABLET PO SCH ×2 (09:44→21:47)
[2018-12-04] MEDS: PANTOPRAZOLE SODIUM 20 MG TABLET.DR PO SCH (09:44)
[2018-12-04] MEDS: ATORVASTATIN CALCIUM 20 MG TABLET PO SCH (09:44)
[2018-12-04 12:40] LABS: VANCOMYCIN,TROUGH 35.2 ug/mL (5.0-20.0)
[2018-12-04] MEDS: DOBUTAMINE HCL/D5W 500 MG/250 ML RTUINJ IV PRN (13:57)
--- NOTE | 2018-12-04 14:15 | ADVANCED CARE ---
- Diagnosis (1) Healthcare associated bacterial pneumonia Diagnosis Current: Yes (3) Acute pulmonary edema Diagnosis Current: Yes Attendance: Patient and , patient's Sister Chitra. Resuscitation Status: Full Code Discussion: I was called by nursing as patient's sister was visiting patient had questions. Questions about patient's current condition including congestive heart failure and pneumonia were initiated. Sister was concerned that his failure was recurring. I educated patient sister patient and his that since we started the dobutamine drip yesterday as well as diuresed him overnight with IV Lasix the patient was in much better condition and lung sounds were greatly improved. I did stop the IV Lasix drip this morning placed back on p.o. Lasix as he did have a increase in his creatinine. I want patient to continue using BiPAP at night. I am also continue treatment for patient's pneumonia. Overall I feel patient is improving sufficiently. Patient sister voiced concern over patient having previous cardiac surgery and surgeon told him that there was always possibility could develop congestive heart failure. The surgery was 3 years ago. At this time I feel all most of his failure is either from pulmonary hypertension which family states he was diagnosed with unknown degree or his pneumonia. I did state that once patient is on an outpatient basis he should follow-up with pulmonology. He should also follow-up with cardiology on outpatient basis for possible right heart cath to determine exact amount of pulmonary hypertension. I also discussed with patient family and his sister need for physical therapy. At this time will order physical therapy for evaluation of his increased weakness secondary to his disease process. Care Planning Goals: 1. Continue gentle diuresis with Lasix. Continue dobutamine for cardiac kick as well as an increased blood pressure so that he may obtain Lasix. 2. BiPAP at night. 3. Outpatient cardiology and pulmonary consult 4. Physical therapy evaluation for weakness.
[2018-12-04] MEDS: ACETAMINOPHEN 325 MG TABLET PO PRN (16:32)
--- NOTE | 2018-12-04 18:57 | PDOC PROGRESS REPORT ---
Subjective Progress Note for:: 12/04/18 Reason For Visit: HYPOMAG,PNEUMONIA Physical Exam Vital Signs: Temp Pulse Resp BP Pulse Ox 98.9 F 76 20 110/62 96 12/04/18 15:37 12/04/18 16:20 12/04/18 16:20 12/04/18 15:37 12/04/18 16:20 Intake & Output 12/03/18 12/04/18 12/05/18 06:59 06:59 06:59 Intake Total 1862 2335 865 Output Total 1675 1805 Balance 187 530 865 Weight 65.4 kg 65.5 kg Results Laboratory Results: 12/04/18 05:54 12/04/18 17:24 12/04/18 12/04/18 12/04/18 05:54 05:54 17:24 WBC 13.0 H RBC 3.87 L Hgb 11.7 L Hct 34.4 L MCV 89 MCH 30.1 MCHC 33.9 RDW 14.8 H Plt Count 326 Sodium 133.7 L Potassium 2.7 L* 4.2 D Chloride 100 Carbon Dioxide 24 Anion Gap 10 BUN 18 Creatinine 1.36 H Est GFR ( Amer) > 60 Est GFR (Non-Af Amer) 54 L Glucose 173 H Calcium 7.8 L 11/29/18 18:35 Stool - Stool - Final 11/29/18 18:35 Stool - Stool Stool Culture - Final C.albicans/C.dubliniensis Vre,Enterococcus Faecium 11/26/18 11/26/18 16:46 16:46 Creatine Kinase < 20 L CK-MB (CK-2) 1.46 Troponin I 0.013 Impressions: Facial Bones CT 11/26/18 00:00 IMPRESSION: No significant acute abnormality. Chest X-Ray 11/29/18 06:00 IMPRESSION: Fluid overload or congestive failure pattern with pulmonary edema Chest CT 12/01/18 00:00 IMPRESSION: Fluid overload or congestive failure pattern similar compared to chest film 11/29/2018 Assessment and Plan - Diagnosis (1) Healthcare associated bacterial pneumonia Is this a current diagnosis for this admission?: Yes (2) Hypomagnesemia Is this a current diagnosis for this admission?: Yes (3) Acute pulmonary edema Is this a current diagnosis for this admission?: Yes Plan: CT scan from yesterday showed continued pulmonary vascular congestion suggestive of pulmonary edema. Patient was given extra Lasix yesterday and started on Lasix twice daily by mouth. Patient does have a soft blood pressure at this time and cannot receive much more Lasix. Patient does have a fluid resection of 1.5 L at this time. We are going to continue gentle diuresis. I have educated patient to use BiPAP as much as possible as this will help displace this fluid. Patient does continue to be short of breath he continue with 5 L per minute nasal cannula and is slightly tachypneic. Echo shows an ejection fraction of 60%. 12/03/2018-echocardiogram shows a preserved ejection fraction 60%. Patient at this time has no pedal edema he does have pulmonary edema. This is showing an acute diastolic right-sided heart failure. Patient unable to tolerate oral Lasix at this time secondary to low blood pressure. At this time we will place patient on dobutamine 5 mics per kilo per minute no titration for cardiac kick as well as BP support. At that time hopefully we can adjust Lasix dosing as patient has gross rales throughout bilateral bases up to two thirds high in his lungs. Patient is going he is encouraged to wear BiPAP as much as possible. We will continuously reassess patient. I also discontinued his Lopressor and given the lower dose of Coreg 3.125 mg twice daily so he would have the benefit of beta-blockers without the effects of added blood pressure lowering. 12/04/2018-patient continued on Lasix drip and dobutamine overnight. Patient has diuresed well. Patient's lung sounds are much improved today still has slight rales bilateral bases. At this time and want to DC the IV Lasix drip, continue dobutamine, place him back on oral Lasix 40 m p.o. twice daily, Nitropaste 1/2 inch every 8 hours and given 2 mg of morphine to assist with diuresis. I will continue to monitor him throughout the day. 12/04/2018-patient blood pressure recumbent soft. Increased dobutamine to 7.5 mics per kilo per minute. Transfer to ICU for continuous monitoring case more titration as needed. (4) Hyponatremia Is this a current diagnosis for this admission?: Yes (5) Hypokalemia Is this a current diagnosis for this admission?: Yes
[2018-12-04] MEDS ORDERED: DOBUTAMINE HCL/D5W 500 MG/250 ML RTUINJ IV PRN (18:58)
[2018-12-05] MEDS: IPRATROPIUM/ALBUTEROL 0.5-2.5 MG/3 ML AMPUL NEB SCH ×3 (00:53→16:48)
[2018-12-05] MEDS: PIPERACILLIN SODIUM/TAZOBACTAM 3.375 GM in NORMAL SALINE 100 ML IV SCH ×2 (03:50→08:05)
[2018-12-05 03:53] LABS: HEMATOCRIT 35.7 % (37.9-51.0); MEAN CORPUSCULAR HEMOGLOBIN 29.9 pg (27.0-33.4); MEAN CORPUSCULAR HGB CONC 33.6 g/dL (32.0-36.0); MEAN CORPUSCULAR VOLUME 89 fl (80-97); PLATELET COUNT 353 10^3/uL (150-450); RED BLOOD COUNT 4.01 10^6/uL (4.35-5.55); RED CELL DISTRIBUTION WIDTH 14.7 % (11.5-14.0); WHITE BLOOD COUNT 17.5 10^3/uL (4.0-10.5)
[2018-12-05 04:16] LABS: ANION GAP 10 (5-19); BLOOD UREA NITROGEN 25 mg/dL (7-20); CALCIUM 8.1 mg/dL (8.4-10.2); CARBON DIOXIDE 21 mmol/L (22-30); CHLORIDE 102 mmol/L (98-107); GLUCOSE 129 mg/dL (75-110); POTASSIUM 3.8 mmol/L (3.6-5.0); SODIUM 132.9 mmol/L (137-145)
[2018-12-05] MEDS: HEPARIN SOD (PORCINE) 5,000 UNIT/ML 1 ML SYRINGE SUBCUT SCH ×3 (05:15→21:52)
[2018-12-05] MEDS ORDERED: VANCOMYCIN HCL 750 MG in DEXTROSE 5%-WATER 250 ML IV SCH (06:00)
[2018-12-05 07:16] LABS: ARTERIAL BLOOD BASE EXCESS -2.9 mmol/L; ARTERIAL BLOOD H2CO3 0.91 mmol/L (1.05-1.35); ARTERIAL BLOOD HCO3 20.2 mmol/L (20-24); ARTERIAL BLOOD O2 SATURATION 96.9 % (94-98); ARTERIAL BLOOD PCO2 30.1 mmHg (35-45); ARTERIAL BLOOD PH 7.45 (7.35-7.45); ARTERIAL BLOOD PO2 84.9 mmHg (80-100); ARTERIAL BLOOD TOTAL CO2 21.1 mmol/L (23-27)
[2018-12-05 07:17] LABS: ARTERIAL BLOOD FIO2 5L
[2018-12-05] MEDS ORDERED: NORMAL SALINE 1000 ML 1,000 ML IV PRN (08:07)
[2018-12-05] MEDS ORDERED: DOBUTAMINE HCL/D5W 500 MG/250 ML RTUINJ IV PRN (08:16)
--- NOTE | 2018-12-05 09:07 | RADIOLOGY REPORT (SQ) ---
EXAM DESCRIPTION: CHEST SINGLE VIEW COMPLETED DATE/TIME: 12/05/2018 6:35 am REASON FOR STUDY: CHF COMPARISON: 11/29/2018 NUMBER OF VIEWS: One view. TECHNIQUE: Single frontal radiographic image of the chest acquired. LIMITATIONS: None. FINDINGS: LUNGS AND PLEURA: Persistent bilateral airspace disease with more focal consolidation in t he lower lobes. Associated air bronchograms. No evidence of cavitation. No large effusions. MEDIASTINUM AND HEART: Stable heart size and mediastinal structures. BONY STRUCTURES: No acute findings. HARDWARE: None. OTHER: No other significant finding. IMPRESSION: CHF. Increasing consolidation in the lower lobes may represent superimposed infection. TECHNICAL DOCUMENTATION: JOB ID: [id number] Reading location - IP/workstation name: [email or web address]
[2018-12-05] MEDS: PANTOPRAZOLE SODIUM 20 MG TABLET.DR PO SCH (09:09)
[2018-12-05] MEDS: MAGNESIUM OXIDE 400 MG TABLET PO SCH ×2 (09:09→17:56)
[2018-12-05] MEDS: ATORVASTATIN CALCIUM 20 MG TABLET PO SCH (09:09)
[2018-12-05] MEDS: ASPIRIN 81 MG TABLET, ENT COATED PO SCH (09:09)
[2018-12-05] MEDS: FLUOXETINE HCL 20 MG CAPSULE PO SCH (09:09)
[2018-12-05] MEDS: CARVEDILOL 3.125 MG TABLET PO SCH ×2 (09:10→21:51)
[2018-12-05] MEDS: CEFEPIME HCL 2 GM in DEXTROSE 5%-WATER 50 ML IV SCH ×2 (09:48→21:52)
[2018-12-05] MEDS ORDERED: AZITHROMYCIN 500 MG in DEXTROSE 5%-WATER 250 ML IV SCH (10:00)
[2018-12-05] MEDS ORDERED: CEFEPIME 2 GM/D5W RTU 2 GM/50 ML RTUPB IV SCH (10:00)
[2018-12-05] MEDS ORDERED: AZITHROMYCIN INJ 500 MG VIAL IV SCH (10:00)
[2018-12-05] MEDS: FLUTICASONE NASAL SPRAY 50 MCG/SPRY 120 SPRAY/16 GM NASL SCH ×3 (14:11→21:52)
[2018-12-05] MEDS: FLUTICASONE/VILANTEROL 200-25 MCG/DOSE IH SCH (14:11)
--- NOTE | 2018-12-05 17:25 | PDOC TRANSFER SUMMARY ---
General Admission Date/PCP: 11/26/18 22:40 SAMI CHO MD Admission Date: 11/27/18 Transfer Date: 12/05/18 Accepting Facility: [facility] Accepting Physician: Dr. Guillaume Resuscitation Status: Full Code - Transfer Diagnosis (1) Healthcare associated bacterial pneumonia Is this a current diagnosis for this admission?: Yes Diagnosis Summary: Patient presented on 11/27/2018 with shortness of breath after a hospitalization for Salmonella infection. Patient's CT and chest x-ray at that time showed acute overload. Patient was admitted diuresed. While patient to be diuresed his pressure became soft and was unable to obtain Lasix. At that time he was placed on dobutamine at a fixed rate to keep his blood pressure elevated and to increase his cardiac kick. That succeeded in place patient on IV Lasix.. P atient diuresed well throughout that time and we repeated a chest x-ray on 12/05/2018. Slight pulmonary edema remain but mostly patient has a bilateral pneumonia that has developed despite the use of vancomycin and Zosyn from admission for healthcare associated pneumonia. Patient also had a spike in his white count today to 17.5. At that time I added azithromycin to patient's medications and I discussed with patient possibility for transfer to tertiary [facility] for advanced care. I called [facility] discussed with Dr. Farooq who has accepted patient in transfer. She also wished to DC the Zosyn and place patient on cefepime. I added cefepime 2 g every 12 hours. Patient is in no acute distress at this time we are weaning off his dobutamine and I am given him normal saline 100 mL an hour at this time as we have bumped his creatinine up to 1.99 and I feel this out mostly now is due to his pneumonia. I sent off a HIV study as well as sputum culture. Patient also had an echocardiogram that showed ejection fraction of 60%. Patient did also have mild pulmonary hypertension. Of note patient is also taken amiodarone in the past which does have secondary problems associate with primary fibrosis. (2) Hypomagnesemia Is this a current diagnosis for this admission?: Yes (3) Acute pulmonary edema Is this a current diagnosis for this admission?: Yes (4) Hyponatremia Is this a current diagnosis for this admission?: Yes (5) Hypokalemia Is this a current diagnosis for this admission?: Yes - Transfer Medications Home Medications: Albuterol Sulfate [Ventolin 0.083% Neb 2.5 mg/3 ml Ampul] 1 vial NEB Q4HP PRN 11/27/18 Aspirin [Ecotrin 81 mg EC Tablet] 81 mg PO DAILY 11/27/18 Atorvastatin Calcium [Lipitor 20 mg Tablet] 20 mg PO DAILY 11/27/18 Desloratadine [Clarinex] 5 mg PO DAILY 11/27/18 Fluoxetine HCl [Prozac 20 mg Capsule] 20 mg PO DAILY 11/27/18 Fluticasone/Salmeterol [Advair 250-50 Diskus 14 Dose/Diskus] 2 puff IH Q12 11/27/18 Metoprolol Succinate [Toprol Xl 25 mg Tab.sr] 25 mg PO DAILY 11/27/18 Omeprazole 20 mg PO DAILY 11/27/18 Transfer Medications: Current Medications Acetaminophen (Tylenol 325 Mg Tablet) 650 mg PO Q4HP PRN PRN Reason: pain or temp greater than 101F Stop: 12/26/18 22:04 Last Admin: 12/04/18 16:32 Dose: 650 mg Documented by: Albuterol/Ipratropium (Duoneb 3 Ml Ampul) 3 ml NEB [id number] PRN PRN Reason: SHORTNESS OF BREATH Stop: 12/26/18 22:04 Last Admin: 11/29/18 14:36 Dose: 3 ml Documented by: Albuterol/Ipratropium (Duoneb 3 Ml Ampul) 3 ml NEB RTQ8 [facility] Stop: 12/27/18 00:00 Last Admin: 12/05/18 08:05 Dose: 3 ml Documented by: Aspirin (Ecotrin 81 Mg Ec Tablet) 81 mg PO DAILY [facility] Stop: 12/29/18 09:59 Last Admin: 12/04/18 09:43 Dose: 81 mg Documented by: Atorvastatin Calcium (Lipitor 20 Mg Tablet) 20 mg PO DAILY [facility] Stop: 12/29/18 09:59 Last Admin: 12/04/18 09:44 Dose: 20 mg Documented by: Carvedilol (Coreg 3.125 Mg Tablet) 3.125 mg PO Q12 [facility] Stop: 01/02/19 21:59 Last Admin: 12/04/18 21:47 Dose: 3.125 mg Documented by: Fluoxetine HCl (Prozac 20 Mg Capsule) 20 mg PO DAILY [facility] Stop: 12/29/18 09:59 Last Admin: 12/04/18 09:44 Dose: 20 mg Documented by: Fluticasone Propionate (Flonase Nasal [place] 50 Mcg/[place] 16 Gm) 2 spray NASL Q12 [facility] Stop: 12/27/18 09:59 Last Admin: 12/04/18 09:43 Dose: 2 spray Documented by: Fluticasone/Vilanterol (Breo 200-25 Mcg Ellipta 14 Dose/Dpi) 1 inh IH DAILY [facility] Stop: 12/30/18 09:59 Last Admin: 12/04/18 09:43 Dose: 1 inhaler Documented by: Guaifenesin (Robitussin Syrup 200 Mg/10 Ml Ud Cup) 200 mg PO Q4HP PRN PRN Reason: COUGH Stop: 12/26/18 22:04 Heparin Sodium (Porcine) (Heparin Inj 5,000 Units/Ml 1 Ml Syringe) 5,000 unit SUBCUT Q8 [facility] Stop: 12/27/18 05:59 Last Admin: 12/05/18 05:15 Dose: 5,000 unit Documented by: Azithromycin 500 mg/ Dextrose 250 mls @ 250 mls/hr IV DAILY [facility] Stop: 12/12/18 09:59 Sodium Chloride (Nacl 0.9% 1000 Ml Iv Soln) 1,000 mls @ 100 mls/hr IV CONTINUOUS PRN PRN Reason: THIS MED IS NOT "PRN" Stop: 01/04/19 08:06 Dobutamine HCl/Dextrose (Dobutrex Rtu 500 Mg-D5w 250 Ml Premixed Bag) 500 mg in 250 mls @ 7.5 mls/hr IV CONTINUOUS PRN PRN Reason: THIS MED IS NOT "PRN" Stop: 01/02/19 10:58 Cefepime HCl (Maxipime Rtu 2 Gm-D5w 50 Ml Premix Bag) 2 gm in 50 mls @ 100 mls/hr IV Q12 [facility] Stop: 12/12/18 09:59 Magnesium Oxide (Mag-Ox 400 Mg Tablet) 800 mg PO BID [facility] Stop: 12/31/18 09:59 Last Admin: 12/04/18 18:40 Dose: 800 mg Documented by: Pantoprazole Sodium (Protonix [address] Tablet) 20 mg PO DAILY [facility] Stop: 12/29/18 14:29 Last Admin: 12/04/18 09:44 Dose: 20 mg Documented by: Sodium Chloride (Saline Flush 2.5 Ml Monoject Prefil Syrin) 2.5 ml IV Q8 [facility] Stop: 12/27/18 05:59 Last Admin: 12/05/18 06:27 Dose: Not Given Documented by: - Allergies Allergies/Adverse Reactions: doxycycline Allergy (Verified 11/26/18 18:53) levofloxacin [From Levaquin] Allergy (Verified 11/26/18 18:53) - Diet/Activity Discharge Diet: Regular Hospital Course Hospital Course: Patient presented on 11/27/2018 with shortness of breath after a hospitalization for Salmonella infection. Patient's CT and chest x-ray at that time showed acute overload. Patient was admitted diuresed. While patient to be diuresed his pressure became soft and was unable to obtain Lasix. At that time he was placed on dobutamine at a fixed rate to keep his blood pressure elevated and to increase his cardiac kick. That succeeded in place patient on IV Lasix.. Patient diuresed well throughout that time and we repeated a chest x-ray on 12/05/2018. Slight pulmonary edema remain but mostly patient has a bilateral pneumonia that has developed despite the use of vancomycin and Zosyn from admission for healthcare associated pneumonia. Patient also had a spike in his white count today to 17.5. At that time I added azithromycin to patient's medications and I discussed with patient possibility for transfer to tertiary [facility] center for advanced care. I called [facility] discussed with Dr. Farooq who has accepted patient in transfer. She also wished to DC the Zosyn and place patient on cefepime. I added cefepime 2 g every 12 hours. Patient is in no acute distress at this time we are weaning off his dobutamine and I am given him normal saline 100 mL an hour at this time as we have bumped his creatinine up to 1.99 and I feel this out mostly now is due to his pneumonia. I sent off a HIV study as well as sputum culture. Patient also had an echocardiogram that showed ejection fraction of 60%. Patient did also have mild pulmonary hypertension. Of note patient is also taken amiodarone in the past which does have secondary problems associate with primary fibrosis. Physical Exam Vital Signs: Temp Pulse Resp BP Pulse Ox 98.1 F 95 21 H 109/67 95 12/05/18 08:00 12/05/18 08:05 12/05/18 08:05 12/05/18 08:00 12/05/18 08:05 Intake & Output 12/04/18 12/05/18 12/06/18 06:59 06:59 06:59 Intake Total 2335 2292 Output Total 1805 1030 Balance 530 1262 Weight 65.5 kg 66.1 kg General appearance: PRESENT: no acute distress, well-developed, well-nourished Neck exam: ABSENT: carotid bruit, JVD, lymphadenopathy, thyromegaly Respiratory exam: PRESENT: accessory muscle use, crackles, tachypnea Cardiovascular exam: PRESENT: RRR. ABSENT: diastolic murmur, rubs, systolic murmur Pulses: PRESENT: normal dorsalis pedis pul Vascular exam: PRESENT: normal capillary refill GI/Abdominal exam: PRESENT: normal bowel sounds, soft. ABSENT: distended, guarding, mass, organolmegaly, rebound, tenderness Extremities exam: PRESENT: full ROM. ABSENT: calf tenderness, clubbing, pedal edema Neurological exam: PRESENT: alert, awake, oriented to person, oriented to place, oriented to time, oriented to situation, CN II-XII grossly intact. ABSENT: motor sensory deficit Psychiatric exam: PRESENT: appropriate affect, normal mood. ABSENT: homicidal ideation, suicidal ideation Skin exam: PRESENT: dry, intact, warm. ABSENT: cyanosis, rash Results Laboratory Results: 12/05/18 03:45 12/05/18 03:45 12/04/18 12/05/18 12/05/18 17:24 03:45 03:45 WBC 17.5 H RBC 4.01 L Hgb 12.0 L Hct 35.7 L MCV 89 MCH 29.9 MCHC 33.6 RDW 14.7 H Plt Count 353 Carbonic Acid HCO3/H2CO3 Ratio ABG pH ABG pCO2 ABG pO2 ABG HCO3 ABG O2 Saturation ABG Base Excess FiO2 Sodium 132.9 L Potassium 4.2 D 3.8 Chloride 102 Carbon Dioxide 21 L Anion Gap 10 BUN 25 H Creatinine 1.99 H Est GFR ( Amer) 42 L Est GFR (Non-Af Amer) 35 L Glucose 129 H Calcium 8.1 L 12/05/18 06:45 WBC RBC Hgb Hct MCV MCH MCHC RDW Plt Count Carbonic Acid 0.91 L HCO3/H2CO3 Ratio 22:1 ABG pH 7.45 ABG pCO2 30.1 L ABG pO2 84.9 ABG HCO3 20.2 ABG O2 Saturation 96.9 ABG Base Excess -2.9 FiO2 5L Sodium Potassium Chloride Carbon Dioxide Anion Gap BUN Creatinine Est GFR ( Amer) Est GFR (Non-Af Amer) Glucose Calcium 11/29/18 18:35 Stool - Stool - Final 11/29/18 18:35 Stool - Stool Stool Culture - Final C.albicans/C.dubliniensis Vre,Enterococcus Faecium 11/26/18 11/26/18 16:46 16:46 Creatine Kinase < 20 L CK-MB (CK-2) 1.46 Troponin I 0.013 Impressions: Facial Bones CT 11/26/18 00:00 IMPRESSION: No significant acute abnormality. Chest CT 12/01/18 00:00 IMPRESSION: Fluid overload or congestive failure pattern similar compared to chest film 11/29/2018 Plan Discharge Plan: Transfer to [facility] for tertiary care. Time Spent: Greater than 30 Minutes
[2018-12-05 17:34] VITALS: BP 106/64
[2018-12-06] MEDS ORDERED: VANCOMYCIN HCL 1,000 MG in DEXTROSE 5%-WATER 250 ML IV SCH (10:00)
== END 2018-12-05 23:00 | disposition short-term general hospital (02) | DRG 193 ==
LOC: ER 18:49 → EH 22:40 → 4W 11-27 01:15 → 5 12-01 09:40 → 4W 12-01 09:46 → 3N 12-01 15:34 → ICU 12-04 19:40
PROVIDERS: ADMIT Internal Medicine; ATTEND Internal Medicine
PROC: 5A09557 Assistance with Respiratory Ventilation, Greater than 96 Consecutive Hours, Continuous Positive Airway Pressure (ICD-10-PCS; principal; 2018-12-01)
DX: J18.1 Lobar pneumonia, unspecified organism (principal); J81.0 Acute pulmonary edema; E87.1 Hypo-osmolality and hyponatremia; I27.20 Pulmonary hypertension, unspecified; E83.42 Hypomagnesemia; E87.6 Hypokalemia; F32.9 Major depressive disorder, single episode, unspecified; R59.0 Localized enlarged lymph nodes; J01.90 Acute sinusitis, unspecified; I95.9 Hypotension, unspecified; I10 Essential (primary) hypertension; Z79.82 Long term (current) use of aspirin; Z79.899 Other long term (current) drug therapy; Z88.3 Allergy status to other anti-infective agents; Z95.2 Presence of prosthetic heart valve; Z87.891 Personal history of nicotine dependence
CPT/HCPCS: 36415; 36600; 70486; 71045; 71250; 71260; 80048; 80053; 80202; 81001; 81332; 82550; 82553; 82565; 82803; 83605; 83735; 84132; 84484; 85025; 85027; 86701; 87040; 87045; 87070; 87205; 87493; 93005; 93010; 93306; 94640; 94660; 94667; 94668; 94761; 94799; 96361; 96374; 99285; J0456; J0692; J0696; J1250; J1644; J1885; J1940; J2270; J2543; J3370; J3475; J3490; J7030; J7050; J7060; J7120; J7620

== ENCOUNTER 2019-02-14 22:39 | Emergency (ER) | payer BC ==
--- NOTE | 2019-02-15 00:12 | RADIOLOGY REPORT (SQ) ---
CLINICAL HISTORY: swelling to left 4th finger/no inj COMPARISON: None. TECHNIQUE: XR FINGERS 02/14/2019 12:00 AM CDT FINDINGS: There is no fracture. There are degenerative changes throughout the IP joints. There is soft tissue swelling surrounding the fourth PIP joint. IMPRESSION: No acute osseous findings.
[2019-02-15] MEDS ORDERED: IBUPROFEN 600 MG TABLET PO ONE (03:16)
--- NOTE | 2019-02-15 04:51 | ER Document Report ---
ED General - General Chief Complaint: Hand Swelling Stated Complaint: FINGER SWELLING Time Seen by Provider: 02/15/19 02:51 Primary Care Provider: SAMI CHO MD [Primary Care Provider] - Follow up as needed Notes: Patient is a 58-year-old male presents to the emergency department with redness and swelling noted to the left ring finger PIP. Patient states he has noted this redness and swelling for the last 2 days. Patient's denying any injury to his left hand or fingers. Patient's denying any history of gout. Denies fevers. Past medical history: COPD, hypertension, GERD, hyperlipidemia. TRAVEL OUTSIDE OF THE [place] IN LAST 30 DAYS: No - Related Data Allergies/Adverse Reactions: doxycycline Allergy (Verified 11/26/18 18:53) levofloxacin [From Levaquin] Allergy (Verified 11/26/18 18:53) Past Medical History - General Information source: Patient - Social History Smoking Status: Never Smoker Chew tobacco use (# tins/day): No Frequency of alcohol use: None Drug Abuse: None Family History: CAD, CVA, DM, Hyperlipidemia, Hypertension, Malignancy, Other - Father is living in a prison. At a 62 had a traumatic brain injury. He is not 82. Patient has suicidal ideation: No Patient has homicidal ideation: No - Past Medical History Cardiac Medical History: Denies: Hx Hypertension - heart valve replacement. Pulmonary Medical History: Reports: Hx Pneumonia Renal/ Medical History: Denies: Hx Peritoneal Dialysis Musculoskeletal Medical History: Reports Hx Arthritis, Reports Hx Musculoskeletal Trauma - ribs left sided Psychiatric Medical History: Reports: Hx Depression Traumatic Medical History: Reports: Hx Fractures - ribs left sidedddddddd. Denies: Hx Gunshot Wound, Hx Pneumothorax Infectious Medical History: Denies: Hx C-Diff, Hx HIV Past Surgical History: Reports: Hx Abdominal Surgery - hernia ventral, Hx Cardiac Surgery - PDA repair, Hx Cholecystectomy, Hx Umbilical Hernia, Hx Valve Replacement - bovine pericardial tissue aortic valve replacement February 2015 - Immunizations Immunizations up to date: Yes Hx Diphtheria, Pertussis, Tetanus Vaccination: Yes Review of Systems - Review of Systems Constitutional: denies: Fever EENT: No symptoms reported Cardiovascular: No symptoms reported Respiratory: No symptoms reported Gastrointestinal: No symptoms reported Genitourinary: No symptoms reported Male Genitourinary: No symptoms reported Musculoskeletal: See HPI Skin: See HPI Hematologic/Lymphatic: No symptoms reported Neurological/Psychological: No symptoms reported Physical Exam - Vital signs Vitals: Temp Pulse Resp BP Pulse Ox 97.6 F 70 19 100/66 98 02/14/19 23:14 02/14/19 23:14 02/14/19 23:14 02/14/19 23:14 02/14/19 23:14 - Notes Notes: GENERAL: Alert, interacts well. No acute distress. HEAD: Normocephalic, atraumatic. EYES: Pupils equal, round, and reactive to light. Extraocular movements intact. ENT: Oral mucosa moist, tongue midline. NECK: Full range of motion. Supple. Trachea midline. LUNGS: Clear to auscultation bilaterally, no wheezes, rales, or rhonchi. No respiratory distress. HEART: Regular rate and rhythm. No murmur ABDOMEN: Soft, non-tender. Non-distended. Bowel sounds present in all 4 juanito drants. EXTREMITIES: Moves all 4 extremities spontaneously. No edema, normal radial and dorsalis pedis pulses bilaterally. No cyanosis. Generalized redness and swelling noted to left ring finger PIP joint. Capillary refill distally left ring finger less than 2 seconds. MCP and DIP joint left ring finger within normal limits. BACK: no cervical, thoracic, lumbar midline tenderness. No saddle anesthesia, normal distal neurovascular exam. NEUROLOGICAL: Alert and oriented x3. Normal speech. cranial nerves II through XII grossly intact PSYCH: Normal affect, normal mood. SKIN: Warm, dry, normal turgor. Course - Re-evaluation Re-evalutation: 02/15/19 04:49 Using the acute gout diagnosis rule patient scores a 10.5, 82.5% prevalence of gout. Discussed gout diagnosis with patient at bedside. Discussed treatment modalities and following up with the primary care provider. At this time will discharge with return precautions and follow-up recommendations. Verbal discharge instructions given a the bedside and opportunity for questions given. Medication warnings reviewed. Patient is in agreement with this plan and has verbalized understanding of return precautions and the need for primary care follow-up in the next 24-72 hours. This medical record was dictated with voice recognizing software. There may be grammatical, syntax errors that are unintended. - Vital Signs Vital signs: Temp Pulse Resp BP Pulse Ox 97.6 F 70 19 100/66 98 02/14/19 23:14 02/14/19 23:14 02/14/19 23:14 02/14/19 23:14 02/14/19 23:14 Discharge - Discharge Clinical Impression: Gout Qualifiers: Gout site: hand Gout etiology: unspecified cause Chronicity: acute Laterality: left Qualified Code(s): M10.9 - Gout, unspecified Condition: Stable Disposition: HOME, SELF-CARE Instructions: Gout ([facility]), Gout Diet ([facility]) Prescriptions: Prednisone [Deltasone 20 mg Tablet] 2 tab PO DAILY 5 Days tablet Naproxen 500 mg PO BID #20 tablet Referrals: SAMI CHO MD [Primary Care Provider] - Follow up as needed
[2019-02-15 05:37] VITALS: BP 112/70
== END 2019-02-15 05:37 | disposition home or self-care (01) ==
LOC: ER 22:39
DX: M10.9 Gout, unspecified (principal); J44.9 Chronic obstructive pulmonary disease, unspecified; I10 Essential (primary) hypertension; Z88.1 Allergy status to other antibiotic agents
CPT/HCPCS: 36415; 84550; 99283

== ENCOUNTER → 2019-03-12 | Outpatient (CLI) | payer BC ==
--- NOTE | 2019-03-12 15:15 | RADIOLOGY REPORT (SQ) ---
EXAM DESCRIPTION: CT CHEST WITHOUT COMPLETED DATE/TIME: 03/12/2019 2:01 pm REASON FOR STUDY: PNEUMONIA (J18.9), LOCALIZED ENLARGED LYMPH NODES (R59.0) J18.9 PNEUMONIA, UNSPEC IFIED ORGANISM R59.0 LOCALIZED ENLARGED LYMPH NODES COMPARISON: 12/01/2018 and 11/26/2018. TECHNIQUE: CT scan performed of the chest without intravenous contrast. Images reviewed with lung, soft tissue and bone windows. Reconstructed coronal and sagittal MPR images reviewed. All images st ored on PACS. All CT scanners at this facility use dose modulation, iterative reconstruction, and/or weight based d osing when appropriate to reduce radiation dose to as low as reasonably achievable (ALARA). [facility]: Dose Right [facility]: CareDose [facility]: Dose Right [facility]: Teradose 4D [facility]: [employer] RADIATION DOSE: CT Rad equipment meets quality standard of care and radiation dose reduction techniq ues were employed. CTDIvol: 4.3 mGy. DLP: 154 mGy-cm. mGy. LIMITATIONS: No technical limitations. FINDINGS: LUNGS AND PLEURA: Improved aeration with clearing of a majority of the previously seen rajani und-glass opacities. 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 No pleural effusions or pleural calcifications. HILAR AND MEDIASTINAL STRUCTURES: Enlarged right paratracheal lymph node unchanged, maximum measureme nt 2.6 cm. HEART AND VASCULAR STRUCTURES: No aneurysm. No pericardial effusion. UPPER ABDOMEN: No significant findings. Limited exam. THYROID AND OTHER SOFT TISSUES: No masses. No adenopathy. BONES: No significant finding. HARDWARE: Sternotomy wires. Aortic valve prosthesis. OTHER: No other significant findings. IMPRESSION: 1. OVERALL IMPROVED AERATION IN THE LUNGS. RESIDUAL AREAS OF GROUND-GLASS OPACITY IN THE LUNG BASES WHICH MAY BE DUE TO INFLAMMATION AND/OR INFECTION. 2. ENLARGED RIGHT PARATRACHEAL LYMPH NODE, UNCHANGED. TECHNICAL DOCUMENTATION: JOB ID: [id number] Quality ID # [id number]: Final reports with documentation of one or more dose reduction techniques (e.g., Au tomated exposure control, adjustment of the mA and/or kV according to patient size, use of iterative reconstruction technique) 2010 [employer]- All Rights Reserved Reading location - IP[facility]workstation name: [email or web address]
== END ==
LOC: RAD 13:18
PROVIDERS: ATTEND Internal Medicine Pulmonary Disease
DX: J18.9 Pneumonia, unspecified organism (principal); R59.0 Localized enlarged lymph nodes
CPT/HCPCS: 71250

== ENCOUNTER → 2019-04-22 | Outpatient (CLI) | payer BC ==
[2019-04-22 20:48] LABS: C DIFFICILE GDH POSITIVE (NEGATIVE)
== END ==
LOC: ECG 16:49
PROVIDERS: ATTEND Internal Medicine Gastroenterology
DX: R19.7 Diarrhea, unspecified (principal)
CPT/HCPCS: 36415; 86140; 87045; 87077; 87177; 87205; 87324; 87449; 87493; 89055

== ENCOUNTER 2019-05-08 14:05 | Inpatient (IN) | payer BC ==
--- NOTE | 2019-05-08 15:42 | ER Document Report ---
ED Medical Screen (RME) - General Chief Complaint: Breathing Difficulty Stated Complaint: SHORTNESS OF BREATHE/DIARRHEA Time Seen by Provider: 05/08/19 15:35 Primary Care Provider: KORI COLORADO MD [Primary Care Provider] - Follow up as needed Mode of Arrival: Ambulatory Information source: Patient Notes: Patient presents complaining of shortness of breath for the past 2 to 3 days. Patient states shortness of breath is worse with exertion. Patient denies any chest pain abdominal pain nausea or vomiting. Patient does report diarrhea has had about 4-5 bowel movements a day. Patient states he is currently being treated for colitis. Patient denies any fever. Patient does report mild cough. hx: Aortic valve replacement, GERD, colitis, dyslipidemia I have greeted and performed a rapid initial assessment of this patient. A comprehensive ED assessment and evaluation of the patient, analysis of test results and completion of the medical decision making process will be conducted by additional ED providers. TRAVEL OUTSIDE OF THE [place] IN LAST 30 DAYS: No - Related Data Allergies/Adverse Reactions: doxycycline Allergy (Verified 05/08/19 15:35) levofloxacin [From Levaquin] Allergy (Verified 05/08/19 15:35) Home Medications: Albuterol Past Medical History - Social History Chew tobacco use (# tins/day): No Frequency of alcohol use: None Drug Abuse: None - Past Medical History Cardiac Medical History: Denies: Hx Hypertension - heart valve replacement. Pulmonary Medical History: Reports: Hx Pneumonia Renal/ Medical History: Denies: Hx Peritoneal Dialysis Musculoskeltal Medical History: Reports Hx Arthritis, Reports Hx Musculoskeletal Trauma - ribs left sided Psychiatric Medical History: Reports: Hx Depression Traumatic Medical History: Reports: Hx Fractures - ribs left sidedddddddd. Denies: Hx Gunshot Wound, Hx Pneumothorax Infectious Medical History: Denies: Hx C-Diff, Hx HIV Past Surgical History: Reports: Hx Abdominal Surgery - hernia ventral, Hx Cardiac Surgery - PDA repair, Hx Cholecystectomy, Hx Umbilical Hernia, Hx Valve Replacement - bovine pericardial tissue aortic valve replacement February 2015 - Immunizations Immunizations up to date: Yes Hx Diphtheria, Pertussis, Tetanus Vaccination: Yes Physical Exam - Vital signs Vitals: Temp Resp Pulse Ox 97.7 F 18 100 05/08/19 14:06 05/08/19 14:06 05/08/19 14:06 - Respiratory Respiratory status: No respiratory distress Chest status: Nontender Breath sounds: Nonproductive cough Course - Vital Signs Vital signs: Temp Pulse Resp BP Pulse Ox 97.7 F 76 18 116/68 100 05/08/19 14:14 05/08/19 14:14 05/08/19 14:14 05/08/19 14:14 05/08/19 14:14 Doctor's Discharge - Discharge Referrals: KORI COLORADO MD [Primary Care Provider] - Follow up as needed
--- NOTE | 2019-05-08 16:25 | RADIOLOGY REPORT (SQ) ---
EXAM DESCRIPTION: CHEST 2 VIEWS COMPLETED DATE/TIME: 05/08/2019 4:09 pm REASON FOR STUDY: sob COMPARISON: 12/05/2018 EXAM PARAMETERS: NUMBER OF VIEWS: two views TECHNIQUE: Digital Frontal and Lateral radiographic views of the chest acquired. RADIATION DOSE: NA LIMITATIONS: none FINDINGS: LUNGS AND PLEURA: There chronic pleural and parenchymal changes. No acute consolidation. No effusions. MEDIASTINUM AND HILAR STRUCTURES: No masses or contour abnormalities. HEART AND VASCULAR STRUCTURES: Heart normal size. No evidence for failure. BONES: No acute findings. HARDWARE: Unchanged. OTHER: No other significant finding. IMPRESSION: No acute findings in the chest. TECHNICAL DOCUMENTATION: JOB ID: [id number] [employer]- All Rights Reserved Reading location - IP/workstation name: [email or web address]
[2019-05-08 16:48] LABS: ABSOLUTE EOSINOPHILS # (AUTO) 0.2 10^3/uL (0.0-0.6); ABSOLUTE LYMPHOCYTES (AUTO) 1.8 10^3/uL (0.5-4.7); ABSOLUTE MONOCYTES (AUTO) 0.7 10^3/uL (0.1-1.4); ABSOLUTE NEUT (AUTO) 5.9 10^3/uL (1.7-8.2); BASOPHILS % (AUTO) 0.4 % (0-2); EOSINOPHILS % (AUTO) 2.3 % (0-6); HEMATOCRIT 39.8 % (37.9-51.0); HEMOGLOBIN 13.5 g/dL (13.5-17.0); LYMPHOCYTES % (AUTO) 20.5 % (13-45); MEAN CORPUSCULAR HEMOGLOBIN 30.3 pg (27.0-33.4); MEAN CORPUSCULAR HGB CONC 33.9 g/dL (32.0-36.0); MEAN CORPUSCULAR VOLUME 89 fl (80-97); MONOCYTES % (AUTO) 8.2 % (3-13); PLATELET COUNT 277 10^3/uL (150-450); RED BLOOD COUNT 4.46 10^6/uL (4.35-5.55); RED CELL DISTRIBUTION WIDTH 16.9 % (11.5-14.0); SEGMENTED NEUTROPHILS % (AUTO) 68.6 % (42-78); TOTAL CELLS COUNTED % (AUTO) 100 %; WHITE BLOOD COUNT 8.6 10^3/uL (4.0-10.5)
[2019-05-08 17:10] LABS: ALBUMIN 3.1 g/dL (3.5-5.0); ALKALINE PHOSPHATASE 98 U/L (38-126); ANION GAP 15 (5-19); ASPARTATE AMINO TRANSFERASE 16 U/L (17-59); BILIRUBIN,DIRECT 0.4 mg/dL (0.0-0.4); BILIRUBIN,TOTAL 0.5 mg/dL (0.2-1.3); BLOOD UREA NITROGEN 20 mg/dL (7-20); CALCIUM 8.9 mg/dL (8.4-10.2); CHLORIDE 121 mmol/L (98-107); GLUCOSE 83 mg/dL (75-110); TOTAL PROTEIN 5.3 g/dL (6.3-8.2)
[2019-05-08 17:48] LABS: CARBON DIOXIDE 10 mmol/L (22-30); POTASSIUM 2.5 mmol/L (3.6-5.0)
[2019-05-08] MEDS ORDERED: RINGERS SOLUTION,LACTATED 1,000 ML IV ONE ×2 (18:10→18:14)
--- NOTE | 2019-05-08 18:47 | ER Document Report ---
ED General - General Chief Complaint: Breathing Difficulty Stated Complaint: SHORTNESS OF BREATHE/DIARRHEA Time Seen by Provider: 05/08/19 15:35 Primary Care Provider: KORI COLORADO MD [NO LOCAL MD] - Follow up as needed Mode of Arrival: Ambulatory TRAVEL OUTSIDE OF THE [place] IN LAST 30 DAYS: No - Related Data Allergies/Adverse Reactions: doxycycline Allergy (Verified 05/08/19 15:35) levofloxacin [From Levaquin] Allergy (Verified 05/08/19 15:35) Home Medications: Albuterol Past Medical History - General Information source: Patient - Social History Smoking Status: Never Smoker Chew tobacco use (# tins/day): No Frequency of alcohol use: None Drug Abuse: None Family History: CAD, CVA, DM, Hyperlipidemia, Hypertension, Malignancy, Other - Father is living in a halfway. At a 62 had a traumatic brain injury. He is not 82. Patient has suicidal ideation: No Patient has homicidal ideation: No - Past Medical History Cardiac Medical History: Denies: Hx Hypertension - heart valve replacement. Pulmonary Medical History: Reports: Hx Pneumonia Renal/ Medical History: Denies: Hx Peritoneal Dialysis Musculoskeletal Medical History: Reports Hx Arthritis, Reports Hx Musculoskeletal Trauma - ribs left sided Psychiatric Medical History: Reports: Hx Depression Traumatic Medical History: Reports: Hx Fractures - ribs left sidedddddddd. Denies: Hx Gunshot Wound, Hx Pneumothorax Infectious Medical History: Denies: Hx C-Diff, Hx HIV Past Surgical History: Reports: Hx Abdominal Surgery - hernia ventral, Hx Cardiac Surgery - PDA repair, Hx Cholecystectomy, Hx Umbilical Hernia, Hx Valve Replacement - bovine pericardial tissue aortic valve replacement February 2015 - Immunizations Immunizations up to date: Yes Hx Diphtheria, Pertussis, Tetanus Vaccination: Yes Review of Systems - Review of Systems Notes: Review of systems pertinent positives and negatives in HPI otherwise all the systems were reviewed and acutely negative Physical Exam - Vital signs Vitals: Temp Resp Pulse Ox 97.7 F 18 100 05/08/19 14:06 05/08/19 14:06 05/08/19 14:06 - Notes Notes: Patient presents emerged department complaining of shortness of breath exertion has been going on for the past several days. Usually gets it when he has been walking around the store. Does not have it at home. Is not have to stop and rest. Is not any chest pain or palpitations associated with this. Denies any fevers or cough. Or lower extremity edema Patient also reports that she has had increase in his diarrhea. Currently he has a component of chronic diarrhea since November when he had Salmonella sepsis was recently diagnosed with colitis and finished a course of Flagyl and Cipro about 4 5 days ago. He said the diarrhea slowed down but picked up again. He is having 4-5 episodes a day of loose stool. He is not noticed any blood in it at all. He has chronic abdominal cramps associated with this which are unchanged. He has no urinary symptoms but his appetite has been good Past medical history sniffing for a heart valve replacement is not on a blood thinner for that. History of a rib fractures about 2-1/2 weeks ago. He was admitted and October with abscess from Salmonella admitted in November with CHF and pneumonia. Was transferred to a higher level care because of his labile blood pressure no diabetes or hypertension Social history does not smoke or drink Family history is noncontributory Review of systems pertinent positives and negatives in HPI otherwise all the systems were reviewed and acutely negative PHYSICIAN EXAM -vital signs are noted triage note and note from triage reviewed GENERAL: Well-appearing, well-nourished and in _no acute distress HEAD: Atraumatic, normocephalic. EYES: Pupils equal round and reactive to light, extraocular movements intact, sclera anicteric, conjunctiva are normal. ENT: nares patent, oropharynx clear without exudates. Slightly dry mucous membranes. NECK: supple without lymphadenopathy LUNGS: Breath sounds clear to auscultation bilaterally and equal. No wheezes rales or rhonchi. HEART: Regular rate and rhythm without murmurs no JVD ABDOMEN: Soft, nontender, normoactive bowel sounds. Surgical scar right upper quadrant EXTREMITIES: No deformity, no edema. NEUROLOGICAL: No focal neurological deficits. Moves all extremities spontaneously and on command. PSYCH: Normal mood, normal affect. SKIN: Warm, Dry, normal turgor, no rashes or lesions noted. BACK-nontender in the midline Differential angina acute coronary syndrome CHF pneumonia thorax dehydration abnormal electrolytes pneumothorax Course - Re-evaluation Re-evalutation: 05/08/19 20:05 Addendum patient will be started on potassium supplements IV and magnesium patient will be passed on to dr gray follow-up - Vital Signs Vital signs: Temp Pulse Resp BP Pulse Ox 97.7 F 76 24 H 115/83 100 05/08/19 14:14 05/08/19 14:14 05/08/19 18:01 05/08/19 18:01 05/08/19 18:01 - Laboratory Result Diagrams: 05/08/19 16:28 05/08/19 16:28 Laboratory results interpreted by me: 05/08/19 05/08/19 16:28 16:28 RDW 16.9 H Sodium 146.1 H Potassium 2.5 L* Chloride 121 H Carbon Dioxide 10 L* AST 16 L Total Protein 5.3 L Albumin 3.1 L Discharge - Discharge Clinical Impression: Dehydration, Hypokalemia, Hypokalemia due to excessive gastrointestinal loss of potassium Diarrhea Qualifiers: Diarrhea type: unspecified type Qualified Code(s): R19.7 - Diarrhea, unspecified Disposition: ADMITTED OBSERVATION Admitting Provider: Jeramie (Hospitalist) Referrals: KORI COLORADO MD [NO LOCAL MD] - Follow up as needed
[2019-05-08] MEDS ORDERED: POTASSI CL 20 MEQ/50 ML RIDER 20 MEQ/50 ML RTUPB IV ONE (18:49)
[2019-05-08] MEDS ORDERED: MAGNESIUM SULFATE/D5W 1 GM/100 ML RTUPB IV ONE (18:50)
[2019-05-08] MEDS ORDERED: POTASSIUM CHLORIDE 10 MEQ TABLET.ER PO ONE (18:50)
[2019-05-08 20:36] LABS: APPEARANCE,URINE CLEAR; BILIRUBIN,URINE NEGATIVE (NEGATIVE); COLOR,URINE STRAW; GLUCOSE, URINE NEGATIVE (NEGATIVE); KETONES,URINE NEGATIVE (NEGATIVE); LEUKOCYTE ESTERASE,URINE NEGATIVE (NEGATIVE); NITRITE,URINE NEGATIVE (NEGATIVE); PROTEIN,URINE NEGATIVE (NEGATIVE); URINE SPECIFIC GRAVITY 1.008; UROBILINOGEN,URINE NEGATIVE mg/dL (<2.0)
--- NOTE | 2019-05-08 20:42 | RADIOLOGY REPORT (SQ) ---
EXAM DESCRIPTION: CT abdomen and pelvis with contrast CLINICAL HISTORY: 58 years Male, Diarrhea COMPARISON: None. TECHNIQUE: Axial images of the abdomen and pelvis were performed utilizing intravenous contrast, with sagittal and coronal reformatted images. This exam was performed according to our departmental dose-optimization program which includes use of Automated Exposure Control, adjustment of the mA and/or kV according to patient size and/or use of iterative reconstruction technique. FINDINGS: There are multiple loops of slightly dilated and predominantly fluid-filled small bowel in the abdomen and pelvis. There is liquid stool in the right colon. No evidence of colitis. No evidence of appendicitis. There is a ventral hernia containing only fat. There is evidence of prior ventral hernia surgery. There is no significant radiographic abnormality of the liver, spleen, pancreas, adrenal glands or kidneys. There are small bilateral renal cysts. IMPRESSION: Multiple loops of slightly dilated and predominantly fluid-filled small bowel. Liquid stool in the right colon. Findings are suspicious for gastroenteritis. Ventral hernia.
--- NOTE | 2019-05-08 21:53 | EKG REPORT ---
SEVERITY:- ABNORMAL ECG - SINUS RHYTHM PROBABLE LEFT ATRIAL ABNORMALITY NONSPECIFIC INTRAVENTRICULAR CONDUCTION DELAY MINIMAL ST DEPRESSION, LATERAL LEADS : Confirmed by: Dago Haider MD 08-May-2019 21:52:13
[2019-05-09] MEDS ORDERED: MAG HYDROX/AL HYDROX/SIMETH SUSP 30 ML UDCUP PO PRN (01:40)
[2019-05-09] MEDS ORDERED: PROMETHAZINE HCL INJ 25 MG/1 ML VIAL IV PRN (01:40)
[2019-05-09] MEDS ORDERED: TEMAZEPAM 15 MG CAPSULE PO PRN (01:40)
[2019-05-09] MEDS ORDERED: MORPHINE SULFATE 10 MG/ML INJ IV PRN ×3 (01:49)
[2019-05-09] MEDS ORDERED: HYDRALAZINE HCL INJ/PF 20 MG/1 ML SDV IV PRN (01:49)
[2019-05-09] MEDS ORDERED: LEVALBUTEROL HCL NEB 0.63 MG/3 ML AMPUL NEB PRN (01:49)
[2019-05-09] MEDS: POTASSI CL 20 MEQ/D5NS 1L 20 MEQ/1,000 ML RTUINJ IV PRN ×2 (03:20→10:06)
[2019-05-09 04:07] LABS: TROPONIN I < 0.012 ng/mL
--- NOTE | 2019-05-09 04:09 | PDOC H&P ---
History of Present Illness Admission Date/PCP: 05/09/2019 01:21 No local PCP Patient complains of: Dyspnea History of Present Illness: BLU JIMENES JR is a 58 year old male who presented to the emergency room with a 4-day history of dyspnea. He admits dyspnea on exertion/work activity present over the last 4 days. The dyspnea is mild and does not require him to stop his activities. The dyspnea has been accompanied by an increase in his diarrhea (4- 5 watery stools per day) which has occurred over the last 4 days since discontinuation of his recent course of Flagyl and Cipro for Salmonella sepsis. He denies other associated or accompanying signs and symptoms. He admits prior similar, though far more severe, symptoms when he developed Salmonella enterocolitis 6 months ago. He has not identified any aggravating or ameliorating factors for his dyspnea. In the emergency room he was found to have hypokalemia with a potassium of 2.5 and an otherwise unremarkable evaluation. He was subsequently admitted to observation status for further evaluation and treatment. Past Medical History Cardiac Medical History: Reports: Hyperlipidema, Heart Murmur, Other - Coarctation of the aorta, aortic valvular disease, patent ductus arteriosus Denies: Atrial Fibrillation, Coronary Artery Disease, Hypertension - heart valve replacement. Pulmonary Medical History: Reports: Pneumonia, Respiratory Failure, Other - Bronchiectasis Denies: Asthma, Chronic Obstructive Pulmonary Disease (COPD) EENT Medical History: Denies: Cataracts, Ears - Hearing aids Neurological Medical History: Denies: Hemorrhagic CVA, Seizures Endocrine Medical History: Denies: Diabetes Mellitus Type 1, Diabetes Mellitus Type 2, Hyperthyroidism, Hypothyroidism, Obesity Renal/ Medical History: Denies: Chronic Kidney Disease, Nephrolithiasis Malignancy Medical History: Reports: None GI Medical History: Denies: Cirrhosis, Crohn's Disease, Hepatitis, Ulcerative Colitis Musculoskeltal Medical History: Reports: Arthritis Denies: Gout Skin Medical History: Denies: Eczema, Psoriasis Psychiatric Medical History: Reports: Depression Denies: Alcohol Dependency, Substance Abuse, Tobacco Dependency Traumatic Medical History: Reports: None Hematology: Denies: Anemia, Bleeding Tendencies Infectious Medical History: Reports: Other Infectious History Note: Recent Salmonella sepsis Past Surgical History Past Surgical History: Reports: Cardiac Catheterization, Cholecystectomy, Valve Replacement - Bovine pericardial tissue aortic valve replacement February 2015, Vascular Surgery - Closure of patent ductus arteriosus Social History Information Source: Patient Lives with: Spouse/Significant other Smoking Status: Never Smoker Electronic Cigarette use?: No Frequency of Alcohol Use: None Hx Recreational Drug Use: No Drugs: None Hx Prescription Drug Abuse: No - Advance Directive Resuscitation Status: Full Code Surrogate healthcare decision maker:: Kimberly Gonzalez Family History Family History: CAD, CVA, DM, Hyperlipidemia, Hypertension, Malignancy Parental Family History Reviewed: Yes Children Family History Reviewed: No Sibling(s) Family History Reviewed.: Yes Medication/Allergy Home Medications: Albuterol Sulfate [Ventolin 0.083% Neb 2.5 mg/3 ml Ampul] 1 vial NEB Q4HP PRN 11/27/18 Aspirin [Ecotrin 81 mg EC Tablet] 81 mg PO DAILY 11/27/18 Atorvastatin Calcium [Lipitor 20 mg Tablet] 20 mg PO DAILY 11/27/18 Desloratadine [Clarinex] 5 mg PO DAILY 11/27/18 Fluoxetine HCl [Prozac 20 mg Capsule] 20 mg PO DAILY 11/27/18 Fluticasone/Salmeterol [Advair 250-50 Diskus 14 Dose/Diskus] 2 puff IH Q12 11/27/18 Metoprolol Succinate [Toprol Xl 25 mg Tab.sr] 25 mg PO DAILY 11/27/18 Omeprazole 20 mg PO DAILY 11/27/18 Naproxen 500 mg PO BID #20 tablet 02/15/19 Prednisone [Deltasone 20 mg Tablet] 2 tab PO DAILY 5 Days tablet 02/15/19 Allergies/Adverse Reactions: doxycycline Allergy (Verified 05/08/19 15:35) levofloxacin [From Levaquin] Allergy (Verified 05/08/19 15:35) Review of Systems Constitutional: ABSENT: chills, fever(s) Eyes: ABSENT: visual disturbances, other - Ocular pain Ears: ABSENT: hearing changes, other - Ear pain Nose, Mouth, and Throat: ABSENT: headache(s), mouth pain, sore throat Cardiovascular: PRESENT: as per HPI, dyspnea on exertion. ABSENT: chest pain, edema, orthropnea, palpitations Respiratory: ABSENT: cough, dyspnea Gastrointestinal: PRESENT: as per HPI, abdominal pain - Chronic abdominal cramping, constipation, diarrhea. ABSENT: nausea, vomiting Genitourinary: ABSENT: dysuria, hematuria Musculoskeletal: ABSENT: back pain, joint swelling, muscle weakness Integumentary: ABSENT: pruritus, rash Neurological: ABSENT: confusion, convulsions, focal weakness, memory loss, syncope Psychiatric: ABSENT: anxiety, depression Endocrine: ABSENT: cold intolerance, heat intolerance Hematologic/Lymphatic: ABSENT: easy bleeding, easy bruising Allergic/Immunologic: ABSENT: seasonal rhinorrhea Physical Exam Vital Signs: Temp Pulse Resp BP Pulse Ox 97.7 F 76 22 H 114/87 H 100 05/08/19 14:14 05/08/19 14:14 05/08/19 21:01 05/08/19 21:01 05/08/19 18:01 Intake & Output 05/07/19 05/08/19 05/09/19 23:59 23:59 23:59 Intake Total 1150 Balance 1150 Weight 60.8 kg General appearance: PRESENT: no acute distress, cooperative Head exam: PRESENT: atraumatic, normocephalic Eye exam: PRESENT: conjunctiva pink. ABSENT: conjunctival injection, scleral icterus Ear exam: PRESENT: normal external ear exam. ABSENT: bleeding, drainage Mouth exam: PRESENT: dry mucosa, neck supple Neck exam: ABSENT: thyromegaly, tracheal deviation Respiratory exam: PRESENT: clear to auscultation trevin, symmetrical, unlabored Cardiovascular exam: PRESENT: RRR, systolic murmur - 2/6 systolic murmur noted at the aortic root. ABSENT: clicks, gallop, rubs Pulses: PRESENT: normal radial pulses, normal dorsalis pedis pul Vascular exam: PRESENT: normal capillary refill. ABSENT: pallor GI/Abdominal exam: PRESENT: normal bowel sounds, soft Rectal exam: PRESENT: deferred Extremities exam: ABSENT: joint swelling, pedal edema Musculoskeletal exam: ABSENT: deformity, dislocation Neurological exam: PRESENT: alert, oriented to person, oriented to place, oriented to time, oriented to situation, CN II-XII grossly intact. ABSENT: motor sensory deficit Psychiatric exam: PRESENT: appropriate affect, normal mood Skin exam: PRESENT: dry, intact, warm. ABSENT: jaundice, rash, urticaria Results Laboratory Results: 05/08/19 16:28 05/08/19 16:28 05/08/19 05/08/19 05/08/19 16:28 16:28 19:50 WBC 8.6 RBC 4.46 Hgb 13.5 Hct 39.8 MCV 89 MCH 30.3 MCHC 33.9 RDW 16.9 H Plt Count 277 Seg Neutrophils % 68.6 Sodium 146.1 H Potassium 2.5 L* Chloride 121 H Carbon Dioxide 10 L* Anion Gap 15 BUN 20 Creatinine 1.23 Est GFR ( Amer) > 60 Glucose 83 Calcium 8.9 Magnesium 2.0 Total Bilirubin 0.5 AST 16 L Alkaline Phosphatase 98 Total Protein 5.3 L Albumin 3.1 L Urine Color STRAW Urine Appearance CLEAR Urine pH 6.0 Ur Specific [place] 1.008 Urine Protein NEGATIVE Urine Glucose (UA) NEGATIVE Urine Ketones NEGATIVE Urine Blood NEGATIVE Urine Nitrite NEGATIVE Ur Leukocyte Esterase NEGATIVE Urine WBC (Auto) 0 Urine RBC (Auto) 0 05/08/19 16:28 Troponin I 0.015 Impressions: Chest X-Ray 05/08/19 15:41 IMPRESSION: No acute findings in the chest. Abdomen/Pelvis CT 05/08/19 18:09 IMPRESSION: Multiple loops of slightly dilated and predominantly fluid-filled small bowel. Liquid stool in the right colon. Findings are suspicious for gastroenteritis. Ventral hernia. Assessment and Plan - Diagnosis (1) Exertional dyspnea Is this a current diagnosis for this admission?: Yes (2) Diarrhea Qualifiers: Diarrhea type: unspecified type Qualified Code(s): R19.7 - Diarrhea, unspecified Is this a current diagnosis for this admission?: Yes (3) Hypokalemia due to excessive gastrointestinal loss of potassium Is this a current diagnosis for this admission?: Yes (4) Aortic valve prosthesis present Is this a current diagnosis for this admission?: Yes (5) Coarctation of aorta Is this a current diagnosis for this admission?: Yes (6) H/O repair of patent ductus arteriosus Is this a current diagnosis for this admission?: Yes - Plan Summary Summary: Patient is admitted to a telemetry bed on the floor where he will receive routine supportive and symptomatic cares. He will be treated with IV fluids utilizing D5 half-normal saline with 20 mEq of potassium per liter at 167 mL/h. A stool for C. difficile is pending. A stool culture will also be obtained. Magnesium level is pending at the time of this dictation. Patient's CBC and metabolic profile with magnesium levels will be followed closely throughout his hospital stay. He is started empirically on vancomycin 250 mg p.o. every 6 hours due to his recent long-term Cipro plus Flagyl therapy. Serial cardiac enzymes will be obtained and serial lactic acid levels will be followed. Patient is treated with morphine sulfate 2 to 4 mg IV every 2 hours on an as- needed basis for pain. - Time Time Spent with patient: 25-34 minutes Medications reviewed and adjusted accordingly: Yes Anticipated discharge: Home, Home with Homehealth Within: within 48 hours - Inpatient Certification Based on my medical assessment, after consideration of the patient's co morbidities, presenting symptoms, or acuity I expect that the services needed warrant INPATIENT care.: No I certify that my determination is in accordance with my understanding of Medicare's requirements for reasonable and necessary INPATIENT services [42 CFR 412.3e].: No Medical Necessity: Need Close Monitoring Due to Risk of Patient Decompensation, Need For IV Fluids, Need For Continuous Telemetry Monitoring
[2019-05-09 04:10] LABS: C DIFFICILE GDH NEGATIVE (NEGATIVE)
[2019-05-09] MEDS: HEPARIN SOD (PORCINE) 5,000 UNIT/ML 1 ML VIAL SUBCUT SCH ×3 (05:21→22:11)
[2019-05-09] MEDS ORDERED: VANCOMYCIN HCL INJ 500 MG VIAL PO SCH (06:00)
[2019-05-09] MEDS: ASPIRIN 81 MG TABLET, ENT COATED PO SCH (09:56)
[2019-05-09] MEDS: FAMOTIDINE 20 MG TABLET PO SCH ×2 (09:57→22:10)
[2019-05-09] MEDS: METOPROLOL SUCCINATE 25 MG TAB.SR.24H PO SCH (09:57)
[2019-05-09] MEDS ORDERED: DOCUSATE SODIUM 100 MG CAPSULE PO SCH (10:00)
[2019-05-09] MEDS: FLUOXETINE HCL 20 MG CAPSULE PO SCH (10:02)
[2019-05-09 10:04] LABS: VENOUS BLOOD BASE EXCESS -16.7 mmol/L; VENOUS BLOOD HCO3 10.3 mmol/L (20-32); VENOUS BLOOD PCO2 28.4 mmHg (35-63)
[2019-05-09 10:30] LABS: ANION GAP 14 (5-19); BLOOD UREA NITROGEN 14 mg/dL (7-20); CALCIUM 7.9 mg/dL (8.4-10.2); CHLORIDE 121 mmol/L (98-107); GLUCOSE 119 mg/dL (75-110)
[2019-05-09 10:58] LABS: VENOUS BLOOD PH 7.18 (7.30-7.42)
[2019-05-09 11:09] LABS: CREATINE KINASE MB 2.83 ng/mL (<4.55); TROPONIN I 0.012 ng/mL
[2019-05-09 11:25] LABS: CARBON DIOXIDE 10 mmol/L (22-30)
[2019-05-09] MEDS ORDERED: 1/2 NORMAL SALINE 1,000 ML IV ONE (11:25)
[2019-05-09] MEDS ORDERED: LOPERAMIDE HCL 2 MG CAPSULE PO ONE ×2 (11:30→14:30)
[2019-05-09] MEDS ORDERED: SODIUM BICARBONATE 8.4% INJ 50 MEQ/50 ML DISP.SYRIN IV ONE ×3 (11:42→19:00)
[2019-05-09] MEDS ORDERED: METHYLPREDNISOLONE INJ 40 MG/1 ML SDV IV ONE (11:48)
[2019-05-09] MEDS: POTASSI CL 20 MEQ/50 ML RIDER 20 MEQ/50 ML RTUPB IV SCH ×5 (12:10→23:02)
--- NOTE | 2019-05-09 12:31 | Progress Note ---
Provider Note Provider Note: I have ordered and reviewed results from BMP and VBG. Patient is having severe metabolic acidosis with some respiratory compensation with pH of 7.18 and bicarb of 10. This is secondary to profuse bouts of diarrhea leading to bicarbonate loss and significant hypokalemia. Patient tells me that he saw Dr. Lemon as o utpatient who put him on mesalamine and budesonide p.o. Patient is uncertain if he has a diagnosis of inflammatory bowel disease. Admits to having about 8-10 bowel movements in the last 24 hours. C. difficile was negative. I will start patient on Imodium 3 times a day with a first dose of 4 mg now. IV hydration with 1 bolus of half-normal saline and continuous infusion of D5 half-normal saline at 150 cc/h. I will give half an amp of sodium bicarb now as patient is having critical acidosis. I will also start on systemic steroids with a dose of Solu-Medrol now as patient's outpatient regimen started by Dr. Lemon seems to be the regimen for treatment of inflammatory bowel disease. I will resume patient's mesalamine and budesonide. Repeat BMP and VBG later today.
[2019-05-09] MEDS: ACETAMINOPHEN 325 MG TABLET PO PRN (13:57)
[2019-05-09] MEDS: DEXTROSE 5%-1/2 NORMAL SALINE 1,000 ML IV PRN ×2 (14:49→22:10)
[2019-05-09] MEDS ORDERED: MESALAMINE 1.5 GM PO SCH (15:00)
[2019-05-09 16:39] LABS: VENOUS BLOOD BASE EXCESS -16.3 mmol/L; VENOUS BLOOD HCO3 9.6 mmol/L (20-32); VENOUS BLOOD PCO2 24.1 mmHg (35-63); VENOUS BLOOD PH 7.22 (7.30-7.42)
[2019-05-09 17:01] LABS: ANION GAP 12 (5-19); BLOOD UREA NITROGEN 13 mg/dL (7-20); CALCIUM 7.8 mg/dL (8.4-10.2); CARBON DIOXIDE 11 mmol/L (22-30); CHLORIDE 120 mmol/L (98-107); GLUCOSE 171 mg/dL (75-110)
[2019-05-09 17:09] LABS: CREATINE KINASE MB 2.24 ng/mL (<4.55)
[2019-05-09 17:10] LABS: TROPONIN I < 0.012 ng/mL
[2019-05-09] MEDS: LOPERAMIDE HCL 2 MG CAPSULE PO SCH ×2 (17:19→23:01)
[2019-05-09] MEDS: MESALAMINE 375 MG PO SCH (17:21)
[2019-05-09] MEDS ORDERED: BUDESONIDE 9 MG PO SCH (18:00)
[2019-05-09] MEDS: ATORVASTATIN CALCIUM 20 MG TABLET PO SCH (22:10)
[2019-05-10] MEDS: HEPARIN SOD (PORCINE) 5,000 UNIT/ML 1 ML VIAL SUBCUT SCH ×3 (05:33→21:02)
[2019-05-10] MEDS: LOPERAMIDE HCL 2 MG CAPSULE PO SCH ×3 (05:33→17:29)
[2019-05-10] MEDS: DEXTROSE 5%-1/2 NORMAL SALINE 1,000 ML IV PRN (05:33)
[2019-05-10 06:09] LABS: VENOUS BLOOD BASE EXCESS -14.3 mmol/L; VENOUS BLOOD HCO3 11.6 mmol/L (20-32); VENOUS BLOOD PCO2 27.8 mmHg (35-63); VENOUS BLOOD PH 7.24 (7.30-7.42)
[2019-05-10 06:16] LABS: HEMATOCRIT 33.2 % (37.9-51.0); MEAN CORPUSCULAR HEMOGLOBIN 30.3 pg (27.0-33.4); MEAN CORPUSCULAR HGB CONC 34.2 g/dL (32.0-36.0); MEAN CORPUSCULAR VOLUME 89 fl (80-97); PLATELET COUNT 206 10^3/uL (150-450); RED BLOOD COUNT 3.75 10^6/uL (4.35-5.55); RED CELL DISTRIBUTION WIDTH 16.7 % (11.5-14.0); WHITE BLOOD COUNT 9.2 10^3/uL (4.0-10.5)
[2019-05-10 06:32] LABS: ANION GAP 10 (5-19); BLOOD UREA NITROGEN 13 mg/dL (7-20); CALCIUM 7.7 mg/dL (8.4-10.2); CARBON DIOXIDE 11 mmol/L (22-30); CHLORIDE 121 mmol/L (98-107); GLUCOSE 174 mg/dL (75-110); POTASSIUM 3.1 mmol/L (3.6-5.0)
[2019-05-10 07:59] LABS: HEMOGLOBIN 11.4 g/dL (13.5-17.0)
[2019-05-10] MEDS: ASPIRIN 81 MG TABLET, ENT COATED PO SCH (10:07)
[2019-05-10] MEDS: MONTELUKAST SODIUM 10 MG TABLET PO SCH (10:08)
[2019-05-10] MEDS: POTASSIUM CHLORIDE 10 MEQ TABLET.ER PO SCH ×2 (10:08→17:29)
[2019-05-10] MEDS: FAMOTIDINE 20 MG TABLET PO SCH ×2 (10:08→21:02)
[2019-05-10] MEDS: FLUOXETINE HCL 20 MG CAPSULE PO SCH (10:08)
[2019-05-10] MEDS: MESALAMINE 375 MG PO SCH (10:08)
[2019-05-10] MEDS: METOPROLOL SUCCINATE 25 MG TAB.SR.24H PO SCH ×2 (10:08→10:13)
[2019-05-10] MEDS: PREDNISONE 20 MG TABLET PO SCH ×2 (10:08→17:29)
[2019-05-10] MEDS: RINGERS SOLUTION,LACTATED 1,000 ML IV PRN (10:19)
--- NOTE | 2019-05-10 15:01 | PDOC PROGRESS REPORT ---
Subjective Progress Note for:: 05/10/19 Subjective:: No adverse events overnight. No new complaints. He is not having any more diarrhea. Appetite is improving. Urine output is good. Reason For Visit: ACUTE GASTROENTERITIS, HYPOKALEMIA Physical Exam Vital Signs: Temp Pulse Resp BP Pulse Ox 97.8 F 71 16 109/63 98 05/10/19 11:00 05/10/19 14:00 05/10/19 12:18 05/10/19 11:00 05/10/19 12:18 Intake & Output 05/09/19 05/10/19 05/11/19 06:59 06:59 06:59 Intake Total 1200 6528 477 Output Total 0 Balance 1200 6528 477 Weight 58.3 kg 61.4 kg General appearance: PRESENT: no acute distress, cooperative, disheveled, thin Respiratory exam: PRESENT: clear to auscultation trevin, symmetrical, unlabored. ABSENT: accessory muscle use, chest wall tenderness, crackles, prolonged expiratory phas, rhonchi, tachypnea, wheezes Cardiovascular exam: PRESENT: RRR, +S1, +S2 GI/Abdominal exam: PRESENT: normal bowel sounds, soft. ABSENT: distended, guarding, rebound, tenderness Extremities exam: ABSENT: clubbing, pedal edema Musculoskeletal exam: PRESENT: normal inspection. ABSENT: deformity Neurological exam: PRESENT: alert, awake, oriented to person, oriented to place, oriented to situation Psychiatric exam: PRESENT: appropriate affect, normal mood Skin exam: PRESENT: dry, warm Results Laboratory Results: 05/10/19 05:19 05/10/19 05:19 05/09/19 05/09/19 05/10/19 16:15 16:15 05:19 WBC 9.2 RBC 3.75 L Hgb 11.4 L D Hct 33.2 L MCV 89 MCH 30.3 MCHC 34.2 RDW 16.7 H Plt Count 206 VBG pH 7.22 L VBG pCO2 24.1 L VBG HCO3 9.6 L VBG Base Excess -16.3 Sodium 142.6 Potassium 3.0 L* Chloride 120 H Carbon Dioxide 11 L Anion Gap 12 BUN 13 Creatinine 0.95 Est GFR ( Amer) > 60 Glucose 171 H Calcium 7.8 L Magnesium TSH 05/10/19 05/10/19 05/10/19 05:19 05:49 05:49 WBC RBC Hgb Hct MCV MCH MCHC RDW Plt Count VBG pH 7.24 L VBG pCO2 27.8 L VBG HCO3 11.6 L VBG Base Excess -14.3 Sodium 142.3 Potassium 3.1 L Chloride 121 H Carbon Dioxide 11 L Anion Gap 10 BUN 13 Creatinine 0.95 Est GFR ( Amer) > 60 Glucose 174 H Calcium 7.7 L Magnesium 1.8 TSH 0.41 L 05/08/19 05/09/19 05/09/19 16:28 03:20 03:20 Creatine Kinase 20 L CK-MB (CK-2) 2.80 Troponin I 0.015 < 0.012 05/09/19 05/09/19 05/09/19 09:50 09:50 16:15 Creatine Kinase < 20 L < 20 L CK-MB (CK-2) 2.83 Troponin I 0.012 05/09/19 16:15 Creatine Kinase CK-MB (CK-2) 2.24 Troponin I < 0.012 Impressions: Chest X-Ray 05/08/19 15:41 IMPRESSION: No acute findings in the chest. Abdomen/Pelvis CT 05/08/19 18:09 IMPRESSION: Multiple loops of slightly dilated and predominantly fluid-filled small bowel. Liquid stool in the right colon. Findings are suspicious for gastroenteritis. Ventral hernia. Assessment and Plan - Diagnosis (1) Acute kidney failure Qualifiers: Acute renal failure type: unspecified Qualified Code(s): N17.9 - Acute kid nely failure, unspecified Is this a current diagnosis for this admission?: Yes Plan: Now resolved (2) Hypokalemia Is this a current diagnosis for this admission?: Yes Plan: Improving with supplementation (3) Lactic acidosis Is this a current diagnosis for this admission?: Yes Plan: He lost a lot of bicarbonate in his stool. His bicarbonate is trending up. We switch his IV fluids to LR. (4) Gastroenteritis Is this a current diagnosis for this admission?: Yes Plan: Now resolved - Plan Summary Summary: Patient is admitted to a telemetry bed on the floor where he will receive routine supportive and symptomatic cares. He will be treated with IV fluids utilizing D5 half-normal saline with 20 mEq of potassium per liter at 167 mL/h. A stool for C. difficile is pending. A stool culture will also be obtained. Magnesium level is pending at the time of this dictation. Patient's CBC and me tabolic profile with magnesium levels will be followed closely throughout his hospital stay. He is started empirically on vancomycin 250 mg p.o. every 6 hours due to his recent long-term Cipro plus Flagyl therapy. Serial cardiac enzymes will be obtained and serial lactic acid levels will be followed. Patient is treated with morphine sulfate 2 to 4 mg IV every 2 hours on an as- needed basis for pain. - Time Time Spent with patient: 15-24 minutes
[2019-05-10] MEDS: ATORVASTATIN CALCIUM 20 MG TABLET PO SCH (21:02)
[2019-05-10] MEDS: ACETAMINOPHEN 325 MG TABLET PO PRN (22:47)
[2019-05-11] MEDS: LOPERAMIDE HCL 2 MG CAPSULE PO SCH ×5 (00:52→23:29)
[2019-05-11] MEDS: RINGERS SOLUTION,LACTATED 1,000 ML IV PRN ×4 (01:40→23:30)
[2019-05-11] MEDS: ACETAMINOPHEN 325 MG TABLET PO PRN ×3 (05:14→23:34)
[2019-05-11] MEDS: HEPARIN SOD (PORCINE) 5,000 UNIT/ML 1 ML VIAL SUBCUT SCH ×3 (05:15→21:48)
[2019-05-11] MEDS: MONTELUKAST SODIUM 10 MG TABLET PO SCH (07:22)
[2019-05-11 09:48] LABS: ANION GAP 10 (5-19); BLOOD UREA NITROGEN 16 mg/dL (7-20); CALCIUM 7.9 mg/dL (8.4-10.2); CARBON DIOXIDE 13 mmol/L (22-30); CHLORIDE 119 mmol/L (98-107); GLUCOSE 157 mg/dL (75-110)
[2019-05-11] MEDS: METOPROLOL SUCCINATE 25 MG TAB.SR.24H PO SCH (10:06)
[2019-05-11] MEDS: FAMOTIDINE 20 MG TABLET PO SCH ×2 (10:06→21:47)
[2019-05-11] MEDS: POTASSIUM CHLORIDE 10 MEQ TABLET.ER PO SCH ×2 (10:06→17:17)
[2019-05-11] MEDS: ASPIRIN 81 MG TABLET, ENT COATED PO SCH (10:06)
[2019-05-11] MEDS: FLUOXETINE HCL 20 MG CAPSULE PO SCH (10:06)
[2019-05-11] MEDS: MESALAMINE 375 MG PO SCH (10:07)
[2019-05-11] MEDS: PREDNISONE 20 MG TABLET PO SCH ×2 (10:07→17:17)
[2019-05-11 10:16] LABS: POTASSIUM 2.7 mmol/L (3.6-5.0)
[2019-05-11] MEDS ORDERED: POTASSIUM CHLORIDE 10 MEQ TABLET.ER PO ONE (11:00)
[2019-05-11] MEDS ORDERED: POTASSIUM CHLORIDE 10 MEQ TABLET.ER PO SCH (14:30)
[2019-05-11] MEDS ORDERED: MAGNESIUM SULFATE/D5W 1 GM/100 ML RTUPB IV ONE (16:00)
--- NOTE | 2019-05-11 16:10 | PDOC PROGRESS REPORT ---
Subjective Progress Note for:: 05/11/19 Subjective:: No adverse events overnight. No new complaints. Vital signs been stable. Eating and drinking without difficulty. No diarrhea. Reason For Visit: ACUTE GASTROENTERITIS, HYPOKALEMIA Physical Exam Vital Signs: Temp Pulse Resp BP Pulse Ox 98.2 F 66 17 114/73 100 05/11/19 12:00 05/11/19 14:00 05/11/19 12:00 05/11/19 12:00 05/11/19 12:00 Intake & Output 05/10/19 05/11/19 05/12/19 06:59 06:59 06:59 Intake Total 6528 3941 3030 Balance 6528 3941 3030 Weight 61.4 kg 63.8 kg General appearance: PRESENT: no acute distress, cooperative, disheveled, thin Respiratory exam: PRESENT: clear to auscultation trevin, symmetrical, unlabored. ABSENT: accessory muscle use, chest wall tenderness, crackles, prolonged expiratory phas, rhonchi, tachypnea, wheezes Cardiovascular exam: PRESENT: RRR, +S1, +S2 GI/Abdominal exam: PRESENT: normal bowel sounds, soft. ABSENT: distended, guarding, rebound, tenderness Extremities exam: ABSENT: clubbing, pedal edema Musculoskeletal exam: PRESENT: normal inspection. ABSENT: deformity Neurological exam: PRESENT: alert, awake, oriented to person, oriented to place, oriented to situation Psychiatric exam: PRESENT: appropriate affect, normal mood Skin exam: PRESENT: dry, warm Results Laboratory Results: 05/10/19 05:19 05/11/19 08:44 05/11/19 05/11/19 08:44 08:44 Sodium 142.1 Potassium 2.7 L* Chloride 119 H Carbon Dioxide 13 L Anion Gap 10 BUN 16 Creatinine 0.85 Est GFR ( Amer) > 60 Glucose 157 H Calcium 7.9 L Magnesium 1.6 05/08/19 19:50 Stool - Stool - Final 05/08/19 05/09/19 05/09/19 16:28 03:20 03:20 Creatine Kinase 20 L CK-MB (CK-2) 2.80 Troponin I 0.015 < 0.012 05/09/19 05/09/19 05/09/19 09:50 09:50 16:15 Creatine Kinase < 20 L < 20 L CK-MB (CK-2) 2.83 Troponin I 0.012 05/09/19 16:15 Creatine Kinase CK-MB (CK-2) 2.24 Troponin I < 0.012 Impressions: Chest X-Ray 05/08/19 15:41 IMPRESSION: No acute findings in the chest. Abdomen/Pelvis CT 05/08/19 18:09 IMPRESSION: Multiple loops of slightly dilated and predominantly fluid-filled small bowel. Liquid stool in the right colon. Findings are suspicious for gastroenteritis. Ventral hernia. Assessment and Plan - Diagnosis (1) Acute kidney failure Qualifiers: Acute renal failure type: unspecified Qualified Code(s): N17.9 - Acute kidney failure, unspecified Is this a current diagnosis for this admission?: Yes Plan: Now resolved (2) Hypokalemia Is this a current diagnosis for this admission?: Yes Plan: Magnesium was in the low normal range, will give him a little IV magnesium to help him retain his potassium, which is also being replaced (3) Lactic acidosis Is this a current diagnosis for this admission?: Yes Plan: He lost a lot of bicarbonate in his stool. His bicarbonate is trending up. We switch his IV fluids to LR. (4) Gastroenteritis Is this a current diagnosis for this admission?: Yes Plan: Now resolved - Plan Summary Summary: Patient is admitted to a telemetry bed on the floor where he will receive routine supportive and symptomatic cares. He will be treated with IV fluids utilizing D5 half-normal saline with 20 mEq of potassium per liter at 167 mL/h. A stool for C. difficile is pending. A stool culture will also be obtained. Magnesium level is pending at the time of this dictation. Patient's CBC and metabolic profile with magnesium levels will be followed closely throughout his hospital stay. He is started empirically on vancomycin 250 mg p.o. every 6 hours due to his recent long-term Cipro plus Flagyl therapy. Serial cardiac enzymes will be obtained and serial lactic acid levels will be followed. Patient is treated with morphine sulfate 2 to 4 mg IV every 2 hours on an as- needed basis for pain. - Time Time Spent with patient: 15-24 minutes
[2019-05-11 19:50] LABS: ANION GAP 11 (5-19); BLOOD UREA NITROGEN 18 mg/dL (7-20); CALCIUM 8.1 mg/dL (8.4-10.2); CARBON DIOXIDE 14 mmol/L (22-30); CHLORIDE 116 mmol/L (98-107); GLUCOSE 194 mg/dL (75-110); POTASSIUM 3.3 mmol/L (3.6-5.0)
[2019-05-11] MEDS: ATORVASTATIN CALCIUM 20 MG TABLET PO SCH (21:47)
[2019-05-12] MEDS: LOPERAMIDE HCL 2 MG CAPSULE PO SCH ×3 (05:47→17:50)
[2019-05-12] MEDS: HEPARIN SOD (PORCINE) 5,000 UNIT/ML 1 ML VIAL SUBCUT SCH ×2 (05:47→15:18)
[2019-05-12] MEDS: RINGERS SOLUTION,LACTATED 1,000 ML IV PRN (05:51)
[2019-05-12] MEDS: METOPROLOL SUCCINATE 25 MG TAB.SR.24H PO SCH (09:37)
[2019-05-12] MEDS: MONTELUKAST SODIUM 10 MG TABLET PO SCH (09:38)
[2019-05-12] MEDS: FAMOTIDINE 20 MG TABLET PO SCH (09:38)
[2019-05-12] MEDS: FLUOXETINE HCL 20 MG CAPSULE PO SCH (09:38)
[2019-05-12] MEDS: PREDNISONE 20 MG TABLET PO SCH ×2 (09:38→17:50)
[2019-05-12] MEDS: POTASSIUM CHLORIDE 10 MEQ TABLET.ER PO SCH ×4 (09:38→17:50)
[2019-05-12] MEDS: ASPIRIN 81 MG TABLET, ENT COATED PO SCH (09:38)
[2019-05-12] MEDS: MESALAMINE 375 MG PO SCH (09:38)
[2019-05-12 10:26] LABS: ANION GAP 12 (5-19); BLOOD UREA NITROGEN 21 mg/dL (7-20); CALCIUM 7.9 mg/dL (8.4-10.2); CARBON DIOXIDE 15 mmol/L (22-30); CHLORIDE 113 mmol/L (98-107); GLUCOSE 166 mg/dL (75-110)
[2019-05-12 10:31] LABS: POTASSIUM 2.8 mmol/L (3.6-5.0)
[2019-05-12] MEDS ORDERED: POTASSIUM CHLORIDE 20 MEQ/50 ML RTU IV SCH (11:00)
--- NOTE | 2019-05-12 18:14 | PDOC DISCHARGE SUMMARY ---
Impression - Admit/DC Date/PCP Admission Date/Primary Care Provider: 05/12/19 15:57 Discharge Date: 05/12/19 - Discharge Diagnosis (1) Acute kidney failure Is this a current diagnosis for this admission?: Yes (2) Hypokalemia Is this a current diagnosis for this admission?: Yes (3) Lactic acidosis Is this a current diagnosis for this admission?: Yes (4) Gastroenteritis Is this a current diagnosis for this admission?: Yes - Assessment Summary: Patient is admitted to a telemetry bed on the floor where he will receive routine supportive and symptomatic cares. He will be treated with IV fluids utilizing D5 half-normal saline with 20 mEq of potassium per liter at 167 mL/h. A stool for C. difficile is pending. A stool culture will also be obtained. Magnesium level is pending at the time of this dictation. Patient's CBC and metabolic profile with magnesium levels will be followed closely throughout his hospital stay. He is started empirically on vancomycin 250 mg p.o. every 6 hours due to his recent long-term Cipro plus Flagyl therapy. Serial cardiac enzymes will be obtained and serial lactic acid levels will be followed. Patient is treated with morphine sulfate 2 to 4 mg IV every 2 hours on an as- needed basis for pain. - Additional Information Resuscitation Status: Full Code Discharge Diet: Cardiac Discharge Activity: Activity As Tolerated, Balance Activity w/Rest Referrals: JASON SINGH PA [NO LOCAL MD] - 05/18/19 10:00 am Home Medications: Albuterol Sulfate [Ventolin 0.083% Neb 2.5 mg/3 mL Ampul] 2.5 mg NEB RTQ4HP PRN 05/09/19 Aspirin [Adult Low Dose Aspirin EC] 81 mg PO QAM 05/09/19 Atorvastatin Calcium [Lipitor 20 mg Tablet] 20 mg PO QAM 05/09/19 Budesonide [Entocort EC] 9 mg PO QPM 05/09/19 Desloratadine [Clarinex] 5 mg PO QAM 05/09/19 Fluoxetine HCl [Prozac 20 mg Capsule] 20 mg PO QAM 05/09/19 Hydrocodone/Acetaminophen [[place] 5-325 mg Tablet] 1 tab PO TID 05/09/19 Mesalamine [Apriso ER 0.375 gm Cap.sr] 1.5 gm PO QAM 05/09/19 Montelukast Sodium [Singulair 10 mg Tablet] 10 mg PO QAM 05/09/19 Naproxen [Naprosyn] 500 mg PO BIDP PRN 05/09/19 Omeprazole 20 mg PO ACBRKFST 05/09/19 Potassium Chloride [Klor-Con M10] 20 meq PO BID 05/09/19 History of Present Illiness History of Present Illness: BLU JIMENES JR is a 58 year old male who presented to the emergency room with a 4-day history of dyspnea. He admits dyspnea on exertion/work activity present over the last 4 days. The dyspnea is mild and does not require him to stop his activities. The dyspnea has been accompanied by an increase in his diarrhea (4- 5 watery stools per day) which has occurred over the last 4 days since discontinuation of his recent course of Flagyl and Cipro for Salmonella sepsis. He denies other associated or accompanying signs and symptoms. He admits prior similar, though far more severe, symptoms when he developed Salmonella enterocolitis 6 months ago. He has not identified any aggravating or ameliorating factors for his dyspnea. In the emergency room he was found to have hypokalemia with a potassium of 2.5 and an otherwise unremarkable evaluation. He was subsequently admitted to observation status for further evaluation and treatment. Hospital Course Hospital Course: He responded to IV fluids and electrolyte replacement. He had persistent diarrhea for a few days but that has abated and has resolved he is having normal bowel movements now. It took several days for his bicarbonate and potassium to start trending up, but eventually they did. I suspect that he was intracellularly depleted of potassium and it took some time for him to be able to replenish his depleted stores. Potassium was up to 3.2 at discharge he takes a potassium supplement at home, 20 mEq twice a day, which she will continue. His comorbid conditions were managed with his home medications and fortunately were not exacerbated during his hospitalization. His labs and examination were reassuring he was discharged in good condition. Physical Exam Vital Signs: Temp Pulse Resp BP Pulse Ox 98.1 F 59 L 18 114/61 100 05/12/19 14:58 05/12/19 14:58 05/12/19 14:58 05/12/19 14:58 05/12/19 14:58 Intake & Output 05/11/19 05/12/19 05/13/19 06:59 06:59 06:59 Intake Total 5209 5965 1560 Balance 3940 5965 1560 Weight 63.8 kg 61.1 kg General appearance: PRESENT: no acute distress, cooperative, disheveled, thin Respiratory exam: PRESENT: clear to auscultation trevin, symmetrical, unlabored. ABSENT: accessory muscle use, chest wall tenderness, crackles, prolonged expiratory phas, rhonchi, tachypnea, wheezes Cardiovascular exam: PRESENT: RRR, +S1, +S2 GI/Abdominal exam: PRESENT: normal bowel sounds, soft. ABSENT: distended, guarding, rebound, tenderness Extremities exam: ABSENT: clubbing, pedal edema Musculoskeletal exam: PRESENT: normal inspection. ABSENT: deformity Neurological exam: PRESENT: alert, awake, oriented to person, oriented to place, oriented to situation Psychiatric exam: PRESENT: appropriate affect, normal mood Skin exam: PRESENT: dry, warm Results Laboratory Results: WBC 9.2 10^3/uL (4.0-10.5) 05/10/19 05:19 RBC 3.75 10^6/uL (4.35-5.55) L 05/10/19 05:19 Hgb 11.4 g/dL (13.5-17.0) L D 05/10/19 05:19 Hct 33.2 % (37.9-51.0) L 05/10/19 05:19 MCV 89 fl (80-97) 05/10/19 05:19 MCH 30.3 pg (27.0-33.4) 05/10/19 05:19 MCHC 34.2 g/dL (32.0-36.0) 05/10/19 05:19 RDW 16.7 % (11.5-14.0) H 05/10/19 05:19 Plt Count 206 10^3/uL (150-450) 05/10/19 05:19 Lymph % (Auto) 20.5 % (13-45) 05/08/19 16:28 [place] % (Auto) 8.2 % (3-13) 05/08/19 16:28 Eos % (Auto) 2.3 % (0-6) 05/08/19 16:28 Baso % (Auto) 0.4 % (0-2) 05/08/19 16:28 Absolute Neuts (auto) 5.9 10^3/uL (1.7-8.2) 05/08/19 16:28 Absolute Lymphs (auto) 1.8 10^3/uL (0.5-4.7) 05/08/19 16:28 Absolute Monos (auto) 0.7 10^3/uL (0.1-1.4) 05/08/19 16:28 Absolute Eos (auto) 0.2 10^3/uL (0.0-0.6) 05/08/19 16:28 Absolute Basos (auto) 0.0 10^3/uL (0.0-0.2) 05/08/19 16:28 Seg Neutrophils % 68.6 % (42-78) 05/08/19 16:28 VBG pH 7.24 (7.30-7.42) L 05/10/19 05:49 VBG pCO2 27.8 mmHg (35-63) L 05/10/19 05:49 VBG HCO3 11.6 mmol/L (20-32) L 05/10/19 05:49 VBG Base Excess -14.3 mmol/L 05/10/19 05:49 Sodium 140.1 mmol/L (137-145) 05/12/19 09:40 Potassium 3.2 mmol/L (3.6-5.0) L 05/12/19 17:00 Chloride 113 mmol/L (98-107) H 05/12/19 09:40 Carbon Dioxide 15 mmol/L (22-30) L 05/12/19 09:40 Anion Gap 12 (5-19) 05/12/19 09:40 BUN 21 mg/dL (7-20) H 05/12/19 09:40 Creatinine 0.97 mg/dL (0.52-1.25) 05/12/19 09:40 Est GFR ( Amer) > 60 (>60) 05/12/19 09:40 Est GFR (MDRD) Non-Af > 60 (>60) 05/12/19 09:40 Glucose 166 mg/dL (75-110) H 05/12/19 09:40 Lactic Acid 1.4 mmol/L (0.7-2.1) 05/09/19 09:50 Calcium 7.9 mg/dL (8.4-10.2) L 05/12/19 09:40 Magnesium 1.6 mg/dL (1.6-2.3) 05/11/19 08:44 Total Bilirubin 0.5 mg/dL (0.2-1.3) 05/08/19 16:28 Direct Bilirubin 0.4 mg/dL (0.0-0.4) 05/08/19 16:28 Neonat Total Bilirubin Not Reportable 05/08/19 16:28 Neonat Direct Bilirubin Not Reportable 05/08/19 16:28 Neonat Indirect Bili Not Reportable 05/08/19 16:28 AST 16 U/L (17-59) L 05/08/19 16:28 ALT 24 U/L (<50) 05/08/19 16:28 Alkaline Phosphatase 98 U/L (38-126) 05/08/19 16:28 Creatine Kinase < 20 U/L (55-170) L 05/09/19 16:15 CK-MB (CK-2) 2.24 ng/mL (<4.55) 05/09/19 16:15 Troponin I < 0.012 ng/mL 05/09/19 16:15 Total Protein 5.3 g/dL (6.3-8.2) L 05/08/19 16:28 Albumin 3.1 g/dL (3.5-5.0) L 05/08/19 16:28 TSH 0.41 uIU/mL (0.47-4.68) L 05/10/19 05:49 Urine Color STRAW 05/08/19 19:50 Urine Appearance CLEAR 05/08/19 19:50 Urine pH 6.0 (5.0-9.0) 05/08/19 19:50 Ur Specific [place] 1.008 05/08/19 19:50 Urine Protein NEGATIVE mg/dL (NEGATIVE) 05/08/19 19:50 Urine Glucose (UA) NEGATIVE mg/dL (NEGATIVE) 05/08/19 19:50 Urine Ketones NEGATIVE mg/dL (NEGATIVE) 05/08/19 19:50 Urine Blood NEGATIVE (NEGATIVE) 05/08/19 19:50 Urine Nitrite NEGATIVE (NEGATIVE) 05/08/19 19:50 Urine Bilirubin NEGATIVE (NEGATIVE) 05/08/19 19:50 Urine Urobilinogen NEGATIVE mg/dL (<2.0) 05/08/19 19:50 Ur Leukocyte Esterase NEGATIVE (NEGATIVE) 05/08/19 19:50 Urine WBC (Auto) 0 /HPF 05/08/19 19:50 Urine RBC (Auto) 0 /HPF 05/08/19 19:50 Urine Mucus (Auto) RARE /LPF 05/08/19 19:50 Urine Ascorbic Acid NEGATIVE (NEGATIVE) 05/08/19 19:50 Stl C. Difficile GDH Ag NEGATIVE (NEGATIVE) 05/08/19 19:50 Stl C.difficile Tox A&B NEGATIVE (NEGATIVE) 05/08/19 19:50 05/08/19 05/09/19 05/09/19 16:28 03:20 09:50 CK-MB (CK-2) 2.80 2.83 Troponin I 0.015 < 0.012 0.012 05/09/19 16:15 CK-MB (CK-2) 2.24 Troponin I < 0.012 Impressions: Chest X-Ray 05/08/19 15:41 IMPRESSION: No acute findings in the chest. Abdomen/Pelvis CT 05/08/19 18:09 IMPRESSION: Multiple loops of slightly dilated and predominantly fluid-filled small bowel. Liquid stool in the right colon. Findings are suspicious for gastroenteritis. Ventral hernia. Plan Time Spent: Greater than 30 Minutes Stroke Is this a Stroke Patient?: No Acute Heart Failure - Is this a Heart Failure Patient?: No
[2019-05-12 18:30] VITALS: BP 114/73
== END 2019-05-12 18:56 | disposition home or self-care (01) | DRG 641 ==
LOC: ER 14:05 → EH 05-09 01:22 → 4S 05-09 03:10 → OBSVTOIN 05-12 15:57
PROVIDERS: ADMIT Emergency Medicine; ATTEND Emergency Medicine
DX: E87.6 Hypokalemia (principal); N17.9 Acute kidney failure, unspecified; F32.9 Major depressive disorder, single episode, unspecified; E86.0 Dehydration; M19.90 Unspecified osteoarthritis, unspecified site; K52.9 Noninfective gastroenteritis and colitis, unspecified; E87.2 Acidosis; Z82.49 Family history of ischemic heart disease and other diseases of the circulatory system; Z82.3 Family history of stroke; Z83.438 Family history of other disorder of lipoprotein metabolism and other lipidemia; Z88.1 Allergy status to other antibiotic agents; Z79.82 Long term (current) use of aspirin; Z79.51 Long term (current) use of inhaled steroids; Z79.899 Other long term (current) drug therapy; Z95.2 Presence of prosthetic heart valve
CPT/HCPCS: 36415; 71046; 74177; 80048; 80053; 81001; 82550; 82553; 82803; 83605; 83735; 84132; 84443; 84484; 85025; 85027; 87045; 87077; 87205; 87324; 87449; 93005; 93010; 96361; 96365; 96366; 96368; 96375; 99285; J1644; J2270; J2920; J3475; J3480; J3490; J7120; J7512

== ENCOUNTER 2019-06-08 10:25 | Emergency (ER) | payer BC ==
[2019-06-08] MEDS ORDERED: ONDANSETRON HCL INJ/PF 4 MG/2 ML SDV IV ONE (11:03)
[2019-06-08] MEDS ORDERED: NORMAL SALINE 1000 ML 1,000 ML IV ONE (11:03)
--- NOTE | 2019-06-08 11:05 | ER Document Report ---
ED Medical Screen (RME) - General Chief Complaint: Flu Symptoms Stated Complaint: HEADACHE,FEVER Time Seen by Provider: 06/08/19 10:53 Mode of Arrival: Ambulatory Information source: Patient Notes: 58-year-old male patient presents emergency department with fever, nausea, vomiting, diarrhea. Patient reports symptoms been going on for approximately 2 days. Patient states that he has an appointment with his doctor this afternoon however he wanted to be seen sooner so he decided to come to the emergency department. Exam: Abdomen soft, nontender without guarding or rebound. I have greeted and performed a rapid initial assessment of this patient. A comprehensive ED assessment and evaluation of the patient, analysis of test results and completion of the medical decision making process will be conducted by additional ED providers. I have specifically instructed the patient or family members with the patient to immediately return to any nursing staff should anything change in the patient's condition or with their chief complaint. TRAVEL OUTSIDE OF THE [place] IN LAST 30 DAYS: No - Related Data Allergies/Adverse Reactions: doxycycline Allergy (Verified 06/08/19 10:52) levofloxacin [From Levaquin] Allergy (Verified 06/08/19 10:52) Past Medical History - Social History Frequency of alcohol use: None - Past Medical History Cardiac Medical History: Reports: Hx Hypercholesterolemia, Hx Heart Murmur Denies: Hx Atrial Fibrillation, Hx Coronary Artery Disease, Hx Hypertension - heart valve replacement. Pulmonary Medical History: Reports: Hx Pneumonia, Hx Respiratory Failure Denies: Hx Asthma, Hx COPD Neurological Medical History: Denies: Hx Seizures Endocrine Medical History: Denies: Hx Diabetes Mellitus Type 1, Hx Diabetes Mellitus Type 2, Hx Hyperthyroidism, Hx Hypothyroidism Renal/ Medical History: Denies: Hx Peritoneal Dialysis GI Medical History: Denies: Hx Cirrhosis, Hx Crohn's Disease, Hx Hepatitis, Hx Ulcerative Colitis Musculoskeltal Medical History: Reports Hx Arthritis, Denies Hx Gout, Reports Hx Musculoskeletal Trauma - ribs left sided Skin Medical History: Denies Hx Eczema, Denies Hx Psoriasis Psychiatric Medical History: Reports: Hx Depression Traumatic Medical History: Reports: Hx Fractures - ribs left sidedddddddd. 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
[2019-06-08 11:47] LABS: ABSOLUTE BASOPHILS # (AUTO) 0.1 10^3/uL (0.0-0.2); ABSOLUTE EOSINOPHILS # (AUTO) 0.4 10^3/uL (0.0-0.6); ABSOLUTE LYMPHOCYTES (AUTO) 1.1 10^3/uL (0.5-4.7); ABSOLUTE MONOCYTES (AUTO) 0.4 10^3/uL (0.1-1.4); ABSOLUTE NEUT (AUTO) 9.6 10^3/uL (1.7-8.2); BASOPHILS % (AUTO) 0.6 % (0-2); EOSINOPHILS % (AUTO) 3.8 % (0-6); HEMATOCRIT 39.9 % (37.9-51.0); HEMOGLOBIN 13.2 g/dL (13.5-17.0); LYMPHOCYTES % (AUTO) 9.3 % (13-45); MEAN CORPUSCULAR HEMOGLOBIN 29.4 pg (27.0-33.4); MEAN CORPUSCULAR VOLUME 89 fl (80-97); MONOCYTES % (AUTO) 3.8 % (3-13); PLATELET COUNT 320 10^3/uL (150-450); RED BLOOD COUNT 4.49 10^6/uL (4.35-5.55); RED CELL DISTRIBUTION WIDTH 15.3 % (11.5-14.0); SEGMENTED NEUTROPHILS % (AUTO) 82.5 % (42-78); TOTAL CELLS COUNTED % (AUTO) 100 %; WHITE BLOOD COUNT 11.6 10^3/uL (4.0-10.5)
[2019-06-08 11:53] LABS: APPEARANCE,URINE CLEAR; BILIRUBIN,URINE NEGATIVE (NEGATIVE); COLOR,URINE YELLOW; GLUCOSE, URINE NEGATIVE (NEGATIVE); KETONES,URINE NEGATIVE (NEGATIVE); LEUKOCYTE ESTERASE,URINE NEGATIVE (NEGATIVE); NITRITE,URINE NEGATIVE (NEGATIVE); PROTEIN,URINE 30 mg/dL (NEGATIVE); URINE SPECIFIC GRAVITY 1.013; UROBILINOGEN,URINE NEGATIVE mg/dL (<2.0)
[2019-06-08 12:03] LABS: A TYPE INFLUENZA AG NEGATIVE (NEGATIVE); B INFLUENZA AG NEGATIVE (NEGATIVE)
[2019-06-08 12:10] LABS: ALBUMIN 3.4 g/dL (3.5-5.0); ALKALINE PHOSPHATASE 154 U/L (38-126); ANION GAP 16 (5-19); ASPARTATE AMINO TRANSFERASE 20 U/L (17-59); BILIRUBIN,DIRECT 0.3 mg/dL (0.0-0.4); BILIRUBIN,TOTAL 0.5 mg/dL (0.2-1.3); BLOOD UREA NITROGEN 16 mg/dL (7-20); CALCIUM 8.9 mg/dL (8.4-10.2); CARBON DIOXIDE 14 mmol/L (22-30); CHLORIDE 108 mmol/L (98-107); GLUCOSE 92 mg/dL (75-110); POTASSIUM 4.2 mmol/L (3.6-5.0); TOTAL PROTEIN 5.9 g/dL (6.3-8.2)
[2019-06-08] MEDS ORDERED: PIPERACILLIN/TAZOBACTAM 4.5 GM VIAL IV ONE (12:31)
[2019-06-08] MEDS ORDERED: RINGERS SOLUTION,LACTATED 1,640 ML IV ONE (12:31)
--- NOTE | 2019-06-08 12:31 | ER Document Report ---
ED General - General Chief Complaint: Flu Symptoms Stated Complaint: HEADACHE,FEVER Time Seen by Provider: 06/08/19 10:53 Mode of Arrival: Ambulatory Notes: CHIEF COMPLAINT: Vomiting, diarrhea, fever HPI: 58-year-old male with history of hypertension, hyperlipidemia, lymphedema, GERD, COPD, pneumonia, septic shock presenting to the emergency department complaining of recurrent vomiting with diarrhea. Patient states he also has a history of C. difficile. Patient states that he had a fever up to 100.8 last night. Patient relates that he was admitted at [facility] just after [place] with a Salmonella infection with vomiting and diarrhea. He states he was on antibiotics while in the hospital but was not discharged on antibiotics. Patient was discharged on May 29. He states he followed up on June 05 again at [facility] because of breathing difficulties. States he was again not placed on antibiotics and was discharged home. Patient was awaiting follow-up with his PCP when he began having the vomiting and diarrhea episodes last night again. Has had 2-3 episodes of emesis, 2-3 episodes of loose stools has not noticed any blood in his stools. He denies abdominal pain but does state that he had a fever last night. Patient states that he was admitted in October 2018 with septic shock from Salmonella ROS: See HPI - all other systems were reviewed and are otherwise negative Constitutional: + fever Eyes: no drainage, no blurred vision ENT: no runny nose, no sore throat Cardiovascular: no chest pain Resp: no SOB, no cough GI: + vomiting, + diarrhea, no abdominal pain : no dysuria Integumentary: no rash Allergy: no hives Musculoskeletal: no extremity pain or swelling Neurological: no numbness/tingling, + generalized weakness MEDICATIONS: I agree with the patient medications as charted by the RN. ALLERGIES: I agree with the allergies as charted by the RN. PAST MEDICAL HISTORY/PAST SURGICAL HISTORY: Reviewed and agree as charted by RN. SOCIAL HISTORY: Reviewed and agree as charted by RN. FAMILY HISTORY: No significant familial comorbid conditions directly related to patient complaint EXAM: Reviewed vital signs as charted by RN. CONSTITUTIONAL: Alert and oriented and responds appropriately to questions. chronically ill-appearing. HEAD: Normocephalic; atraumatic EYES: PERRL; Conjunctivae clear, sclerae non-icteric ENT: normal nose; no rhinorrhea; slightly dry mucous membranes; pharynx without lesions noted, no uvula edema or deviation, no tonsillar hypertrophy, phonation normal NECK: Supple without meningismus; non-tender; no cervical lymphadenopathy, no masses CARD: RRR; no murmurs, no clicks, no rubs, no gallops; symmetric distal pulses RESP: Normal chest excursion without splinting or tachypnea; breath sounds decreased bilaterally; no wheezes, no rhonchi, no rales, pulse oximetry 100% on room air not hypoxic ABD/GI: Normal bowel sounds; non-distended; soft, non-tender, no rebound, no guarding; no palpable organomegaly. Ventral hernia is palpable and reducible BACK: The back appears normal and is non-tender to palpation, there is no CVA tenderness EXT: Normal ROM in all joints; non-tender to palpation; no cyanosis, no effusions, no edema SKIN: Normal color for age and race; warm; dry; poor turgor; no acute lesions noted NEURO: Moves all extremities equally; Motor and sensory function intact PSYCH: The patient's mood and manner are appropriate. Grooming and personal hygiene are appropriate. MDM: 58-year-old male with complex medical history presenting for recurrent vomiting with diarrhea with a subjective fever at home. He is afebrile here in the ER. Patient does have history of septic shock in the past. Has recently been admitted for similar symptoms at [facility]. Initial screening labs obtained via triage process show a mild leukocytosis, mild elevation of lactic acid which may be dehydration given his vomiting and diarrhea. He has poor oral intake normally. Have ordered sepsis labs, repeat lactic acid after IV fluids, sepsis fluids, given his recurrent symptoms with a subjective fever will obtain CT imaging to evaluate for infectious process, abscess. Given the recent hospitalization with antibiotics will obtain stool specimens including C. difficile if possible TRAVEL OUTSIDE OF THE [place] IN LAST 30 DAYS: No - Related Data Allergies/Adverse Reactions: doxycycline Allergy (Verified 06/08/19 10:52) levofloxacin [From Levaquin] Allergy (Verified 06/08/19 10:52) Past Medical History - General Information source: Patient - Social History Smoking Status: Never Smoker Frequency of alcohol use: None Family History: CAD, CVA, DM, Hyperlipidemia, Hypertension, Malignancy Patient has suicidal ideation: No Patient has homicidal ideation: No - Past Medical History Cardiac Medical History: Reports: Hx Hypercholesterolemia, Hx Heart Murmur Denies: Hx Atrial Fibrillation, Hx Coronary Artery Disease, Hx Hypertension - heart valve replacement. Pulmonary Medical History: Reports: Hx Pneumonia, Hx Respiratory Failure Denies: Hx Asthma, Hx COPD Neurological Medical History: Denies: Hx Seizures Endocrine Medical History: Denies: Hx Diabetes Mellitus Type 1, Hx Diabetes Mellitus Type 2, Hx Hyperthyroidism, Hx Hypothyroidism Renal/ Medical History: Denies: Hx Peritoneal Dialysis GI Medical History: Denies: Hx Cirrhosis, Hx Crohn's Disease, Hx Hepatitis, Hx Ulcerative Colitis Musculoskeletal Medical History: Reports Hx Arthritis, Denies Hx Gout, Reports Hx Musculoskeletal Trauma - ribs left sided Skin Medical History: Denies Hx Eczema, Denies Hx Psoriasis Psychiatric Medical History: Reports: Hx Depression Traumatic Medical History: Reports: Hx Fractures - ribs left sidedddddddd. Denies: Hx Gunshot Wound, Hx Pneumothorax Infectious Medical History: Denies: Hx C-Diff, Hx Hepatitis, Hx HIV Past Surgical History: Reports: Hx Abdominal Surgery - hernia ventral, Hx Cardiac Catheterization, Hx Cardiac Surgery - PDA repair, Hx Cholecystectomy, Hx Umbilical Hernia, Hx Valve Replacement - Bovine pericardial tissue aortic valve replacement February 2015, Hx Vascular Surgery - Closure of patent ductus arteriosus - Immunizations Immunizations up to date: Yes Hx Diphtheria, Pertussis, Tetanus Vaccination: Yes Physical Exam - Vital signs Vitals: Temp Pulse Resp BP Pulse Ox 97.9 F 97 22 H 107/60 100 06/08/19 10:32 06/08/19 10:32 06/08/19 10:32 06/08/19 10:32 06/08/19 10:32 Course - Re-evaluation Re-evalutation: 06/08/19 16:03 No acute distress at this time. Patient is continuing to receive his lactated Ringer's. Awaiting repeat lactate level will repeat BMP given hydration to r echeck CO2. Awaiting CT read. 06/08/19 16:25 I spoke with the patient and his significant other at length about his lab and CT results. Case discussed with Dr. David, Attending. Patient initially had a very mildly elevated lactate level, we are rechecking this after hydration. He has no abdominal pain on repeat examination. He is not significantly tachycardic. He is not febrile here. His leukocytosis is 11.6 on his lab work. Patient on review of his records has always had a low CO2 level. I spoke with the patient about admission. Patient is positive for C. difficile. Patient indicates that he does not want admission to the hospital at this time and would prefer to go home. He follows with [facility]. He states they have already called their office to inform them of his C. difficile diagnosis. Patient is aware given his multiple chronic medical problems that he does have increased risk of worsening condition, disability or . I will start patient on oral vancomycin at this time. 06/08/19 16:52 I called the pharmacy about the vancomycin order. Patient is to receive 125 mg orally, they indicate that the oral/IV concentration that they mix up you put with juice and then give to the patient orally. - Vital Signs Vital signs: Temp Pulse Resp BP Pulse Ox 98.1 F 97 34 H 133/74 H 91 L 06/08/19 18:00 06/08/19 10:32 06/08/19 18:00 06/08/19 18:00 06/08/19 18:00 - Laboratory Result Diagrams: 06/08/19 11:25 06/08/19 16:31 Laboratory results interpreted by me: 06/08/19 06/08/19 06/08/19 11:25 11:25 11:25 WBC 11.6 H Hgb 13.2 L RDW 15.3 H Lymph % (Auto) 9.3 L Absolute Neuts (auto) 9.6 H Seg Neutrophils % 82.5 H Sodium Chloride 108 H Carbon Dioxide 14 L Creatinine 1.28 H Est GFR (MDRD) Non-Af 58 L Lactic Acid 2.6 H Calcium Alkaline Phosphatase 154 H Total Protein 5.9 L Albumin 3.4 L Lipase 502.7 H Urine Protein 06/08/19 06/08/19 11:25 16:31 WBC Hgb RDW Lymph % (Auto) Absolute Neuts (auto) Seg Neutrophils % Sodium 133.3 L Chloride 108 H Carbon Dioxide 15 L Creatinine Est GFR (MDRD) Non-Af Lactic Acid Calcium 8.2 L Alkaline Phosphatase Total Protein Albumin Lipase Urine Protein 30 H Discharge - Discharge Clinical Impression: C. difficile diarrhea, Dehydration Condition: Stable Disposition: HOME, SELF-CARE Additional Instructions: Take the vancomycin as prescribed. If you have difficulty finding the vancomycin return to the emergency department. Follow-up with your primary care provider tomorrow for reevaluation, follow-up with your nuclear fuels reclamation engineer as soon as possible for reevaluation. If you develop fevers greater than 101 or abdominal pain return to the emergency department Prescriptions: Vancomycin HCl 125 mg PO Q6 #40 capsule
[2019-06-08 15:23] LABS: C DIFFICILE GDH POSITIVE (NEGATIVE)
--- NOTE | 2019-06-08 15:59 | RADIOLOGY REPORT (SQ) ---
EXAM DESCRIPTION: CT ABD/PELVIS WITH IV ORAL COMPLETED DATE/TIME: 06/08/2019 3:39 pm REASON FOR STUDY: abd pain fever COMPARISON: 11/12/2018 TECHNIQUE: CT scan of the abdomen and pelvis performed using helical scanning technique with dynamic intravenous contrast injection. No oral contrast. Images reviewed with lung, soft tissue, and bone windows. Reconstructed coronal and sagittal MPR images reviewed. Delayed images for evaluation of the urinary system also acquired. All images stored on PACS. All CT scanners at this facility use dose modulation, iterative reconstruction, and/or weight based d osing when appropriate to reduce radiation dose to as low as reasonably achievable (ALARA). [facility]: Dose Right [facility]: CareDose [facility]: Dose Right [facility]: Teradose 4D [facility]: Skimble CONTRAST TYPE AND DOSE: contrast/concentration: Isovue 350.00 mg/ml; Total Contrast Delivered: 62.0 ml; Total Saline Delivered: 65.0 ml RENAL FUNCTION: BUN 16, creatinine 1.28 RADIATION DOSE: CT Rad equipment meets quality standard of care and radiation dose reduction techniq ues were employed. CTDIvol: 4.8 - 5.2 mGy. DLP: 555 mGy-cm.. LIMITATIONS: None. FINDINGS: LOWER CHEST: There is a small well-circumscribed 2.5 mm nodule. Please see below for sergey mmended follow-up. LIVER: Normal size. No masses. No dilated ducts. SPLEEN: Normal size. No focal lesions. PANCREAS: No masses. No significant calcifications. No adjacent inflammation or peripancreatic fluid collections. Pancreatic duct not dilated. GALLBLADDER: Surgically absent. ADRENAL GLANDS: No significant masses or asymmetry. RIGHT KIDNEY AND URETER: No solid masses. No significant calcifications. No hydronephrosis or hyd roureter. LEFT KIDNEY AND URETER: No solid masses. No significant calcifications. No hydronephrosis or hydr oureter. AORTA AND VESSELS: No aneurysm. No dissection. Renal arteries, SMA, celiac without stenosis. RETROPERITONEUM: No retroperitoneal adenopathy, hemorrhage or masses. BOWEL AND PERITONEAL CAVITY: There is fluid filled large and small bowel. Scattered but infrequent a ir-fluid levels. No free fluid. No mesenteric inflammation. APPENDIX: Not visualized. PELVIS: No mass. No free fluid. Normal bladder. ABDOMINAL WALL: There is an anterior abdominal wall defect containing omental fat this is stable from prior study surgical mass lies in the anterior abdominal wall as well. BONES: No significant or acute findings. OTHER: No other significant finding. IMPRESSION: Mildly prominent small bowel with scattered air-fluid levels in both large and small bow el. Findings most likely represent ileus. No focal inflammatory changes or bowel wall thickening. TECHNICAL DOCUMENTATION: JOB ID: [id number] Quality ID # [id number]: Final reports with documentation of one or more dose reduction techniques (e.g., Au tomated exposure control, adjustment of the mA and/or kV according to patient size, use of iterative reconstruction technique) 2010 [employer]- All Rights Reserved Reading location - IP/workstation name: [email or web address]
[2019-06-08] MEDS ORDERED: VANCOMYCIN HCL INJ 500 MG VIAL PO ONE (16:30)
[2019-06-08 16:58] LABS: ANION GAP 10 (5-19); BLOOD UREA NITROGEN 16 mg/dL (7-20); CALCIUM 8.2 mg/dL (8.4-10.2); CARBON DIOXIDE 15 mmol/L (22-30); CHLORIDE 108 mmol/L (98-107); GLUCOSE 90 mg/dL (75-110); POTASSIUM 4.7 mmol/L (3.6-5.0)
[2019-06-08 18:35] VITALS: BP 133/74
== END 2019-06-08 18:46 | disposition home or self-care (01) ==
LOC: ER 10:25
DX: A04.72 Enterocolitis due to Clostridium difficile, not specified as recurrent (principal); R19.7 Diarrhea, unspecified; E86.0 Dehydration; R51 Headache; R50.9 Fever, unspecified; R11.10 Vomiting, unspecified; R53.1 Weakness; I10 Essential (primary) hypertension; J44.9 Chronic obstructive pulmonary disease, unspecified
CPT/HCPCS: 99284; 96361; 96375; 96365; 96366; 36415; 87040; 87045; 87086; 87205; 83605; 83690; 85025; 87077; 80053; 81001; 87186; 87804; 87324; 87449; 74177; J2405; J3370; J7030; J7120; J2543

== ENCOUNTER 2019-06-16 16:01 | Day surgery (SDC) | payer BC ==
[2019-06-16] MEDS ORDERED: DIPHENHYDRAMINE HCL 50 MG/ML VIAL ONE (16:32)
[2019-06-16] MEDS ORDERED: ONDANSETRON HCL INJ/PF 4 MG/2 ML SDV ONE (16:32)
[2019-06-16] MEDS ORDERED: FENTANYL CITRATE INJ/PF 100 MCG/2 ML AMPUL ONE (16:32)
[2019-06-16] MEDS ORDERED: MIDAZOLAM 2 MG/2 ML INJ ONE (16:33)
[2019-06-16] MEDS ORDERED: FLUMAZENIL INJ 0.5 MG/5 ML VIAL ONE (16:33)
[2019-06-16] MEDS ORDERED: GLUCAGON,HUMAN RECOMB 1 MG INJ ONE (16:33)
[2019-06-16] MEDS ORDERED: NALOXONE HCL INJ/PF 0.4 MG/1 ML SDV ONE (16:33)
[2019-06-16] MEDS ORDERED: EPINEPHRINE INJ 1 MG/10 ML DISP.SYRIN ONE (16:33)
--- NOTE | 2019-06-16 17:27 | Operative Report ---
Operative Report DATE OF SURGERY: 06/16/19 Operative Report: Pre-op diagnosis: Diarrhea-infectious versus inflammatory Post-op diagnosis: Nonspecific left and right colitis Surgery: Colonoscopy with biopsy Medications: Versed 2mg, Fentanyl 100 Mcg IV push Tissue removed: Procedure: After informed consent obtained from patient, conscious sedation was achieved. A digital rectal examination was performed and this was unremarkable. The colonoscope was inserted into the rectum and advanced to the cecum. The a ppendiceal orifice and the terminal ileum were both identified. The mucosa was examined into details as the colonoscope was slowly pulled out of the patient. The endoscope was retroflexed in the rectum. Patient tolerated the procedure well. Findings Terminal ileum: Normal There were areas of loss of vascular markings with scattered punctate ulceration involving the cecum, ascending colon, distal transverse colon, and parts of the descending and sigmoid colon. There were intervening areas of normal mucosa in the colon and the rectum was also normal except for internal hemorrhoids Plan: He will finish vancomycin for possible C. difficile colitis. I will start him on mesalamine 4.8 g a day. Await pathology OPERATION: .
[2019-06-16 18:21] VITALS: BP 121/62
== END 2019-06-16 18:24 | disposition home or self-care (01) ==
LOC: END 16:01
PROVIDERS: ATTEND Internal Medicine Gastroenterology
DX: K52.9 Noninfective gastroenteritis and colitis, unspecified (principal); K21.9 Gastro-esophageal reflux disease without esophagitis; K92.1 Melena; I51.9 Heart disease, unspecified; Z79.82 Long term (current) use of aspirin; Z79.899 Other long term (current) drug therapy; Z79.51 Long term (current) use of inhaled steroids; Z88.0 Allergy status to penicillin; Z88.1 Allergy status to other antibiotic agents; J44.9 Chronic obstructive pulmonary disease, unspecified
CPT/HCPCS: 45378; 88342 ×2; 88305 ×2; 88312 ×2; J2250; J3010; J0171; J1200; J1610; J2310; J2405; J3490

== ENCOUNTER 2019-06-18 11:18 | Emergency (ER) | payer BC ==
[2019-06-18] MEDS ORDERED: NORMAL SALINE 1000 ML 1,000 ML IV ONE (11:57)
[2019-06-18] MEDS ORDERED: ONDANSETRON HCL INJ/PF 4 MG/2 ML SDV IV ONE (11:57)
--- NOTE | 2019-06-18 11:57 | ER Document Report ---
ED Medical Screen (RME) - General Chief Complaint: Abdominal Pain Stated Complaint: ABDOMINAL PAIN Time Seen by Provider: 06/18/19 11:45 Mode of Arrival: Ambulatory Information source: Patient Notes: Pt with c/o N/V/D x3-4 days since having a colonoscopy last week. Pt reports that his GI physicians told him that he has c-diff. Pt reports that his BP is now also running lower than ususal. Spouse asked in triage if she could give patient has blood pressure medications, she was encouraged to please not give any medications at this time. Exam: Patient alert, oriented, answering all questions. Lung sounds clear and equal bilaterally. I have greeted and performed a rapid initial assessment of this patient. A comprehensive ED assessment and evaluation of the patient, analysis of test results and completion of the medical decision making process will be conducted by additional ED providers. I have specifically instructed the patient or family members with the patient to immediately return to any nursing staff should anything change in the patient's condition or with their chief complaint. TRAVEL OUTSIDE OF THE [place] IN LAST 30 DAYS: No - Related Data Allergies/Adverse Reactions: doxycycline Allergy (Verified 06/08/19 10:52) levofloxacin [From Levaquin] Allergy (Verified 06/08/19 10:52) Past Medical History - Social History Frequency of alcohol use: None Drug Abuse: None - Past Medical History Cardiac Medical History: Reports: Hx Hypercholesterolemia, Hx Hypertension, Hx Heart Murmur Denies: Hx Atrial Fibrillation, Hx Coronary Artery Disease, Hx Heart Attack - PATENT DUCTUS ARTERIOSUS Pulmonary Medical History: Reports: Hx Pneumonia - SEPTIC SHOCK, Hx Respiratory Failure Denies: Hx Asthma, Hx Bronchitis, Hx COPD Neurological Medical History: Denies: Hx Cerebrovascular Accident, Hx Seizures Endocrine Medical History: Denies: Hx Diabetes Mellitus Type 1, Hx Diabetes Mellitus Type 2, Hx Hyperthyroidism, Hx Hypothyroidism Renal/ Medical History: Denies: Hx Peritoneal Dialysis GI Medical History: Denies: Hx Cirrhosis, Hx Crohn's Disease, Hx Hepatitis, Hx Ulcerative Colitis Musculoskeltal Medical History: Denies Hx Arthritis, Denies Hx Gout, Reports Hx Musculoskeletal Trauma - ribs left sided Skin Medical History: Denies Hx Eczema, Denies Hx Psoriasis Psychiatric Medical History: Reports: Hx Depression Traumatic Medical History: Reports: Hx Fractures - ribs left sidedddddddd. Denies: Hx Gunshot Wound, Hx Pneumothorax Infectious Medical History: Denies: Hx C-Diff, Hx Hepatitis, Hx HIV Past Surgical History: Reports: Hx Abdominal Surgery - hernia ventral, Hx Cardiac Catheterization, Hx Cardiac Surgery - PDA repair, Hx Cholecystectomy, Hx Umbilical Hernia, Hx Valve Replacement - Bovine pericardial tissue aortic valve replacement February 2015, Hx Vascular Surgery - Closure of patent ductus arteriosus - Immunizations Immunizations up to date: Yes Hx Diphtheria, Pertussis, Tetanus Vaccination: No Physical Exam - Vital signs Vitals: Temp Pulse Resp BP 97.5 F 100 16 79/56 L 06/18/19 11:32 06/18/19 11:32 06/18/19 11:32 06/18/19 11:32 Course - Vital Signs Vital signs: Temp Pulse Resp BP Pulse Ox 97.5 F 100 16 79/56 L 06/18/19 11:32 06/18/19 11:32 06/18/19 11:32 06/18/19 11:32
[2019-06-18] MEDS ORDERED: RINGERS LACTATED IV ONE (12:48)
--- NOTE | 2019-06-18 13:18 | RADIOLOGY REPORT (SQ) ---
EXAM DESCRIPTION: CHEST SINGLE VIEW COMPLETED DATE/TIME: 06/18/2019 1:06 pm REASON FOR STUDY: nausea, vomiting, hypotension COMPARISON: 05/08/2019. EXAM PARAMETERS: NUMBER OF VIEWS: One view. TECHNIQUE: Single frontal radiographic view of the chest acquired. RADIATION DOSE: NA LIMITATIONS: None. FINDINGS: LUNGS AND PLEURA: No opacities, masses or pneumothorax. No pleural effusion. MEDIASTINUM AND HILAR STRUCTURES: No masses. Contour normal. HEART AND VASCULAR STRUCTURES: Heart normal in size. Normal vasculature. BONES: No acute findings. Stable fracture of the lateral right 7th rib. HARDWARE: Sternotomy wires and prosthetic valve. OTHER: No other significant finding. IMPRESSION: STABLE CHRONIC CHANGES. NO ACUTE RADIOGRAPHIC FINDING IN THE CHEST. TECHNICAL DOCUMENTATION: JOB ID: [id number] [employer]- All Rights Reserved Reading location - IP/workstation name: [email or web address]
--- NOTE | 2019-06-18 13:44 | ER Document Report ---
ED General - General Chief Complaint: Abdominal Pain Stated Complaint: ABDOMINAL PAIN Time Seen by Provider: 06/18/19 11:45 Primary Care Provider: JASON SINGH PA [Primary Care Provider] - Follow up as needed Mode of Arrival: Ambulatory Notes: 58-year-old male presents emergency department complaining of nausea and vomiting since he had a colonoscopy performed on Saturday as well as continuing diarrhea. States that he has had diarrhea 4-5 times already this morning alone. Patient has known C. difficile for which she is taking oral vancomycin. Patient also tested positive for Salmonella in his stool on the . When he discussed this with Dr. Ion Lemon did not wish to start another antibiotic at that time. Patient denies any blood in the stool or in his emesis. Denies any current fevers. States that any greasy foods make him vomit but he has been tolerating clear liquids well. Denies any pain in his abdomen. States that this morning he was able to eat a ham biscuit and keep it down however yesterday he was not able to tolerate sausage biscuits or burgers. TRAVEL OUTSIDE OF THE [place] IN LAST 30 DAYS: No - Related Data Allergies/Adverse Reactions: doxycycline Allergy (Verified 06/08/19 10:52) levofloxacin [From Levaquin] Allergy (Verified 06/08/19 10:52) Past Medical History - General Information source: Patient - Social History Smoking Status: Smoker,Current Status Unk Frequency of alcohol use: None Drug Abuse: None Family History: CAD, CVA, DM, Hyperlipidemia, Hypertension, Malignancy Patient has suicidal ideation: No Patient has homicidal ideation: No - Past Medical History Cardiac Medical History: Reports: Hx Hypercholesterolemia, Hx Hypertension, Hx Heart Murmur Denies: Hx Atrial Fibrillation, Hx Coronary Artery Disease, Hx Heart Attack - PATENT DUCTUS ARTERIOSUS Pulmonary Medical History: Reports: Hx Pneumonia - SEPTIC SHOCK, Hx Respiratory Failure Denies: Hx Asthma, Hx Bronchitis, Hx COPD Neurological Medical History: Denies: Hx Cerebrovascular Accident, Hx Seizures Endocrine Medical History: Denies: Hx Diabetes Mellitus Type 1, Hx Diabetes Mellitus Type 2, Hx Hyperthyroidism, Hx Hypothyroidism Renal/ Medical History: Denies: Hx Peritoneal Dialysis GI Medical History: Denies: Hx Cirrhosis, Hx Crohn's Disease, Hx Hepatitis, Hx Ulcerative Colitis Musculoskeletal Medical History: Denies Hx Arthritis, Denies Hx Gout, Reports Hx Musculoskeletal Trauma - ribs left sided Skin Medical History: Denies Hx Eczema, Denies Hx Psoriasis Psychiatric Medical History: Reports: Hx Depression Traumatic Medical History: Reports: Hx Fractures - ribs left sidedddddddd. 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 denies: Chills, Diaphoresis EENT: No symptoms reported Respiratory: No symptoms reported Gastrointestinal: See HPI, Diarrhea, Nausea, Vomiting. denies: Abdominal pain -: Yes All other systems reviewed and negative Physical Exam - Vital signs Vitals: Temp Pulse Resp BP 97.5 F 100 16 79/56 L 06/18/19 11:32 06/18/19 11:32 06/18/19 11:32 06/18/19 11:32 Interpretation: Hypotensive - Girlfriend is able to show me a list of his typical blood pressures, systolic blood pressure is typically somewhere between 80 and 100. His blood pressure right now is only slightly lower than normal. Patient has not yet been given his afternoon dose of Midodrine. I have approved this now. - Notes Notes: GENERAL: Alert, interacts well. No acute distress. Smells of stool HEAD: Normocephalic, atraumatic EYES: Pupils equal, round and reactive to light, extraocular movements intact. ENT: Oral mucosa moist, tongue midline. NECK: Full range of motion, supple, trachea midline. LUNGS: Clear to auscultation bilaterally, no wheezes, rales or rhonchi, no respiratory distress. HEART: Regular rate and rhythm, no murmurs, gallops, rubs. ABDOMEN: Soft, nontender, nondistended, bowel sounds present in all 4 quadrants. EXTREMITIES: Moves all 4 extremities spontaneously, no edema, radial and d orsalis pedis pulses 2/4 bilaterally. No cyanosis. NEUROLOGICAL: Alert and oriented x3, normal speech. PSYCH: Normal mood, normal affect. SKIN: Warm, Dry, normal turgor. Course - Re-evaluation Re-evalutation: 06/18/19 20:51 CBC shows leukocytosis at 13.6, no anemia, coags normal, venous blood gas shows acidosis with pH of 7.21, CMP shows low CO2 at 15, creatinine is slightly bumped compared to prior at 1.17, urinalysis does not show any ketones or signs of dehydration, stool sample has been sent to the lab. Patient is already on oral vancomycin. Patient does not have any blood in the stool or fevers, no signs of active infection with Salmonella despite seeing the Salmonella in his stool approximately a week ago. No indication to start oral antibiotics for the Salmonella at this time. Patient is not febrile. Abdominal exam is benign. Patient is not complaining of any increased stool volume or frequency. Patient's largest concern was that he started vomiting last night and it was not controlled with his home Zofran. Here he has been able to eat a ham biscuit just prior to arrival and has been able to drink multiple glasses of fluid. 06/18/19 20:53 Initial lactic acid was 1.9, it was then 2.0 and then it went up to 2.5 however the patient has continued to have diarrhea but has stopped vomiting. He re ceived just over 2-1/2 L of fluid while he was here. Patient's blood pressure is always low, he in fact takes Midrodine to help bring up his blood pressure and after every home dose that we gave him here his blood pressure has responded well. Discussed with patient the possibility of staying in the hospital for further IV fluids versus going home. Patient and family members right now are quite eager to be discharged to home. Given that his blood pressure is at his baseline I do not feel patient requires inpatient treatment. Patient and family members agree. Patient will be discharged to home. Encouraged to follow-up with Dr. Lemon as an outpatient. Encouraged to avoid foods known to increase gut motility such as peaches, prunes, pears and raisins. 06/18/19 20:57 Recently recorded hypoxic pulse ox it does not reflect the patient in front of me, he is not hypoxic, he is not having any shortness of breath and he currently has a good waveform. Suspect there is a poor waveform at that time. - Vital Signs Vital signs: Temp Pulse Resp BP Pulse Ox 97.5 F 100 20 97/70 L 85 L 06/18/19 11:32 06/18/19 11:32 06/18/19 18:01 06/18/19 18:00 06/18/19 18:01 - Laboratory Result Diagrams: 06/18/19 13:45 06/18/19 13:45 Laboratory results interpreted by me: 06/18/19 06/18/19 06/18/19 13:45 13:45 14:08 WBC 13.6 H RDW 16.4 H Lymph % (Auto) 10.3 L Absolute Neuts (auto) 11.2 H Seg Neutrophils % 82.1 H VBG pH 7.21 L VBG HCO3 16.8 L Carbon Dioxide 15 L Creatinine 1.60 H Est GFR ( Amer) 54 L Est GFR (MDRD) Non-Af 45 L Lactic Acid Alkaline Phosphatase 142 H Total Protein 6.1 L Urine Protein 06/18/19 06/18/19 17:59 19:52 WBC RDW Lymph % (Auto) Absolute Neuts (auto) Seg Neutrophils % VBG pH VBG HCO3 Carbon Dioxide Creatinine Est GFR ( Amer) Est GFR (MDRD) Non-Af Lactic Acid 2.5 H Alkaline Phosphatase Total Protein Urine Protein 30 H - EKG Interpretation by Me Additional EKG results interpreted by me: 06/18/19 20:56 EKG shows sinus rhythm at a rate of 89, normal axis, prolonged QT interval, no ST segment elevations or depressions, there are T wave inversions noted in V2 and V3, biphasic T waves in V4 and T wave flattening in 1 and aVL per my interpretation. Discharge - Discharge Clinical Impression: C. difficile colitis, Mild dehydration Hypotension Qualifiers: Hypotension type: unspecified hypotension type Qualified Code(s): I95.9 - Hypotension, unspecified Nausea and vomiting Qualifiers: Vomiting type: unspecified Vomiting Intractability: non-intractable Qualified Code(s): R11.2 - Nausea with vomiting, unspecified Condition: Stable Disposition: HOME, SELF-CARE Additional Instructions: Please continue to use your Zofran as needed for nausea. Please avoid foods that are known to cause increased bowel movements such as peaches, pears, prunes and raisins. You may eat foods that tend to cause more formed bowel movements such as rice and bananas. Return for dizziness, increasing weakness, any blood in your stool, and you a temperature greater than 100.4 or any new or concerning symptoms. Return also for persistent vomiting. Please follow-up with Dr. Lemon as an outpatient for your continuing frequency of stools despite medications to see if he has anything else he would suggest you try. Referrals: JASON SINGH PA [Primary Care Provider] - Follow up as needed
[2019-06-18 14:00] LABS: ABSOLUTE BASOPHILS # (AUTO) 0.1 10^3/uL (0.0-0.2); ABSOLUTE EOSINOPHILS # (AUTO) 0.4 10^3/uL (0.0-0.6); ABSOLUTE LYMPHOCYTES (AUTO) 1.4 10^3/uL (0.5-4.7); ABSOLUTE MONOCYTES (AUTO) 0.5 10^3/uL (0.1-1.4); ABSOLUTE NEUT (AUTO) 11.2 10^3/uL (1.7-8.2); BASOPHILS % (AUTO) 0.7 % (0-2); EOSINOPHILS % (AUTO) 2.9 % (0-6); HEMATOCRIT 42.9 % (37.9-51.0); HEMOGLOBIN 14.1 g/dL (13.5-17.0); LYMPHOCYTES % (AUTO) 10.3 % (13-45); MEAN CORPUSCULAR HEMOGLOBIN 29.4 pg (27.0-33.4); MEAN CORPUSCULAR HGB CONC 32.9 g/dL (32.0-36.0); MEAN CORPUSCULAR VOLUME 89 fl (80-97); PLATELET COUNT 392 10^3/uL (150-450); RED CELL DISTRIBUTION WIDTH 16.4 % (11.5-14.0); SEGMENTED NEUTROPHILS % (AUTO) 82.1 % (42-78); TOTAL CELLS COUNTED % (AUTO) 100 %; WHITE BLOOD COUNT 13.6 10^3/uL (4.0-10.5)
[2019-06-18 14:16] LABS: INTERNATIONAL RATION (INR) 1.05; PROTHROMBIN TIME 13.7 SEC (11.4-15.4)
[2019-06-18 14:23] LABS: ALBUMIN 3.6 g/dL (3.5-5.0); ALKALINE PHOSPHATASE 142 U/L (38-126); ANION GAP 16 (5-19); ASPARTATE AMINO TRANSFERASE 18 U/L (17-59); BILIRUBIN,DIRECT 0.3 mg/dL (0.0-0.4); BILIRUBIN,TOTAL 0.5 mg/dL (0.2-1.3); BLOOD UREA NITROGEN 16 mg/dL (7-20); CALCIUM 8.7 mg/dL (8.4-10.2); CARBON DIOXIDE 15 mmol/L (22-30); CHLORIDE 107 mmol/L (98-107); GLUCOSE 94 mg/dL (75-110); POTASSIUM 3.7 mmol/L (3.6-5.0); TOTAL PROTEIN 6.1 g/dL (6.3-8.2)
[2019-06-18 14:27] LABS: VENOUS BLOOD BASE EXCESS -10.7 mmol/L; VENOUS BLOOD HCO3 16.8 mmol/L (20-32); VENOUS BLOOD PCO2 43.1 mmHg (35-63); VENOUS BLOOD PH 7.21 (7.30-7.42)
--- NOTE | 2019-06-18 18:29 | EKG REPORT ---
SEVERITY:- ABNORMAL ECG - SINUS RHYTHM PROBABLE LEFT ATRIAL ABNORMALITY NONSPECIFIC T ABNORMALITIES, ANT-LAT LEADS PROLONGED QT INTERVAL : Confirmed by: Dago Haider MD 18-Jun-2019 18:29:05
[2019-06-18 18:32] LABS: APPEARANCE,URINE CLEAR; BILIRUBIN,URINE NEGATIVE (NEGATIVE); COLOR,URINE YELLOW; GLUCOSE, URINE NEGATIVE (NEGATIVE); KETONES,URINE NEGATIVE (NEGATIVE); LEUKOCYTE ESTERASE,URINE NEGATIVE (NEGATIVE); NITRITE,URINE NEGATIVE (NEGATIVE); PROTEIN,URINE 30 mg/dL (NEGATIVE); URINE SPECIFIC GRAVITY 1.012; UROBILINOGEN,URINE NEGATIVE mg/dL (<2.0)
[2019-06-18 21:38] VITALS: BP 104/71
== END 2019-06-18 21:55 | disposition home or self-care (01) ==
LOC: ER 11:18
DX: A04.72 Enterocolitis due to Clostridium difficile, not specified as recurrent (principal); I95.9 Hypotension, unspecified; E86.0 Dehydration; E87.2 Acidosis; R11.2 Nausea with vomiting, unspecified; R53.1 Weakness; Z79.899 Other long term (current) drug therapy; Z98.890 Other specified postprocedural states; Z88.1 Allergy status to other antibiotic agents
CPT/HCPCS: 93005; 99284; 96361; 96374; 36415; 87040; 87045; 87205; 83605; 85025; 85610; 87077; 80053; 81001; 87186; 82803; 71045; 93010; J2405; J7030; J7120

== ENCOUNTER 2019-06-19 18:50 | Inpatient (IN) | payer BC ==
[2019-06-19] MEDS ORDERED: VANCOMYCIN HCL INJ 1000 MG VIAL IV ONE (19:09)
[2019-06-19] MEDS ORDERED: ONDANSETRON HCL INJ/PF 4 MG/2 ML SDV IV ONE (19:10)
[2019-06-19] MEDS: NORMAL SALINE 1000 ML 1,000 ML IV PRN ×2 (19:10→19:46)
--- NOTE | 2019-06-19 19:17 | ER Document Report ---
ED General <PA STRONG - Last Filed: 06/20/19 03:43> - General Mode of Arrival: Medic Information source: Patient, Emergency Med Personnel - Per EMS as historian but this patient was quite anxious and getting IV fluids initially TRAVEL OUTSIDE OF THE [place] IN LAST 30 DAYS: No - HPI Onset: Just prior to arrival Severity: Moderate Pain Level: 4 Associated symptoms: Weakness Exacerbated by: Movement Relieved by: Denies Similar symptoms previously: Yes Recently seen / treated by doctor: Yes <ALEKSANDR CANELA JR - Last Filed: 06/21/19 14:41> - General Chief Complaint: Diarrhea Stated Complaint: DIARRHEA Time Seen by Provider: 06/19/19 19:09 Notes: 58-year-old male arrives with chief complaint of nausea vomiting diarrhea and was just diagnosed with C. difficile. Patient received colonoscopy on Saturday.. today is Saturday. Patient was seen here last night and was given IV fluid bolus because of nausea vomiting and diarrhea and sent home. Today EMS reports he was sitting on toilet and had a syncopal episode in which his blood pressure was 60/30 this occurred twice in route. He was given 300 mL wide-open bolus and patient responded well with orientation of who he is where he is at and why he is here. He reported by my request his birthday twice ; complaint of feeling cold. Wanting a blanket. By computer medical records, patient has been admitted here or seen here at least 8 times and admitted by Dr. Bobo for sepsis colitis and by Dr. Mccray for gastroenteritis and hypokalemia. Rohith did a colonoscopy 12 June Pathology includes possibility of Salmonella per Camilo at 0148 (ALEKSANDR CANELA JR) - Related Data Allergies/Adverse Reactions: doxycycline Allergy (Verified 06/08/19 10:52) levofloxacin [From Levaquin] Allergy (Verified 06/08/19 10:52) Past Medical History - General Information source: Patient, Relative, Emergency Med Personnel - Social History Smoking Status: Unknown if Ever Smoked Cigarette use (# per day): No Chew tobacco use (# tins/day): No Smoking Education Provided: No Frequency of alcohol use: None Drug Abuse: None Lives with: Family Family History: CAD, CVA, DM, Hyperlipidemia, Hypertension, Malignancy Patient has suicidal ideation: No Patient has homicidal ideation: No - Past Medical History Cardiac Medical History: Reports: Hx Hypercholesterolemia, Hx Hypertension, Hx Heart Murmur Denies: Hx Atrial Fibrillation, Hx Coronary Artery Disease, Hx Heart Attack - PATENT DUCTUS ARTERIOSUS Pulmonary Medical History: Reports: Hx Pneumonia - SEPTIC SHOCK, Hx Respiratory Failure Denies: Hx Asthma, Hx Bronchitis, Hx COPD Neurological Medical History: Denies: Hx Cerebrovascular Accident, Hx Seizures Endocrine Medical History: Denies: Hx Diabetes Mellitus Type 1, Hx Diabetes Mellitus Type 2, Hx Hyperthyroidism, Hx Hypothyroidism Renal/ Medical History: Denies: Hx Peritoneal Dialysis GI Medical History: Denies: Hx Cirrhosis, Hx Crohn's Disease, Hx Hepatitis, Hx Ulcerative Colitis Musculoskeletal Medical History: Denies Hx Arthritis, Denies Hx Gout, Reports Hx Musculoskeletal Trauma - ribs left sided Skin Medical History: Denies Hx Eczema, Denies Hx Psoriasis Psychiatric Medical History: Reports: Hx Depression Traumatic Medical History: Reports: Hx Fractures - ribs left sidedddddddd. Denies: Hx Gunshot Wound, Hx Pneumothorax Infectious Medical History: Denies: Hx C-Diff, Hx Hepatitis, Hx HIV Past Surgical History: Reports: Hx Abdominal Surgery - hernia ventral, Hx Cardiac Catheterization, Hx Cardiac Surgery - PDA repair, Hx Cholecystectomy, Hx Umbilical Hernia, Hx Valve Replacement - Bovine pericardial tissue aortic valve replacement February 2015, Hx Vascular Surgery - Closure of patent ductus arteriosus - Immunizations Immunizations up to date: Yes Hx Diphtheria, Pertussis, Tetanus Vaccination: No <ALEKSANDR CANELA JR - Last Filed: 06/21/19 14:41> Review of Systems - Review of Systems Constitutional: Malaise, Weakness EENT: No symptoms reported Cardiovascular: Syncope, Dizziness, Lightheaded Respiratory: No symptoms reported Gastrointestinal: Abdominal pain, Diarrhea, Nausea, Vomiting Genitourinary: No symptoms reported Male Genitourinary: No symptoms reported Musculoskeletal: Muscle stiffness Hematologic/Lymphatic: Anemia Neurological/Psychological: Weakness, Loss of power <ALEKSANDR CANELA JR - Last Filed: 06/21/19 14:41> Physical Exam - Vital signs Interpretation: Tachycardic - HR 130 - General General appearance: Anxious In distress: Moderate - HEENT Head: Normocephalic Eyes: Pale conjunctiva Conjunctiva: Normal Cornea: Normal Extraocular movements intact: Yes Eyelashes: Normal Pupils: PERRL - Respiratory Respiratory status: No respiratory distress Chest status: Nontender Breath sounds: Normal Chest palpation: Normal - Cardiovascular Rhythm: Tachycardia Heart sounds: Normal auscultation Murmur: No Friction rub: No Deacon's crunch: No - Abdominal Inspection: Normal Distension: No distension Bowel sounds: Hyperactive Tenderness: Tender - diffusely Organomegaly: No organomegaly - Rectal Tenderness: No Hemorrhoids: None, Other - Edema around perirectal area; patient reports Dr. Donohue performed colonoscopy - Genitourinary Tenderness: Nontender Scrotum: Normal - Back Back: Normal - Extremities General upper extremity: Normal inspection General lower extremity: Normal inspection - Neurological Neuro grossly intact: Yes Cognition: Normal Orientation: AAOx4 [place] Coma Scale Eye Opening: Spontaneous Speech: Normal Cranial nerves: Normal Cerebellar coordination: Normal - Psychological Associated symptoms: Anxious - Skin Skin Temperature: Warm Skin Moisture: Dry Skin Color: Pale Skin Turgor: Tenting Location of irregularity: Extremities <BAREFOOTALEKSANDR JR - Last Filed: 06/21/19 14:41> - Vital signs Vitals: Resp 31 H 06/19/19 19:14 Course - Laboratory Result Diagrams: 06/19/19 19:05 06/19/19 21:35 <PA STRONG - Last Filed: 06/20/19 03:43> - Laboratory Result Diagrams: 06/21/19 05:08 06/21/19 05:08 - EKG Interpretation by Fl EKG shows normal: Sinus rhythm Rate: Tachycardia Rhythm: Other - nonSpecific intraventricular conduction delay and also inferior infarct age indeterminate and ST depression consider ischemia <ALEKSANDR CANELA JR - Last Filed: 06/21/19 14:41> - Re-evaluation Re-evalutation: 06/20/19 03:42 Patient has been evaluated at bedside by Tony Page NP. Patient is persistently hypertensive at this point, current blood pressure is 60 systolic, patient is accepted to the ICU and he states he is moving them to the ICU for arterial line placement. (PA STRONG) - Vital Signs Vital signs: Temp Pulse Resp BP Pulse Ox 97.7 F 73 19 113/86 H 97 06/21/19 14:00 06/21/19 07:00 06/21/19 14:00 06/21/19 13:34 06/21/19 14:00 - Laboratory Laboratory results interpreted by ks: 06/19/19 06/19/19 06/19/19 19:05 19:05 19:15 WBC 22.3 H RDW 16.3 H Abs Neuts (Manual) 16.3 H Abs Monocytes (Manual) 1.6 H Absolute Eos (Manual) 0.9 H Sodium Potassium Carbon Dioxide BUN Creatinine Est GFR ( Amer) Est GFR (MDRD) Non-Af Lactic Acid 6.7 H Calcium Total Protein Albumin Urine Protein 30 H 06/19/19 06/20/19 21:35 01:35 WBC RDW Abs Neuts (Manual) Abs Monocytes (Manual) Absolute Eos (Manual) Sodium 136.3 L Potassium 3.3 L Carbon Dioxide 11 L BUN 26 H Creatinine 2.60 H Est GFR ( Amer) 31 L Est GFR (MDRD) Non-Af 25 L Lactic Acid 3.5 H Calcium 7.4 L Total Protein 4.7 L Albumin 2.6 L Urine Protein Critical Care Note - Critical Care Note Total time excluding time spent on procedures (mins): 90 <ALEKSANDR CANELA JR - Last Filed: 06/21/19 14:41> - Critical Care Note Comments: I discussed this case with Dr. Matthew Sun advises patient is too hypotensive for medical floor and that I should call Dr. Tony Page. This was done at 12 midnight and he advises he will see the patient. Gerson saw patient in the room advised 2 more liters of LR and also p.o. vancomycin and IV Flagyl; this was actually discontinued after finding the biopsy report from colonoscopy. Dr. Lemon called and he advises to put the patient in and he will consult for this patient.Gerson was down in the ER until 0 200 and advised me of the findings of the colonoscopy biopsy.I discussed case with Jorge ribera at 0 217 and he advises admission because he does not meet ICU criteria. Vazquez was called at 0220 by is that the patient needs to get more fluids before excepting to the floor. I turned this pt over to Pa for rehydration. Later over review of notes reveals right femoral line was placed by Camilo. @0541 Patient was placed in ICU at 605 (ALEKSANDR CANELA JR) Discharge - Discharge Admitting Provider: Edinson (Cnc Lathe Programmer) Unit Admitted: ICU <PA STRONG - Last Filed: 06/20/19 03:43> - Discharge Admitting Provider: Edinson (Cnc Lathe Programmer) Unit Admitted: ICU <ALEKSANDR CANELA JR - Last Filed: 06/21/19 14:41> - Discharge Clinical Impression: Atypical syncope, Dehydration, Colitis, Fever and chills Sepsis Qualifiers: Sepsis type: sepsis due to unspecified organism Sepsis acute organ dysfunction status: unspecified Qualified Code(s): A41.9 - Sepsis, unspecified organism Condition: Fair Disposition: ADMITTED INPATIENT
[2019-06-19 19:40] LABS: APPEARANCE,URINE SLIGHTLY-CLOUDY; BILIRUBIN,URINE NEGATIVE (NEGATIVE); COLOR,URINE YELLOW; GLUCOSE, URINE NEGATIVE (NEGATIVE); KETONES,URINE NEGATIVE (NEGATIVE); LEUKOCYTE ESTERASE,URINE NEGATIVE (NEGATIVE); NITRITE,URINE NEGATIVE (NEGATIVE); PROTEIN,URINE 30 mg/dL (NEGATIVE); URINE SPECIFIC GRAVITY 1.014; UROBILINOGEN,URINE NEGATIVE mg/dL (<2.0)
--- NOTE | 2019-06-19 20:18 | EKG REPORT ---
SEVERITY:- ABNORMAL ECG - SINUS TACHYCARDIA NONSPECIFIC INTRAVENTRICULAR CONDUCTION DELAY ST DEPRESSION, CONSIDER ISCHEMIA, ANT-LAT LDS : Confirmed by: Dago Haider MD 19-Jun-2019 20:17:23
--- NOTE | 2019-06-19 20:54 | RADIOLOGY REPORT (SQ) ---
EXAM DESCRIPTION: XR ABDOMEN SUPINE AND ERECT WITH CHEST (ABD ACUTE SERIES) COMPLETED DATE/TME: 06/19/2019 19:11 CLINICAL HISTORY: 58 years Male ,syncope n/v/d COMPARISON: 06/18/2019 chest x-ray 06/08/2019 abdomen and pelvis TECHNIQUE: Frontal view chest x-ray and two views of the abdomen. FINDINGS: The cardiomediastinal silhouette appears unremarkable. No consolidating infiltrates or pleural effusions. Prominent epicardial fat on the left. Postsurgical changes in the gallbladder fossa and left inguinal region.No free air is identified beneath the hemidiaphragms. No dilated loops of bowel to suggest obstruction. There appears to have been interval decompression of small bowel compared to the prior CT IMPRESSION: Small bowel appears decompressed as compared to the previous CT examination without significant dilatation to suggest obstruction
[2019-06-19 20:55] LABS: HEMATOCRIT 45.7 % (37.9-51.0); HEMOGLOBIN 14.7 g/dL (13.5-17.0); MEAN CORPUSCULAR HEMOGLOBIN 28.8 pg (27.0-33.4); MEAN CORPUSCULAR HGB CONC 32.1 g/dL (32.0-36.0); MEAN CORPUSCULAR VOLUME 90 fl (80-97); PLATELET COUNT 411 10^3/uL (150-450); RED BLOOD COUNT 5.08 10^6/uL (4.35-5.55); RED CELL DISTRIBUTION WIDTH 16.3 % (11.5-14.0); WHITE BLOOD COUNT 22.3 10^3/uL (4.0-10.5)
[2019-06-19 21:13] LABS: ABSOLUTE LYMPHOCYTES# (MANUAL) 3.6 10^3/uL (0.5-4.7); ABSOLUTE MONOCYTES # (MANUAL) 1.6 10^3/uL (0.1-1.4); BAND NEUTROPHILS % (MANUAL) 3 % (3-5); BASOPHILS % (MANUAL) 0 % (0-2); EOSINOPHILS % (MANUAL) 4 % (0-6); LYMPHOCYTES % (MANUAL) 16 % (13-45); MONOCYTES % (MANUAL) 7 % (3-13); SEGMENTED NEUTROPHILS % (MAN) 70 % (42-78); TOTAL CELLS COUNTED 100
[2019-06-19 21:14] LABS: ANISOCYTOSIS 1+; PLATELET COMMENT ADEQUATE
[2019-06-19] MEDS ORDERED: PIPERACILLIN/TAZOBACTAM 3.375 GM VIAL IV ONE (21:15)
[2019-06-19 21:26] LABS: CREATINE KINASE MB 1.83 ng/mL (<4.55); TROPONIN I < 0.012 ng/mL
[2019-06-19 22:06] LABS: ALBUMIN 2.6 g/dL (3.5-5.0); ALKALINE PHOSPHATASE 98 U/L (38-126); ANION GAP 18 (5-19); ASPARTATE AMINO TRANSFERASE 20 U/L (17-59); BILIRUBIN,DIRECT 0.3 mg/dL (0.0-0.4); BILIRUBIN,TOTAL 0.4 mg/dL (0.2-1.3); BLOOD UREA NITROGEN 26 mg/dL (7-20); CALCIUM 7.4 mg/dL (8.4-10.2); CARBON DIOXIDE 11 mmol/L (22-30); CHLORIDE 107 mmol/L (98-107); GLUCOSE 109 mg/dL (75-110); POTASSIUM 3.3 mmol/L (3.6-5.0); TOTAL PROTEIN 4.7 g/dL (6.3-8.2)
[2019-06-19] MEDS ORDERED: CHOLESTYRAMINE 4 GM PACKET PO ONE (23:12)
[2019-06-19] MEDS ORDERED: LACTOBACILLUS ACIDOPHILUS 250 MG TAB PO ONE (23:12)
[2019-06-19] MEDS ORDERED: NORMAL SALINE 1000 ML 1,000 ML IV ONE (23:50)
[2019-06-20] MEDS ORDERED: CHOLESTYRAMINE 4 GM PACKET ONE (00:23)
[2019-06-20] MEDS ORDERED: ACETAMINOPHEN 325 MG TABLET PO ONE (00:32)
[2019-06-20] MEDS ORDERED: RINGERS SOLUTION,LACTATED 1,000 ML IV PRN ×2 (01:02→03:47)
[2019-06-20] MEDS ORDERED: VANCOMYCIN HCL INJ 500 MG VIAL PO ONE (01:03)
[2019-06-20] MEDS ORDERED: METRONIDAZOLE 500 MG TABLET PO ONE (01:04)
[2019-06-20] MEDS ORDERED: METRONIDAZOLE 500 MG/NS RTU 500 MG/100 ML RTUPB IV ONE (01:30)
--- NOTE | 2019-06-20 01:52 | RADIOLOGY REPORT (SQ) ---
EXAM DESCRIPTION: CT HEAD WITHOUT IV CONTRAST COMPLETED DATE/TME: 06/19/2019 21:15 CLINICAL HISTORY: 58 years Male syncope COMPARISON: None. TECHNIQUE: Contiguous axial CT images obtained through the brain without IV contrast. This exam was performed according to our department optimization program which includes automated exposure control, adjustment of the mA and/or kv according to patient size and/or use of iterative reconstruction technique. FINDINGS: The ventricles and sulci are prominent consistent with atrophic changes. No mass lesions. Old lacunar infarct in the right caudate. Extensive microvascular ischemic changes No acute hemorrhage. Atherosclerotic calcifications. Mucosal thickening in paranasal sinuses with fluid in the maxillary sinuses No depressed calvarial fractures. IMPRESSION: No acute intracranial abnormality is identified. Findings which may reflect sinusitis in the appropriate clinical setting
--- NOTE | 2019-06-20 01:59 | RADIOLOGY REPORT (SQ) ---
EXAM DESCRIPTION: CT ABDOMEN PELVIS WITHOUT IV CONTRAST COMPLETED DATE/TME: 06/19/2019 21:15 CLINICAL HISTORY: 58 years Male C-diff COMPARISON: 06/08/2019. TECHNIQUE: Contiguous axial images obtained through the abdomen and pelvis without IV contrast. Reformatted images obtained. This exam was performed according to our department optimization program which includes automated exposure control, adjustment of the mA and/or kv according to patient size and/or use of iterative reconstruction technique. FINDINGS: Small amount of patchy density in the left lung base which was not present on previous exams and may reflect infectious or inflammatory process. The spleen and pancreas appear unremarkable. Unremarkable liver. No adrenal masses. The kidneys appear unremarkable. No hydronephrosis. The gallbladder is absent. No aneurysmal dilatation of the aorta. Fluid-filled small bowel suggesting ileus. There are some areas of wall thickening in loops of small bowel in the lower abdomen and pelvis as well as areas of wall thickening in the colon. Findings suggest enterocolitis. This may be related C. Difficile but other infectious or inflammatory process is not excluded. De Souza catheter in a decompressed urinary bladder. The appendix is unremarkable. No significant free fluid noted. There is some heterogeneity in the gluteal muscles inferiorly on the left. I suspect that this is volume averaging through fat. Recommend clinical correlation and if there is concern for hematoma or infection. IMPRESSION: Mild wall thickening in segments of small bowel as well as in the colon which may reflect infectious or inflammatory enterocolitis. C. Difficile colitis is not excluded but this is not a typical appearance Ventral hernia containing omental fat similar to the previous study with a small amount of stranding Small amount of density in the left base which may reflect inflammatory or infectious process Heterogeneity involving the inferior margin of the gluteal muscles on the left which may be secondary to volume averaging. The possibility of hematoma or infection is not excluded. Recommend clinical correlation
[2019-06-20] MEDS ORDERED: AMPICILLIN SOD INJ 500 MG VIAL IV ONE ×2 (02:02→02:05)
[2019-06-20] MEDS ORDERED: RINGERS SOLUTION,LACTATED 500 ML IV ONE (03:44)
[2019-06-20] MEDS: RINGERS SOLUTION,LACTATED 1,000 ML IV SCH ×2 (04:40→05:40)
[2019-06-20] MEDS ORDERED: NOREPINEPHRINE BITARTRATE INJ/PF 4 MG/4 ML SDV IV ONE (05:22)
[2019-06-20] MEDS: DEXTROSE 5%-WATER 250 ML with NOREPINEPHRINE BITARTRATE 4 MG IV PRN ×10 (05:26→22:51)
[2019-06-20] MEDS ORDERED: DEXTROSE 50%-WATER 25 GM/50 ML DISP.SYRIN IV PRN ×2 (06:29)
[2019-06-20] MEDS ORDERED: GLUCAGON,HUMAN RECOMB 1 MG INJ IM PRN (06:29)
[2019-06-20] MEDS ORDERED: DEXTROSE 40% GEL 15 GM TUBE PO PRN ×2 (06:29)
[2019-06-20] MEDS ORDERED: METHYLPREDNISOLONE INJ 125 MG/2 ML SDV IV ONE (06:36)
[2019-06-20] MEDS ORDERED: VASOPRESSIN INJ 20 UNIT/1 ML VIAL ONE (06:38)
[2019-06-20] MEDS: DEXTROSE 5%-WATER 250 ML with VASOPRESSIN 100 UNIT IV PRN ×2 (06:44)
[2019-06-20] MEDS: METRONIDAZOLE 500 MG/NS RTU 500 MG/100 ML RTUPB IV SCH ×4 (06:57→23:28)
[2019-06-20 07:02] LABS: HEMATOCRIT 25.9 % (37.9-51.0); MEAN CORPUSCULAR HEMOGLOBIN 29.3 pg (27.0-33.4); MEAN CORPUSCULAR HGB CONC 33.6 g/dL (32.0-36.0); MEAN CORPUSCULAR VOLUME 87 fl (80-97); PLATELET COUNT 214 10^3/uL (150-450); RED BLOOD COUNT 2.97 10^6/uL (4.35-5.55); RED CELL DISTRIBUTION WIDTH 15.6 % (11.5-14.0); WHITE BLOOD COUNT 18.3 10^3/uL (4.0-10.5)
[2019-06-20] MEDS: RINGERS SOLUTION,LACTATED 1,000 ML IV PRN ×7 (07:04→20:27)
[2019-06-20 07:13] LABS: HEMOGLOBIN 8.7 g/dL (13.5-17.0)
[2019-06-20 07:29] LABS: ALBUMIN 1.4 g/dL (3.5-5.0); ALKALINE PHOSPHATASE 54 U/L (38-126); ANION GAP 11 (5-19); ASPARTATE AMINO TRANSFERASE 19 U/L (17-59); BILIRUBIN,TOTAL 0.5 mg/dL (0.2-1.3); BLOOD UREA NITROGEN 23 mg/dL (7-20); CARBON DIOXIDE 13 mmol/L (22-30); CHLORIDE 109 mmol/L (98-107); GLUCOSE 94 mg/dL (75-110); PHOSPHORUS 3.9 mg/dL (2.5-4.5); TOTAL PROTEIN 2.7 g/dL (6.3-8.2)
[2019-06-20 07:31] LABS: ABSOLUTE LYMPHOCYTES# (MANUAL) 0.2 10^3/uL (0.5-4.7); ABSOLUTE MONOCYTES # (MANUAL) 0.5 10^3/uL (0.1-1.4); BAND NEUTROPHILS % (MANUAL) 6 % (3-5); BASOPHILS % (MANUAL) 0 % (0-2); EOSINOPHILS % (MANUAL) 1 % (0-6); LYMPHOCYTES % (MANUAL) 1 % (13-45); MONOCYTES % (MANUAL) 3 % (3-13); SEGMENTED NEUTROPHILS % (MAN) 89 % (42-78); TOTAL CELLS COUNTED 100
[2019-06-20 07:32] LABS: ANISOCYTOSIS 1+; PLATELET COMMENT ADEQUATE; POLYCHROMASIA 1+
[2019-06-20 07:45] LABS: FREE T3 2.24 pg/mL (2.77-5.27); FREE T4 (FREE THYROXINE) 1.84 ng/dL (0.78-2.19)
[2019-06-20 07:51] LABS: CALCIUM 6.3 mg/dL (8.4-10.2); POTASSIUM 2.9 mmol/L (3.6-5.0)
[2019-06-20 07:59] LABS: THYROID STIMULATING HORMONE 1.53 uIU/mL (0.47-4.68)
[2019-06-20] MEDS ORDERED: AMPICILLIN SOD INJ 2 GM VIAL IV SCH (08:00)
[2019-06-20] MEDS ORDERED: NORMAL SALINE INJ/PF 0.9% 10 ML SDV IV PRN (08:39)
[2019-06-20] MEDS ORDERED: MAGNESIUM SULFATE IV ONE (09:21)
[2019-06-20] MEDS ORDERED: RIDER IV ONE (09:21)
[2019-06-20] MEDS ORDERED: D5W IV ONE (09:21)
[2019-06-20] MEDS ORDERED: POTASSI CL 20 MEQ/50 ML IV ONE (09:21)
[2019-06-20] MEDS: AMPICILLIN SODIUM 2 GM in NORMAL SALINE 100 ML IV SCH ×3 (09:39→20:26)
[2019-06-20] MEDS: PANTOPRAZOLE SODIUM 40 MG VIAL IV SCH (09:39)
[2019-06-20] MEDS: MAGNESIUM SULFATE/D5W 1 GM/100 ML RTUPB IV SCH ×4 (10:15→14:12)
[2019-06-20] MEDS: POTASSIUM CHLORIDE 20 MEQ/50 ML RTU IV SCH ×4 (10:15→16:20)
--- NOTE | 2019-06-20 10:19 | Progress Note ---
Provider Note Provider Note: Date/Time of initial encounter: 06/20/2019 at 00:[address] Mancera asked me to evaluate Mr Eckert to determine if he is an appropriate candidate for ICU admission at this time. From what I was informed, a brief HPI is that Mr. Eckert is a 58-year-old male recently diagnosed with C. difficile infection earlier this week and has been experiencing ongoing diarrhea, ultimately experiencing a syncopal episode while having a bowel movement at home today for which EMS was called and the patient was found to have a systolic blood pressure of 60. His BP improved with a couple liters of fluid, though remains tachycardia in the 130's. Physical Exam: A&O x4, no deficits CTA bilaterally S1S2 no M/R/G, radial pulses 2+ bilaterally, no peripheral edema hyperactive bowel sounds, soft, non-tender, currently with light brown mucoid diarrhea indwelling catheter with slightly concentrated urine No wounds visualized on anterior portions of his body I personally performed POCUS assessing volume status and focused cardiac exam demonstrating a hyperdynamic status with patient's ventricles appearing under- filled, IVC with 100% respirophasic collapse, and no current wall motion abnormalities. The patient had multiple loose incontinent BM's while I was in the room, which appeared to be a significant source of volume loss, though we were unable to quantify. EKG sinus tachcyardia without cardiac ischemia/infarction. Abdominal x-ray without free air, ileus, or evidence of SBO. Recommendations: -Patient still profoundly hypovolemic on ultrasound for which I recommend a liter of LR bolus followed by an infusion of 200 ml/hr to keep up with ongoing GI losses via diarrhea. -continue PO Vancomycin and IV Flagyl for his C-diff infection. -agree with CT abd/pelvis to attempt explaining vomiting -repeat lactate HR responded well to volume repletion while I was still at bedside during fluid boluses, decreasing from 136 to 122 bpm. Patient does not need intensive care at this time. BP has remained stable with improvement in tachycardia following IV hydration. Recommend continuing to monitor HR and keeping up with GI losses. Agree with CT scan to try to explain vomiting given there is no evidence of pneumoperitoneum, ileus, or SBO on x-ray. Courtesy follow up reassessment at 02:00 am: Upon further chart review, I discovered that the patient had Salmonella in stool Cx from 06/08/19 with sensitivity to fluoroquinolones, ampicillin, and bactrim. The patient has been receiving treatment for C-diff with PO vancomycin and flagyl with no significant improvement in symptoms, also with vomiting which isn't usual. It is a possibility that the Salmonella infection remains causing patient's ongoing symptoms. Patient was prescribed Meselamine empirically in case colonoscopy pathology returned with evidence of ulcerative colitis. Pathology report was dictated yesterday indicating no active colitis with d ifferential Dx of drug/allergic reaction, parasitic infection, or inflammatory bowel disease. CT abd/pelvis without any significant findings explaining vomiting. HR has improved to 114. BP remains stable in the mid to upper 90's for which both he and his report that is his baseline BP, MAP more than adequate. To note, he takes Midodrine at home. POCUS repeated by myself demonstrating respi rophasic changes of ventricles indicating patient still needs more hydration. He is likely still far behind in volume losses over the past week and his LVEF appears to be relatively normal, there is no right heart strain. Recommendations: -Continue with aggressive IV fluid repletion at this time given significant quantity of ongoing GI losses. -Treat Salmonella infection with Ampicillin given patient has allergy to fluoroquinolones and remains with unexplainable vomiting/diarrhea despite being treated for C-diff as an outpatient and colonoscopy pathology revealing no active colitis. It is possible that Salmonella may be the culprit for why the patient is experiencing ongoing GI symptomatology. -Recommend notifying Dr Lemon of pathology findings and discussion about considering treatment of Salmonella infection. -Notify ICU team if BP decreases or tachycardia worsens, warranting reassessment for triage to ICU. -Patient remains without a need for ICU at this time as his vital signs continue to improve and he reports feeling somewhat better with hydration. Disposition: Patient still does not need intensive care at this time as his BP has remained stable at his baseline and tachycardia has continued to improve further with IV hydration. Recommend continuing to monitor HR and keeping up with GI losses. Please do not hesitate to call if there is a change in patient condition for which I am happy to re-evaluate the patient again; discussed the above with Dr Mancera in [id number] consultation. Total critical care time spent on initial & follow-up encounter: 65 minutes
--- NOTE | 2019-06-20 10:39 | EKG REPORT ---
SEVERITY:- BORDERLINE ECG - SINUS RHYTHM BORDERLINE PROLONGED QT INTERVAL IVCD : Confirmed by: Dago Haider MD 20-Jun-2019 10:39:18
[2019-06-20] MEDS ORDERED: FLUTICASONE IH PRN (11:02)
[2019-06-20] MEDS ORDERED: SALMETEROL IH PRN (11:02)
--- NOTE | 2019-06-20 11:06 | CRITICAL CARE ADMISSION REPORT ---
HPI Date:: 06/20/19 Time:: 04:00 Reason for ICU Reason:: Hypotension HPI: Mr Eckert is a 58-year-old male recently diagnosed with C. difficile and Salmonella who presented to [facility] with a chief complaint of nause, vomiting, and diarrhea. Patient reportedly had a syncopal episode while on the commode at home for which he was found to have a BP of 60/30 when EMS arrived. He received a 300 mL bolus with improvement in mental status per EMS. Mr Eckert received aggressive hydration with IV fluids in the ED for which his tachycardia resolved and HR decreased from 139 to 90s in NSR, BP initially improved to mid-90s systolic with a MAP >70 which was stable for several hours until he subsequently became hypotensive around 04:00 am for which I was c ontacted. Patient was noted to have a SBP of 50s-60s, though HR remained 99 as well as patient remaining A&O x4, denying chest pain, shortness of breath. The decision was made to transfer Mr Eckert to the ICU for placement of an arterial line and keeping up with ongoing GI losses. For additional interval Hx, please see my provider note from earlier this morning. History obtained from:: patient, ER physician, medical record - Diagnosis/Plan (1) Septic shock Is this a current diagnosis for this admission?: Yes (2) Lactic acidosis Is this a current diagnosis for this admission?: Yes (3) Salmonella infection Is this a current diagnosis for this admission?: Yes (4) C. difficile colitis Is this a current diagnosis for this admission?: Yes (5) Aortic valve prosthesis present Is this a current diagnosis for this admission?: Yes Plan: Hx Bovine AVR (6) CLARISSE (acute kidney injury) Is this a current diagnosis for this admission?: Yes (7) Protein calorie malnutrition Is this a current diagnosis for this admission?: Yes (8) Atypical syncope Is this a current diagnosis for this admission?: Yes Plan: Likely vasovagal in combination with hypovolemia as etiology. (9) Nausea and vomiting Qualifiers: Vomiting type: unspecified Vomiting Intractability: non-intractable Qualified Code(s): R11.2 - Nausea with vomiting, unspecified Is this a current diagnosis for this admission?: Yes - . Plan Summary: Admit to ICU for placement of arterial line and keeping up with volume repletion considering ongoing GI losses and persistent intravascular hypovolemia. Repeat EKG, obtain formal TTE to r/o cardiac etiology for persistent hypotension. Echo in November 2018 with LVEF 60%. Check cortisol level and start steroids for possible adrenal insufficiency. Check TSH, T3, T4 levels. Place central line and initiate Norepinephrine prn if hypotension persists. Repeat metabolic panel as well as lactic acid to f/u renal function, electrolytes, and sepsis. NPO, anti-emetics prn. Start diet when able given malnutrition. Add IV Flagyl and PO Vancomycin to Ampicillin covering for C-diff as well. Start accuchecks with ISS coverage prn for glycemic control. Bedrest. Past Medical History Cardiac Medical History: Reports: Hyperlipidema, Hypertension, Heart Murmur Denies: Atrial Fibrillation, Coronary Artery Disease, Myocardial Infarction - PATENT DUCTUS ARTERIOSUS Pulmonary Medical History: Reports: Pneumonia - SEPTIC SHOCK, Respiratory Failur e Denies: Asthma, Bronchitis, Chronic Obstructive Pulmonary Disease (COPD) EENT Medical History: Reports: None Neurological Medical History: Reports: None Endocrine Medical History: Denies: Diabetes Mellitus Type 1, Diabetes Mellitus Type 2, Hyperthyroidism, Hypothyroidism Renal/ Medical History: Denies: Chronic Kidney Disease Malignancy Medical History: Reports: None GI Medical History: Denies: Cirrhosis, Crohn's Disease, Hepatitis, Ulcerative Colitis Musculoskeltal Medical History: Denies: Arthritis, Gout Skin Medical History: Denies: Eczema, Psoriasis Psychiatric Medical History: Reports: Depression Traumatic Medical History: Reports: None Hematology: Denies: Anemia, Sickle Cell Disease, Bleeding Tendencies Infectious Medical History: Reports: Clostridium Difficile - recently diagnosed May 2019 Denies: HIV Past Surgical History Past Surgical History: Reports: Cardiac Catheterization, Cholecystectomy, Valve Replacement - Bovine pericardial tissue aortic valve replacement February 2015, Vascular Surgery - Closure of patent ductus arteriosus Social/Family History - Social History Lives with: Spouse/Significant other Smoking Status: Unknown if Ever Smoked Frequency of Alcohol Use: None Hx Recreational Drug Use: No Drugs: None Hx Prescription Drug Abuse: No - Family History Family History: Hypertension - Medication/Allergies Home Medications: Albuterol Sulfate [Proair Hfa Inhalation Aerosol 8.5 gm Mdi] 1 puff IH Q6HP PRN 06/20/19 Aspirin [Adult Low Dose Aspirin EC] 81 mg PO DAILY 06/20/19 Atorvastatin Calcium [Lipitor 20 mg Tablet] 20 mg PO QHS 06/20/19 Budesonide [Entocort EC] 27 mg PO DAILY 06/20/19 Desloratadine [Clarinex] 5 mg PO DAILY 06/20/19 Fluoxetine HCl [Prozac 20 mg Capsule] 20 mg PO DAILY 06/20/19 Fluticasone/Salmeterol [Advair 250-50 Diskus 14 Dose/Diskus] 14 inh IH PRN PRN 06/20/19 Furosemide [Lasix 40 mg Tablet] 40 mg PO Q2D 06/20/19 Midodrine HCl 10 mg PO TID 06/20/19 Montelukast Sodium [Singulair 10 mg Tablet] 10 mg PO DAILY 06/20/19 Omeprazole 20 mg PO DAILY 06/20/19 Ondansetron HCl [Zofran 4 mg Tablet] 1 tab PO Q8 06/20/19 Sodium Bicarbonate [Sodium Bicarbonate 650 mg Tablet] 650 mg PO QID 06/20/19 Vancomycin HCl [Vancocin HCl] 125 mg PO Q6 06/20/19 Allergies/Adverse Reactions: doxycycline Allergy (Verified 06/08/19 10:52) levofloxacin [From Levaquin] Allergy (Verified 06/08/19 10:52) Review of Systems Constitutional: ABSENT: chills, headache(s), night sweats Eyes: ABSENT: visual disturbances Ears: ABSENT: hearing changes Nose, Mouth, and Throat: ABSENT: mouth pain, sore throat Cardiovascular: ABSENT: chest pain, dyspnea on exertion, edema, palpitations Respiratory: ABSENT: cough, dyspnea, hemoptysis, sputum Gastrointestinal: PRESENT: diarrhea, nausea, vomiting. ABSENT: abdominal pain, coffee ground emesis, dysphagia, hematemesis, hematochezia, melena Genitourinary: ABSENT: dysuria, hematuria Musculoskeletal: ABSENT: deformity, joint swelling Integumentary: ABSENT: diaphoresis, erythema, lesions, wounds Neurological: PRESENT: syncope. ABSENT: confusion, paresthesias, vertigo Psychiatric: ABSENT: anxiety, depression, hallucinations Endocrine: PRESENT: cold intolerance. ABSENT: polydipsia, polyphagia, polyuria Hematologic/Lymphatic: ABSENT: easy bleeding, lymphadenopathy Physical Exam Vital Signs: Temp Pulse Resp BP Pulse Ox 98.6 F 90 29 H 86/49 L 100 06/20/19 08:00 06/20/19 08:00 06/20/19 08:00 06/20/19 08:00 06/20/19 08:00 Intake & Output 06/19/19 06/20/19 06/21/19 06:59 06:59 06:59 Intake Total 4014 2390 Output Total 222 Balance 4014 2168 Weight 54.5 kg Weight/Height Weight 54.5 kg Height 5 ft 9 in General appearance: PRESENT: no acute distress, cooperative, thin, other - malnourished appearance. ABSENT: hard of hearing Head exam: PRESENT: atraumatic, normocephalic Eye exam: PRESENT: conjunctiva pink, EOMI, PERRLA. ABSENT: scleral icterus Ear exam: PRESENT: normal external ear exam Mouth exam: PRESENT: dry mucosa, neck supple, tongue midline Throat exam: ABSENT: post pharyngeal erythema Neck exam: PRESENT: full ROM. ABSENT: carotid bruit, JVD, lymphadenopathy, tenderness, tracheal deviation Respiratory exam: PRESENT: clear to auscultation trevin, symmetrical, unlabored. ABSENT: accessory muscle use Cardiovascular exam: PRESENT: RRR, +S1, +S2 Pulses: PRESENT: normal carotid pulses, +1 pedal pulses bilateral, other - 1+ bilateral radial pulses Vascular exam: PRESENT: normal capillary refill GI/Abdominal exam: PRESENT: hyperactive bowel sounds, soft. ABSENT: distended, Pennington's sign, rebound, tenderness Rectal exam: PRESENT: other - light brown mucoid stool Gentrourinary exam: PRESENT: indwelling catheter - placed in ED. ABSENT: erythema, lesions, scrotal swelling, testicular tenderness, urethral discharge Extremities exam: PRESENT: full ROM. ABSENT: calf tenderness, joint swelling, pedal edema, tenderness Musculoskeletal exam: PRESENT: full ROM Neurological exam: PRESENT: alert, awake, oriented to person, oriented to place, oriented to time, oriented to situation, CN II-XII grossly intact Psychiatric exam: PRESENT: appropriate affect Skin exam: PRESENT: dry, intact. ABSENT: jaundice Laboratory/Radiographs Laboratory Results: 06/20/19 06:40 06/20/19 06:40 06/19/19 06/19/19 06/19/19 19:05 19:05 19:05 WBC 22.3 H RBC 5.08 Hgb 14.7 Hct 45.7 MCV 90 MCH 28.8 MCHC 32.1 RDW 16.3 H Plt Count 411 Seg Neutrophils % Not Reportable Sodium Cancelled Potassium Cancelled Chloride Cancelled Carbon Dioxide Cancelled Anion Gap Cancelled BUN Cancelled Creatinine Cancelled Est GFR ( Amer) Cancelled Est GFR (Non-Af Amer) Cancelled Glucose Cancelled Lactic Acid 6.7 H Calcium Cancelled Ionized Calcium Ryan Phosphorus Magnesium Total Bilirubin Cancelled AST Cancelled Alkaline Phosphatase Cancelled Total Protein Cancelled Albumin Cancelled TSH Free T4 Free T3 pg/mL Urine Color Urine Appearance Urine pH Ur Specific Mcleod Urine Protein Urine Glucose (UA) Urine Ketones Urine Blood Urine Nitrite Ur Leukocyte Esterase Urine WBC (Auto) Urine RBC (Auto) 06/19/19 06/19/19 06/20/19 19:15 21:35 01:35 WBC RBC Hgb Hct MCV MCH MCHC RDW Plt Count Seg Neutrophils % Sodium 136.3 L Potassium 3.3 L Chloride 107 Carbon Dioxide 11 L Anion Gap 18 BUN 26 H Creatinine 2.60 H Est GFR ( Amer) 31 L Est GFR (Non-Af Amer) Glucose 109 Lactic Acid 3.5 H Calcium 7.4 L Ionized Calcium Ryan Phosphorus Magnesium Total Bilirubin 0.4 AST 20 Alkaline Phosphatase 98 Total Protein 4.7 L Albumin 2.6 L TSH Free T4 Free T3 pg/mL Urine Color YELLOW Urine Appearance SLIGHTLY-CLOUDY Urine pH 6.0 Ur Specific Mcleod 1.014 Urine Protein 30 H Urine Glucose (UA) NEGATIVE Urine Ketones NEGATIVE Urine Blood NEGATIVE Urine Nitrite NEGATIVE Ur Leukocyte Esterase NEGATIVE Urine WBC (Auto) 3 Urine RBC (Auto) 1 06/20/19 06/20/19 06/20/19 06:40 06:40 06:40 WBC 18.3 H RBC 2.97 L Hgb 8.7 L D Hct 25.9 L MCV 87 MCH 29.3 MCHC 33.6 RDW 15.6 H Plt Count 214 Seg Neutrophils % Not Reportable Sodium 133.0 L Potassium 2.9 L* Chloride 109 H Carbon Dioxide 13 L Anion Gap 11 BUN 23 H Creatinine 2.66 H Est GFR ( Amer) 30 L Est GFR (Non-Af Amer) Glucose 94 Lactic Acid Calcium 6.3 L* Ionized Calcium Ryan 1.01 L Phosphorus 3.9 Magnesium 0.8 L* Total Bilirubin 0.5 AST 19 Alkaline Phosphatase 54 Total Protein 2.7 L Albumin 1.4 L TSH Free T4 Free T3 pg/mL Urine Color Urine Appearance Urine pH Ur Specific Mcleod Urine Protein Urine Glucose (UA) Urine Ketones Urine Blood Urine Nitrite Ur Leukocyte Esterase Urine WBC (Auto) Urine RBC (Auto) 06/20/19 06/20/19 06:40 06:40 WBC RBC Hgb Hct MCV MCH MCHC RDW Plt Count Seg Neutrophils % Sodium Potassium Chloride Carbon Dioxide Anion Gap BUN Creatinine Est GFR ( Amer) Est GFR (Non-Af Amer) Glucose Lactic Acid 3.6 H Calcium Ionized Calcium Ryan Phosphorus Magnesium Total Bilirubin AST Alkaline Phosphatase Total Protein Albumin TSH 1.53 Free T4 1.84 Free T3 pg/mL 2.24 L Urine Color Urine Appearance Urine pH Ur Specific Mcleod Urine Protein Urine Glucose (UA) Urine Ketones Urine Blood Urine Nitrite Ur Leukocyte Esterase Urine WBC (Auto) Urine RBC (Auto) 06/19/19 06/20/19 19:05 06:40 CK-MB (CK-2) 1.83 Troponin I < 0.012 0.080 Impressions: Acute Abdomen Series 06/19/19 19:11 IMPRESSION: Small bowel appears decompressed as compared to the previous CT examination without significant dilatation to suggest obstruction Abdomen/Pelvis CT 06/19/19 21:15 IMPRESSION: Mild wall thickening in segments of small bowel as well as in the colon which may reflect infectious or inflammatory enterocolitis. C. Difficile colitis is not excluded but this is not a typical appearance Ventral hernia containing omental fat similar to the previous study with a small amount of stranding Small amount of density in the left base which may reflect inflammatory or infectious process Heterogeneity involving the inferior margin of the gluteal muscles on the left which may be secondary to volume averaging. The possibility of hematoma or infection is not excluded. Recommend clinical correlation Head CT 06/19/19 21:15 IMPRESSION: No acute intracranial abnormality is identified. Findings which may reflect sinusitis in the appropriate clinical setting All labs, radiographs, diagnostic studies and EKGs were personally reviewed: Yes Critical Time Critical Time (minutes): 110 - total time collectively spent providing critical care to Mr Eckert which includes initial provider note earlier this morning and is independent of procedure time. -: The care of a critically ill patient is dynamic. This note represents a static moment in the admission process. Orders and treatments may be given simultaneously and urgently, and time is not labor service representative of the treatment process. This patient requires Critical Care secondary to life threatening organ or limb dysfunction. Without Critical Care services, the patient is at risk for increased mortality and morbidity.
[2019-06-20] MEDS ORDERED: BUDESONIDE PO SCH (11:15)
[2019-06-20] MEDS ORDERED: (PENDING PHARMACY ID) (Midodrine Hcl [Midodrine Hcl] 10 MG) PO SCH (11:15)
[2019-06-20] MEDS: SODIUM BICARBONATE 650 MG TABLET PO SCH ×4 (11:52→21:07)
[2019-06-20] MEDS: INSULIN REG, HUMAN 100 UNIT/ML 3 ML VIAL (PYX) SUBCUT SCH ×3 (12:52→23:28)
[2019-06-20] MEDS ORDERED: ALBUTEROL SULFATE HFA (90 MCG/PUFF) 200 PUFF/8.5 GM MDI IH PRN (13:00)
[2019-06-20] MEDS: VANCOMYCIN HCL INJ 500 MG VIAL PO SCH ×3 (13:14→23:28)
[2019-06-20] MEDS: HEPARIN SOD (PORCINE) 5,000 UNIT/ML 1 ML VIAL SUBCUT SCH ×2 (13:15→21:07)
[2019-06-20] MEDS: ONDANSETRON 4 MG TAB.RAPDIS PO SCH ×2 (13:56→21:07)
[2019-06-20] MEDS: MIDODRINE HCL 5 MG TABLET PO SCH ×2 (13:56→17:44)
--- NOTE | 2019-06-20 14:21 | XCELERA REPORT ---
[address] [address] Transthoracic Echocardiogram Report Name: BLU JIMENES JR Age: 58 yrs Gender: Male : 1960 Patient Status: Inpatient Patient Location: ICU^[id number] Study Date: 06/20/2019 01:20 PM Height: 69 in Weight: 120 lb BSA: 1.7 m2 Procedure: A two-dimensional transthoracic echocardiogram with color flow and Doppler was performed. Study Quality: Fair. Reason For Study: heart failure History: HEART FAILURE. Ordering Physician: KANDICE MORGAN Performed By: Blue Locke Interpretation Summary The left ventricle is normal in size. There is normal left ventricular wall thickness. LV EF is 55% to 60% Left ventricular systolic function is normal. Doppler measurements suggest pseudonormalized left ventricular relaxation, which is associated with grade II/IV or mild to moderate diastolic dysfunction The left ventricular wall motion is normal. There is no thrombus. No ASD,VSD , or PFO seen. The right ventricle is moderately dilated. There is mild to moderate right ventricular hypertrophy. The right ventricular systolic function is mildly reduced. The right atrium is mild to moderately dilated. The left atrial size is normal. There is no evidence of mitral valve prolapse. There is no vegetation seen on the mitral valve. There is no mitral valve stenosis. There is a mild amount of mitral regurgitation There is a bioprosthetic aortic valve. There is a peak gradient of 22 mm of Hg. Mild resenosis of the bioprosthetic Aortic Valve. There is no LVOT obstruction. No aortic regurgitation is present. There is no tricuspid stenosis. There is a moderate amount of tricuspid regurgitation There is servere pulmonary hypertension by echo RVSP is 71 to 76 mm of Hg , with RA mean of 15 to 20. There is no pulmonic valvular stenosis. There is no pulmonic valvular regurgitation. The aortic root is normal size. The inferior vena cava appeared dilated and decreased < 50% with respiration (RAP 15-20 mmHg) There is no pericardial effusion. MMode/2D Measurements & Calculations RVDd: 3.6 cm LVIDd: 4.2 cm FS: 30.4 % Ao root diam: 2.7 cm IVSd: 0.94 cm LVIDs: 2.9 cm EDV(Teich): 76.6 ml Ao root area: 5.9 cm2 LVPWd: 0.90 cm ESV(Teich): 32.0 ml LA dimension: 3.3 cm EF(Teich): 58.2 % LVOT diam: 1.9 cm LVOT area: 2.9 cm2 Doppler Measurements & Calculations MV E max ijeoma: MV P1/2t max ijeoma: Ao V2 max: LV V1 max P.2 cm/sec 78.4 cm/sec 236.6 cm/sec 9.5 mmHg MV A max ijeoma: MV P1/2t: 35.4 msec Ao max PG: LV V1 mean P.2 cm/sec MVA(P1/2t): 6.2 cm2 22.4 mmHg 5.0 mmHg MV E/A: 0.62 MV dec slope: Ao V2 mean: LV V1 max: 162.0 cm/sec 154.0 cm/sec 649.9 cm/sec2 Ao mean PG: LV V1 mean: MV dec time: 0.13 sec 12.0 mmHg 103.1 cm/sec Ao V2 VTI: 37.3 cmLV V1 VTI: 21.8 cm SHEILA(I,D): 1.7 cm2 SHEILA(V,D): 1.9 cm2 SV(LVOT): 62.5 ml PA V2 max: TR max ijeoma: MV P1/2t-pr_phl: 85.9 cm/sec 374.6 cm/sec 35.4 msec PA max P.0 mmHg TR max P.1 mmHg Left Ventricle The left ventricle is normal in size. There is normal left ventricular wall thickness. LV EF is 55% to 60%. Left ventricular systolic function is normal. Doppler measurements suggest pseudonormalized left ventricular relaxation, which is associated with grade II/IV or mild to moderate diastolic dysfunction. The left ventricular wall motion is normal. Paradoxical septal motion is consistent with right ventricular volume overload. There is no thrombus. No ASD,VSD , or PFO seen. Right Ventricle The right ventricle is moderately dilated. There is mild to moderate right ventricular hypertrophy. The right ventricular systolic function is mildly reduced. Atria The right atrium is mild to moderately dilated. The left atrial size is normal. Mitral Valve There is no evidence of mitral valve prolapse. There is no vegetation seen on the mitral valve. There is no mitral valve stenosis. There is a mild amount of mitral regurgitation. Aortic Valve There is a peak gradient of 22 mm of Hg. Mild resenosis of the bioprosthetic Aortic Valve. There is no LVOT obstruction. No aortic regurgitation is present. There is a bioprosthetic aortic valve. Tricuspid Valve There is no tricuspid stenosis. There is a moderate amount of tricuspid regurgitation. There is servere pulmonary hypertension by echo. RVSP is 71 to 76 mm of Hg , with RA mean of 15 to 20. Pulmonic Valve There is no pulmonic valvular stenosis. There is no pulmonic valvular regurgitation. Great Vessels The aortic root is normal size. The inferior vena cava appeared dilated and decreased < 50% with respiration (RAP 15-20 mmHg). Effusions There is no pericardial effusion. : KANDICE MORGAN Lakshmi
--- NOTE | 2019-06-20 19:18 | PDOC CONSULTATION ---
Consultation Consult Date: 06/20/19 Provider Consulted: BRAYAN ZAZUETA History of Present Illness Admission Date/PCP: 06/20/19 03:43 ABBY ELLIOTT History of Present Illness: BLU JIMENES JR is a 58 year old male who was admitted yesterday with diarrhea, vomiting, fever, hypotension and elevated WBC. I saw the patient 4 days ago for a colonoscopy which showed mild nonspecific colitis involving the left and right colon. He started feeling sick the night after his colonoscopy with vomiting followed by diarrhea. His stools have been very watery and he has been feeling dizzy. He presented to the emergency room 2 days ago but was felt stable enough to be discharged. He was brought back today after passing out and hypotension. He also had a high fever with a white count of 22. His colonoscopy was performed for recurrent diarrhea that has been going on for at least a year. He has had evidence of colitis on CAT scan since 2018 and a colonoscopy about a year ago by Dr. Inman also showed colitis. He had Salmonella identified in his stool about 6 months ago and again on 06/08/19. His stool from 06/18/2019 also showed Salmonella. He has also grown VRE in his stool about 3 times in the last 6 months. His stool was positive for C. difficile a few weeks ago though his colonoscopy showed no evidence of pseudomembranes. He has been treated with Cipro and Flagyl a couple of times over the last few m [facility]. He has continued to use vancomycin for the last 10 days and I started him on Apriso for possible inflammatory bowel disease. I felt that the recurrent Salmonella in his stool may have been from a carrier status though his current illness is consistent with an acute infection. Pathology of his left and right colon biopsy showed numerous eosinophils with no features of active colitis noted. There was some giant cells but no granulomas identified. No organisms were identified on GMS stain and AFB stain. On admission he had a left shift but his absolute eosinophils was only 0.9. Past Medical History Cardiac Medical History: Reports: Hyperlipidema, Hypertension, Heart Murmur Denies: Atrial Fibrillation, Coronary Artery Disease, Myocardial Infarction - PATENT DUCTUS ARTERIOSUS Pulmonary Medical History: Reports: Pneumonia - SEPTIC SHOCK, Respiratory Failure Denies: Asthma, Bronchitis, Chronic Obstructive Pulmonary Disease (COPD) EENT Medical History: Reports: None Neurological Medical History: Reports: None Denies: Seizures Endocrine Medical History: Denies: Diabetes Mellitus Type 1, Diabetes Mellitus Type 2, Hyperthyroidism, Hypothyroidism Renal/ Medical History: Denies: Chronic Kidney Disease Malignancy Medical History: Reports: None GI Medical History: Denies: Cirrhosis, Crohn's Disease, Hepatitis, Ulcerative Colitis Musculoskeltal Medical History: Denies: Arthritis, Gout Skin Medical History: Denies: Eczema, Psoriasis Psychiatric Medical History: Reports: Depression Traumatic Medical History: Reports: None Denies: Gunshot Wound, Pneumothorax Hematology: Denies: Anemia, Sickle Cell Disease, Bleeding Tendencies Infectious Medical History: Reports: Clostridium Difficile - recently diagnosed May 2019 Denies: HIV Past Surgical History Past Surgical History: Reports: Cardiac Catheterization, Cholecystectomy, Valve Replacement - Bovine pericardial tissue aortic valve replacement February 2015, Vascular Surgery - Closure of patent ductus arteriosus Social History Lives with: Spouse/Significant other Smoking Status: Unknown if Ever Smoked Frequency of Alcohol Use: None Hx Recreational Drug Use: No Drugs: None Hx Prescription Drug Abuse: No Family History Family History: Hypertension Parental Family History Reviewed: No Children Family History Reviewed: NA Sibling(s) Family History Reviewed.: NA Medication/Allergy Home Medications: Albuterol Sulfate [Proair Hfa Inhalation Aerosol 8.5 gm Mdi] 1 puff IH Q6HP PRN 06/20/19 Aspirin [Adult Low Dose Aspirin EC] 81 mg PO DAILY 06/20/19 Atorvastatin Calcium [Lipitor 20 mg Tablet] 20 mg PO QHS 06/20/19 Budesonide [Entocort EC] 27 mg PO DAILY 06/20/19 Desloratadine [Clarinex] 5 mg PO DAILY 06/20/19 Fluoxetine HCl [Prozac 20 mg Capsule] 20 mg PO DAILY 06/20/19 Furosemide [Lasix 40 mg Tablet] 40 mg PO Q2D 06/20/19 Midodrine HCl 10 mg PO TID 06/20/19 Montelukast Sodium [Singulair 10 mg Tablet] 10 mg PO DAILY 06/20/19 Omeprazole 20 mg PO DAILY 06/20/19 Ondansetron HCl [Zofran 4 mg Tablet] 1 tab PO Q8 06/20/19 Sodium Bicarbonate [Sodium Bicarbonate 650 mg Tablet] 650 mg PO QID 06/20/19 Vancomycin HCl [Vancocin HCl] 125 mg PO Q6 06/20/19 Allergies/Adverse Reactions: doxycycline Allergy (Verified 06/08/19 10:52) levofloxacin [From Levaquin] Allergy (Verified 06/08/19 10:52) Review of Systems All systems: reviewed and no additional remarkable complaints except as stated Physical Exam Vital Signs: Temp Pulse Resp BP Pulse Ox 97.7 F 87 30 H 104/74 100 06/20/19 18:20 06/20/19 17:42 06/20/19 18:20 06/20/19 18:13 06/20/19 18:13 Intake & Output 06/19/19 06/20/19 06/21/19 06:59 06:59 06:59 Intake Total 4014 7698 Output Total 2016 Balance 4014 5681 Weight 54.5 kg 54.5 kg Exam: General: Patient is alert and looks well. HEENT: There is no pallor or jaundice. PERRLA. Oropharynx normal Respiratory: No chest deformity. No respiratory distress. Chest wall palpitation was unremarkable. Breath sounds were normal Cardiovascular: Heart sounds 1 and 2 normal with no murmurs. Abdominal: Not distended. Soft and nontender. Liver and spleen not palpable. No ascites demonstrated. Bowel sounds active. Rectal examination was deferred. Extremities: No edema Neurological: Alert and oriented x4. Grossly nonfocal. Normal speech Skin: No significant rash Psychological: Normal affect Results Laboratory Results: 06/20/19 06:40 06/20/19 06:40 06/19/19 06/19/19 06/19/19 19:05 19:05 19:05 WBC 22.3 H RBC 5.08 Hgb 14.7 Hct 45.7 MCV 90 MCH 28.8 MCHC 32.1 RDW 16.3 H Plt Count 411 Seg Neutrophils % Not Reportable Sodium Cancelled Potassium Cancelled Chloride Cancelled Carbon Dioxide Cancelled Anion Gap Cancelled BUN Cancelled Creatinine Cancelled Est GFR ( Amer) Cancelled Est GFR (Non-Af Amer) Cancelled Glucose Cancelled Lactic Acid 6.7 H Calcium Cancelled Ionized Calcium Ryna Phosphorus Magnesium Total Bilirubin Cancelled AST Cancelled Alkaline Phosphatase Cancelled Total Protein Cancelled Albumin Cancelled TSH Free T4 Free T3 pg/mL Urine Color Urine Appearance Urine pH Ur Specific [place] Urine Protein Urine Glucose (UA) Urine Ketones Urine Blood Urine Nitrite Ur Leukocyte Esterase Urine WBC (Auto) Urine RBC (Auto) 06/19/19 06/19/19 06/20/19 19:15 21:35 01:35 WBC RBC Hgb Hct MCV MCH MCHC RDW Plt Count Seg Neutrophils % Sodium 136.3 L Potassium 3.3 L Chloride 107 Carbon Dioxide 11 L Anion Gap 18 BUN 26 H Creatinine 2.60 H Est GFR ( Amer) 31 L Est GFR (Non-Af Amer) Glucose 109 Lactic Acid 3.5 H Calcium 7.4 L Ionized Calcium Ryan Phosphorus Magnesium Total Bilirubin 0.4 AST 20 Alkaline Phosphatase 98 Total Protein 4.7 L Albumin 2.6 L TSH Free T4 Free T3 pg/mL Urine Color YELLOW Urine Appearance SLIGHTLY-CLOUDY Urine pH 6.0 Ur Specific [place] 1.014 Urine Protein 30 H Urine Glucose (UA) NEGATIVE Urine Ketones NEGATIVE Urine Blood NEGATIVE Urine Nitrite NEGATIVE Ur Leukocyte Esterase NEGATIVE Urine WBC (Auto) 3 Urine RBC (Auto) 1 06/20/19 06/20/19 06/20/19 06:40 06:40 06:40 WBC 18.3 H RBC 2.97 L Hgb 8.7 L D Hct 25.9 L MCV 87 MCH 29.3 MCHC 33.6 RDW 15.6 H Plt Count 214 Seg Neutrophils % Not Reportable Sodium 133.0 L Potassium 2.9 L* Chloride 109 H Carbon Dioxide 13 L Anion Gap 11 BUN 23 H Creatinine 2.66 H Est GFR ( Amer) 30 L Est GFR (Non-Af Amer) Glucose 94 Lactic Acid Calcium 6.3 L* Ionized Calcium Ryan 1.01 L Phosphorus 3.9 Magnesium 0.8 L* Total Bilirubin 0.5 AST 19 Alkaline Phosphatase 54 Total Protein 2.7 L Albumin 1.4 L TSH Free T4 Free T3 pg/mL Urine Color Urine Appearance Urine pH Ur Specific [place] Urine Protein Urine Glucose (UA) Urine Ketones Urine Blood Urine Nitrite Ur Leukocyte Esterase Urine WBC (Auto) Urine RBC (Auto) 06/20/19 06/20/19 06:40 06:40 WBC RBC Hgb Hct MCV MCH MCHC RDW Plt Count Seg Neutrophils % Sodium Potassium Chloride Carbon Dioxide Anion Gap BUN Creatinine Est GFR ( Amer) Est GFR (Non-Af Amer) Glucose Lactic Acid 3.6 H Calcium Ionized Calcium Ryan Phosphorus Magnesium Total Bilirubin AST Alkaline Phosphatase Total Protein Albumin TSH 1.53 Free T4 1.84 Free T3 pg/mL 2.24 L Urine Color Urine Appearance Urine pH Ur Specific [place] Urine Protein Urine Glucose (UA) Urine Ketones Urine Blood Urine Nitrite Ur Leukocyte Esterase Urine WBC (Auto) Urine RBC (Auto) 06/19/19 06/20/19 19:05 06:40 CK-MB (CK-2) 1.83 Troponin I < 0.012 0.080 Impressions: Acute Abdomen Series 06/19/19 19:11 IMPRESSION: Small bowel appears decompressed as compared to the previous CT examination without significant dilatation to suggest obstruction Abdomen/Pelvis CT 06/19/19 21:15 IMPRESSION: Mild wall thickening in segments of small bowel as well as in the colon which may reflect infectious or inflammatory enterocolitis. C. Difficile colitis is not excluded but this is not a typical appearance Ventral hernia containing omental fat similar to the previous study with a small amount of stranding Small amount of density in the left base which may reflect inflammatory or infectious process Heterogeneity involving the inferior margin of the gluteal muscles on the left which may be secondary to volume averaging. The possibility of hematoma or infection is not excluded. Recommend clinical correlation Head CT 06/19/19 21:15 IMPRESSION: No acute intracranial abnormality is identified. Findings which may reflect sinusitis in the appropriate clinical setting Assessment & Plan - Diagnosis (1) Colitis Is this a current diagnosis for this admission?: Yes Plan: Patient has had recurrent diarrhea for many months associated with evidence of colitis on CAT scan and 2 colonoscopies within the last year. He has significant eosinophilia in his colon biopsy without much inflammation. He also does not have significant peripheral eosinophilia. Differential diagnosis for his symptoms include infectious colitis including Salmonella, inflammatory bowel disease which is less likely with the absence of active colitis on pathology, and eosinophilic gastroenteritis. He is currently on vancomycin, ampicillin, Flagyl and Solu-Medrol. I sent him for stool O&P, repeat C. difficile, Strongyloides and Toxocara. He has only had about 450 mL of stool over the last 12 hours and he does feel better overall. (3) Salmonella infection Is this a current diagnosis for this admission?: Yes (4) Sepsis Qualifiers: Sepsis type: sepsis due to unspecified organism Sepsis acute organ dysfunction status: unspecified Qualified Code(s): A41.9 - Sepsis, unspecified organism
[2019-06-20] MEDS ORDERED: METHYLPREDNISOLONE INJ 40 MG/1 ML SDV IV SCH (20:00)
[2019-06-20 21:05] LABS: POTASSIUM 3.7 mmol/L (3.6-5.0)
[2019-06-20] MEDS: METHYLPREDNISOLONE INJ 40 MG/1 ML SDV IV SCH (21:10)
[2019-06-20] MEDS ORDERED: SILDENAFIL CITRATE 20 MG TABLET ONE (21:27)
[2019-06-20] MEDS: SILDENAFIL CITRATE 20 MG TABLET PO SCH (21:30)
--- NOTE | 2019-06-20 21:39 | RADIOLOGY REPORT (SQ) ---
EXAM DESCRIPTION: XR CHEST 1 VIEW COMPLETED DATE/TME: 06/20/2019 00:00 CLINICAL HISTORY: 58 years, Male, right heart failure; r/o pulmonary process COMPARISON: 06/18/2019 chest NUMBER OF VIEWS: 1 TECHNIQUE: Portable chest LIMITATIONS: None. FINDINGS: Heart size is stable. Stable postsurgical change. Osteopenia. Underlying COPD. Chronic pleural thickening bilaterally. No pneumothorax IMPRESSION: COPD. No acute cardiopulmonary process copyright 2010 [employer]- All Rights Reserved
[2019-06-20 21:57] LABS: ANION GAP 12 (5-19); BLOOD UREA NITROGEN 21 mg/dL (7-20); CARBON DIOXIDE 14 mmol/L (22-30); CHLORIDE 104 mmol/L (98-107); GLUCOSE 176 mg/dL (75-110)
[2019-06-20 22:10] LABS: CALCIUM 6.8 mg/dL (8.4-10.2)
--- NOTE | 2019-06-21 00:11 | Operative Report ---
Bedside Procedure - History of Present Illness History of Present Illness: 58 year-old male with recent diagnosis of C-diff and Salmonella infections whom presented with vomiting/diarrhea that has not improved with recent treatment for C-diff colitis now in septic shock with SBP 50s. Procedures: Arterial line insertion AND Central line insertion Pre-procedure Dx: septic shock Post-procedure Dx: septic shock Proceduralist: ALLI Meade Anesthesia: total of 10 mL of 1% Lidocaine without Epinephrine EBL: 15 mL Complications: Initially a left radial arterial catheter placement was attempted but the artery collapsed on itself under tension from the needle with severe hypovolemia resulting in advancement through the posterior wall. The needle was slowly withdrawn to attempt backing it into the blood vessel in the long-axis on ultrasound, but the artery was so vasoconstricted that the needle was unable to be visualized in the artery with subsequent small destinee-arterial hematoma and vasospasm. The right radial artery was then scouted and determined to be too vasoconstricted for a repeat attempt given a current SBP of 50. The axillary artery was considered, but avoided at this time given the amount of under-arm hair that would need to be trimmed prior to placement for which we did not have any disposable clippers on the unit at the time and also hemodynamic instability concerns (patient oriented but notably starting to become more drowsy). At this time, the decision was made to place both, CVC and arterial line in the right femoral region to expedite the patient's care for which he was in agreement. Arterial Line: Utilizing ultrasound, the right femoral artery was identified and noted to be without significant calcifications or thrombus. Patient placed in proper procedural position followed by prepping and draping in usual sterile fashion. An 18-gauge introducer needle was visualized entering the right common femoral artery utilizing ultrasound; however, given the patient's significant volume contraction, the needle went through the posterior wall of the artery and upon withdrawing the needle slowly to seat the needle in the artery, the patient moved his right leg and the introducer needle backed all the way out causing a very small amount of hematoma surrounding the femoral artery which was noticed with the ultrasonography. The needle was withdrawn and manual pressure was held for 5 minutes. Ultrasonography of the vessel was repeated noting that there was no ongoing hemorrhage from the femoral artery. At this time, I discussed with the patient that he needed to keep his legs still as he had a tendency to move off and on out of habit multiple times throughout the procedure. Next, I cleared the needle and syringe of thrombus with saline and the back end of the guidewire. I then inserted the introducer needle in the proximal common femoral artery above the previous stick site for which a brisk return of blood was returned into the syringe. The syringe was detached from the needle, noting pulsatile blood coming from the needle. A guidewire was then advanced through the needle into the right common femoral artery and the needle was removed over the wire. The guidewire was confirmed to be in the right femoral artery in 2 views utilizing ultrasonography and an 18-gauge 16 cm catheter was then advanced over the wire into the right common femoral artery, subsequently removing the guidewire and again noting pulsatile blood from the catheter. The arterial catheter was sutured into place, a Biopatch was applied, was appropriately hooked up to the transducer tubing, and a sterile occlusive transparent dressing was applied. Patient overall tolerated the procedure well and hemostasis had been obtained. Central Line: Patient placed in proper procedural position followed by prepping and draping in usual sterile fashion. Utilizing ultrasound, the right femoral vein was identified and had respirophasic changes collapsing entirely too easy for which I asked the nurse to place the patient in reverse Trendelenburg, resulting in improvement in the filling of the vein. A 20-gauge introducer needle was visualized entering the right femoral vein utilizing ultrasound for which there was a brisk return of blood in the syringe. The syringe was detached from the needle noting a slow dripping of dark blood from the needle. A guidewire was then advanced through the needle into the right femoral vein and the needle was removed. The guidewire was confirmed to be in the right femoral vein in 2 views utilizing ultrasound. A small skin stab incision was then made on the proximal portion of the wire and a dilator was subsequently passed over the wire to dilate subcutaneous tissue. The dilator was removed and a 7 [place] 20 cm catheter was placed over the wire into the right femoral vein, subsequently removing the guidewire from the catheter and again noting a slow dripping of dark blood from the distal lumen of the catheter. Positive pressure caps were placed in all 3 lumens of the catheter. Each lumen aspirated and flushed easily. A Biopatch was applied, the catheter was sutured into place at 20 cm, a sterile occlusive transparent dressing was applied. Patient tolerated the procedure well. Indication for Procedure: Shock Date: 06/20/19 Provider: KANDICE MORGAN - Central Line Right Femoral Time completed: 05:00 Consent obtained: Yes Central line pre-insertion: Sterile PPE donned, Chloraprep applied, Sterile drapes applied Central line size (Fr.): 7 - 20 cm catheter Central line lumen type: Triple Anesthetic type: 1% Lidocaine mL's of anesthesia: 5 Ultrasound guided: Yes CM at insertion site: 20 Line secured with sutures: Yes Central line post-insertion: Blood return from lumens, Biopatch applied, Sutured, Sterile dressing applied Number of attempts: 1 Complications: No
[2019-06-21] MEDS: AMPICILLIN SODIUM 2 GM in NORMAL SALINE 100 ML IV SCH ×4 (02:18→21:39)
[2019-06-21 03:31] LABS: C DIFFICILE GDH NEGATIVE (NEGATIVE)
[2019-06-21 05:28] LABS: HEMATOCRIT 27.6 % (37.9-51.0); HEMOGLOBIN 9.4 g/dL (13.5-17.0); MEAN CORPUSCULAR HEMOGLOBIN 29.4 pg (27.0-33.4); MEAN CORPUSCULAR HGB CONC 33.9 g/dL (32.0-36.0); MEAN CORPUSCULAR VOLUME 87 fl (80-97); PLATELET COUNT 181 10^3/uL (150-450); RED BLOOD COUNT 3.18 10^6/uL (4.35-5.55); RED CELL DISTRIBUTION WIDTH 16.1 % (11.5-14.0); WHITE BLOOD COUNT 20.4 10^3/uL (4.0-10.5)
[2019-06-21] MEDS: INSULIN REG, HUMAN 100 UNIT/ML 3 ML VIAL (PYX) SUBCUT SCH ×3 (05:32→17:06)
[2019-06-21] MEDS: ONDANSETRON 4 MG TAB.RAPDIS PO SCH ×3 (05:40→21:36)
[2019-06-21] MEDS: VANCOMYCIN HCL INJ 500 MG VIAL PO SCH ×3 (05:40→17:07)
[2019-06-21] MEDS: SILDENAFIL CITRATE 20 MG TABLET PO SCH ×3 (05:40→21:42)
[2019-06-21] MEDS: HEPARIN SOD (PORCINE) 5,000 UNIT/ML 1 ML VIAL SUBCUT SCH ×3 (05:40→21:41)
[2019-06-21] MEDS: METRONIDAZOLE 500 MG/NS RTU 500 MG/100 ML RTUPB IV SCH ×3 (05:41→17:09)
[2019-06-21 05:46] LABS: ABSOLUTE LYMPHOCYTES# (MANUAL) 0.2 10^3/uL (0.5-4.7); ABSOLUTE MONOCYTES # (MANUAL) 0.4 10^3/uL (0.1-1.4); BASOPHILS % (MANUAL) 0 % (0-2); EOSINOPHILS % (MANUAL) 0 % (0-6); LYMPHOCYTES % (MANUAL) 1 % (13-45); MONOCYTES % (MANUAL) 2 % (3-13); SEGMENTED NEUTROPHILS % (MAN) 97 % (42-78); TOTAL CELLS COUNTED 100
[2019-06-21 05:47] LABS: ANISOCYTOSIS 1+; BURR CELLS 1+; OVALOCYTES 1+; PLATELET COMMENT ADEQUATE; POIKILOCYTOSIS 1+; TEAR DROP CELLS SLIGHT; TOXIC GRANULATION SLIGHT
[2019-06-21 05:50] LABS: ANION GAP 15 (5-19); BLOOD UREA NITROGEN 23 mg/dL (7-20); CARBON DIOXIDE 14 mmol/L (22-30); CHLORIDE 101 mmol/L (98-107); GLUCOSE 151 mg/dL (75-110); POTASSIUM 3.1 mmol/L (3.6-5.0)
[2019-06-21] MEDS: DEXTROSE 5%-WATER 250 ML with NOREPINEPHRINE BITARTRATE 4 MG IV PRN ×4 (06:29→18:19)
[2019-06-21 06:36] LABS: CALCIUM 6.8 mg/dL (8.4-10.2)
[2019-06-21] MEDS: PANTOPRAZOLE SODIUM 40 MG VIAL IV SCH (09:18)
[2019-06-21] MEDS: SODIUM BICARBONATE 650 MG TABLET PO SCH ×4 (09:18→21:43)
[2019-06-21] MEDS: MIDODRINE HCL 5 MG TABLET PO SCH ×3 (09:18→17:08)
[2019-06-21] MEDS: METHYLPREDNISOLONE INJ 40 MG/1 ML SDV IV SCH ×2 (09:18→21:39)
[2019-06-21] MEDS: ASPIRIN 81 MG TABLET, ENT COATED PO SCH (09:20)
[2019-06-21] MEDS: FLUOXETINE HCL 20 MG CAPSULE PO SCH (09:20)
[2019-06-21] MEDS: LORATADINE 10 MG TABLET PO SCH (09:20)
[2019-06-21] MEDS: MONTELUKAST SODIUM 10 MG TABLET PO SCH (09:21)
[2019-06-21] MEDS ORDERED: (PENDING PHARMACY ID) (Desloratadine [Clarinex] 5 MG) PO SCH (10:00)
[2019-06-21] MEDS ORDERED: FLUTICASONE/VILANTEROL 200-25 MCG/DOSE IH SCH (10:00)
--- NOTE | 2019-06-21 14:24 | PDOC CRITICAL CARE PROG REPORT ---
General Date:: 06/21/19 ICU Day:: 2 Hospital Day:: 2 Resuscitation Status: Full Code Events in the past 12 to 24 Hours:: Volume loaded, feeling better on diet. Review of systems relevant to events:: GI and CV Reason for ICU Addmission:: Hypotension - Medications: Medications reviewed and adjusted accordingly: Yes Vasopressors:: Levophed. Sedation:: None Physical Exam Vital Signs: Temp Pulse Resp BP Pulse Ox 97.3 F 87 8 L 99/69 L 99 06/21/19 11:40 06/20/19 19:00 06/21/19 11:40 06/21/19 11:35 06/21/19 11:40 Intake & Output 06/20/19 06/21/19 06/22/19 06:59 06:59 06:59 Intake Total 4014 80704 296 Output Total 5117 400 Balance 4014 5926 -104 Weight 54.5 kg 63.4 kg Weight/Height Weight 63.4 kg Height 5 ft 9 in General appearance: PRESENT: no acute distress, thin, well-developed, other - Face casanova Head exam: PRESENT: atraumatic, normocephalic Eye exam: PRESENT: conjunctiva pink, EOMI, PERRLA. ABSENT: scleral icterus Ear exam: PRESENT: normal external ear exam Mouth exam: PRESENT: dry mucosa, moist, tongue midline Respiratory exam: PRESENT: clear to auscultation trevin. ABSENT: rales, rhonchi, wheezes Cardiovascular exam: PRESENT: RRR. ABSENT: diastolic murmur, rubs, systolic murmur GI/Abdominal exam: PRESENT: normal bowel sounds, soft. ABSENT: distended, gu arding, mass, organolmegaly, rebound, tenderness Rectal exam: PRESENT: deferred Extremities exam: PRESENT: full ROM. ABSENT: calf tenderness, clubbing, pedal edema Neurological exam: PRESENT: alert, awake, oriented to person, oriented to place, oriented to time, oriented to situation, CN II-XII grossly intact. ABSENT: mot or sensory deficit Psychiatric exam: PRESENT: appropriate affect, normal mood. ABSENT: homicidal ideation, suicidal ideation Skin exam: PRESENT: dry, intact, warm. ABSENT: cyanosis, rash Tubes/Lines: PRESENT: Central Line, Arterial Catheter Laboratory/Radiographs Laboratory Results: 06/21/19 05:08 06/21/19 05:08 06/20/19 06/20/19 06/21/19 20:32 21:25 05:08 WBC RBC Hgb Hct MCV MCH MCHC RDW Plt Count Seg Neutrophils % Sodium 130.0 L 130.2 L Potassium 3.7 3.1 L Chloride 104 101 Carbon Dioxide 14 L 14 L Anion Gap 12 15 BUN 21 H 23 H Creatinine 2.01 H 2.33 H Est GFR ( Amer) 41 L 35 L Glucose 176 H 151 H Lactic Acid 3.1 H Calcium 6.8 L* 6.8 L* Magnesium 1.9 D 1.8 06/21/19 06/21/19 05:08 05:08 WBC 20.4 H RBC 3.18 L Hgb 9.4 L Hct 27.6 L MCV 87 MCH 29.4 MCHC 33.9 RDW 16.1 H Plt Count 181 Seg Neutrophils % Not Reportable Sodium Potassium Chloride Carbon Dioxide Anion Gap BUN Creatinine Est GFR ( Amer) Glucose Lactic Acid 3.0 H Calcium Magnesium 06/19/19 06/20/19 19:05 06:40 CK-MB (CK-2) 1.83 Troponin I < 0.012 0.080 Impressions: Acute Abdomen Series 06/19/19 19:11 IMPRESSION: Small bowel appears decompressed as compared to the previous CT examination without significant dilatation to suggest obstruction Abdomen/Pelvis CT 06/19/19 21:15 IMPRESSION: Mild wall thickening in segments of small bowel as well as in the colon which may reflect infectious or inflammatory enterocolitis. C. Difficile colitis is not excluded but this is not a typical appearance Ventral hernia containing omental fat similar to the previous study with a small amount of stranding Small amount of density in the left base which may reflect inflammatory or infectious process Heterogeneity involving the inferior margin of the gluteal muscles on the left which may be secondary to volume averaging. The possibility of hematoma or infection is not excluded. Recommend clinical correlation Head CT 06/19/19 21:15 IMPRESSION: No acute intracranial abnormality is identified. Findings which may reflect sinusitis in the appropriate clinical setting Chest X-Ray 06/20/19 00:00 IMPRESSION: COPD. No acute cardiopulmonary process copyright 2011 [employer]- All Rights Reserved All labs, radiographs, diagnostic studies and EKGs were personally reviewed: Yes In addition, reports of radiographic and diagnostic studies were read: Yes Assessment and Plan - Diagnosis (1) Colitis Is this a current diagnosis for this admission?: Yes Plan: This has been ongoing for a year with a non-specific diarrhea. It is worse now because of a presumed infectious colitis with evidence of salmonella and a carrier state of Cdif. Evidence also of eosinophilc colitis. This needs treatment which may entail a linux solaris administrator search for reasons after his acute phase diarreah is resolved. Dr. Lemon involved. (2) CLARISSE (acute kidney injury) Is this a current diagnosis for this admission?: Yes Plan: Slightly worse today. Causes include dehydration, sepsis and shock and use of pressors. Volume loading and get of pressors as soon as safe. (3) Atypical syncope Is this a current diagnosis for this admission?: Yes Plan: This is the event that began this cascade and has not recurred (4) Dehydration Is this a current diagnosis for this admission?: Yes Plan: He received 500cc/hr for most of the day yesterday until his R side was under strain by US. We allowed the night to proceed without IVF and allow what he had to equilibrate. Will will restart at a lower rate. He still has diarrhea which may worsen now that we have allowed a diet. (5) Eosinophilic colitis Is this a current diagnosis for this admission?: Yes Plan: This seems to be chronic and of unknown significance in view of his acute colitis. (6) C. difficile colitis Is this a current diagnosis for this admission?: Yes Plan: This seeems to be a carrier state. Again of unknown significance. We could use Dr. Lemon's input eventually. (7) Colitis due to Salmonella species Is this a current diagnosis for this admission?: Yes Plan: Usually a self limited disease but will treat with ampicillin given the severity of symptoms. (8) Hypokalemia Is this a current diagnosis for this admission?: Yes Plan: Will replace. (9) Lactic acidosis Is this a current diagnosis for this admission?: Yes Plan: Still present (10) Septic shock Is this a current diagnosis for this admission?: Yes Plan: The need for pressors and unchanged lactateargues for a continued presence of a shock state. Cortisol level pending. Plan Summary: Continue pressors, IVF and diet for now. Replace electrolytes. Critical Time Critical Time (minutes): 40 Level of Care: ICU Anticipated discharge: Home Within: Other - Too soon to say. -: 1. The care of a critical patient is a dynamic process. This note is a repres entative synopsis but static in nature. The timeframe for treatments given in order is not necessarily the actual time these treatments may have been done. 2. This patient requires critical care secondary to ongoing requirements for therapy not offered or safe outside the critical care environment. Transfer to a lower level of care will result in altered life or limb morbidity and mortality. 3. Multidisciplinary rounds completed. 4. ABCDE bundle addressed.
[2019-06-21] MEDS ORDERED: CALCIUM GLUCONATE 1000 MG/10 ML INJ IV ONE (14:26)
[2019-06-21] MEDS: RINGERS SOLUTION,LACTATED 1,000 ML IV PRN (14:46)
[2019-06-21] MEDS: POTASSIUM CHLORIDE 10 MEQ TABLET.ER PO SCH ×2 (17:07→21:42)
[2019-06-21] MEDS: CALCIUM GLUCONATE 1 GM/NS 50 ML RTU IV SCH ×4 (17:08→20:31)
[2019-06-21] MEDS: MAGNESIUM SULFATE/D5W 1 GM/100 ML RTUPB IV SCH ×2 (17:08→18:21)
[2019-06-22] MEDS ORDERED: VASOPRESSIN INJ 20 UNIT/1 ML VIAL ONE (00:24)
[2019-06-22] MEDS: INSULIN REG, HUMAN 100 UNIT/ML 3 ML VIAL (PYX) SUBCUT SCH ×4 (00:36→21:45)
[2019-06-22] MEDS: VANCOMYCIN HCL INJ 500 MG VIAL PO SCH ×4 (00:36→18:05)
[2019-06-22] MEDS: METRONIDAZOLE 500 MG/NS RTU 500 MG/100 ML RTUPB IV SCH ×4 (00:36→18:06)
[2019-06-22] MEDS: DEXTROSE 5%-WATER 250 ML with VASOPRESSIN 100 UNIT IV PRN ×2 (00:37)
[2019-06-22] MEDS: RINGERS SOLUTION,LACTATED 1,000 ML IV PRN (00:59)
[2019-06-22] MEDS ORDERED: RINGERS SOLUTION,LACTATED 1,000 ML IV PRN (01:31)
[2019-06-22] MEDS ORDERED: MELATONIN 5 MG TABLET PO ONE (02:00)
[2019-06-22] MEDS: AMPICILLIN SODIUM 2 GM in NORMAL SALINE 100 ML IV SCH ×4 (03:34→21:37)
[2019-06-22] MEDS: PANTOPRAZOLE SODIUM 40 MG TABLET.DR PO SCH (06:00)
[2019-06-22] MEDS: HEPARIN SOD (PORCINE) 5,000 UNIT/ML 1 ML VIAL SUBCUT SCH ×3 (06:00→21:14)
[2019-06-22] MEDS: ONDANSETRON 4 MG TAB.RAPDIS PO SCH ×3 (06:00→21:14)
[2019-06-22] MEDS: SILDENAFIL CITRATE 20 MG TABLET PO SCH (06:03)
[2019-06-22 06:47] LABS: ANION GAP 9 (5-19); BLOOD UREA NITROGEN 26 mg/dL (7-20); CALCIUM 7.3 mg/dL (8.4-10.2); CARBON DIOXIDE 19 mmol/L (22-30); CHLORIDE 106 mmol/L (98-107); GLUCOSE 147 mg/dL (75-110); POTASSIUM 3.3 mmol/L (3.6-5.0)
[2019-06-22] MEDS: LORATADINE 10 MG TABLET PO SCH (09:28)
[2019-06-22] MEDS: FLUOXETINE HCL 20 MG CAPSULE PO SCH (09:28)
[2019-06-22] MEDS: MIDODRINE HCL 5 MG TABLET PO SCH ×3 (09:28→18:06)
[2019-06-22] MEDS: ASPIRIN 81 MG TABLET, ENT COATED PO SCH (09:28)
[2019-06-22] MEDS: SODIUM BICARBONATE 650 MG TABLET PO SCH ×4 (09:28→21:14)
[2019-06-22] MEDS: MONTELUKAST SODIUM 10 MG TABLET PO SCH (09:28)
[2019-06-22] MEDS: POTASSIUM CHLORIDE 10 MEQ TABLET.ER PO SCH ×2 (09:28→21:13)
[2019-06-22] MEDS: POTASSI CL 20 MEQ/50 ML RIDER 20 MEQ/50 ML RTUPB IV SCH ×2 (09:29→12:53)
[2019-06-22 10:06] LABS: HEMOGLOBIN 8.5 g/dL (13.5-17.0); MEAN CORPUSCULAR HEMOGLOBIN 29.2 pg (27.0-33.4); MEAN CORPUSCULAR VOLUME 86 fl (80-97); PLATELET COUNT 157 10^3/uL (150-450); RED BLOOD COUNT 2.91 10^6/uL (4.35-5.55); RED CELL DISTRIBUTION WIDTH 16.2 % (11.5-14.0); WHITE BLOOD COUNT 12.2 10^3/uL (4.0-10.5)
--- NOTE | 2019-06-22 11:11 | PDOC CRITICAL CARE PROG REPORT ---
General Date:: 06/22/19 - Critical Care Attending Note Resuscitation Status: Full Code Events in the past 12 to 24 Hours:: Pt remains on levophed and vasopressin. Still with diarrhea. Reason for ICU Addmission:: Hypotension - Medications: Medications reviewed and adjusted accordingly: Yes Physical Exam Vital Signs: Temp Pulse Resp BP Pulse Ox 97.5 F 70 25 H 94/57 L 100 06/22/19 08:00 06/22/19 10:00 06/22/19 10:00 06/22/19 10:00 06/22/19 10:00 Intake & Output 06/21/19 06/22/19 06/23/19 06:59 06:59 06:59 Intake Total 24769 2738 100 Output Total 5117 5125 450 Balance 5926 -2387 -350 Weight 63.4 kg 61.2 kg Weight/Height Weight 61.2 kg Height 5 ft 9 in General appearance: PRESENT: no acute distress, thin, well-developed, well- nourished Head exam: PRESENT: atraumatic, normocephalic Respiratory exam: PRESENT: unlabored Cardiovascular exam: PRESENT: RRR GI/Abdominal exam: PRESENT: soft, other - non-tender, non-distended Rectal exam: PRESENT: other - fecal management system Gentrourinary exam: PRESENT: indwelling catheter Extremities exam: PRESENT: other - no edema Neurological exam: PRESENT: alert, awake Laboratory/Radiographs Laboratory Results: 06/22/19 09:41 06/22/19 05:54 06/21/19 06/22/19 06/22/19 22:17 05:54 05:54 WBC RBC Hgb Hct MCV MCH MCHC RDW Plt Count Sodium 133.9 L Potassium 3.0 L* 3.3 L Chloride 106 Carbon Dioxide 19 L Anion Gap 9 BUN 26 H Creatinine 1.65 H Est GFR ( Amer) 52 L Glucose 147 H Lactic Acid 1.1 Calcium 7.3 L Magnesium 2.1 2.2 06/22/19 09:41 WBC 12.2 H RBC 2.91 L Hgb 8.5 L Hct 25.0 L MCV 86 MCH 29.2 MCHC 34.0 RDW 16.2 H Plt Count 157 Sodium Potassium Chloride Carbon Dioxide Anion Gap BUN Creatinine Est GFR ( Amer) Glucose Lactic Acid Calcium Magnesium 06/20/19 00:35 Stool - Stool - Final 06/19/19 06/20/19 19:05 06:40 CK-MB (CK-2) 1.83 Troponin I < 0.012 0.080 Impressions: Acute Abdomen Series 06/19/19 19:11 IMPRESSION: Small bowel appears decompressed as compared to the previous CT examination without significant dilatation to suggest obstruction Abdomen/Pelvis CT 06/19/19 21:15 IMPRESSION: Mild wall thickening in segments of small bowel as well as in the colon which may reflect infectious or inflammatory enterocolitis. C. Difficile colitis is not excluded but this is not a typical appearance Ventral hernia containing omental fat similar to the previous study with a small amount of stranding Small amount of density in the left base which may reflect inflammatory or infectious process Heterogeneity involving the inferior margin of the gluteal muscles on the left which may be secondary to volume averaging. The possibility of hematoma or infection is not excluded. Recommend clinical correlation Head CT 06/19/19 21:15 IMPRESSION: No acute intracranial abnormality is identified. Findings which may reflect sinusitis in the appropriate clinical setting Chest X-Ray 06/20/19 00:00 IMPRESSION: COPD. No acute cardiopulmonary process copyright 2010 [employer]- All Rights Reserved Assessment and Plan - Diagnosis (1) Dehydration Is this a current diagnosis for this admission?: Yes (2) Eosinophilic colitis Is this a current diagnosis for this admission?: Yes (3) Colitis due to Salmonella species Is this a current diagnosis for this admission?: Yes (4) C. difficile colitis Is this a current diagnosis for this admission?: Yes (5) CLARISSE (acute kidney injury) Is this a current diagnosis for this admission?: Yes Plan Summary: Assessment: Criticall ill 58 yo man with septic shock, volume depletion, severe infectious diarrhea, c.diff colitis, diarrhea due to salmonella, eosinophilic diarrhea, CLARISSE. Plan: 1. Respiratory: stable on nasal cannula 2. CV: hypotension due to septic shock and volume depletion due to copious diarrhea. Continue levophed and vasopressin and wean as tolerated. IV albumin 3. GI: severe infectious diarrhea, c.diff colitis, diarrhea due to salmonella, eosinophilic diarrhea. Continue ampicillin, flagyl, oral vanc. GI following 4. Renal: CLARISSE, resolving. Cr has decreased to 1.05. 5. ID: septic shock,severe infectious diarrhea, c.diff colitis, diarrhea due to salmonella, eosinophilic diarrhea. Continue ampicillin, flagyl, oral vanc. WBC decreasing. 6. Endocrine: SSI 7. Nutrition: regular diet 8. Prophylaxis: sq heparin Critical Time Critical Time (minutes): 35 Level of Care: ICU -: 1. The care of a critical patient is a dynamic process. This note is a wine sales representative synopsis but static in nature. The timeframe for treatments given in order is not necessarily the actual time these treatments may have been done. 2. This patient requires critical care secondary to ongoing requirements for therapy not offered or safe outside the critical care environment. Transfer to a lower level of care will result in altered life or limb morbidity and mortality. 3. Multidisciplinary rounds completed. 4. ABCDE bundle addressed.
[2019-06-22] MEDS: ALBUMIN HUMAN 12.5 GM/50 ML RTUINJ IV SCH ×4 (12:00→16:43)
[2019-06-22] MEDS: HYDROCORTISONE SOD SUCCINATE INJ/PF 100 MG/2 ML SDV IV SCH ×2 (13:39→21:14)
[2019-06-23] MEDS: METRONIDAZOLE 500 MG/NS RTU 500 MG/100 ML RTUPB IV SCH ×2 (00:55→06:12)
[2019-06-23] MEDS: VANCOMYCIN HCL INJ 500 MG VIAL PO SCH ×2 (00:55→06:12)
[2019-06-23] MEDS: AMPICILLIN SODIUM 2 GM in NORMAL SALINE 100 ML IV SCH ×2 (02:43→08:43)
[2019-06-23 05:06] LABS: HEMATOCRIT 22.7 % (37.9-51.0); MEAN CORPUSCULAR HEMOGLOBIN 29.5 pg (27.0-33.4); MEAN CORPUSCULAR HGB CONC 34.3 g/dL (32.0-36.0); MEAN CORPUSCULAR VOLUME 86 fl (80-97); PLATELET COUNT 135 10^3/uL (150-450); RED BLOOD COUNT 2.64 10^6/uL (4.35-5.55); RED CELL DISTRIBUTION WIDTH 15.8 % (11.5-14.0); WHITE BLOOD COUNT 10.2 10^3/uL (4.0-10.5)
[2019-06-23 05:20] LABS: HEMOGLOBIN 7.8 g/dL (13.5-17.0)
[2019-06-23 05:29] LABS: ANION GAP 6 (5-19); BLOOD UREA NITROGEN 22 mg/dL (7-20); CARBON DIOXIDE 21 mmol/L (22-30); CHLORIDE 112 mmol/L (98-107); GLUCOSE 107 mg/dL (75-110)
[2019-06-23 05:35] LABS: CALCIUM 6.9 mg/dL (8.4-10.2)
[2019-06-23] MEDS: POTASSIUM CHLORIDE 20 MEQ/50 ML RTU IV SCH ×3 (06:12→12:07)
[2019-06-23] MEDS: HYDROCORTISONE SOD SUCCINATE INJ/PF 100 MG/2 ML SDV IV SCH (06:12)
[2019-06-23] MEDS: ONDANSETRON 4 MG TAB.RAPDIS PO SCH ×3 (06:13→22:22)
[2019-06-23] MEDS: PANTOPRAZOLE SODIUM 40 MG TABLET.DR PO SCH (06:13)
[2019-06-23] MEDS: HEPARIN SOD (PORCINE) 5,000 UNIT/ML 1 ML VIAL SUBCUT SCH ×3 (06:13→22:22)
[2019-06-23 07:17] LABS: TOXOPLASMA GONDII IGM AB <3.0 AU/mL (0.0-7.9)
[2019-06-23] MEDS: INSULIN REG, HUMAN 100 UNIT/ML 3 ML VIAL (PYX) SUBCUT SCH ×4 (08:42→22:23)
[2019-06-23] MEDS ORDERED: HYDROCORTISONE SOD SUCCINATE INJ/PF 100 MG/2 ML SDV IV SCH (10:00)
[2019-06-23] MEDS: FLUOXETINE HCL 20 MG CAPSULE PO SCH (10:30)
[2019-06-23] MEDS: ASPIRIN 81 MG TABLET, ENT COATED PO SCH (10:30)
[2019-06-23] MEDS: MIDODRINE HCL 5 MG TABLET PO SCH ×3 (10:30→17:39)
[2019-06-23] MEDS: LORATADINE 10 MG TABLET PO SCH (10:30)
[2019-06-23] MEDS: MONTELUKAST SODIUM 10 MG TABLET PO SCH (10:30)
[2019-06-23] MEDS: POTASSIUM CHLORIDE 10 MEQ TABLET.ER PO SCH ×2 (10:31→22:22)
--- NOTE | 2019-06-23 10:59 | PDOC CRITICAL CARE PROG REPORT ---
General Date:: 06/23/19 - Critical Care Attending Resuscitation Status: Full Code Events in the past 12 to 24 Hours:: Pt is off levophed and vasopressin. Has not had any stools in 2 days. Reason for ICU Addmission:: Hypotension - Medications: Medications reviewed and adjusted accordingly: Yes Physical Exam Vital Signs: Temp Pulse Resp BP Pulse Ox 97.8 F 85 16 95/75 L 100 06/23/19 08:00 06/23/19 08:00 06/23/19 08:00 06/23/19 08:00 06/23/19 08:00 Intake & Output 06/22/19 06/23/19 06/24/19 06:59 06:59 06:59 Intake Total 2838 1106 150 Output Total 5125 3825 150 Balance -4240 -9669 0 Weight 61.2 kg 64.2 kg Weight/Height Weight 64.2 kg Height 5 ft 9 in General appearance: PRESENT: no acute distress, well-developed, well-nourished Head exam: PRESENT: atraumatic, normocephalic Respiratory exam: PRESENT: clear to auscultation trevin Cardiovascular exam: PRESENT: RRR GI/Abdominal exam: PRESENT: soft, other - mildly distended, non-tender. Rectal exam: PRESENT: other - rectal tube in place Gentrourinary exam: PRESENT: indwelling catheter Extremities exam: PRESENT: other - no edema Neurological exam: PRESENT: alert, awake Laboratory/Radiographs Laboratory Results: 06/23/19 04:35 06/23/19 04:35 06/23/19 06/23/19 06/23/19 04:35 04:35 04:35 WBC 10.2 RBC 2.64 L Hgb 7.8 L Hct 22.7 L MCV 86 MCH 29.5 MCHC 34.3 RDW 15.8 H Plt Count 135 L Sodium 138.5 Potassium 3.0 L* Chloride 112 H Carbon Dioxide 21 L Anion Gap 6 BUN 22 H Creatinine 1.45 H Est GFR ( Amer) > 60 Glucose 107 Calcium 6.9 L* Magnesium 1.7 Albumin 2.1 L 06/20/19 00:35 Stool - Stool - Final 06/20/19 00:35 Stool - Stool Stool Culture - Final Salmonella Species E.faecium Vre 06/19/19 06/20/19 19:05 06:40 CK-MB (CK-2) 1.83 Troponin I < 0.012 0.080 Impressions: Acute Abdomen Series 06/19/19 19:11 IMPRESSION: Small bowel appears decompressed as compared to the previous CT examination without significant dilatation to suggest obstruction Abdomen/Pelvis CT 06/19/19 21:15 IMPRESSION: Mild wall thickening in segments of small bowel as well as in the colon which may reflect infectious or inflammatory enterocolitis. C. Difficile colitis is not excluded but this is not a typical appearance Ventral hernia containing omental fat similar to the previous study with a small amount of stranding Small amount of density in the left base which may reflect inflammatory or infectious process Heterogeneity involving the inferior margin of the gluteal muscles on the left which may be secondary to volume averaging. The possibility of hematoma or infection is not excluded. Recommend clinical correlation Head CT 06/19/19 21:15 IMPRESSION: No acute intracranial abnormality is identified. Findings which may reflect sinusitis in the appropriate clinical setting Chest X-Ray 06/20/19 00:00 IMPRESSION: COPD. No acute cardiopulmonary process copyright 2011 [employer]- All Rights Reserved All labs, radiographs, diagnostic studies and EKGs were personally reviewed: Yes Assessment and Plan - Diagnosis (1) Dehydration Is this a current diagnosis for this admission?: Yes (2) Eosinophilic colitis Is this a current diagnosis for this admission?: Yes (3) Colitis due to Salmonella species Is this a current diagnosis for this admission?: Yes (4) C. difficile colitis Is this a current diagnosis for this admission?: Yes (5) CLARISSE (acute kidney injury) Is this a current diagnosis for this admission?: Yes Plan Summary: Assessment: Criticall ill 58 yo man with septic shock, volume depletion, severe infectious diarrhea, c.diff colitis, diarrhea due to salmonella, eosinophilic diarrhea, CLARISSE. Plan: 1. Respiratory: stable on nasal cannula. Wean to RA as tolerated. 2. CV: hypotension, resolved. Off levophed and vasopressin. 3. GI: severe infectious diarrhea due to c.diff colitis, diarrhea due to salmonella, eosinophilic diarrhea. Diarrhea has resolved. 4. Renal: CLARISSE, resolving. Cr has decreased to 1.45 from 1.65. 5. ID: severe sepsis. severe infectious diarrhea due to : c.diff colitis, salmonella, eosinophilic diarrhea. Stool culture positive for VRE which the reports states is due to colonization. Will d/c oral vanc and flagyl as pt was on oral vanc as an outpt and has now completed a course of therapy for c.diff. Will d/c ampicillin and start rocephin. Rocephin provides coverage for salmonella. WBC continues to decrease/ 6. Endocrine: SSI. Wean stress dose steroids 7. Nutrition: regular diet 8. Lines and tubes: d/c arterial line, central line, ruffin, and rectal tube. 9. Activity: out of bed to chair and ambulate pt 10. Prophylaxis: sq heparin 11. Disposition: stable for transfer to telemetry bed. Critical Time Critical Time (minutes): 0 Level of Care: TELE -: 1. The care of a critical patient is a dynamic process. This note is a employment program representative synopsis but static in nature. The timeframe for treatments given in order is not necessarily the actual time these treatments may have been done. 2. This patient requires critical care secondary to ongoing requirements for therapy not offered or safe outside the critical care environment. Transfer to a lower level of care will result in altered life or limb morbidity and mortality. 3. Multidisciplinary rounds completed. 4. ABCDE bundle addressed.
[2019-06-23] MEDS: CEFTRIAXONE 1 GM/D5W RTU 1 GM/50 ML RTUPB IV SCH (13:07)
[2019-06-24 04:25] LABS: HEMATOCRIT 26.2 % (37.9-51.0); HEMOGLOBIN 8.7 g/dL (13.5-17.0); MEAN CORPUSCULAR HEMOGLOBIN 29.1 pg (27.0-33.4); MEAN CORPUSCULAR HGB CONC 33.4 g/dL (32.0-36.0); MEAN CORPUSCULAR VOLUME 87 fl (80-97); PLATELET COUNT 146 10^3/uL (150-450); RED BLOOD COUNT 3.01 10^6/uL (4.35-5.55); RED CELL DISTRIBUTION WIDTH 16.2 % (11.5-14.0); WHITE BLOOD COUNT 11.8 10^3/uL (4.0-10.5)
[2019-06-24] MEDS: ONDANSETRON 4 MG TAB.RAPDIS PO SCH ×3 (05:14→21:26)
[2019-06-24] MEDS: HEPARIN SOD (PORCINE) 5,000 UNIT/ML 1 ML VIAL SUBCUT SCH ×3 (05:14→21:27)
[2019-06-24] MEDS: PANTOPRAZOLE SODIUM 40 MG TABLET.DR PO SCH (05:14)
[2019-06-24 08:05] LABS: ANION GAP 7 (5-19); BLOOD UREA NITROGEN 25 mg/dL (7-20); CALCIUM 7.6 mg/dL (8.4-10.2); CARBON DIOXIDE 22 mmol/L (22-30); CHLORIDE 109 mmol/L (98-107); GLUCOSE 91 mg/dL (75-110)
[2019-06-24] MEDS ORDERED: POTASSIUM CHLORIDE 10 MEQ TABLET.ER PO ONE (09:26)
--- NOTE | 2019-06-24 09:26 | PDOC CRITICAL CARE PROG REPORT ---
General Date:: 06/24/19 - Critical Care Attending Note Resuscitation Status: Full Code Events in the past 12 to 24 Hours:: Pt has no complaints. States he had a soft, formed, BM. Reason for ICU Addmission:: Hypotension - Medications: Medications reviewed and adjusted accordingly: Yes Physical Exam Vital Signs: Temp Pulse Resp BP Pulse Ox 97.8 F 64 21 H 103/75 97 06/24/19 07:56 06/24/19 07:56 06/24/19 07:56 06/24/19 07:56 06/24/19 07:56 Intake & Output 06/23/19 06/24/19 06/25/19 06:59 06:59 06:59 Intake Total 1106 400 Output Total 3822 2615 Balance -0059 -0815 Weight 64.2 kg 57 kg Weight/Height Weight 57 kg Height 5 ft 9 in General appearance: PRESENT: no acute distress, well-developed, well-nourished Head exam: PRESENT: atraumatic, normocephalic Respiratory exam: PRESENT: clear to auscultation trevin, unlabored GI/Abdominal exam: PRESENT: soft Musculoskeletal exam: PRESENT: normal inspection, other - no edema Laboratory/Radiographs Laboratory Results: 06/24/19 04:00 06/24/19 04:00 06/24/19 06/24/19 04:00 04:00 WBC 11.8 H RBC 3.01 L Hgb 8.7 L Hct 26.2 L MCV 87 MCH 29.1 MCHC 33.4 RDW 16.2 H Plt Count 146 L Sodium 138.4 Potassium 3.0 L* Chloride 109 H Carbon Dioxide 22 Anion Gap 7 BUN 25 H Creatinine 1.37 H Est GFR ( Amer) > 60 Glucose 91 Calcium 7.6 L 06/20/19 00:35 Stool - Stool - Final 06/20/19 00:35 Stool - Stool Stool Culture - Final Salmonella Species E.faecium Vre 06/19/19 06/20/19 19:05 06:40 CK-MB (CK-2) 1.83 Troponin I < 0.012 0.080 Impressions: Acute Abdomen Series 06/19/19 19:11 IMPRESSION: Small bowel appears decompressed as compared to the previous CT examination without significant dilatation to suggest obstruction Abdomen/Pelvis CT 06/19/19 21:15 IMPRESSION: Mild wall thickening in segments of small bowel as well as in the colon which may reflect infectious or inflammatory enterocolitis. C. Difficile colitis is not excluded but this is not a typical appearance Ventral hernia containing omental fat similar to the previous study with a small amount of stranding Small amount of density in the left base which may reflect inflammatory or infectious process Heterogeneity involving the inferior margin of the gluteal muscles on the left which may be secondary to volume averaging. The possibility of hematoma or infection is not excluded. Recommend clinical correlation Head CT 06/19/19 21:15 IMPRESSION: No acute intracranial abnormality is identified. Findings which may reflect sinusitis in the appropriate clinical setting Chest X-Ray 06/20/19 00:00 IMPRESSION: COPD. No acute cardiopulmonary process copyright 2011 [employer]- All Rights Reserved Assessment and Plan - Diagnosis (1) Dehydration Is this a current diagnosis for this admission?: Yes (2) Eosinophilic colitis Is this a current diagnosis for this admission?: Yes (3) Colitis due to Salmonella species Is this a current diagnosis for this admission?: Yes (4) C. difficile colitis Is this a current diagnosis for this admission?: Yes (5) CLARISSE (acute kidney injury) Is this a current diagnosis for this admission?: Yes Plan Summary: Assessment: Criticall ill 58 yo man with septic shock, volume depletion, severe infectious diarrhea, c.diff colitis, diarrhea due to salmonella, eosinophilic diarrhea, CLARISSE. Plan: 1. Respiratory: stable on nasal cannula. Wean to RA as tolerated. 2. CV: heart rate and BP acceptable 3. GI: infectious diarrhea due to c.diff colitis, diarrhea due to salmonella, eosinophilic diarrhea. Diarrhea has resolved. 4. Renal: CLARISSE, resolving. Cr has decreased to 1.37 5. ID: severe sepsis. severe infectious diarrhea due to : c.diff colitis, salmonella, eosinophilic diarrhea. Stool culture positive for VRE which the reports states is due to colonization. ral vanc and flagyl stopped yesterday as pt was on oral vanc as an outpt and has now completed a course of therapy for c.diff. Day 2 rocephin. Rocephin provides coverage for salmonella. ATBX Day 6, Rocephin Day 2. WBC increasing, will follow. 6. Endocrine: SSI. D/C stress dose steroids 7. Nutrition: regular diet 8. Activity: out of bed to chair and ambulate pt 9. Prophylaxis: sq heparin 10. Disposition: awaiting transfer to telemetry bed. Critical Time Critical Time (minutes): 0 Level of Care: TELE -: 1. The care of a critical patient is a dynamic process. This note is a call center support representative synopsis but static in nature. The timeframe for treatments given in order is not necessarily the actual time these treatments may have been done. 2. This patient requires critical care secondary to ongoing requirements for therapy not offered or safe outside the critical care environment. Transfer to a lower level of care will result in altered life or limb morbidity and mortality. 3. Multidisciplinary rounds completed. 4. ABCDE bundle addressed.
[2019-06-24] MEDS: INSULIN REG, HUMAN 100 UNIT/ML 3 ML VIAL (PYX) SUBCUT SCH ×4 (09:30→21:27)
[2019-06-24] MEDS: FLUOXETINE HCL 20 MG CAPSULE PO SCH (09:49)
[2019-06-24] MEDS: MONTELUKAST SODIUM 10 MG TABLET PO SCH (09:49)
[2019-06-24] MEDS: LORATADINE 10 MG TABLET PO SCH (09:49)
[2019-06-24] MEDS: ASPIRIN 81 MG TABLET, ENT COATED PO SCH (09:49)
[2019-06-24] MEDS: MIDODRINE HCL 5 MG TABLET PO SCH ×3 (09:49→17:20)
[2019-06-24] MEDS: POTASSIUM CHLORIDE 10 MEQ TABLET.ER PO SCH ×2 (13:05→21:26)
[2019-06-24] MEDS: CEFTRIAXONE 1 GM/D5W RTU 1 GM/50 ML RTUPB IV SCH (13:05)
[2019-06-25 05:25] LABS: HEMATOCRIT 29.6 % (37.9-51.0); HEMOGLOBIN 9.9 g/dL (13.5-17.0); MEAN CORPUSCULAR HEMOGLOBIN 29.2 pg (27.0-33.4); MEAN CORPUSCULAR HGB CONC 33.4 g/dL (32.0-36.0); MEAN CORPUSCULAR VOLUME 87 fl (80-97); PLATELET COUNT 159 10^3/uL (150-450); RED BLOOD COUNT 3.39 10^6/uL (4.35-5.55); RED CELL DISTRIBUTION WIDTH 16.2 % (11.5-14.0); WHITE BLOOD COUNT 12.6 10^3/uL (4.0-10.5)
[2019-06-25] MEDS: HEPARIN SOD (PORCINE) 5,000 UNIT/ML 1 ML VIAL SUBCUT SCH ×3 (05:25→21:35)
[2019-06-25] MEDS: PANTOPRAZOLE SODIUM 40 MG TABLET.DR PO SCH (05:25)
[2019-06-25] MEDS: ONDANSETRON 4 MG TAB.RAPDIS PO SCH ×3 (05:25→21:35)
[2019-06-25] MEDS: INSULIN REG, HUMAN 100 UNIT/ML 3 ML VIAL (PYX) SUBCUT SCH ×4 (08:14→21:34)
[2019-06-25] MEDS: MONTELUKAST SODIUM 10 MG TABLET PO SCH (09:16)
[2019-06-25] MEDS: LORATADINE 10 MG TABLET PO SCH (09:16)
[2019-06-25] MEDS: FLUOXETINE HCL 20 MG CAPSULE PO SCH (09:16)
[2019-06-25] MEDS: ASPIRIN 81 MG TABLET, ENT COATED PO SCH (09:16)
[2019-06-25] MEDS: POTASSIUM CHLORIDE 10 MEQ TABLET.ER PO SCH ×2 (09:16→21:34)
[2019-06-25] MEDS: MIDODRINE HCL 5 MG TABLET PO SCH ×3 (09:16→17:32)
[2019-06-25] MEDS: CEFTRIAXONE 1 GM/D5W RTU 1 GM/50 ML RTUPB IV SCH (11:35)
--- NOTE | 2019-06-25 13:23 | PDOC PROGRESS REPORT ---
Subjective Progress Note for:: 06/25/19 Subjective:: Mr. Babak Eckert is a 58 years old male with past medical history of hyperlipidemia, hypertension, bovine aortic valve replacement February 2015, recurrent C. difficile, Salmonella and VRE enterocolitis presented to ED on 06/20/2019 after syncopal episode at home. Patient was diagnosed with septic shock and transferred to ICU where he was started on empiric IV antibiotics and pressors and was transferred back to floor on 06/24/2018. 06/25/2019. No acute events overnight. Patient comfortably sitting in bed no apparent distress, diarrhea has resolved, alert and oriented x3, denies any fever, chills, nausea, vomiting, diarrhea, constipation or any urinary symptoms. Reason For Visit: SEPSIS, HYPOVOLEMIA Physical Exam Vital Signs: Temp Pulse Resp BP Pulse Ox 97.9 F 74 18 103/71 99 06/25/19 08:01 06/25/19 08:01 06/25/19 08:01 06/25/19 08:01 06/25/19 08:01 Intake & Output 06/24/19 06/25/19 06/26/19 06:59 06:59 06:59 Intake Total 450 810 50 Output Total 2875 1802 Balance -2425 -992 50 Weight 57 kg 59.2 kg General appearance: PRESENT: no acute distress, well-developed, well-nourished Head exam: PRESENT: atraumatic, normocephalic Respiratory exam: PRESENT: clear to auscultation trevin. ABSENT: rales, rhonchi, wheezes Cardiovascular exam: PRESENT: RRR. ABSENT: diastolic murmur, rubs, systolic murmur GI/Abdominal exam: PRESENT: normal bowel sounds, soft. ABSENT: distended, guarding, mass, organolmegaly, rebound, tenderness Neurological exam: PRESENT: alert, awake, oriented to person, oriented to place, oriented to time, oriented to situation, CN II-XII grossly intact. ABSENT: motor sensory deficit Results Laboratory Results: 06/25/19 04:30 06/24/19 04:00 06/25/19 04:30 WBC 12.6 H RBC 3.39 L Hgb 9.9 L Hct 29.6 L MCV 87 MCH 29.2 MCHC 33.4 RDW 16.2 H Plt Count 159 06/19/19 22:28 Blood Blood Culture - Final NO GROWTH IN 5 DAYS 06/19/19 20:58 Blood Blood Culture - Final NO GROWTH IN 5 DAYS 06/19/19 06/20/19 19:05 06:40 CK-MB (CK-2) 1.83 Troponin I < 0.012 0.080 Impressions: Acute Abdomen Series 06/19/19 19:11 IMPRESSION: Small bowel appears decompressed as compared to the previous CT examination without significant dilatation to suggest obstruction Abdomen/Pelvis CT 06/19/19 21:15 IMPRESSION: Mild wall thickening in segments of small bowel as well as in the colon which may reflect infectious or inflammatory enterocolitis. C. Difficile colitis is not excluded but this is not a typical appearance Ventral hernia containing omental fat similar to the previous study with a small amount of stranding Small amount of density in the left base which may reflect inflammatory or infectious process Heterogeneity involving the inferior margin of the gluteal muscles on the left which may be secondary to volume averaging. The possibility of hematoma or infection is not excluded. Recommend clinical correlation Head CT 06/19/19 21:15 IMPRESSION: No acute intracranial abnormality is identified. Findings which may reflect sinusitis in the appropriate clinical setting Chest X-Ray 06/20/19 00:00 IMPRESSION: COPD. No acute cardiopulmonary process copyright 2011 [employer]- All Rights Reserved Assessment and Plan - Diagnosis (1) Colitis due to Salmonella species Is this a current diagnosis for this admission?: Yes Plan: History of recurrent colitis due to Salmonella, Enterobacter and C. difficile. Chart review shows stool culture positive for E faecium VRE x5, Salmonella species x4, C. difficile positive x2. Has been treated in the past with Cipro, Flagyl and vancomycin. Outpatient colonoscopy by Dr. Lemon refrigerator car icer few week prior to admission did not show any evidence of pseudomembranous colitis Colon biopsies showed numerous eosinophils with no features of active colitis. Biopsy positive for giant cells but no granuloma. Culture from this admission shows Salmonella species and Enterobacter faecium VRE C. difficile toxin negative on this admission. Stool ova and parasite pending. Toxoplasma gondii IgM negative. All blood cultures negative. Day 6 IV antibiotics. Day 2 IV Rocephin. Vancomycin and Flagyl was started as outpatient and continued inpatient, DC'd on 06/23/2019. Gastroenterology on board. Recommendations noted. Continue Rocephin. Monitor volume status and electrolytes replace as needed. We will consult infectious disease for further recommendation. (2) Acute kidney injury superimposed on CKD Is this a current diagnosis for this admission?: Yes Plan: Prerenal. Back to baseline. Due to septic shock. Baseline creatinine 1.6. Presented with creatinine of 2.06. Nonoliguric. Electrolyte WNL. Euvolemic. Monitor volume status and electrolyte replace as needed. Avoid nephrotoxic meds. 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 difficile. Chart review shows stool culture positive for E faecium VRE x5, Salmonella species x4, C. difficile positive x2. Has been treated in the past with Cipro, Flagyl and vancomycin. Outpatient colonoscopy by Dr. Lemon refrigerator car icer few week prior to admi ssion did not show any evidence of pseudomembranous colitis Colon biopsies showed numerous eosinophils with no features of active colitis. Biopsy positive for giant cells but no granuloma. Culture from this admission shows Salmonella species and Enterobacter faecium VRE C. difficile toxin negative on this admission. All blood cultures negative. Plan as per #1. (4) Eosinophilic colitis Is this a current diagnosis for this admission?: Yes Plan: As per recent colonoscopy as outpatient by Dr. Lemon refrigerator car icer. Defer management to gastroenterology. Follow-up as outpatient with gastroenterology. (5) C. difficile colitis Is this a current diagnosis for this admission?: Yes Plan: History of recurrent C. difficile colitis. C. difficile positive toxin x3. C. difficile toxin negative this time. Diarrhea has resolved. Has completed a 10-day course of vancomycin and Flagyl as outpatient. (6) Septic shock Is this a current diagnosis for this admission?: Yes Plan: Resolved. Most likely due to infectious diarrhea. Leukocytosis improving. Afebrile. Vitals WNL. Presented with neutrophilic ascites and bandemia, CLARISSE, elevated lactic acid, hypotension and tachycardia (7) Aortic valve prosthesis present Is this a current diagnosis for this admission?: Yes Plan: History of bovine aortic valve replacement 2014. No new murmurs. No physical sign of endocarditis. (8) Hypokalemia Is this a current diagnosis for this admission?: Yes Plan: Most likely due to GI losses. No acute EKG changes. Continue supplemental potassium. Daily BMP. (9) Diarrhea Qualifiers: Diarrhea type: infectious Qualified Code(s): A09 - Infectious gastroenteritis and colitis, unspecified Is this a current diagnosis for this admission?: Yes Plan: Resolved. Plan as per above.
[2019-06-25 14:44] LABS: ANION GAP 9 (5-19); BLOOD UREA NITROGEN 23 mg/dL (7-20); CALCIUM 7.6 mg/dL (8.4-10.2); CARBON DIOXIDE 19 mmol/L (22-30); CHLORIDE 109 mmol/L (98-107); GLUCOSE 75 mg/dL (75-110); POTASSIUM 3.9 mmol/L (3.6-5.0)
[2019-06-26] MEDS: PANTOPRAZOLE SODIUM 40 MG TABLET.DR PO SCH (05:32)
[2019-06-26] MEDS: ONDANSETRON 4 MG TAB.RAPDIS PO SCH ×3 (05:32→21:08)
[2019-06-26] MEDS: HEPARIN SOD (PORCINE) 5,000 UNIT/ML 1 ML VIAL SUBCUT SCH ×3 (05:33→21:07)
[2019-06-26 05:56] LABS: ANION GAP 8 (5-19); BLOOD UREA NITROGEN 19 mg/dL (7-20); CALCIUM 7.8 mg/dL (8.4-10.2); CARBON DIOXIDE 15 mmol/L (22-30); CHLORIDE 116 mmol/L (98-107); GLUCOSE 85 mg/dL (75-110); POTASSIUM 4.4 mmol/L (3.6-5.0)
[2019-06-26 06:50] LABS: HEMATOCRIT 31.9 % (37.9-51.0); HEMOGLOBIN 10.4 g/dL (13.5-17.0); MEAN CORPUSCULAR HEMOGLOBIN 29.1 pg (27.0-33.4); MEAN CORPUSCULAR HGB CONC 32.6 g/dL (32.0-36.0); MEAN CORPUSCULAR VOLUME 89 fl (80-97); PLATELET COUNT 152 10^3/uL (150-450); RED BLOOD COUNT 3.57 10^6/uL (4.35-5.55); RED CELL DISTRIBUTION WIDTH 16.9 % (11.5-14.0); WHITE BLOOD COUNT 18.2 10^3/uL (4.0-10.5)
[2019-06-26 06:55] LABS: ABSOLUTE MONOCYTES # (MANUAL) 0.4 10^3/uL (0.1-1.4); BASOPHILS % (MANUAL) 0 % (0-2); LYMPHOCYTES % (MANUAL) 11 % (13-45); MONOCYTES % (MANUAL) 2 % (3-13); SEGMENTED NEUTROPHILS % (MAN) 50 % (42-78); TOTAL CELLS COUNTED 100
[2019-06-26 06:57] LABS: PLATELET COMMENT ADEQUATE
[2019-06-26 06:59] LABS: ANISOCYTOSIS 1+; BURR CELLS SLIGHT; OVALOCYTES 1+
[2019-06-26 07:01] LABS: EOSINOPHILS % (MANUAL) 37 % (0-6)
[2019-06-26] MEDS: INSULIN REG, HUMAN 100 UNIT/ML 3 ML VIAL (PYX) SUBCUT SCH (08:03)
--- NOTE | 2019-06-26 09:05 | Progress Note ---
Provider Note Provider Note: [facility] Telephone Advice Consultation Chart reviewed. Patient, a 58 yo man, evaluated due to chronic diarrhea. He has a history of bioprosthetic aortic valve. He has been presenting diarrhe since last year. He has had multiple farshad cultures that grew Enterococcus faecium (VRE) as he is colonized with this bacteria. In 10/2018 Salmonella spp grew from stool cultures. He has had 2 colonoscopies in this past year. Eosinophils were described in the pathology report. He was now admitted on due to nausea, vomiting, diarrhea, syncope. He was admitted to the ICU for volume resuscitation and vasopressors support. He also was recently diagnosed with CDI for which he was taking vancomycin po and metronidazole. Blood cultures remain negative, stool cultures positive for Salmonella and VRE. C diff toxin assay was negative on 06/20 (negative GDH and negative toxin). He received treatment for CDI x 10 days. He was on ampicillin, then ceftriaxone for Salmonella. CT scan demons trated changes suggestive of enterocolitis. He was evaluated by GI as well and eosinophilic colitis was diagnosed. It is not clear what risk factors he has had for parasitic infections (strongyloides, giardia, ascaris, cryptosporidium, etc). He has clinically improved per notes with full resolution of diarrhea and he was already transferred out of the ICU. ID consulted for recommendations. PMH: Aortic valve disease s/p replacement chronic diarrhea colitis since 2018 asthma PSH: AoV replacement (bioprosthetic) Allergies: doxycycline Allergy (Verified 06/08/19 10:52) levofloxacin [From Levaquin] Allergy (Verified 06/08/19 10:52) Medications: Albuterol Sulfate [Proair Hfa Inhalation Aerosol 8.5 gm Mdi] 1 puff IH Q6HP PRN 06/20/19 Aspirin [Adult Low Dose Aspirin EC] 81 mg PO DAILY 06/20/19 Atorvastatin Calcium [Lipitor 20 mg Tablet] 20 mg PO QHS 06/20/19 Budesonide [Entocort EC] 27 mg PO DAILY 06/20/19 Desloratadine [Clarinex] 5 mg PO DAILY 06/20/19 Fluoxetine HCl [Prozac 20 mg Capsule] 20 mg PO DAILY 06/20/19 Furosemide [Lasix 40 mg Tablet] 40 mg PO Q2D 06/20/19 Midodrine HCl 10 mg PO TID 06/20/19 Montelukast Sodium [Singulair 10 mg Tablet] 10 mg PO DAILY 06/20/19 Omeprazole 20 mg PO DAILY 06/20/19 Ondansetron HCl [Zofran 4 mg Tablet] 1 tab PO Q8 06/20/19 Sodium Bicarbonate [Sodium Bicarbonate 650 mg Tablet] 650 mg PO QID 06/20/19 Vancomycin HCl [Vancocin HCl] 125 mg PO Q6 06/20/19 Vital Signs: Temp Pulse Resp BP Pulse Ox 98.5 F 77 17 93/60 L 98 06/25/19 23:50 06/26/19 07:00 06/26/19 00:11 06/26/19 00:11 06/25/19 23:50 Intake & Output 06/25/19 06/26/19 06/27/19 06:59 06:59 06:59 Intake Total 810 1310 Output Total 1802 950 Balance -992 360 Weight 59.2 kg 56.3 kg Weight/Height Weight 56.3 kg Height 5 ft 9 in Laboratories: 06/26/19 04:31 06/26/19 04:31 MCV 89 fl (80-97) 06/26/19 04:31 MCH 29.1 pg (27.0-33.4) 06/26/19 04:31 MCHC 32.6 g/dL (32.0-36.0) 06/26/19 04:31 RDW 16.9 % (11.5-14.0) H 06/26/19 04:31 Seg Neutrophils % Not Reportable 06/26/19 04:31 Chloride 116 mmol/L (98-107) H 06/26/19 04:31 Carbon Dioxide 15 mmol/L (22-30) L 06/26/19 04:31 Anion Gap 8 (5-19) 06/26/19 04:31 Est GFR ( Amer) > 60 (>60) 06/26/19 04:31 Est GFR (Non-Af Amer) Cancelled 06/19/19 19:05 Glucose 85 mg/dL (75-110) 06/26/19 04:31 Lactic Acid 1.1 mmol/L (0.7-2.1) 06/22/19 05:54 Calcium 7.8 mg/dL (8.4-10.2) L 06/26/19 04:31 Ionized Calcium Ryan 1.01 mmol/L (1.14-1.30) L 06/20/19 06:40 Phosphorus 3.9 mg/dL (2.5-4.5) 06/20/19 06:40 Magnesium 1.4 mg/dL (1.6-2.3) L 06/26/19 04:31 Total Bilirubin 0.5 mg/dL (0.2-1.3) 06/20/19 06:40 AST 19 U/L (17-59) 06/20/19 06:40 Alkaline Phosphatase 54 U/L (38-126) 06/20/19 06:40 Total Protein 2.7 g/dL (6.3-8.2) L 06/20/19 06:40 Albumin 2.1 g/dL (3.5-5.0) L 06/23/19 04:35 TSH 1.53 uIU/mL (0.47-4.68) 06/20/19 06:40 Free T4 1.84 ng/dL (0.78-2.19) 06/20/19 06:40 Free T3 pg/mL 2.24 pg/mL (2.77-5.27) L 06/20/19 06:40 Urine Color YELLOW 06/19/19 19:15 Urine Appearance SLIGHTLY-CLOUDY 06/19/19 19:15 Urine pH 6.0 (5.0-9.0) 06/19/19 19:15 Ur Specific Cascade 1.014 06/19/19 19:15 Urine Protein 30 mg/dL (NEGATIVE) H 06/19/19 19:15 Urine Glucose (UA) NEGATIVE mg/dL (NEGATIVE) 06/19/19 19:15 Urine Ketones NEGATIVE mg/dL (NEGATIVE) 06/19/19 19:15 Urine Blood NEGATIVE (NEGATIVE) 06/19/19 19:15 Urine Nitrite NEGATIVE (NEGATIVE) 06/19/19 19:15 Ur Leukocyte Esterase NEGATIVE (NEGATIVE) 06/19/19 19:15 Urine WBC (Auto) 3 /HPF 06/19/19 19:15 Urine RBC (Auto) 1 /HPF 06/19/19 19:15 06/19/19 06/20/19 19:05 06:40 CK-MB (CK-2) 1.83 Troponin I < 0.012 0.080 Microbiology: Blood cultures: 06/20/2019 NGTD Stool Culture: 06/20/2019 Salmonella, VRE C diff toxin assay 06/20/19 Negative Radiology: Acute Abdomen Series 06/19/19 19:11 IMPRESSION: Small bowel appears decompressed as compared to the previous CT examination without significant dilatation to suggest obstruction Abdomen/Pelvis CT 06/19/19 21:15 IMPRESSION: Mild wall thickening in segments of small bowel as well as in the colon which may reflect infectious or inflammatory enterocolitis. C. Difficile colitis is not excluded but this is not a typical appearance Ventral hernia containing omental fat similar to the previous study with a small amount of stranding Small amount of density in the left base which may reflect inflammatory or infectious process Heterogeneity involving the inferior margin of the gluteal muscles on the left which may be secondary to volume averaging. The possibility of hematoma or infection is not excluded. Recommend clinical correlation Head CT 06/19/19 21:15 IMPRESSION: No acute intracranial abnormality is identified. Findings which may reflect sinusitis in the appropriate clinical setting Chest X-Ray 06/20/19 00:00 IMPRESSION: COPD. No acute cardiopulmonary process Assessment and Recommendations: 1- Chronic diarrhea - patient with evidence of colitis x 2 years, per GI notes. Chronic diarrhea of unknown etiology. Most recent colonoscopy with eosinophils. A diagnosis of eosinophilic colitis made. He has a history of asthma, sinusitis, even though no granulomas were seen, will recommend to rule out Churg Volodymyr syndrome (can do ANCA). In terms of infectious etiologies: strongyloides, ascariasis, giardiasis, cryptosporidium, among other parasites c an cause peripheral eosinophilia (currently 37%). Ova and parasites pending. Can do serologies for stroniloides IgM, IgG. Giardia stool antigen can be done as well. Stool for AFB and Trichrome can detect other parasites as cryptosporidium, cyclospora, microsporidium. C diff was negative, no treatment recommended. He might be a carrier for Salmonella, but it may represent reinfection (if he lives with a carrier) as there is evidence of enterocolitis typical of Salmonella enterocolitis. Continue ceftriaxone for 10 days. Can do HIV test as well, this increases the risk for severe Salmonella infections. 2- Leukocytosis - today 18k with 37% eosinophils. Please see above for differen tial diagnosis regarding parasitic infections and eosinophilia. It might be all related to eosinophilic colitis, but should rule out parasitic infection first before giving steroids. Please call back if questions. Nitza Baker MD [facility] [phone]
[2019-06-26] MEDS: POTASSIUM CHLORIDE 10 MEQ TABLET.ER PO SCH ×2 (09:44→21:08)
[2019-06-26] MEDS: MIDODRINE HCL 5 MG TABLET PO SCH ×3 (09:44→17:13)
[2019-06-26] MEDS: MAGNESIUM OXIDE 400 MG TABLET PO SCH ×2 (09:45→17:13)
[2019-06-26] MEDS: MONTELUKAST SODIUM 10 MG TABLET PO SCH (09:45)
[2019-06-26] MEDS: FLUOXETINE HCL 20 MG CAPSULE PO SCH (09:45)
[2019-06-26] MEDS: ASPIRIN 81 MG TABLET, ENT COATED PO SCH (09:45)
[2019-06-26] MEDS: LORATADINE 10 MG TABLET PO SCH (09:45)
[2019-06-26] MEDS: CEFTRIAXONE 1 GM/D5W RTU 1 GM/50 ML RTUPB IV SCH (11:15)
[2019-06-26] MEDS ORDERED: PREDNISONE 20 MG TABLET PO ONE (12:50)
[2019-06-26] MEDS: NORMAL SALINE 1000 ML 1,000 ML IV PRN ×2 (13:25→22:55)
[2019-06-26 14:32] LABS: PATH REVIEW PATHOLOGIST REVIEWED
--- NOTE | 2019-06-26 15:56 | PDOC PROGRESS REPORT ---
Subjective Progress Note for:: 06/26/19 Subjective:: Mr. Babak Eckert is a 58 years old male with past medical history of hyperlipidemia, hypertension, bovine aortic valve replacement February 2015, recurrent C. difficile, Salmonella and VRE enterocolitis presented to ED on 06/20/2019 after syncopal episode at home. Patient was diagnosed with septic shock and transferred to ICU where he was started on empiric IV antibiotics and pressors and was transferred back to floor on 06/24/2018. 06/25/2019. No acute events overnight. Patient comfortably sitting in bed no apparent distress, diarrhea has resolved, alert and oriented x3, denies any fever, chills, nausea, vomiting, diarrhea, constipation or any urinary symptoms. . No acute events overnight. Patient has had 3 loose bowels since yesterday, otherwise denies any fever, chills, nausea, vomiting, chest pain, shortness of breath. P.o. tolerant. Ambulatory. Reason For Visit: SEPSIS, HYPOVOLEMIA Physical Exam Vital Signs: Temp Pulse Resp BP Pulse Ox 98.1 F 66 15 86/56 L 100 06/26/19 11:21 06/26/19 14:02 06/26/19 11:21 06/26/19 11:21 06/26/19 11:21 Intake & Output 06/25/19 06/26/19 06/27/19 06:59 06:59 06:59 Intake Total 810 1310 50 Output Total 1802 950 Balance -992 360 50 Weight 59.2 kg 56.3 kg General appearance: PRESENT: thin Head exam: PRESENT: atraumatic, normocephalic Respiratory exam: PRESENT: clear to auscultation trevin. ABSENT: rales, rhonchi, wheezes Cardiovascular exam: PRESENT: RRR. ABSENT: diastolic murmur, rubs, systolic murmur Pulses: PRESENT: normal dorsalis pedis pul GI/Abdominal exam: PRESENT: normal bowel sounds, soft. ABSENT: distended, guarding, mass, organolmegaly, rebound, tenderness Neurological exam: PRESENT: alert, awake, oriented to person, oriented to place, oriented to time, oriented to situation, CN II-XII grossly intact. ABSENT: motor sensory deficit Skin exam: PRESENT: dry, intact, warm. ABSENT: cyanosis, rash Results Laboratory Results: 06/26/19 04:31 06/26/19 04:31 06/26/19 06/26/19 04:31 04:31 WBC 18.2 H RBC 3.57 L Hgb 10.4 L Hct 31.9 L MCV 89 MCH 29.1 MCHC 32.6 RDW 16.9 H Plt Count 152 Seg Neutrophils % Not Reportable Sodium 139.0 Potassium 4.4 Chloride 116 H Carbon Dioxide 15 L Anion Gap 8 BUN 19 Creatinine 1.23 Est GFR ( Amer) > 60 Glucose 85 Calcium 7.8 L Magnesium 1.4 L 06/20/19 21:25 Stool - Stool Ova and Parasite Concentrate Exam - Final 06/20/19 21:25 Stool - Stool Ova and Parasites - Final 06/19/19 06/20/19 19:05 06:40 CK-MB (CK-2) 1.83 Troponin I < 0.012 0.080 Impressions: Acute Abdomen Series 06/19/19 19:11 IMPRESSION: Small bowel appears decompressed as compared to the previous CT examination without significant dilatation to suggest obstruction Abdomen/Pelvis CT 06/19/19 21:15 IMPRESSION: Mild wall thickening in segments of small bowel as well as in the colon which may reflect infectious or inflammatory enterocolitis. C. Difficile colitis is not excluded but this is not a typical appearance Ventral hernia containing omental fat similar to the previous study with a small amount of stranding Small amount of density in the left base which may reflect inflammatory or infectious process Heterogeneity involving the inferior margin of the gluteal muscles on the left which may be secondary to volume averaging. The possibility of hematoma or infection is not excluded. Recommend clinical correlation Head CT 06/19/19 21:15 IMPRESSION: No acute intracranial abnormality is identified. Findings which may reflect sinusitis in the appropriate clinical setting Chest X-Ray 06/20/19 00:00 IMPRESSION: COPD. No acute cardiopulmonary process copyright 2011 [employer]- All Rights Reserved Assessment and Plan - Diagnosis (1) Colitis due to Salmonella species Is this a current diagnosis for this admission?: Yes Plan: History of recurrent colitis due to Salmonella, Enterobacter and C. difficile. Chart review shows stool culture positive for E faecium VRE x5, Salmonella species x4, C. difficile positive x2. Has been treated in the past with Cipro, Flagyl and vancomycin. Outpatient colonoscopy by Dr. Lemon workforce manager few week prior to admission did not show any evidence of pseudomembranous colitis Colon biopsies showed numerous eosinophils with no features of active colitis. Biopsy positive for giant cells but no granuloma. Culture from this admission shows Salmonella species and Enterobacter faecium VRE C. difficile toxin negative on this admission. Stool ova and parasite pending. Toxoplasma gondii IgM negative. All blood cultures negative. Day 7 IV antibiotics. Day 3 IV Rocephin. Vancomycin and Flagyl was started as outpatient and continued inpatient, DC'd on 06/23/2019. Gastroenterology on board. Recommendations noted. Continue Rocephin. Monitor volume status and electrolytes replace as needed. We will consult infectious disease for further recommendation. (2) Acute kidney injury superimposed on CKD Is this a current diagnosis for this admission?: Yes Plan: Prerenal. Back to baseline. Due to septic shock. Baseline creatinine 1.6. Presented with creatinine of 2.06. Nonoliguric. Electrolyte WNL. Euvolemic. Monitor volume status and electrolyte replace as needed. Avoid nephrotoxic meds. 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 difficile. Chart review shows stool culture positive for E faecium VRE x5, Salmonella species x4, C. difficile positive x2. Has been treated in the past with Cipro, Flagyl and vancomycin. Outpatient colonoscopy by Dr. Lemon workforce manager few week prior to admission did not show any evidence of pseudomembranous colitis Colon biopsies showed numerous eosinophils with no features of active colitis. Biopsy positive for giant cells but no granuloma. Culture from this admission shows Salmonella species and Enterobacter faecium VRE C. difficile toxin negative on this admission. All blood cultures negative. Plan as per #1. (4) Eosinophilic colitis Is this a current diagnosis for this admission?: Yes Plan: As per recent colonoscopy as outpatient by Dr. Lemon workforce manager. Defer management to gastroenterology. Follow-up as outpatient with gastro enterology. (5) Septic shock Is this a current diagnosis for this admission?: Yes Plan: Resolved. Most likely due to infectious diarrhea. Leukocytosis improving. Afebrile. Vitals WNL. Presented with neutrophilic ascites and bandemia, CLARISSE, elevated lactic acid, hypotension and tachycardia (6) Aortic valve prosthesis present Is this a current diagnosis for this admission?: Yes Plan: History of bovine aortic valve replacement 2014. No new murmurs. No physical sign of endocarditis. (7) Hypokalemia Is this a current diagnosis for this admission?: Yes Plan: Most likely due to GI losses. No acute EKG changes. Continue supplemental potassium. Daily BMP. (8) Diarrhea Qualifiers: Diarrhea type: infectious Qualified Code(s): A09 - Infectious gastroenteritis and colitis, unspecified Is this a current diagnosis for this admission?: Yes Plan: Resolved. Plan as per above.
[2019-06-26] MEDS: MULTIVITAMINS W-IRON TABLET, CHEWABLE PO SCH (17:13)
[2019-06-27] MEDS: HEPARIN SOD (PORCINE) 5,000 UNIT/ML 1 ML VIAL SUBCUT SCH ×3 (05:17→22:07)
[2019-06-27] MEDS: ONDANSETRON 4 MG TAB.RAPDIS PO SCH ×3 (05:17→22:06)
[2019-06-27] MEDS: PANTOPRAZOLE SODIUM 40 MG TABLET.DR PO SCH (05:17)
[2019-06-27 05:48] LABS: ABSOLUTE MONOCYTES (AUTO) 0.2 10^3/uL (0.1-1.4); ABSOLUTE NEUT (AUTO) 10.3 10^3/uL (1.7-8.2); BASOPHILS % (AUTO) 0.2 % (0-2); EOSINOPHILS % (AUTO) 0.3 % (0-6); HEMATOCRIT 28.7 % (37.9-51.0); HEMOGLOBIN 9.1 g/dL (13.5-17.0); LYMPHOCYTES % (AUTO) 8.7 % (13-45); MEAN CORPUSCULAR HGB CONC 31.6 g/dL (32.0-36.0); MEAN CORPUSCULAR VOLUME 92 fl (80-97); MONOCYTES % (AUTO) 2.1 % (3-13); PLATELET COUNT 133 10^3/uL (150-450); RED BLOOD COUNT 3.14 10^6/uL (4.35-5.55); RED CELL DISTRIBUTION WIDTH 16.7 % (11.5-14.0); SEGMENTED NEUTROPHILS % (AUTO) 88.7 % (42-78); TOTAL CELLS COUNTED % (AUTO) 100 %; WHITE BLOOD COUNT 11.6 10^3/uL (4.0-10.5)
[2019-06-27 06:03] LABS: ALBUMIN 2.5 g/dL (3.5-5.0); ALKALINE PHOSPHATASE 124 U/L (38-126); ANION GAP 6 (5-19); ASPARTATE AMINO TRANSFERASE 13 U/L (17-59); BILIRUBIN,TOTAL 0.1 mg/dL (0.2-1.3); BLOOD UREA NITROGEN 14 mg/dL (7-20); CALCIUM 7.8 mg/dL (8.4-10.2); CARBON DIOXIDE 14 mmol/L (22-30); CHLORIDE 116 mmol/L (98-107); GLUCOSE 171 mg/dL (75-110); TOTAL PROTEIN 4.2 g/dL (6.3-8.2)
[2019-06-27 07:09] LABS: CRYPTOSPORIDIUM PARVUM AG NEGATIVE (NEGATIVE); GIARDIA LAMBLIA AG NEGATIVE (NEGATIVE)
[2019-06-27 08:06] LABS: ABSOLUTE RETICS # 0.046 10^6/uL (0.028-0.122); RETICULOCYTE COUNT (AUTO) 1.46 % (0.66-2.85)
[2019-06-27 08:12] LABS: IRON(TIBC) 120.7 ug/dL (49-181)
[2019-06-27 09:17] LABS: FOLATE 8.63 ng/mL (>2.76)
[2019-06-27] MEDS: FLUOXETINE HCL 20 MG CAPSULE PO SCH (09:18)
[2019-06-27] MEDS: POTASSIUM CHLORIDE 10 MEQ TABLET.ER PO SCH (09:18)
[2019-06-27] MEDS: MIDODRINE HCL 5 MG TABLET PO SCH ×3 (09:18→18:05)
[2019-06-27] MEDS: MULTIVITAMINS W-IRON TABLET, CHEWABLE PO SCH (09:18)
[2019-06-27] MEDS: ASPIRIN 81 MG TABLET, ENT COATED PO SCH (09:18)
[2019-06-27] MEDS: LORATADINE 10 MG TABLET PO SCH (09:18)
[2019-06-27] MEDS: MONTELUKAST SODIUM 10 MG TABLET PO SCH (09:18)
[2019-06-27] MEDS: PREDNISONE 20 MG TABLET PO SCH (09:26)
[2019-06-27] MEDS: MAGNESIUM OXIDE 400 MG TABLET PO SCH ×2 (09:26→18:05)
[2019-06-27] MEDS: NORMAL SALINE 1000 ML 1,000 ML IV PRN (12:41)
[2019-06-27] MEDS: CEFTRIAXONE 1 GM/D5W RTU 1 GM/50 ML RTUPB IV SCH (12:41)
--- NOTE | 2019-06-27 17:42 | PDOC PROGRESS REPORT ---
Subjective Progress Note for:: 06/27/19 Subjective:: Mr. Babak Eckert is a 58 years old male with past medical history of hyperlipidemia, hypertension, bovine aortic valve replacement February 2015, recurrent C. difficile, Salmonella and VRE enterocolitis presented to ED on 06/20/2019 after syncopal episode at home. Patient was diagnosed with septic shock and transferred to ICU where he was started on empiric IV antibiotics and pressors and was transferred back to floor on 06/24/2018. 06/25/2019. No acute events overnight. Patient comfortably sitting in bed no apparent distress, diarrhea has resolved, alert and oriented x3, denies any fever, chills, nausea, vomiting, diarrhea, constipation or any urinary symptoms. . No acute events overnight. Patient has had 3 loose bowels since yesterday, otherwise denies any fever, chills, nausea, vomiting, chest pain, shortness of breath. P.o. tolerant. Ambulatory. 06/27/2019. No acute events overnight. Has had one loose bowel movement since yesterday. Denies any fever, chills, nausea, vomiting, abdominal pain or any other symptoms. P.o. tolerant. Ambulatory. Reason For Visit: SEPSIS, HYPOVOLEMIA Physical Exam Vital Signs: Temp Pulse Resp BP Pulse Ox 97.5 F 67 16 121/79 99 06/27/19 13:32 06/27/19 13:32 06/27/19 13:32 06/27/19 13:32 06/27/19 13:32 Intake & Output 06/26/19 06/27/19 06/28/19 06:59 06:59 06:59 Intake Total 1310 2706 2334 Output Total 950 2325 Balance 887 399 7304 Weight 56.3 kg 57.7 kg 57.7 kg General appearance: PRESENT: no acute distress, well-developed, well-nourished Head exam: PRESENT: atraumatic, normocephalic Respiratory exam: PRESENT: clear to auscultation trevin. ABSENT: rales, rhonchi, wheezes Cardiovascular exam: PRESENT: RRR. ABSENT: diastolic murmur, rubs, systolic murmur GI/Abdominal exam: PRESENT: normal bowel sounds, soft. ABSENT: distended, guar ding, mass, organolmegaly, rebound, tenderness Neurological exam: PRESENT: alert, awake, oriented to person, oriented to place, oriented to time, oriented to situation, CN II-XII grossly intact. ABSENT: motor sensory deficit Results Laboratory Results: 06/27/19 04:57 06/27/19 04:57 06/27/19 06/27/19 06/27/19 04:57 04:57 04:57 WBC 11.6 H RBC 3.14 L Hgb 9.1 L Hct 28.7 L MCV 92 MCH 29.0 MCHC 31.6 L RDW 16.7 H Plt Count 133 L Seg Neutrophils % 88.7 H Retic Count (auto) 1.46 Sodium 135.5 L Potassium 5.0 Chloride 116 H Carbon Dioxide 14 L Anion Gap 6 BUN 14 Creatinine 0.98 Est GFR ( Amer) > 60 Glucose 171 H Calcium 7.8 L Magnesium 1.5 L Iron TIBC % Saturation Ferritin Total Bilirubin 0.1 L AST 13 L Alkaline Phosphatase 124 Total Protein 4.2 L Albumin 2.5 L Vitamin B12 Folate 06/27/19 04:57 WBC RBC Hgb Hct MCV MCH MCHC RDW Plt Count Seg Neutrophils % Retic Count (auto) Sodium Potassium Chloride Carbon Dioxide Anion Gap BUN Creatinine Est GFR ( Amer) Glucose Calcium Magnesium Iron 120.7 TIBC 173 L % Saturation 70 Ferritin 359.00 Total Bilirubin AST Alkaline Phosphatase Total Protein Albumin Vitamin B12 641.0 Folate 8.63 06/19/19 06/20/19 19:05 06:40 CK-MB (CK-2) 1.83 Troponin I < 0.012 0.080 Impressions: Acute Abdomen Series 06/19/19 19:11 IMPRESSION: Small bowel appears decompressed as compared to the previous CT examination without significant dilatation to suggest obstruction Abdomen/Pelvis CT 06/19/19 21:15 IMPRESSION: Mild wall thickening in segments of small bowel as well as in the colon which may reflect infectious or inflammatory enterocolitis. C. Difficile colitis is not excluded but this is not a typical appearance Ventral hernia containing omental fat similar to the previous study with a small amount of stranding Small amount of density in the left base which may reflect inflammatory or infectious process Heterogeneity involving the inferior margin of the gluteal muscles on the left which may be secondary to volume averaging. The possibility of hematoma or infection is not excluded. Recommend clinical correlation Head CT 06/19/19 21:15 IMPRESSION: No acute intracranial abnormality is identified. Findings which may reflect sinusitis in the appropriate clinical setting Chest X-Ray 06/20/19 00:00 IMPRESSION: COPD. 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 difficile. Chart review shows stool culture positive for E faecium VRE x5, Salmonella spec ies x4, C. difficile positive x2. Has been treated in the past with Cipro, Flagyl and vancomycin. Outpatient colonoscopy by Dr. Lemon grill attendant few week prior to admission did not show any evidence of pseudomembranous colitis Colon biopsies showed numerous eosinophils with no features of active colitis. Biopsy positive for giant cells but no granuloma. Culture from this admission shows Salmonella species and Enterobacter faecium VRE C. difficile toxin negative on this admission. Stool ova and parasite pending. Toxoplasma gondii IgM negative. All blood cultures negative. Day 8 IV antibiotics. Day 4 IV Rocephin. Vancomycin and Flagyl was started as outpatient and continued inpatient, DC'd on 06/23/2019. Gastroenterology on board. Recommendations noted. Continue Rocephin. Monitor volume status and electrolytes replace as needed. We will consult infectious disease for further recommendation. (2) Acute kidney injury superimposed on CKD Is this a current diagnosis for this admission?: Yes Plan: Prerenal. Back to baseline. Due to septic shock. Baseline creatinine 1.6. Presented with creatinine of 2.06. Nonoliguric. Electrolyte WNL. Euvolemic. Monitor volume status and electrolyte replace as needed. Avoid nephrotoxic meds. 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 difficile. Chart review shows stool culture positive for E faecium VRE x5, Salmonella species x4, C. difficile positive x2. Has been treated in the past with Cipro, Flagyl and vancomycin. Outpatient colonoscopy by Dr. Lemon grill attendant few week prior to admission did not show any evidence of pseudomembranous colitis Colon biopsies showed numerous eosinophils with no features of active colitis. Biopsy positive for giant cells but no granuloma. Culture from this admission shows Salmonella species and Enterobacter faecium VRE C. difficile toxin negative on this admission. All blood cultures negative. Plan as per #1. (4) Eosinophilic colitis Is this a current diagnosis for this admission?: Yes Plan: As per recent colonoscopy as outpatient by Dr. Lemon grill attendant. Continue high-dose steroids. (5) Septic shock Is this a current diagnosis for this admission?: Yes Plan: Resolved. Most likely due to infectious diarrhea. Leukocytosis improving. Afebrile. Vitals WNL. Presented with neutrophilic ascites and bandemia, CLARISSE, elevated lactic acid, hypotension and tachycardia (6) Aortic valve prosthesis present Is this a current diagnosis for this admission?: Yes Plan: History of bovine aortic valve replacement 2014. No new murmurs. No physical sign of endocarditis. (7) Hypokalemia Is this a current diagnosis for this admission?: Yes Plan: Most likely due to GI losses. No acute EKG changes. Continue supplemental potassium. Daily BMP. (8) Diarrhea Qualifiers: Diarrhea type: infectious Qualified Code(s): A09 - Infectious gastroenteritis and colitis, unspecified Is this a current diagnosis for this admission?: Yes Plan: Improving. Plan as per #1.
[2019-06-28] MEDS: HEPARIN SOD (PORCINE) 5,000 UNIT/ML 1 ML VIAL SUBCUT SCH ×3 (05:37→21:06)
[2019-06-28] MEDS: PANTOPRAZOLE SODIUM 40 MG TABLET.DR PO SCH (05:43)
[2019-06-28] MEDS: ONDANSETRON 4 MG TAB.RAPDIS PO SCH ×3 (05:43→21:06)
[2019-06-28 06:27] LABS: HEMATOCRIT 29.2 % (37.9-51.0); HEMOGLOBIN 9.6 g/dL (13.5-17.0); MEAN CORPUSCULAR HEMOGLOBIN 29.3 pg (27.0-33.4); MEAN CORPUSCULAR HGB CONC 32.8 g/dL (32.0-36.0); MEAN CORPUSCULAR VOLUME 90 fl (80-97); PLATELET COUNT 181 10^3/uL (150-450); RED BLOOD COUNT 3.27 10^6/uL (4.35-5.55); RED CELL DISTRIBUTION WIDTH 16.6 % (11.5-14.0); WHITE BLOOD COUNT 17.1 10^3/uL (4.0-10.5)
[2019-06-28 06:37] LABS: ALBUMIN 2.9 g/dL (3.5-5.0); ALKALINE PHOSPHATASE 146 U/L (38-126); ANION GAP 11 (5-19); ASPARTATE AMINO TRANSFERASE 15 U/L (17-59); BILIRUBIN,DIRECT 0.2 mg/dL (0.0-0.4); BILIRUBIN,TOTAL 0.2 mg/dL (0.2-1.3); BLOOD UREA NITROGEN 15 mg/dL (7-20); CALCIUM 8.4 mg/dL (8.4-10.2); CARBON DIOXIDE 13 mmol/L (22-30); CHLORIDE 114 mmol/L (98-107); GLUCOSE 118 mg/dL (75-110); POTASSIUM 4.1 mmol/L (3.6-5.0); TOTAL PROTEIN 4.9 g/dL (6.3-8.2)
[2019-06-28 07:11] LABS: ABSOLUTE LYMPHOCYTES# (MANUAL) 2.4 10^3/uL (0.5-4.7); ABSOLUTE MONOCYTES # (MANUAL) 0.5 10^3/uL (0.1-1.4); BASOPHILS % (MANUAL) 0 % (0-2); EOSINOPHILS % (MANUAL) 2 % (0-6); LYMPHOCYTES % (MANUAL) 14 % (13-45); MONOCYTES % (MANUAL) 3 % (3-13); SEGMENTED NEUTROPHILS % (MAN) 81 % (42-78); TOTAL CELLS COUNTED 100
[2019-06-28 07:13] LABS: ANISOCYTOSIS 1+; BURR CELLS 3+; PLATELET COMMENT ADEQUATE; POIKILOCYTOSIS 1+; TEAR DROP CELLS SLIGHT; TOXIC GRANULATION SLIGHT
[2019-06-28] MEDS: LORATADINE 10 MG TABLET PO SCH (09:47)
[2019-06-28] MEDS: MONTELUKAST SODIUM 10 MG TABLET PO SCH (09:47)
[2019-06-28] MEDS: MAGNESIUM OXIDE 400 MG TABLET PO SCH ×2 (09:47→17:36)
[2019-06-28] MEDS: ASPIRIN 81 MG TABLET, ENT COATED PO SCH (09:47)
[2019-06-28] MEDS: PREDNISONE 20 MG TABLET PO SCH (09:47)
[2019-06-28] MEDS: FLUOXETINE HCL 20 MG CAPSULE PO SCH (09:47)
[2019-06-28] MEDS: MULTIVITAMINS W-IRON TABLET, CHEWABLE PO SCH (09:48)
[2019-06-28] MEDS: POTASSIUM CHLORIDE 10 MEQ TABLET.ER PO SCH (09:48)
[2019-06-28] MEDS: MIDODRINE HCL 5 MG TABLET PO SCH ×3 (09:49→17:36)
--- NOTE | 2019-06-28 10:31 | PDOC PROGRESS REPORT ---
Subjective Progress Note for:: 06/28/19 Subjective:: Mr. Babak Eckert is a 58 years old male with past medical history of hyperlipidemia, hypertension, bovine aortic valve replacement February 2015, recurrent C. difficile, Salmonella and VRE enterocolitis presented to ED on 06/20/2019 after syncopal episode at home. Patient was diagnosed with septic shock and transferred to ICU where he was started on empiric IV antibiotics and pressors and was transferred back to floor on 06/24/2018. 06/25/2019. No acute events overnight. Patient comfortably sitting in bed no apparent distress, diarrhea has resolved, alert and oriented x3, denies any fever, chills, nausea, vomiting, diarrhea, constipation or any urinary symptoms. . No acute events overnight. Patient has had 3 loose bowels since yesterday, otherwise denies any fever, chills, nausea, vomiting, chest pain, shortness of breath. P.o. tolerant. Ambulatory. 06/27/2019. No acute events overnight. Has had one loose bowel movement since yesterday. Denies any fever, chills, nausea, vomiting, abdominal pain or any other symptoms. P.o. tolerant. Ambulatory. 06/28/2019. No acute events overnight. Patient is still have some loose stools however stating that they are more formed, denies any fever, chills, nausea, vomiting, abdominal pain, chest pain, shortness of breath or any urinary symptoms. P.o. tolerant. Ambulatory. Reason For Visit: SEPSIS, HYPOVOLEMIA Physical Exam Vital Signs: Temp Pulse Resp BP Pulse Ox 97.8 F 72 16 106/70 100 06/28/19 03:40 06/28/19 07:27 06/28/19 07:27 06/28/19 07:27 06/28/19 07:27 Intake & Output 06/27/19 06/28/19 06/29/19 06:59 06:59 06:59 Intake Total 0771 9119 Output Total 3967 825 Balance 381 2964 Weight 57.7 kg 57.5 kg General appearance: PRESENT: no acute distress, well-developed, well-nourished Head exam: PRESENT: atraumatic, normocephalic Respiratory exam: PRESENT: clear to auscultation trevin. ABSENT: rales, rhonchi, wheezes Cardiovascular exam: PRESENT: RRR. ABSENT: diastolic murmur, rubs, systolic murmur GI/Abdominal exam: PRESENT: normal bowel sounds, soft. ABSENT: distended, guarding, mass, organolmegaly, rebound, tenderness Neurological exam: PRESENT: alert, awake, oriented to person, oriented to place, oriented to time, oriented to situation, CN II-XII grossly intact. ABSENT: motor sensory deficit Results Laboratory Results: 06/28/19 05:35 06/28/19 05:35 06/28/19 06/28/19 05:35 05:35 WBC 17.1 H RBC 3.27 L Hgb 9.6 L Hct 29.2 L MCV 90 MCH 29.3 MCHC 32.8 RDW 16.6 H Plt Count 181 Seg Neutrophils % Not Reportable Sodium 137.6 Potassium 4.1 Chloride 114 H Carbon Dioxide 13 L Anion Gap 11 BUN 15 Creatinine 1.00 Est GFR ( Amer) > 60 Glucose 118 H Calcium 8.4 Magnesium 1.7 Total Bilirubin 0.2 AST 15 L Alkaline Phosphatase 146 H Total Protein 4.9 L Albumin 2.9 L 06/19/19 06/20/19 19:05 06:40 CK-MB (CK-2) 1.83 Troponin I < 0.012 0.080 Impressions: Acute Abdomen Series 06/19/19 19:11 IMPRESSION: Small bowel appears decompressed as compared to the previous CT examination without significant dilatation to suggest obstruction Abdomen/Pelvis CT 06/19/19 21:15 IMPRESSION: Mild wall thickening in segments of small bowel as well as in the colon which may reflect infectious or inflammatory enterocolitis. C. Difficile colitis is not excluded but this is not a typical appearance Ventral hernia containing omental fat similar to the previous study with a small amount of stranding Small amount of density in the left base which may reflect inflammatory or infectious process Heterogeneity involving the inferior margin of the gluteal muscles on the left which may be secondary to volume averaging. The possibility of hematoma or infection is not excluded. Recommend clinical correlation Head CT 06/19/19 21:15 IMPRESSION: No acute intracranial abnormality is identified. Findings which may reflect sinusitis in the appropriate clinical setting Chest X-Ray 06/20/19 00:00 IMPRESSION: COPD. No acute cardiopulmonary process copyright 2011 [email or web address]- All Rights Reserved Assessment and Plan - Diagnosis (1) Eosinophilic colitis Is this a current diagnosis for this admission?: Yes Plan: As per recent colonoscopy as outpatient by Dr. Lemon checking department supervisor. Continue high-dose steroids. (2) Colitis due to Salmonella species Is this a current diagnosis for this admission?: Yes Plan: History of recurrent colitis due to Salmonella, Enterobacter and C. difficile. Chart review shows stool culture positive for E faecium VRE x5, Salmonella species x4, C. difficile positive x2. Has been treated in the past with Cipro, Flagyl and vancomycin. Outpatient colonoscopy by Dr. Lemon checking department supervisor few week prior to admission did not show any evidence of pseudomembranous colitis Colon biopsies showed numerous eosinophils with no features of active colitis. Biopsy positive for giant cells but no granuloma. Culture from this admission shows Salmonella species and Enterobacter faecium VRE C. difficile toxin negative on this admission. Stool ova and parasite pending. Toxoplasma gondii IgM negative. All blood cultures negative. Day 9 IV antibiotics. Day 6 IV Rocephin. Vancomycin and Flagyl was started as outpatient and continued inpatient, DC'd on 06/23/2019. Gastroenterology on board. Recommendations noted. Continue Rocephin. Monitor volume status and electrolytes replace as needed. We will consult infectious disease for further recommendation. (3) Acute kidney injury superimposed on CKD Is this a current diagnosis for this admission?: Yes Plan: Prerenal. Back to baseline. Due to septic shock. Baseline creatinine 1.6. Presented with creatinine of 2.06. Nonoliguric. Electrolyte WNL. Euvolemic. Monitor volume status and electrolyte replace as needed. Avoid nephrotoxic meds. 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 difficile. Chart review shows stool culture positive for E faecium VRE x5, Salmonella species x4, C. difficile positive x2. Has been treated in the past with Cipro, Flagyl and vancomycin. Outpatient colonoscopy by Dr. Lemon checking department supervisor few week prior to admission did not show any evidence of pseudomembranous colitis Colon biopsies showed numerous eosinophils with no features of active colitis. Biopsy positive for giant cells but no granuloma. Culture from this admission shows Salmonella species and Enterobacter faecium VRE C. difficile toxin negative on this admission. All blood cultures negative. Plan as per #1. (5) Septic shock Is this a current diagnosis for this admission?: Yes Plan: Resolved. Most likely due to infectious diarrhea. Leukocytosis improving. Afebrile. Vitals WNL. Presented with neutrophilic ascites and bandemia, CLARISSE, elevated lactic acid, hypotension and tachycardia (6) Aortic valve prosthesis present Is this a current diagnosis for this admission?: Yes Plan: History of bovine aortic valve replacement 2014. No new murmurs. No physical sign of endocarditis. (7) Hypokalemia Is this a current diagnosis for this admission?: Yes Plan: Most likely due to GI losses. No acute EKG changes. Continue supplemental potassium. Daily BMP. (8) Diarrhea Qualifiers: Diarrhea type: infectious Qualified Code(s): A09 - Infectious gas troenteritis and colitis, unspecified Is this a current diagnosis for this admission?: Yes Plan: Improving. Plan as per #1.
[2019-06-28] MEDS: CEFTRIAXONE 1 GM/D5W RTU 1 GM/50 ML RTUPB IV SCH (12:04)
[2019-06-29] MEDS: PANTOPRAZOLE SODIUM 40 MG TABLET.DR PO SCH (05:24)
[2019-06-29] MEDS: ONDANSETRON 4 MG TAB.RAPDIS PO SCH ×3 (05:24→21:48)
[2019-06-29] MEDS: HEPARIN SOD (PORCINE) 5,000 UNIT/ML 1 ML VIAL SUBCUT SCH ×3 (05:24→21:52)
[2019-06-29 10:24] LABS: HEMATOCRIT 31.3 % (37.9-51.0); HEMOGLOBIN 10.2 g/dL (13.5-17.0); MEAN CORPUSCULAR HEMOGLOBIN 29.4 pg (27.0-33.4); MEAN CORPUSCULAR HGB CONC 32.6 g/dL (32.0-36.0); MEAN CORPUSCULAR VOLUME 90 fl (80-97); PLATELET COUNT 214 10^3/uL (150-450); RED BLOOD COUNT 3.48 10^6/uL (4.35-5.55); RED CELL DISTRIBUTION WIDTH 16.8 % (11.5-14.0); WHITE BLOOD COUNT 18.4 10^3/uL (4.0-10.5)
[2019-06-29 10:34] LABS: ANION GAP 8 (5-19); BLOOD UREA NITROGEN 18 mg/dL (7-20); CALCIUM 8.6 mg/dL (8.4-10.2); CARBON DIOXIDE 15 mmol/L (22-30); CHLORIDE 113 mmol/L (98-107); GLUCOSE 86 mg/dL (75-110)
[2019-06-29] MEDS: PREDNISONE 20 MG TABLET PO SCH (10:55)
[2019-06-29] MEDS: MONTELUKAST SODIUM 10 MG TABLET PO SCH (10:55)
[2019-06-29] MEDS: ASPIRIN 81 MG TABLET, ENT COATED PO SCH (10:55)
[2019-06-29] MEDS: FLUOXETINE HCL 20 MG CAPSULE PO SCH (10:55)
[2019-06-29] MEDS: MAGNESIUM OXIDE 400 MG TABLET PO SCH ×2 (10:55→17:14)
[2019-06-29] MEDS: POTASSIUM CHLORIDE 10 MEQ TABLET.ER PO SCH (10:55)
[2019-06-29] MEDS: LORATADINE 10 MG TABLET PO SCH (10:55)
[2019-06-29] MEDS: MIDODRINE HCL 5 MG TABLET PO SCH ×3 (10:56→17:14)
[2019-06-29] MEDS: MULTIVITAMINS W-IRON TABLET, CHEWABLE PO SCH (10:56)
[2019-06-29 11:00] LABS: ABSOLUTE LYMPHOCYTES# (MANUAL) 1.1 10^3/uL (0.5-4.7); ABSOLUTE MONOCYTES # (MANUAL) 0.9 10^3/uL (0.1-1.4); BASOPHILS % (MANUAL) 0 % (0-2); EOSINOPHILS % (MANUAL) 0 % (0-6); LYMPHOCYTES % (MANUAL) 6 % (13-45); MONOCYTES % (MANUAL) 5 % (3-13); SEGMENTED NEUTROPHILS % (MAN) 89 % (42-78); TOTAL CELLS COUNTED 100
[2019-06-29] MEDS: CEFTRIAXONE 1 GM/D5W RTU 1 GM/50 ML RTUPB IV SCH (11:03)
[2019-06-29 11:04] LABS: ANISOCYTOSIS 1+; BURR CELLS SLIGHT; OVALOCYTES SLIGHT; PLATELET COMMENT ADEQUATE; POLYCHROMASIA SLIGHT; SCHISTOCYTES SLIGHT
--- NOTE | 2019-06-29 17:54 | PDOC PROGRESS REPORT ---
Subjective Progress Note for:: 06/29/19 Subjective:: Mr. Babak Eckert is a 58 years old male with past medical history of hyperlipidemia, hypertension, bovine aortic valve replacement February 2015, recurrent C. difficile, Salmonella and VRE enterocolitis presented to ED on 06/20/2019 after syncopal episode at home. Patient was diagnosed with septic shock and transferred to ICU where he was started on empiric IV antibiotics and pressors and was transferred back to floor on 06/24/2018. 06/25/2019. No acute events overnight. Patient comfortably sitting in bed no apparent distress, diarrhea has resolved, alert and oriented x3, denies any fever, chills, nausea, vomiting, diarrhea, constipation or any urinary symptoms. . No acute events overnight. Patient has had 3 loose bowels since yesterday, otherwise denies any fever, chills, nausea, vomiting, chest pain, shortness of breath. P.o. tolerant. Ambulatory. 06/27/2019. No acute events overnight. Has had one loose bowel movement since yesterday. Denies any fever, chills, nausea, vomiting, abdominal pain or any other symptoms. P.o. tolerant. Ambulatory. 06/28/2019. No acute events overnight. Patient is still have some loose stools however stating that they are more formed, denies any fever, chills, nausea, vomiting, abdominal pain, chest pain, shortness of breath or any urinary symptoms. P.o. tolerant. Ambulatory. 06/29/2019. No acute events overnight. Patient had one formed bowel movement since yesterday, p.o. tolerant, denies any nausea, vomiting, diarrhea, constipation or any urinary symptoms. Patient could be potentially discharged on p.o. steroids to follow-up with gastroenterology as outpatient however as per ID recommendation patient is to complete 10-day of IV ceftriaxone while inpatient, I have reconsulted ID to see if he could be switched to p.o. antibiotics however no recommendation available at time of dictation. Reason For Visit: SEPSIS, HYPOVOLEMIA Physical Exam Vital Signs: Temp Pulse Resp BP Pulse Ox 98.2 F 83 16 107/63 99 06/29/19 12:00 06/29/19 12:00 06/29/19 12:00 06/29/19 12:06/29/19 12:00 Intake & Output 06/28/19 06/29/19 06/30/19 06:59 06:59 06:59 Intake Total 3839 2003 Output Total 825 Balance 3014 2003 Weight 57.5 kg 55.5 kg General appearance: PRESENT: no acute distress, well-developed, well-nourished Head exam: PRESENT: atraumatic, normocephalic Respiratory exam: PRESENT: clear to auscultation trevin. ABSENT: rales, rhonchi, wheezes Cardiovascular exam: PRESENT: RRR. ABSENT: diastolic murmur, rubs, systolic murmur GI/Abdominal exam: PRESENT: normal bowel sounds, soft. ABSENT: distended, guarding, mass, organolmegaly, rebound, tenderness Neurological exam: PRESENT: alert, awake, oriented to person, oriented to place, oriented to time, oriented to situation, CN II-XII grossly intact. ABSENT: motor sensory deficit Skin exam: PRESENT: dry, intact, warm. ABSENT: cyanosis, rash Results Laboratory Results: 06/29/19 08:40 06/29/19 08:40 06/29/19 06/29/19 08:40 08:40 WBC 18.4 H RBC 3.48 L Hgb 10.2 L Hct 31.3 L MCV 90 MCH 29.4 MCHC 32.6 RDW 16.8 H Plt Count 214 Seg Neutrophils % Not Reportable Sodium 136.3 L Potassium 4.0 Chloride 113 H Carbon Dioxide 15 L Anion Gap 8 BUN 18 Creatinine 0.96 Est GFR ( Amer) > 60 Glucose 86 Calcium 8.6 06/19/19 06/20/19 19:05 06:40 CK-MB (CK-2) 1.83 Troponin I < 0.012 0.080 Impressions: Acute Abdomen Series 06/19/19 19:11 IMPRESSION: Small bowel appears decompressed as compared to the previous CT examination without significant dilatation to suggest obstruction Abdomen/Pelvis CT 06/19/19 21:15 IMPRESSION: Mild wall thickening in segments of small bowel as well as in the colon which may reflect infectious or inflammatory enterocolitis. C. Difficile colitis is not excluded but this is not a typical appearance Ventral hernia containing omental fat similar to the previous study with a small amount of stranding Small amount of density in the left base which may reflect inflammatory or infectious process Heterogeneity involving the inferior margin of the gluteal muscles on the left which may be secondary to volume averaging. The possibility of hematoma or infection is not excluded. Recommend clinical correlation Head CT 06/19/19 21:15 IMPRESSION: No acute intracranial abnormality is identified. Findings which may reflect sinusitis in the appropriate clinical setting Chest X-Ray 06/20/19 00:00 IMPRESSION: COPD. No acute cardiopulmonary process copyright 2010 [employer]- All Rights Reserved Assessment and Plan - Diagnosis (1) Eosinophilic colitis Is this a current diagnosis for this admission?: Yes Plan: As per recent colonoscopy as outpatient by Dr. Lemon aids nurse. On admission patient was noted to have eosinophil count of 4%. After being star sallie on IV steroids in ICU eosinophil count dropped to 0 and his diarrhea also was resolved. Once his IV steroids were DC'd his eosinophil went up to 37% the following day. After restarting his steroids his eosinophil is back to 0 and his diarrhea has imporved. His chronic diarrhea is mostly due to eosinophilic colitis complicated by recurrent Salmonella colitis. Patient can be discharged home on p.o. steroids to follow-up with gastroenterology as outpatient, however as per ID recommendation patient is to complete 10 days of IV ceftriaxone while inpatient for treatment of his Salmonella enterocolitis, I have reconsulted ID to see if patient could be switched to p.o. antibiotics and DC'd home however no recommendation available yet. As per ID recommendation patient has been worked up to r/o any parasitic infections, so far he is negative Cryptosporidium , Giardia lamblia, HIV, and toxoplasma. Rest of his work-up pending. (2) Colitis due to Salmonella species Is this a current diagnosis for this admission?: Yes Plan: History of recurrent colitis due to Salmonella, Enterobacter and C. difficile. Chart review shows stool culture positive for E faecium VRE x5, Salmonella species x4, C. difficile positive x2. Has been treated in the past with Cipro, Flagyl and vancomycin. Outpatient colonoscopy by Dr. Lemon aids nurse few week prior to admission did not show any evidence of pseudomembranous colitis Colon biopsies showed numerous eosinophils with no features of active colitis. Biopsy positive for giant cells but no granuloma. Culture from this admission shows Salmonella species and Enterobacter faecium VRE C. difficile toxin negative on this admission. Stool ova and parasite pending. Toxoplasma gondii IgM negative. All blood cultures negative. Day 10 IV antibiotics. Day 7 IV Rocephin. Estimated date of completion 07/02/2019. Vancomycin and Flagyl was started as outpatient and continued inpatient, DC'd on 06/23/2019. Gastroenterology on board. Recommendations noted. Continue Rocephin. Monitor volume status and electrolytes replace as needed. We will consult infectious disease for further recommendation. (3) Acute kidney injury superimposed on CKD Is this a current diagnosis for this admission?: Yes Plan: Prerenal. Back to baseline. Due to septic shock. Baseline creatinine 1.6. Presented with creatinine of 2.06. Nonoliguric. Electrolyte WNL. Euvolemic. Monitor volume status and electrolyte replace as needed. Avoid nephrotoxic meds. 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 difficile. Chart review shows stool culture positive for E faecium VRE x5, Salmonella species x4, C. difficile positive x2. Has been treated in the past with Cipro, Flagyl and vancomycin. Outpatient colonoscopy by Dr. Lemon aids nurse few week prior to admission did not show any evidence of pseudomembranous colitis Colon biopsies showed numerous eosinophils with no features of active colitis. Biopsy positive for giant cells but no granuloma. Culture from this admission shows Salmonella species and Enterobacter faecium VRE C. difficile toxin negative on this admission. All blood cultures negative. Plan as per #1. (5) Septic shock Is this a current diagnosis for this admission?: Yes Plan: Resolved. Most likely due to infectious diarrhea. Leukocytosis improving. Afebrile. Vitals WNL. Presented with neutrophilic ascites and bandemia, CLARISSE, elevated lactic acid, hypotension and tachycardia (6) Aortic valve prosthesis present Is this a current diagnosis for this admission?: Yes Plan: History of bovine aortic valve replacement 2014. No new murmurs. No physical sign of endocarditis. (7) Hypokalemia Is this a current diagnosis for this admission?: Yes Plan: Most likely due to GI losses. No acute EKG changes. Continue supplemental potassium. Daily BMP. (8) Diarrhea Qualifiers: Diarrhea type: infectious Qualified Code(s): A09 - Infectious gastroenteritis and colitis, unspecified Is this a current diagnosis for this admission?: Yes Plan: Improving. Plan as per #1.
[2019-06-29 18:36] LABS: ANTIMYELOPEROXIDASE (MPO) AB <9.0 U/mL (0.0-9.0); CYTOPLASMIC (C-ANCA) <1:20 titer (Neg:<1:20)
[2019-06-29 18:48] LABS: ATYPICAL PANCA <1:20 titer (Neg:<1:20)
[2019-06-30 05:20] LABS: HEMATOCRIT 32.3 % (37.9-51.0); HEMOGLOBIN 10.5 g/dL (13.5-17.0); MEAN CORPUSCULAR HEMOGLOBIN 29.3 pg (27.0-33.4); MEAN CORPUSCULAR HGB CONC 32.6 g/dL (32.0-36.0); MEAN CORPUSCULAR VOLUME 90 fl (80-97); PLATELET COUNT 251 10^3/uL (150-450); RED BLOOD COUNT 3.58 10^6/uL (4.35-5.55); RED CELL DISTRIBUTION WIDTH 17.3 % (11.5-14.0); WHITE BLOOD COUNT 24.3 10^3/uL (4.0-10.5)
[2019-06-30 05:37] LABS: ALBUMIN 3.3 g/dL (3.5-5.0); ALKALINE PHOSPHATASE 152 U/L (38-126); ANION GAP 11 (5-19); ASPARTATE AMINO TRANSFERASE 36 U/L (17-59); BILIRUBIN,DIRECT 0.3 mg/dL (0.0-0.4); BILIRUBIN,TOTAL 0.3 mg/dL (0.2-1.3); BLOOD UREA NITROGEN 25 mg/dL (7-20); CALCIUM 9.1 mg/dL (8.4-10.2); CARBON DIOXIDE 15 mmol/L (22-30); CHLORIDE 111 mmol/L (98-107); GLUCOSE 138 mg/dL (75-110); POTASSIUM 4.9 mmol/L (3.6-5.0); TOTAL PROTEIN 5.6 g/dL (6.3-8.2)
[2019-06-30] MEDS: HEPARIN SOD (PORCINE) 5,000 UNIT/ML 1 ML VIAL SUBCUT SCH ×3 (05:40→21:53)
[2019-06-30] MEDS: PANTOPRAZOLE SODIUM 40 MG TABLET.DR PO SCH (05:41)
[2019-06-30] MEDS: ONDANSETRON 4 MG TAB.RAPDIS PO SCH ×3 (05:41→21:53)
--- NOTE | 2019-06-30 07:32 | Progress Note ---
Provider Note Provider Note: [facility] Telephone Advice Consultation Chart reviewed. Patient, a 58 yo man, evaluated due to chronic diarrhea. He has a history of bioprosthetic aortic valve. He has been presenting diarrhea si 2017. 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 In 10/2018 Salmonella spp grew from stool cultures. He has had 2 colonoscopies in this past year. Eosinophils were described in the pathology report this time. He was now admitted on 06/20/19 due to nausea, vomiting, diarrhea, syncope. He was admitted to the ICU for volume resuscitation and vasopressors support. He was recently diagnosed with CDI for which he was taking vancomycin po and metronidazole. Blood cultures remain negative, stool cultures positive for Salmonella and VRE. C diff toxin assay was negative on 06/20 (negative GDH and negative toxin). He received treatment for CDI x 10 days. He was on ampicillin, then ceftriaxone for Salmonella. He has received [address] scan demonstrated changes suggestive of enterocolitis. He was evaluated by GI as well and eosinophilic colitis was diagnosed. He has clinically improved per notes with full resolution of diarrhea, significant improvement with steroids. Vital Signs: Temp Pulse Resp BP Pulse Ox 97.4 F 64 20 106/66 99 06/30/19 00:00 06/30/19 00:00 06/30/19 00:00 06/30/19 00:00 06/30/19 00:00 Intake & Output 06/29/19 06/30/19 07/01/19 06:59 06:59 06:59 Intake Total 2003 1070 Balance 2003 1070 Weight 55.5 kg 55.7 kg Weight/Height Weight 55.7 kg Height 5 ft 9 in Laboratories: 06/30/19 04:29 06/30/19 04:29 MCV 90 fl (80-97) 06/30/19 04:29 MCH 29.3 pg (27.0-33.4) 06/30/19 04:29 MCHC 32.6 g/dL (32.0-36.0) 06/30/19 04:29 RDW 17.3 % (11.5-14.0) H 06/30/19 04:29 Seg Neutrophils % Not Reportable 06/29/19 08:40 Retic Count (auto) 1.46 % (0.66-2.85) 06/27/19 04:57 Chloride 111 mmol/L (98-107) H 06/30/19 04:29 Carbon Dioxide 15 mmol/L (22-30) L 06/30/19 04:29 Anion Gap 11 (5-19) 06/30/19 04:29 Est GFR ( Amer) > 60 (>60) 06/30/19 04:29 Est GFR (Non-Af Amer) Cancelled 06/19/19 19:05 Glucose 138 mg/dL (75-110) H 06/30/19 04:29 Lactic Acid 1.1 mmol/L (0.7-2.1) 06/22/19 05:54 Calcium 9.1 mg/dL (8.4-10.2) 06/30/19 04:29 Ionized Calcium Ryan 1.01 mmol/L (1.14-1.30) L 06/20/19 06:40 Phosphorus 3.9 mg/dL (2.5-4.5) 06/20/19 06:40 Magnesium 1.9 mg/dL (1.6-2.3) 06/30/19 04:29 Iron 120.7 ug/dL (49-181) 06/27/19 04:57 TIBC 173 ug/dL (250-450) L 06/27/19 04:57 % Saturation 70 % 06/27/19 04:57 Ferritin 359.00 ng/mL (17.9-464.0) 06/27/19 04:57 Total Bilirubin 0.3 mg/dL (0.2-1.3) 06/30/19 04:29 AST 36 U/L (17-59) 06/30/19 04:29 Alkaline Phosphatase 152 U/L (38-126) H 06/30/19 04:29 Total Protein 5.6 g/dL (6.3-8.2) L 06/30/19 04:29 Albumin 3.3 g/dL (3.5-5.0) L 06/30/19 04:29 Vitamin B12 641.0 pg/mL (239-931) 06/27/19 04:57 Folate 8.63 ng/mL (>2.76) 06/27/19 04:57 TSH 1.53 uIU/mL (0.47-4.68) 06/20/19 06:40 Free T4 1.84 ng/dL (0.78-2.19) 06/20/19 06:40 Free T3 pg/mL 2.24 pg/mL (2.77-5.27) L 06/20/19 06:40 Urine Color YELLOW 06/19/19 19:15 Urine Appearance SLIGHTLY-CLOUDY 06/19/19 19:15 Urine pH 6.0 (5.0-9.0) 06/19/19 19:15 Ur Specific Leroy 1.014 06/19/19 19:15 Urine Protein 30 mg/dL (NEGATIVE) H 06/19/19 19:15 Urine Glucose (UA) NEGATIVE mg/dL (NEGATIVE) 06/19/19 19:15 Urine Ketones NEGATIVE mg/dL (NEGATIVE) 06/19/19 19:15 Urine Blood NEGATIVE (NEGATIVE) 06/19/19 19:15 Urine Nitrite NEGATIVE (NEGATIVE) 06/19/19 19:15 Ur Leukocyte Esterase NEGATIVE (NEGATIVE) 06/19/19 19:15 Urine WBC (Auto) 3 /HPF 06/19/19 19:15 Urine RBC (Auto) 1 /HPF 06/19/19 19:15 06/19/19 06/20/19 19:05 06:40 CK-MB (CK-2) 1.83 Troponin I < 0.012 0.080 MIcrobiology: Blood cultures: 06/20/2019 NGTD Stool Culture: 06/20/2019 Salmonella, VRE C diff toxin assay 06/20/19 Negative Ova & Parasite: Negative Radiology: Acute Abdomen Series 06/19/19 19:11 IMPRESSION: Small bowel appears decompressed as compared to the previous CT examination without significant dilatation to suggest obstruction Abdomen/Pelvis CT 06/19/19 21:15 IMPRESSION: Mild wall thickening in segments of small bowel as well as in the colon which may reflect infectious or inflammatory enterocolitis. C. Difficile colitis is not excluded but this is not a typical appearance Ventral hernia containing omental fat similar to the previous study with a small amount of stranding Small amount of density in the left base which may reflect inflammatory or infectious process Heterogeneity involving the inferior margin of the gluteal muscles on the left which may be secondary to volume averaging. The possibility of hematoma or infection is not excluded. Recommend clinical correlation Head CT 06/19/19 21:15 IMPRESSION: No acute intracranial abnormality is identified. Findings which may reflect sinusitis in the appropriate clinical setting Chest X-Ray 06/20/19 00:00 IMPRESSION: COPD. No acute cardiopulmonary process Assessment and Recommendations: Patient evaluated due to chronic diarrhea for the past 2 years with multiple colonoscopies and CT scans, treated for colitis in the past, treated for CDI and Salmonella. Most current colonoscopy demonstrated eosinophilic colitis. Stool culture positive for Salmonella and CT scan consistent with enterocolitis. A recommendation was given to treat the Salmonella as it could be reinfection vs carrier. He has completed 10 days of antibiotics, therefore, can discontinue antibiotics and continue management for eosinophilic colitis. Per notes, it seems that he significantly improved on steroids. Will recommend to continue follow up with GI and follow up results of stools studies that might take few days. Please call if questions. Nitza Baker MD [facility] ID [phone]
[2019-06-30] MEDS: LORATADINE 10 MG TABLET PO SCH (10:53)
[2019-06-30] MEDS: MAGNESIUM OXIDE 400 MG TABLET PO SCH ×2 (10:54→19:55)
[2019-06-30] MEDS: PREDNISONE 20 MG TABLET PO SCH (10:54)
[2019-06-30] MEDS: ASPIRIN 81 MG TABLET, ENT COATED PO SCH (10:55)
[2019-06-30] MEDS: POTASSIUM CHLORIDE 10 MEQ TABLET.ER PO SCH (10:56)
[2019-06-30] MEDS: MULTIVITAMINS W-IRON TABLET, CHEWABLE PO SCH (10:59)
[2019-06-30] MEDS: MONTELUKAST SODIUM 10 MG TABLET PO SCH (10:59)
[2019-06-30] MEDS: FLUOXETINE HCL 20 MG CAPSULE PO SCH (10:59)
[2019-06-30] MEDS: MIDODRINE HCL 5 MG TABLET PO SCH ×3 (11:02→19:55)
[2019-06-30] MEDS: CEFTRIAXONE 1 GM/D5W RTU 1 GM/50 ML RTUPB IV SCH (12:38)
--- NOTE | 2019-06-30 15:22 | PDOC PROGRESS REPORT ---
Subjective Progress Note for:: 06/30/19 Subjective:: The patient is resting in bed. His son is visiting. He does not appear to be in any discomfort. He has no new complaints. Reason For Visit: SEPSIS, HYPOVOLEMIA Physical Exam Vital Signs: Temp Pulse Resp BP Pulse Ox 98.1 F 79 12 84/54 L 100 06/30/19 12:00 06/30/19 12:00 06/30/19 12:00 06/30/19 12:00 06/30/19 12:00 Intake & Output 06/29/19 06/30/19 07/01/19 06:59 06:59 06:59 Intake Total 2003 1070 Balance 2003 1070 Weight 55.5 kg 55.7 kg 55.7 kg General appearance: PRESENT: no acute distress, cooperative, well-developed Head exam: PRESENT: atraumatic, normocephalic Eye exam: PRESENT: conjunctiva pink, EOMI. ABSENT: scleral icterus Ear exam: PRESENT: normal external ear exam. ABSENT: bleeding, drainage Mouth exam: PRESENT: moist, tongue midline Respiratory exam: PRESENT: clear to auscultation trevin, symmetrical, unlabored. ABSENT: accessory muscle use, rales, rhonchi, tachypnea, wheezes Cardiovascular exam: PRESENT: +S1, +S2, systolic murmur - 3/6 GI/Abdominal exam: PRESENT: hernia - Ventral hernia, normal bowel sounds, soft. ABSENT: distended, guarding, tenderness Rectal exam: PRESENT: deferred Gentrourinary exam: ABSENT: indwelling catheter Extremities exam: ABSENT: pedal edema Neurological exam: PRESENT: alert, awake, oriented to person, oriented to place, oriented to time, oriented to situation, CN II-XII grossly intact Psychiatric exam: PRESENT: flat affect. ABSENT: agitated, anxious Focused psych exam: ABSENT: delusional, restlessness Skin exam: PRESENT: dry, normal color, warm. ABSENT: rash Results Laboratory Results: 06/30/19 04:29 06/30/19 04:29 06/30/19 06/30/19 04:29 04:29 WBC 24.3 H RBC 3.58 L Hgb 10.5 L Hct 32.3 L MCV 90 MCH 29.3 MCHC 32.6 RDW 17.3 H Plt Count 251 Sodium 136.6 L Potassium 4.9 Chloride 111 H Carbon Dioxide 15 L Anion Gap 11 BUN 25 H Creatinine 1.44 H Est GFR ( Amer) > 60 Glucose 138 H Calcium 9.1 Magnesium 1.9 Total Bilirubin 0.3 AST 36 Alkaline Phosphatase 152 H Total Protein 5.6 L Albumin 3.3 L 06/19/19 06/20/19 19:05 06:40 CK-MB (CK-2) 1.83 Troponin I < 0.012 0.080 Impressions: Acute Abdomen Series 06/19/19 19:11 IMPRESSION: Small bowel appears decompressed as compared to the previous CT examination without significant dilatation to suggest obstruction Abdomen/Pelvis CT 06/19/19 21:15 IMPRESSION: Mild wall thickening in segments of small bowel as well as in the colon which may reflect infectious or inflammatory enterocolitis. C. Difficile colitis is not excluded but this is not a typical appearance Ventral hernia containing omental fat similar to the previous study with a small amount of stranding Small amount of density in the left base which may reflect inflammatory or infectious process Heterogeneity involving the inferior margin of the gluteal muscles on the left which may be secondary to volume averaging. The possibility of hematoma or infection is not excluded. Recommend clinical correlation Head CT 06/19/19 21:15 IMPRESSION: No acute intracranial abnormality is identified. Findings which may reflect sinusitis in the appropriate clinical setting Chest X-Ray 06/20/19 00:00 IMPRESSION: COPD. No acute cardiopulmonary process copyright 2011 [employer]- All Rights Reserved Assessment and Plan - Diagnosis (1) Eosinophilic colitis Is this a current diagnosis for this admission?: Yes Plan: Eosinophilic colitis was diagnosed by biopsy as well as the CBC reflecting 37% eosinophils. Now the patient is on oral steroids the GI tract feels better and his percentage of eosinophils has dropped back into the normal range. Continue steroid taper as an outpatient and follow-up with gastroenterology. (2) Colitis due to Salmonella species Is this a current diagnosis for this admission?: Yes Plan: The patient reports that tomorrow be the 10th day of his IV Rocephin. Infectious disease consult appreciated and suggest that the patient is appropriate for discharge to home after completing the antibiotic therapy. I have discussed with the patient and son the need to continue with his probiotics and try to avoid any high risk foods, animal or infected patient encounters. (3) Acute kidney injury superimposed on CKD Is this a current diagnosis for this admission?: Yes Plan: The patient's GFR is down today. It has been normal for the last several days. I will administer some IV fluids and encourage the patient to stay well- hydrated. (4) Hypokalemia Is this a current diagnosis for this admission?: Yes Plan: Serum potassium is up to 4.9. Now that diarrhea has subsided I will decrease the potassium chloride to 20 mEq daily and recheck potassium in the morning. (5) Diarrhea Qualifiers: Diarrhea type: infectious Qualified Code(s): A09 - Infectious gastroenteritis and colitis, unspecified Is this a current diagnosis for this admission?: Yes Plan: Greatly improved. We will continue to encourage p.o. fluids to replace previous losses. (6) Aortic valve prosthesis present Is this a current diagnosis for this admission?: Yes Plan: History of bovine valve surgery 2014. Currently stable. No acute intervention required. 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 He has been positive for VRE approximately 5 times. Of note he has also been positive for Salmonella, Enterobacter and C. difficile in the past. No acute intervention at this time. (8) Septic shock Is this a current diagnosis for this admission?: Yes Plan: Resolved
[2019-06-30] MEDS ORDERED: NORMAL SALINE 1000 ML 1,000 ML IV PRN (15:26)
[2019-06-30] MEDS: HYDROCORTISONE 1% CREAM 28.35 GM TP SCH (21:58)
[2019-07-01] MEDS: HEPARIN SOD (PORCINE) 5,000 UNIT/ML 1 ML VIAL SUBCUT SCH ×2 (05:43→13:13)
[2019-07-01] MEDS: PANTOPRAZOLE SODIUM 40 MG TABLET.DR PO SCH (05:43)
[2019-07-01 08:53] LABS: HEMATOCRIT 31.2 % (37.9-51.0); HEMOGLOBIN 10.1 g/dL (13.5-17.0); MEAN CORPUSCULAR HEMOGLOBIN 29.4 pg (27.0-33.4); MEAN CORPUSCULAR HGB CONC 32.4 g/dL (32.0-36.0); MEAN CORPUSCULAR VOLUME 91 fl (80-97); PLATELET COUNT 253 10^3/uL (150-450); RED BLOOD COUNT 3.44 10^6/uL (4.35-5.55); RED CELL DISTRIBUTION WIDTH 18.2 % (11.5-14.0); WHITE BLOOD COUNT 26.4 10^3/uL (4.0-10.5)
[2019-07-01 09:14] LABS: ANION GAP 13 (5-19); BLOOD UREA NITROGEN 28 mg/dL (7-20); CALCIUM 8.8 mg/dL (8.4-10.2); CARBON DIOXIDE 11 mmol/L (22-30); CHLORIDE 113 mmol/L (98-107); GLUCOSE 96 mg/dL (75-110); POTASSIUM 3.9 mmol/L (3.6-5.0)
[2019-07-01 09:30] LABS: ABSOLUTE LYMPHOCYTES# (MANUAL) 2.6 10^3/uL (0.5-4.7); ABSOLUTE MONOCYTES # (MANUAL) 1.3 10^3/uL (0.1-1.4); BAND NEUTROPHILS % (MANUAL) 3 % (3-5); BASOPHILS % (MANUAL) 0 % (0-2); EOSINOPHILS % (MANUAL) 0 % (0-6); LYMPHOCYTES % (MANUAL) 10 % (13-45); MONOCYTES % (MANUAL) 5 % (3-13); SEGMENTED NEUTROPHILS % (MAN) 82 % (42-78); TOTAL CELLS COUNTED 100
[2019-07-01 09:31] LABS: ANISOCYTOSIS 1+; PLATELET COMMENT ADEQUATE; POIKILOCYTOSIS SLIGHT; POLYCHROMASIA 1+; TOXIC GRANULATION SLIGHT
[2019-07-01] MEDS ORDERED: POTASSIUM CHLORIDE 10 MEQ TABLET.ER PO SCH (10:00)
--- NOTE | 2019-07-01 10:11 | PDOC DISCHARGE SUMMARY ---
Impression - Admit/DC Date/PCP Admission Date/Primary Care Provider: 06/20/19 03:43 ABBY ELLIOTT Discharge Date: 07/01/19 - Discharge Diagnosis (1) Eosinophilic colitis Is this a current diagnosis for this admission?: Yes (2) Colitis due to Salmonella species Is this a current diagnosis for this admission?: Yes (3) Acute kidney injury superimposed on CKD Is this a current diagnosis for this admission?: Yes (4) Hypokalemia Is this a current diagnosis for this admission?: Yes (5) Diarrhea Is this a current diagnosis for this admission?: Yes (6) Aortic valve prosthesis present Is this a current diagnosis for this admission?: Yes (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 difficile as well as coliforms. Admitted with colitis (eosinophilic) and Salmonella infection. Responded very well to steroids and antibiotic therapy. Currently holding furosemide due to low blood pressure. He required potassium and magnesium supplements due to profuse diarrhea. He will follow-up with his PCP to check electrolytes and a CBC. White blood cell count is elevated likely due to prednisone. He is also going to establish with a rn maternal child closer to his home in [facility]. - Additional Information Resuscitation Status: Full Code Discharge Diet: Regular Discharge Activity: Activity As Tolerated Referrals: JASON SINGH PA [Primary Care Provider] - Follow up as needed Prescriptions: Prednisone [Deltasone 5 mg Tablet] 5 mg PO ASDIR PRN 28 Days #112 tablet PRN Reason: Potassium Chloride [Klor-Con 10 Meq Tablet ER] 20 meq PO DAILY 14 Days #14 tablet.er Home Medications: Albuterol Sulfate [Proair HFA Inhalation Aerosol 8.5 gm MDI] 1 puff IH Q6HP PRN 06/20/19 Aspirin [Adult Low Dose Aspirin EC] 81 mg PO DAILY 06/20/19 Atorvastatin Calcium [Lipitor 20 mg Tablet] 20 mg PO QHS 06/20/19 Desloratadine [Clarinex] 5 mg PO DAILY 06/20/19 Fluoxetine HCl [Prozac 20 mg Capsule] 20 mg PO DAILY 06/20/19 Midodrine HCl 10 mg PO TID 06/20/19 Montelukast Sodium [Singulair 10 mg Tablet] 10 mg PO DAILY 06/20/19 Omeprazole 20 mg PO DAILY 06/20/19 Ondansetron HCl [Zofran 4 mg Tablet] 1 tab PO Q8 06/20/19 Sodium Bicarbonate [Sodium Bicarbonate 650 mg Tablet] 650 mg PO QID 06/20/19 Hydrocortisone [Hydrocortisone 1% Cream 28.35 gm] 1 applic TP Q12 tube 07/01/19 Magnesium Oxide [Mag-Ox 400 mg Tablet] 800 mg PO BID tablet 07/01/19 Multivitamins W-Iron [Flintstones Chewable Multivit W/Fe Tab] 2 tab PO DAILY tab.chew 07/01/19 Potassium Chloride [Klor-Con 10 Meq Tablet ER] 20 meq PO DAILY 14 Days #14 tablet.er 07/01/19 Prednisone [Deltasone 5 mg Tablet] 5 mg PO ASDIR PRN 28 Days #112 tablet 07/01/19 History of Present Illiness History of Present Illness: BLU JIMENES JR is a 58 year old male who was admitted with diarrhea, vomiting, fever, hypotension and elevated WBC. Dr. DAILEY saw the patient 4 days prior to admission for a colonoscopy which showed mild nonspecific colitis involving the left and right colon. He started feeling sick the night after his colonoscopy with vomiting followed by diarrhea. His stools have been very watery and he has been feeling dizzy. He presented to the emergency room 2 days prior to admission but was felt to be stable enough for discharge. He was brought back today after passing out and hypotension. He also had a high fever with a white count of 22. His colonoscopy was performed for recurrent diarrhea that has been going on for at least a year. He has had evidence of colitis on CAT scan since 2018 and a colonoscopy about a year ago by Dr. Inman also showed colitis. He had Salmonella identified in his stool about 6 months ago and again on 06/08/19. His stool from 06/18/2019 also showed Salmonella. He has also grown VRE in his stool about 3 times in the last 6 months. His stool was positive for C. difficile a few weeks ago though his colonoscopy showed no evidence of pseudomembranes. He has been treated with Cipro and Flagyl a couple of times over the last few months. He has continued to use vancomycin for the last [address] DAILEY started him on Apriso for possible inflammatory bowel disease. He felt that the recurrent Salmonella in his stool may have been from a carrier status though his current illness is consistent with an acute infection. Pathology of his left and right colon biopsy showed numerous eosinophils with no features of active colitis noted. There was some giant cells but no granulomas identified. No organisms were identified on GMS stain and AFB stain. On admission he had a left shift but his absolute eosinophils was only 0.9. The patient was admitted to the intensive care unit. Hospital Course Hospital Course: The patient was initially admitted to the ICU for infection and hypotension. He was seen by Dr. DAILEY of gastroenterology. Blood work and colonoscopy with biopsy revealed eosinophilic colitis as well as Salmonella in the stool. Infectious disease service was consulted. They recommended 10 days of IV antibiotics (which she has completed) prior to discharge. Because of the profuse diarrhea he had hypokalemia and hypomagnesemia. He is currently on supplements. He also started utilizing protein shakes for repletion of nourishment. Prednisone therapy corrected his eosinophilia and improved his bowel function. He will be on a prednisone taper post discharge. His furosemide has been held due to low blood pressure. Physical Exam Vital Signs: Temp Pulse Resp BP Pulse Ox 98.1 F 68 12 93/58 L 99 07/01/19 08:00 07/01/19 08:00 07/01/19 08:00 07/01/19 08:00 07/01/19 08:00 Intake & Output 06/30/19 07/01/19 07/02/19 06:59 06:59 06:59 Intake Total 1070 3014 Output Total 2 Balance 1070 3012 Weight 55.7 kg 56 kg General appearance: PRESENT: no acute distress, cooperative, well-developed Respiratory exam: PRESENT: clear to auscultation trevin, symmetrical, unlabored. ABSENT: tachypnea Cardiovascular exam: PRESENT: RRR, +S1, +S2 GI/Abdominal exam: PRESENT: normal bowel sounds, soft. ABSENT: tenderness Neurological exam: PRESENT: alert, awake, oriented to person, oriented to place, oriented to time, oriented to situation, CN II-XII grossly intact Psychiatric exam: PRESENT: appropriate affect. ABSENT: agitated, anxious Results Laboratory Results: WBC 26.4 10^3/uL (4.0-10.5) H 07/01/19 07:47 RBC 3.44 10^6/uL (4.35-5.55) L 07/01/19 07:47 Hgb 10.1 g/dL (13.5-17.0) L 07/01/19 07:47 Hct 31.2 % (37.9-51.0) L 07/01/19 07:47 MCV 91 fl (80-97) 07/01/19 07:47 MCH 29.4 pg (27.0-33.4) 07/01/19 07:47 MCHC 32.4 g/dL (32.0-36.0) 07/01/19 07:47 RDW 18.2 % (11.5-14.0) H 07/01/19 07:47 Plt Count 253 10^3/uL (150-450) 07/01/19 07:47 Lymph % (Auto) Not Reportable 07/01/19 07:47 Hill % (Auto) Not Reportable 07/01/19 07:47 Eos % (Auto) Not Reportable 07/01/19 07:47 Baso % (Auto) Not Reportable 07/01/19 07:47 Reticulocyte # 0.046 10^6/uL (0.028-0.122) 06/27/19 04:57 Absolute Neuts (auto) Not Reportable 07/01/19 07:47 Absolute Lymphs (auto) Not Reportable 07/01/19 07:47 Absolute Monos (auto) Not Reportable 07/01/19 07:47 Absolute Eos (auto) Not Reportable 07/01/19 07:47 Absolute Basos (auto) Not Reportable 07/01/19 07:47 Total Counted 100 07/01/19 07:47 Seg Neutrophils % Not Reportable 07/01/19 07:47 Seg Neuts % (Manual) 82 % (42-78) H 07/01/19 07:47 Band Neutrophils % 3 % (3-5) 07/01/19 07:47 Lymphocytes % (Manual) 10 % (13-45) L 07/01/19 07:47 Monocytes % (Manual) 5 % (3-13) 07/01/19 07:47 Eosinophils % (Manual) 0 % (0-6) 07/01/19 07:47 Basophils % (Manual) 0 % (0-2) 07/01/19 07:47 Abs Neuts (Manual) 22.4 10^3/uL (1.7-8.2) H 07/01/19 07:47 Abs Lymphs (Manual) 2.6 10^3/uL (0.5-4.7) 07/01/19 07:47 Abs Monocytes (Manual) 1.3 10^3/uL (0.1-1.4) 07/01/19 07:47 Absolute Eos (Manual) 0.0 10^3/uL (0.0-0.6) 07/01/19 07:47 Abs Basophils (Manual) 0.0 10^3/uL (0.0-0.2) 07/01/19 07:47 Toxic Granulation SLIGHT 07/01/19 07:47 Platelet Comment ADEQUATE 07/01/19 07:47 Polychromasia 1+ 07/01/19 07:47 Poikilocytosis SLIGHT 07/01/19 07:47 Anisocytosis 1+ 07/01/19 07:47 Tear Drop Cells SLIGHT 06/28/19 05:35 Ovalocytes SLIGHT 06/29/19 08:40 [place] Cells SLIGHT 06/29/19 08:40 Acanthocytes (Spur) SLIGHT 07/01/19 07:47 Schistocytes SLIGHT 06/29/19 08:40 Retic Count (auto) 1.46 % (0.66-2.85) 06/27/19 04:57 Sodium 137.1 mmol/L (137-145) 07/01/19 07:47 Potassium 3.9 mmol/L (3.6-5.0) 07/01/19 07:47 Chloride 113 mmol/L (98-107) H 07/01/19 07:47 Carbon Dioxide 11 mmol/L (22-30) L 07/01/19 07:47 Anion Gap 13 (5-19) 07/01/19 07:47 BUN 28 mg/dL (7-20) H 07/01/19 07:47 Creatinine 1.28 mg/dL (0.52-1.25) H 07/01/19 07:47 Est GFR ( Amer) > 60 (>60) 07/01/19 07:47 Est GFR (Non-Af Amer) Cancelled 06/19/19 19:05 Est GFR (MDRD) Non-Af 58 (>60) L 07/01/19 07:47 Glucose 96 mg/dL (75-110) 07/01/19 07:47 POC Glucose 81 mg/dL (70-110) 06/26/19 07:50 Lactic Acid 1.1 mmol/L (0.7-2.1) 06/22/19 05:54 Calcium 8.8 mg/dL (8.4-10.2) 07/01/19 07:47 Ionized Calcium Ryan 1.01 mmol/L (1.14-1.30) L 06/20/19 06:40 Phosphorus 3.9 mg/dL (2.5-4.5) 06/20/19 06:40 Magnesium 1.9 mg/dL (1.6-2.3) 07/01/19 07:47 Iron 120.7 ug/dL (49-181) 06/27/19 04:57 TIBC 173 ug/dL (250-450) L 06/27/19 04:57 % Saturation 70 % 06/27/19 04:57 Ferritin 359.00 ng/mL (17.9-464.0) 06/27/19 04:57 Total Bilirubin 0.3 mg/dL (0.2-1.3) 06/30/19 04:29 Direct Bilirubin 0.3 mg/dL (0.0-0.4) 06/30/19 04:29 Neonat Total Bilirubin Not Reportable 06/30/19 04:29 Neonat Direct Bilirubin Not Reportable 06/30/19 04:29 Neonat Indirect Bili Not Reportable 06/30/19 04:29 AST 36 U/L (17-59) 06/30/19 04:29 ALT 76 U/L (<50) 06/30/19 04:29 Alkaline Phosphatase 152 U/L (38-126) H 06/30/19 04:29 CK-MB (CK-2) 1.83 ng/mL (<4.55) 06/19/19 19:05 Troponin I 0.080 ng/mL 06/20/19 06:40 Total Protein 5.6 g/dL (6.3-8.2) L 06/30/19 04:29 Albumin 3.3 g/dL (3.5-5.0) L 06/30/19 04:29 EGFR Cancelled 06/19/19 19:05 Vitamin B12 641.0 pg/mL (239-931) 06/27/19 04:57 Folate 8.63 ng/mL (>2.76) 06/27/19 04:57 TSH 1.53 uIU/mL (0.47-4.68) 06/20/19 06:40 Free T4 1.84 ng/dL (0.78-2.19) 06/20/19 06:40 Free T3 pg/mL 2.24 pg/mL (2.77-5.27) L 06/20/19 06:40 Urine Color YELLOW 06/19/19 19:15 Urine Appearance SLIGHTLY-CLOUDY 06/19/19 19:15 Urine pH 6.0 (5.0-9.0) 06/19/19 19:15 Ur Specific [place] 1.014 06/19/19 19:15 Urine Protein 30 mg/dL (NEGATIVE) H 06/19/19 19:15 Urine Glucose (UA) NEGATIVE mg/dL (NEGATIVE) 06/19/19 19:15 Urine Ketones NEGATIVE mg/dL (NEGATIVE) 06/19/19 19:15 Urine Blood NEGATIVE (NEGATIVE) 06/19/19 19:15 Urine Nitrite NEGATIVE (NEGATIVE) 06/19/19 19:15 Urine Bilirubin NEGATIVE (NEGATIVE) 06/19/19 19:15 Urine Urobilinogen NEGATIVE mg/dL (<2.0) 06/19/19 19:15 Ur Leukocyte Esterase NEGATIVE (NEGATIVE) 06/19/19 19:15 Urine WBC (Auto) 3 /HPF 06/19/19 19:15 Urine RBC (Auto) 1 /HPF 06/19/19 19:15 U Hyaline Cast (Auto) 4 /LPF 06/19/19 19:15 Squamous Epi Cells Auto <1 /HPF 06/19/19 19:15 Urine Mucus (Auto) RARE /LPF 06/19/19 19:15 Urine Ascorbic Acid NEGATIVE (NEGATIVE) 06/19/19 19:15 Stl C. Difficile GDH Ag NEGATIVE (NEGATIVE) 06/20/19 21:25 Stl C.difficile Tox A&B NEGATIVE (NEGATIVE) 06/20/19 21:25 c-ANCA Antibody <1:20 titer (Neg:<1:20) 06/26/19 04:31 Anti-Proteinase 3 Intrp <3.5 U/mL (0.0-3.5) 06/26/19 04:31 Atypical p-ANCA <1:20 titer (Neg:<1:20) 06/26/19 04:31 p-ANCA Antibody <1:20 titer (Neg:<1:20) 06/26/19 04:31 Myeloperoxidase Ab <9.0 U/mL (0.0-9.0) 06/26/19 04:31 Cryptosporid parvum Ag NEGATIVE (NEGATIVE) 06/26/19 20:15 Giardia lamblia Ag NEGATIVE (NEGATIVE) 06/26/19 20:15 HIV 1&2 Antibody NEGATIVE (NEGATIVE) 06/26/19 04:31 Toxoplasma IgM Comment Comment (.) 06/20/19 20:32 Toxoplasma gondii IgM <3.0 AU/mL (0.0-7.9) 06/20/19 20:32 Slides for Path Review PATHOLOGIST REVIEWED 06/26/19 04:31 06/19/19 06/20/19 19:05 06:40 CK-MB (CK-2) 1.83 Troponin I < 0.012 0.080 Impressions: Acute Abdomen Series 06/19/19 19:11 IMPRESSION: Small bowel appears decompressed as compared to the previous CT examination without significant dilatation to suggest obstruction Abdomen/Pelvis CT 06/19/19 21:15 IMPRESSION: Mild wall thickening in segments of small bowel as well as in the colon which may reflect infectious or inflammatory enterocolitis. C. Difficile colitis is not excluded but this is not a typical appearance Ventral hernia containing omental fat similar to the previous study with a small amount of stranding Small amount of density in the left base which may reflect inflammatory or infectious process Heterogeneity involving the inferior margin of the gluteal muscles on the left which may be secondary to volume averaging. The possibility of hematoma or infection is not excluded. Recommend clinical correlation Head CT 06/19/19 21:15 IMPRESSION: No acute intracranial abnormality is identified. Findings which may reflect sinusitis in the appropriate clinical setting Chest X-Ray 06/20/19 00:00 IMPRESSION: COPD. No acute cardiopulmonary process copyright 2011 [employer]- All Rights Reserved Plan Health Concerns: Recurrent stool infections with eosinophilic colitis as well Plan of Treatment: Antibiotic therapy completed. Patient is arranging follow-up with gastroenterology closer to home in [place]. Goals: Further clarification of eosinophilic colitis as relates to his recurrent bacterial infections of his stool. Time Spent: Greater than 30 Minutes Stroke Is this a Stroke Patient?: No Acute Heart Failure - Is this a Heart Failure Patient?: No
[2019-07-01] MEDS: MAGNESIUM OXIDE 400 MG TABLET PO SCH (11:00)
[2019-07-01] MEDS: MULTIVITAMINS W-IRON TABLET, CHEWABLE PO SCH (11:00)
[2019-07-01] MEDS: MIDODRINE HCL 5 MG TABLET PO SCH ×2 (11:00→14:52)
[2019-07-01] MEDS: CEFTRIAXONE 1 GM/D5W RTU 1 GM/50 ML RTUPB IV SCH (11:00)
[2019-07-01] MEDS: FLUOXETINE HCL 20 MG CAPSULE PO SCH (11:01)
[2019-07-01] MEDS: LORATADINE 10 MG TABLET PO SCH (11:02)
[2019-07-01] MEDS: ASPIRIN 81 MG TABLET, ENT COATED PO SCH (11:02)
[2019-07-01] MEDS: PREDNISONE 20 MG TABLET PO SCH (11:02)
[2019-07-01] MEDS: MONTELUKAST SODIUM 10 MG TABLET PO SCH (11:02)
[2019-07-01 12:16] VITALS: BP 106/66
[2019-07-01] MEDS: HYDROCORTISONE 1% CREAM 28.35 GM TP SCH (13:04)
[2019-07-01] MEDS: ONDANSETRON 4 MG TAB.RAPDIS PO SCH (14:53)
== END 2019-07-01 14:52 | disposition home or self-care (01) | DRG 871 ==
LOC: ER 18:50 → EH 06-20 03:43 → ICU 06-20 04:20 → 5 06-25 02:38
PROVIDERS: ADMIT Anesthesiology; ATTEND Anesthesiology
PROC: 04HK33Z Insertion of Infusion Device into Right Femoral Artery, Percutaneous Approach (ICD-10-PCS; principal; 2019-06-20)
PROC: 06HN33Z Insertion of Infusion Device into Left Femoral Vein, Percutaneous Approach (ICD-10-PCS; 2019-06-20)
DX: A41.9 Sepsis, unspecified organism (principal); R65.21 Severe sepsis with septic shock; A02.0 Salmonella enteritis; N17.9 Acute kidney failure, unspecified; E46 Unspecified protein-calorie malnutrition; Z16.21 Resistance to vancomycin; K52.82 Eosinophilic colitis; E87.6 Hypokalemia; Z22.39 Carrier of other specified bacterial diseases; E86.1 Hypovolemia; E86.0 Dehydration; I12.9 Hypertensive chronic kidney disease with stage 1 through stage 4 chronic kidney disease, or unspecified chronic kidney disease; N18.9 Chronic kidney disease, unspecified; E83.42 Hypomagnesemia; J45.909 Unspecified asthma, uncomplicated; E78.5 Hyperlipidemia, unspecified; F32.9 Major depressive disorder, single episode, unspecified; D72.829 Elevated white blood cell count, unspecified; Z90.49 Acquired absence of other specified parts of digestive tract; Z82.49 Family history of ischemic heart disease and other diseases of the circulatory system; Z88.1 Allergy status to other antibiotic agents; Z95.2 Presence of prosthetic heart valve; Z79.51 Long term (current) use of inhaled steroids; Z79.82 Long term (current) use of aspirin; Z79.899 Other long term (current) drug therapy
CPT/HCPCS: 36415; 36556; 36620; 70450; 71045; 74022; 74176; 80048; 80053; 81001; 82040; 82330; 82553; 82607; 82728; 82746; 82962; 83516; 83540; 83550; 83605; 83735; 84100; 84132; 84439; 84443; 84481; 84484; 85025; 85027; 85045; 86256; 86403; 86682; 86701; 86778; 87015; 87040; 87045; 87046; 87077; 87177; 87205; 87206; 87207; 87324; 87329; 87449; 93005; 93010; 93306; 96361; 96365; 96367; 96375; 99291; 99292; J0610; C9113; J0290; J0696; J1642; J1644; J1720; J1815; J2405; J2543; J2920; J2930; J3370; J3475; J3480; J3490; J7030; J7050; J7060; J7120; J7512; P9047; S0119

== ENCOUNTER 2020-02-04 20:29 | Emergency (ER) | payer BC ==
[2020-02-04 21:28] VITALS: BP 113/80
== END 2020-02-05 00:18 | disposition left against medical advice (07) ==
LOC: ER 20:29
DX: Z53.21 Procedure and treatment not carried out due to patient leaving prior to being seen by health care provider (principal); R05 Cough

== ENCOUNTER 2020-02-20 21:01 | Emergency (ER) | payer BC ==
[2020-02-20] MEDS ORDERED: NORMAL SALINE 250 ML IV ONE (23:48)
--- NOTE | 2020-02-20 23:50 | ER Document Report ---
ED Fever - General Chief Complaint: Fever Stated Complaint: FEVER/POS COVID TEST Time Seen by Provider: 02/20/20 23:24 Primary Care Provider: JASON SINGH PA [Primary Care Provider] - Follow up as needed Notes: Patient is a 59-year-old male who presents emergency department with a chief complaint of a fever. 1 week ago the patient was diagnosed with COVID-19 over at [facility]. Patient states that they let him go home after being diagnosed. He states that he most likely got COVID-19 on a shrimping trip. endorses a slight cough. Patient states that he cannot keep his fever down. He states that his temperature went up to 103. He has been taking Tylenol. His last dose was around 1900 tonight. She has a history of aortic valve replacement for patent ductus arteriosus and pneumonia. Denies smoking, asthma, or COPD history. TRAVEL OUTSIDE OF THE [place] IN LAST 30 DAYS: No - Related Data Allergies/Adverse Reactions: doxycycline Allergy (Verified 06/08/19 10:52) levofloxacin [From Levaquin] Allergy (Verified 06/08/19 10:52) Past Medical History - General Information source: Patient - Social History Smoking Status: Never Smoker Family History: CAD, CVA, DM, Hyperlipidemia, Hypertension, Malignancy - Past Medical History Cardiac Medical History: Reports: Hx Hypercholesterolemia, Hx Hypertension, Hx Heart Murmur Denies: Hx Atrial Fibrillation, Hx Coronary Artery Disease, Hx Heart Attack - PATENT DUCTUS ARTERIOSUS Pulmonary Medical History: Reports: Hx Pneumonia - SEPTIC SHOCK, Hx Respiratory Failure Denies: Hx Asthma, Hx Bronchitis, Hx COPD Neurological Medical History: Denies: Hx Cerebrovascular Accident, Hx Seizures Endocrine Medical History: Denies: Hx Diabetes Mellitus Type 1, Hx Diabetes Mellitus Type 2, Hx Hyperthyroidism, Hx Hypothyroidism Renal/ Medical History: Denies: Hx Peritoneal Dialysis GI Medical History: Denies: Hx Cirrhosis, Hx Crohn's Disease, Hx Hepatitis, Hx Ulcerative Colitis Musculoskeletal Medical History: Denies Hx Arthritis, Denies Hx Gout, Reports Hx Musculoskeletal Trauma - ribs left sided Skin Medical History: Denies Hx Eczema, Denies Hx Psoriasis Psychiatric Medical History: Reports: Hx Depression Traumatic Medical History: Reports: Hx Fractures - ribs left sidedddddddd. Denies: Hx Gunshot Wound, Hx Pneumothorax Infectious Medical History: Denies: Hx C-Diff, Hx Hepatitis, Hx HIV Past Surgical History: Reports: Hx Abdominal Surgery - hernia ventral, Hx Cardiac Catheterization, Hx Cardiac Surgery - PDA repair, Hx Cholecystectomy, Hx Umbilical Hernia, Hx Valve Replacement - Bovine pericardial tissue aortic valve replacement February 2015, Hx Vascular Surgery - Closure of patent ductus arteriosus - Immunizations Immunizations up to date: Yes Hx Diphtheria, Pertussis, Tetanus Vaccination: No Review of Systems - Review of Systems Notes: REVIEW OF SYSTEMS: CONSTITUTIONAL : See HPI. EENT: Denies eye, ear, throat, or mouth pain, discharge, or symptoms. Denies nasal or sinus congestion. CARDIOVASCULAR: Denies chest pain. RESPIRATORY: See HPI. GASTROINTESTINAL: Denies nausea, vomiting, and diarrhea. Denies abdominal pain. Denies constipation. GENITOURINARY: Denies difficulty urinating, burning, blood in urine, urgency or frequency. MUSCULOSKELETAL: Denies neck and back pain. Denies joint pain or swelling. SKIN: Denies rash, itchiness, or lesions HEMATOLOGIC : Denies easy bruising or bleeding. LYMPHATIC: Denies swollen, painful, enlarged glands. NEUROLOGICAL: Denies no numbness or tingling denies weakness. Denies headache. Denies altered mental status. Denies alteration in speech. PSYCHIATRIC: Denies stress, anxiety, alteration in sleep patterns, or depression. All other systems reviewed and negative. Physical Exam - Vital signs Vitals: Temp Pulse Resp BP Pulse Ox 99.2 F 74 20 92/63 L 100 02/20/20 21:10 02/20/20 21:10 02/20/20 21:10 02/20/20 21:10 02/20/20 21:10 - Notes Notes: PHYSICAL EXAMINATION: GENERAL: Appears well, healthy, well-nourished, no acute distress. HEAD: Normocephalic, atraumatic. EYES: PERRL, conjunctiva normal, all extraocular movements intact, sclera nonicteric ENT: Moist mucous membranes. NECK: Supple, no noticeable swelling, redness, rash. Normal range of motion. LUNGS: Diminished breath sounds throughout all lung garcia. CARDIOVASCULAR: S1-S2, regular rate, regular rhythm. Radial pulses 2+, normal. ABDOMEN: Normoactive bowel sounds. Soft, nontender, no guarding, no rebound tenderness, and no masses palpated. EXTREMITIES: Normal strength and range of motion, no pitting or edema. No cyanosis. NEUROLOGICAL: Moves all extremities upon command. Strength 5/5 in all extremities. PSYCH: Normal mood, normal affect. SKIN: Warm, dry. No rash, lesions, ulcerations noted. Normal skin turgor. Course - Re-evaluation Re-evalutation: 02/21/20 01:30 Hematology does not show leukocytosis, but there is a left shift. Blood gas is unremarkable. Chemistries show a slightly evaluated elevated creatinine, but this has not changed from the patient's previous visit. Urinalysis shows a moderate amount of blood in his urine, but he denies any flank or lower abdominal pain. Lactic acid was normal. Chest x-ray shows that he has bilateral interstitial opacities, most likely due to his COVID infection. We will start the patient on azithromycin. We will also walk the patient to see if he desaturates on room air. 02/21/20 02:23 Patient's oxygen saturation was 100% on room air while walking. We will start the patient on azithromycin. Patient will continue quarantine. Follow-up precautions were given. Verbal discharge instructions were given to the patient. They verbalized understanding. They are stable for discharge. - Vital Signs Vital signs: Temp Pulse Resp BP Pulse Ox 98.2 F 74 28 H 106/69 97 02/21/20 02:29 02/20/20 21:10 02/21/20 02:01 02/21/20 02:01 02/21/20 02:01 - Laboratory Result Diagrams: 02/21/20 00:20 02/21/20 00:20 Laboratory results interpreted by me: 02/21/20 02/21/20 02/21/20 00:20 00:20 01:50 RDW 14.1 H Plt Count 148 L Lymph % (Auto) 12.0 L Cooper % (Auto) 2.7 L Seg Neutrophils % 84.4 H Sodium 136.4 L BUN 30 H Creatinine 1.47 H Est GFR ( Amer) 59 L Est GFR (MDRD) Non-Af 49 L Glucose 127 H Direct Bilirubin 0.6 H Alkaline Phosphatase 178 H Total Protein 5.9 L Urine Protein 30 H Urine Blood MODERATE H - EKG Interpretation by Me Additional EKG results interpreted by me: 02/21/20 00:39 Sinus rhythm. Rate 68. NE 180; QRS 106; QT 492; QTc 524. No ST elevations or depressions noted. No acute change from previous EKG done on 06/20/2019. Discharge - Discharge Clinical Impression: COVID-19 Pneumonia Qualifiers: Pneumonia type: due to unspecified organism Laterality: bilateral Lung location: unspecified part of lung Qualified Code(s): J18.9 - Pneumonia, unspecified organism Condition: Stable Disposition: HOME, SELF-CARE Additional Instructions: You were seen today in the emergency department for a fever due to COVID-19. You also have pneumonia. Please continue quarantine as directed by the health department. You are being started on azithromycin for your pneumonia. Received your first dose here in the emergency department. Take your next dose tomorrow evening. Continue Tylenol for fever. Prescriptions: Azithromycin [Zithromax 250 mg Tablet] 250 mg PO DAILY #4 tablet Referrals: JASON SINGH PA [Primary Care Provider] - Follow up as needed
[2020-02-21 00:43] LABS: ABSOLUTE BASOPHILS # (AUTO) 0.1 10^3/uL (0.0-0.2); ABSOLUTE LYMPHOCYTES (AUTO) 0.9 10^3/uL (0.5-4.7); ABSOLUTE MONOCYTES (AUTO) 0.2 10^3/uL (0.1-1.4); ABSOLUTE NEUT (AUTO) 6.4 10^3/uL (1.7-8.2); BASOPHILS % (AUTO) 0.9 % (0-2); HEMATOCRIT 42.6 % (37.9-51.0); HEMOGLOBIN 14.9 g/dL (13.5-17.0); MEAN CORPUSCULAR HEMOGLOBIN 31.5 pg (27.0-33.4); MEAN CORPUSCULAR HGB CONC 34.9 g/dL (32.0-36.0); MEAN CORPUSCULAR VOLUME 90 fl (80-97); MONOCYTES % (AUTO) 2.7 % (3-13); PLATELET COUNT 148 10^3/uL (150-450); RED BLOOD COUNT 4.72 10^6/uL (4.35-5.55); RED CELL DISTRIBUTION WIDTH 14.1 % (11.5-14.0); SEGMENTED NEUTROPHILS % (AUTO) 84.4 % (42-78); TOTAL CELLS COUNTED % (AUTO) 100 %; WHITE BLOOD COUNT 7.6 10^3/uL (4.0-10.5)
--- NOTE | 2020-02-21 00:55 | RADIOLOGY REPORT (SQ) ---
EXAM DESCRIPTION: XR CHEST 1 VIEW COMPLETED DATE/TME: 02/20/2020 23:50 CLINICAL HISTORY: 59 years, Male, COVID +; fever; hx of pneumonia COMPARISON: 06/20/2019 NUMBER OF VIEWS: One TECHNIQUE: Upright AP view chest LIMITATIONS: None. FINDINGS: There are bibasilar interstitial opacities. The heart is normal in size with images of valve replacement. No pneumothorax or pleural effusion. Changes of median sternotomy. No intraperitoneal free air. IMPRESSION: Bibasilar interstitial opacities, which may be secondary to patient's Covid diagnosis. copyright 2010 [employer]- All Rights Reserved
[2020-02-21 00:59] LABS: ALBUMIN 3.8 g/dL (3.5-5.0); ALKALINE PHOSPHATASE 178 U/L (38-126); ANION GAP 12 (5-19); ASPARTATE AMINO TRANSFERASE 54 U/L (17-59); BILIRUBIN,DIRECT 0.6 mg/dL (0.0-0.4); BILIRUBIN,TOTAL 0.9 mg/dL (0.2-1.3); BLOOD UREA NITROGEN 30 mg/dL (7-20); CALCIUM 8.7 mg/dL (8.4-10.2); CARBON DIOXIDE 25 mmol/L (22-30); CHLORIDE 99 mmol/L (98-107); GLUCOSE 127 mg/dL (75-110); POTASSIUM 3.8 mmol/L (3.6-5.0); TOTAL PROTEIN 5.9 g/dL (6.3-8.2)
[2020-02-21 01:21] LABS: VENOUS BLOOD BASE EXCESS 0.1 mmol/L; VENOUS BLOOD HCO3 25.3 mmol/L (20-32); VENOUS BLOOD PCO2 43.2 mmHg (35-63); VENOUS BLOOD PH 7.39 (7.30-7.42)
[2020-02-21] MEDS ORDERED: AZITHROMYCIN 250 MG TABLET PO ONE (01:34)
[2020-02-21] MEDS ORDERED: ACETAMINOPHEN 325 MG TABLET PO ONE (01:35)
[2020-02-21 02:10] VITALS: BP 106/69
[2020-02-21 02:21] LABS: APPEARANCE,URINE CLEAR; BILIRUBIN,URINE NEGATIVE (NEGATIVE); COLOR,URINE YELLOW; GLUCOSE, URINE NEGATIVE (NEGATIVE); KETONES,URINE NEGATIVE (NEGATIVE); PROTEIN,URINE 30 mg/dL (NEGATIVE); URINE SPECIFIC GRAVITY 1.013; UROBILINOGEN,URINE NEGATIVE mg/dL (<2.0)
--- NOTE | 2020-02-21 20:19 | EKG REPORT ---
SEVERITY:- ABNORMAL ECG - SINUS RHYTHM PROBABLE LEFT ATRIAL ABNORMALITY BORDERLINE T ABNORMALITIES, ANTERIOR LEADS PROLONGED QT INTERVAL : Confirmed by: Aaliyah Jimenez MD 21-Feb-2020 20:19:02
== END 2020-02-21 02:54 | disposition home or self-care (01) ==
LOC: ER 21:01
DX: U07.1 COVID-19 (principal); J18.9 Pneumonia, unspecified organism; R50.9 Fever, unspecified; R05 Cough; R31.9 Hematuria, unspecified; I10 Essential (primary) hypertension; Z95.2 Presence of prosthetic heart valve; Z88.1 Allergy status to other antibiotic agents
CPT/HCPCS: 93005; 99285; 96360; 36415; 83605; 85025; 80053; 81001; 82803; 71045; 93010; J7050

== ENCOUNTER 2020-05-22 05:27 | Observation (INO) | payer BC ==
[2020-05-22 06:56] LABS: HEMATOCRIT 39.9 % (37.9-51.0); HEMOGLOBIN 13.6 g/dL (13.5-17.0); MEAN CORPUSCULAR HEMOGLOBIN 31.9 pg (27.0-33.4); MEAN CORPUSCULAR HGB CONC 34.1 g/dL (32.0-36.0); MEAN CORPUSCULAR VOLUME 94 fl (80-97); PLATELET COUNT 163 10^3/uL (150-450); RED BLOOD COUNT 4.27 10^6/uL (4.35-5.55); RED CELL DISTRIBUTION WIDTH 13.7 % (11.5-14.0); WHITE BLOOD COUNT 17.1 10^3/uL (4.0-10.5)
[2020-05-22 07:27] LABS: TROPONIN I < 0.012 ng/mL
[2020-05-22 07:28] LABS: ABSOLUTE MONOCYTES # (MANUAL) 0.5 10^3/uL (0.1-1.4); BASOPHILS % (MANUAL) 1 % (0-2); EOSINOPHILS % (MANUAL) 0 % (0-6); LYMPHOCYTES % (MANUAL) 6 % (13-45); MONOCYTES % (MANUAL) 3 % (3-13); SEGMENTED NEUTROPHILS % (MAN) 90 % (42-78); TOTAL CELLS COUNTED 100
[2020-05-22 07:30] LABS: ALBUMIN 3.5 g/dL (3.5-5.0); ALKALINE PHOSPHATASE 171 U/L (38-126); ANION GAP 6 (5-19); ASPARTATE AMINO TRANSFERASE 53 U/L (17-59); BILIRUBIN,DIRECT 0.2 mg/dL (0.0-0.4); BILIRUBIN,TOTAL 0.3 mg/dL (0.2-1.3); BLOOD UREA NITROGEN 26 mg/dL (7-20); CARBON DIOXIDE 21 mmol/L (22-30); CHLORIDE 114 mmol/L (98-107); CREATINE KINASE 32 U/L (55-170); GLUCOSE 111 mg/dL (75-110); POTASSIUM 5.2 mmol/L (3.6-5.0); TOTAL PROTEIN 5.6 g/dL (6.3-8.2)
[2020-05-22 07:32] LABS: OVALOCYTES 1+; PLATELET COMMENT ADEQUATE; TOXIC GRANULATION 1+
--- NOTE | 2020-05-22 08:34 | ER Document Report ---
ED General - General Chief Complaint: Vertigo Stated Complaint: DIZZINESS Time Seen by Provider: 05/22/20 08:12 Primary Care Provider: JASON SINGH PA [Primary Care Provider] - Follow up as needed Mode of Arrival: Stretcher Information source: Patient Notes: Patient is a 59-year-old male comes emergency room complaining of new onset dizziness. Patient states ago woke up in the middle the night to go to the bathroom the room started to spin he became nauseated and vomited x1. Patient states she was just released out of [facility] last week for dehyd ration. He also has a history of the heart valve replacement 5 years ago. He is also on Midrin for hypotension. Patient denies any chest pain or shortness of breath. Patient does currently take Lasix for fluid overload. Currently patient states that he has no dizziness. TRAVEL OUTSIDE OF THE [place] IN LAST 30 DAYS: No - HPI Onset: This morning Onset/Duration: Sudden Quality of pain: No pain Severity: Moderate Pain Level: 3 Associated symptoms: Nausea, Vomiting Exacerbated by: Movement Relieved by: Remaining still Similar symptoms previously: Yes Recently seen / treated by doctor: Yes - Related Data Allergies/Adverse Reactions: doxycycline Allergy (Verified 06/08/19 10:52) levofloxacin [From Levaquin] Allergy (Verified 06/08/19 10:52) Home Medications: Promatine. Prevalite. Loperamide. Aspirin. Atorvastatin. Fluxetine. Mag oxide. Doxycycline Levaquin. montelukast. dopatadine. omeprazole. potassium chloride Past Medical History - General Information source: Patient - Social History Smoking Status: Never Smoker Chew tobacco use (# tins/day): No Frequency of alcohol use: None Drug Abuse: None Family History: CAD, CVA, DM, Hyperlipidemia, Hypertension, Malignancy - Past Medical History Cardiac Medical History: Reports: Hx Hypercholesterolemia, Hx Hypertension, Hx Heart Murmur Denies: Hx Atrial Fibrillation, Hx Coronary Artery Disease, Hx Heart Attack - PATENT DUCTUS ARTERIOSUS Pulmonary Medical History: Reports: Hx Pneumonia - SEPTIC SHOCK, Hx Respiratory Failure Denies: Hx Asthma, Hx Bronchitis, Hx COPD Neurological Medical History: Denies: Hx Cerebrovascular Accident, Hx Seizures Endocrine Medical History: Denies: Hx Diabetes Mellitus Type 1, Hx Diabetes Mellitus Type 2, Hx Hyperthyroidism, Hx Hypothyroidism Renal/ Medical History: Denies: Hx Peritoneal Dialysis GI Medical History: Denies: Hx Cirrhosis, Hx Crohn's Disease, Hx Hepatitis, Hx Ulcerative Colitis Musculoskeletal Medical History: Denies Hx Arthritis, Denies Hx Gout, Reports Hx Musculoskeletal Trauma - ribs left sided Skin Medical History: Denies Hx Eczema, Denies Hx Psoriasis Psychiatric Medical History: Reports: Hx Depression Traumatic Medical History: Reports: Hx Fractures - ribs left sidedddddddd. Denies: Hx Gunshot Wound, Hx Pneumothorax Infectious Medical History: Denies: Hx C-Diff, Hx Hepatitis, Hx HIV Past Surgical History: Reports: Hx Abdominal Surgery - hernia ventral, Hx Cardiac Catheterization, Hx Cardiac Surgery - PDA repair, Hx Cholecystectomy, Hx Umbilical Hernia, Hx Valve Replacement - Bovine pericardial tissue aortic valve replacement February 2015, Hx Vascular Surgery - Closure of patent ductus arteriosus - Immunizations Immunizations up to date: Yes Hx Diphtheria, Pertussis, Tetanus Vaccination: No Review of Systems - Review of Systems Constitutional: Weakness EENT: No symptoms reported Cardiovascular: No symptoms reported Respiratory: No symptoms reported Gastrointestinal: No symptoms reported Genitourinary: No symptoms reported Male Genitourinary: No symptoms reported Musculoskeletal: No symptoms reported Skin: No symptoms reported Hematologic/Lymphatic: No symptoms reported Neurological/Psychological: See HPI, Weakness, Other - Dizziness -: Yes All other systems reviewed and negative Physical Exam - Vital signs Vitals: Temp Pulse Resp BP Pulse Ox 94.6 F L 57 L 20 112/73 100 05/22/20 05:41 05/22/20 05:41 05/22/20 05:41 05/22/20 05:41 05/22/20 05:41 Interpretation: Hypotensive, Bradycardic, Other - Hypothermic - Notes Notes: PHYSICAL EXAMINATION: GENERAL: Patient is a well-nourished well-developed 59-year-old male is in no apparent distress on examination this morning. HEAD: Atraumatic, normocephalic. EYES: Pupils equal round and reactive to light, extraocular movements intact, sclera anicteric, conjunctiva are normal. ENT: Examination head and upper airway show nasal mucosa be normal in appearance with no erythema or exudate or rhinorrhea noted. No congestion is noted bilaterally. Examination posterior pharynx does show moist mucosa. No sign of dehydration orally uvula is midline no deviation and no encroachment. Airway is patent. NECK: Normal range of motion, supple without lymphadenopathy LUNGS: Breath sounds clear to auscultation bilaterally and equal. No wheezes rales or rhonchi. HEART: Bradycardic rate and rhythm without murmurs ABDOMEN: Soft, nontender, nondistended abdomen. No guarding, no rebound. No masses appreciated. Musculoskeletal: Normal range of motion, no pitting or edema. No cyanosis. NEUROLOGICAL: Cranial nerves grossly intact. Normal speech, normal gait. Normal sensory, motor exams NIH score of 0 PSYCH: Normal mood, normal affect. SKIN: Warm, Dry, normal turgor, no rashes or lesions noted. Course - Re-evaluation Re-evalutation: 05/22/20 14:51 Patient's length of stay today has been based primarily on gathering information. I was able to contact [facility] and they sent records up from his visit last week. Patient last week at [facility] had a acute renal failure with the BUN of 56 and a creatinine of 4.2 which he is here is relatively normal he only has a slight deviation in his BUN to 26 creatinine is currently normal. The reason I contacted [facility] is because patient's white count here is 17,000 and I have been do not able to associate it with the source. Patient also last week at [facility] had a CT of the abdomen and pelvis that did not show any acute findings with the exception of AVN of bilateral hips. The patient also went for a colonoscopy that once again did not show any acute findings although cultures and biopsies were sent out and have not come back yet. Given the patient's hypotension is chronic and is currently on ProAmatine I still cannot find a cause in association for his bradycardia today. Patient has been running in the low 50s to mid 50s on the monitor. Patient's EKG was documented at 56 bpm was only abnormal finding was on it. Patient's previous EKG performed in February 21, 2020 he was at a rate of 68 beats a minute. Given these findings and no source of infection which I contacted the hospitalist with your today. They will put him in observation tonight and monitor him. - Vital Signs Vital signs: Temp Pulse Resp BP Pulse Ox 97.2 F 58 L 20 94/66 L 100 05/22/20 06:46 05/22/20 11:46 05/22/20 05:41 05/22/20 11:46 05/22/20 05:41 - Laboratory Results Result Diagrams: 05/22/20 06:23 05/22/20 06:23 Laboratory Results Interpreted: 05/22/20 05/22/20 06:23 06:23 WBC 17.1 H RBC 4.27 L Seg Neuts % (Manual) 90 H Lymphocytes % (Manual) 6 L Abs Neuts (Manual) 15.4 H Potassium 5.2 H Chloride 114 H Carbon Dioxide 21 L BUN 26 H Glucose 111 H ALT 57 H Alkaline Phosphatase 171 H Creatine Kinase 32 L Total Protein 5.6 L Critical Laboratory Results Reviewed: Yes Attending or Supervising Physician who Reviewed Labs: SAMI VENCES - Radiology Results Critical Radiology Results Reviewed: No Critical Results - EKG Interpretation by Pa EKG shows normal: Sinus rhythm Rate: Bradycardia Rhythm: NSR P Waves: LAE Additional EKG results interpreted by me: 05/22/20 14:57 Bradycardia is the only significant difference from previous EKG. Discharge - Discharge Clinical Impression: Pre-syncope Condition: Stable Disposition: ADMITTED OBSERVATION Admitting Provider: [place] [facility] Admitted: Telemetry Referrals: JASON SINGH PA [Primary Care Provider] - Follow up as needed
[2020-05-22] MEDS: RINGERS SOLUTION,LACTATED 1,000 ML IV ONE ×2 (08:57→09:07)
[2020-05-22] MEDS ORDERED: NORMAL SALINE 1000 ML 1,000 ML IV ONE (09:00)
[2020-05-22] MEDS ORDERED: CEFTRIAXONE 1 GM/D5W RTU 1 GM/50 ML RTUPB IV ONE (09:02)
[2020-05-22] MEDS ORDERED: NORMAL SALINE 500 ML IV ONE (09:05)
--- NOTE | 2020-05-22 09:27 | EKG REPORT ---
SEVERITY:- BORDERLINE ECG - SINUS RHYTHM PROBABLE LEFT ATRIAL ABNORMALITY NONSPECIFIC ANTEROSEPTAL ST-T CHANGES : Confirmed by: Dago Haider MD 22-May-2020 09:27:05
[2020-05-22 09:29] LABS: APPEARANCE,URINE CLEAR; BILIRUBIN,URINE NEGATIVE (NEGATIVE); COLOR,URINE YELLOW; GLUCOSE, URINE NEGATIVE (NEGATIVE); KETONES,URINE NEGATIVE (NEGATIVE); LEUKOCYTE ESTERASE,URINE NEGATIVE (NEGATIVE); NITRITE,URINE NEGATIVE (NEGATIVE); PROTEIN,URINE NEGATIVE (NEGATIVE); URINE SPECIFIC GRAVITY 1.014; UROBILINOGEN,URINE NEGATIVE mg/dL (<2.0)
--- NOTE | 2020-05-22 09:45 | RADIOLOGY REPORT (SQ) ---
EXAM DESCRIPTION: CHEST SINGLE VIEW IMAGES COMPLETED DATE/TIME: 05/22/2020 9:11 am REASON FOR STUDY: cough COMPARISON: 02/21/2020 an 11/26/2018 EXAM PARAMETERS: NUMBER OF VIEWS: One view. TECHNIQUE: Single frontal radiographic view of the chest acquired. RADIATION DOSE: NA LIMITATIONS: None. FINDINGS: LUNGS AND PLEURA: No focal consolidation, pleural effusion, or pneumothorax. Stable right lateral hemithorax pleural thickening with scarring with orphaned wire. MEDIASTINUM AND HILAR STRUCTURES: No masses. Contour normal. HEART AND VASCULAR STRUCTURES: Mild cardiomegaly without central vascular congestion. BONES: No acute findings. HARDWARE: Midline surgical changes. OTHER: No other significant finding. IMPRESSION: No evidence of acute cardiopulmonary abnormality. TECHNICAL DOCUMENTATION: JOB ID: [id number] 2010 [employer]- All Rights Reserved Reading location - IP/workstation name: [email or web address]
--- NOTE | 2020-05-22 10:21 | RADIOLOGY REPORT (SQ) ---
EXAM DESCRIPTION: CT HEAD WITHOUT IMAGES COMPLETED DATE/TIME: 05/22/2020 9:48 am REASON FOR STUDY: Dizziness COMPARISON: 06/20/2019 TECHNIQUE: Axial images acquired through the brain without intravenous contrast. Images reviewed wi th bone, brain and subdural windows. Additional sagittal and coronal reconstructions were generated. Images stored on PACS. All CT scanners at this facility use dose modulation, iterative reconstruction, and/or weight based d osing when appropriate to reduce radiation dose to as low as reasonably achievable (ALARA). [facility]: Dose Right [facility]: CareDose [facility]: Dose Right [facility]: Teradose 4D [facility]: [employer] Technologies RADIATION DOSE: CT Rad equipment meets quality standard of care and radiation dose reduction techniq ues were employed. CTDIvol: 48.9 mGy. DLP: 885 mGy-cm. mGy. LIMITATIONS: None. FINDINGS: VENTRICLES: Normal size and configuration. CEREBRUM: No masses. No hemorrhage. No midline shift. Areas of low density in the white matter mos t likely due to chronic micro-vascular ischemic change. Small lacunar infarct involving the right ca udate, stable. No evidence for acute infarction. CEREBELLUM: No masses. No hemorrhage. No alteration of density. No evidence for acute infarction. EXTRAAXIAL SPACES: Mild age-related involutional change. No fluid collections. No masses. ORBITS AND GLOBE: No intra- or extraconal masses. Normal contour of globe without masses. CALVARIUM: No fracture. Stable appearance. PARANASAL SINUSES: Re- demonstration of ethmoid and maxillary sinus disease. SOFT TISSUES: No mass or hematoma. OTHER: No acute findings. IMPRESSION: Mild microvascular and involutional changes. Re- demonstration of paranasal sinusitis. EVIDENCE OF ACUTE STROKE: NO. TECHNICAL DOCUMENTATION: JOB ID: [id number] Quality ID # [id number]: Final reports with documentation of one or more dose reduction techniques (e.g., Au tomated exposure control, adjustment of the mA and/or kV according to patient size, use of iterative reconstruction technique) 2010 [employer]- All Rights Reserved Reading location - IP/workstation name: [email or web address]
--- NOTE | 2020-05-22 16:39 | ER Document Report ---
Doctor's Note Notes: 05/22/20 15:36 This is a 59-year-old male I was asked to see along with midlevel provider regarding presyncopal episode. Mr. Eckert has an immensely complicated past medical history including coarctation of the aorta and previous valve replacement as well as recurrent syncopal episodes, renal insufficiency and what sounds like some autonomic instability. I have reviewed the chart in detail and have briefly spoken with the patient and performed a focused examination at the bedside. All of his current studies have been reviewed. This man has a markedly elevated white count (17,000) although he does not have a fever and does not have an obvious identifiable focal source of infection. He is mildly orthostatic and appears volume depleted.. He is receiving IV hydration and will be admitted by the hospitalist service for further evaluation and management.. 05/22/20 15:39
[2020-05-22] MEDS ORDERED: ONDANSETRON HCL INJ/PF 4 MG/2 ML SDV IV PRN (16:49)
[2020-05-22] MEDS ORDERED: RINGERS SOLUTION,LACTATED 1,000 ML IV PRN (16:49)
[2020-05-22] MEDS ORDERED: IPRATROPIUM/ALBUTEROL 0.5-2.5 MG/3 ML AMPUL NEB PRN (16:49)
[2020-05-22] MEDS ORDERED: ACETAMINOPHEN 325 MG TABLET PO PRN (16:49)
--- NOTE | 2020-05-22 17:57 | PDOC H&P ---
History of Present Illness Admission Date/PCP: 05/22/20 15:32 ABBY ELLIOTT Patient complains of: Dizziness History of Present Illness: BLU JIMENES JR is a 59 year old male past medical history of aortic valve replacement 5 years ago, hyperlipidemia, hypertension who came in the ED today due to dizziness. Symptoms started this morning when he got up at around 4 AM to move his bowels. He felt lightheaded soon after standing up and when he was trying to move his bowels in the restroom he developed rotatory dizziness, cold sweats and subsequently had several episodes of nonbloody vomiting. He denied chest pain, palpitations, syncope. In the ED blood pressure was 94/66 supine, negative orthostatic vitals, heart rate rate 61, respiratory rate 18, O2 sat 95% on room air. CBC showed a leukocytosis 17, normal hemoglobin. CMP showed mild hyperkalemia 5.2, creatinine 1.13, troponin less than 0.012. Patient was given a bolus of LR and NS and was given 1 dose of ceftriaxone. Hospitalist service was admitted for further evaluation and management. EKG showed sinus rhythm Past Medical History Cardiac Medical History: Reports: Hyperlipidema, Hypertension, Heart Murmur Denies: Atrial Fibrillation, Coronary Artery Disease, Myocardial Infarction - PATENT DUCTUS ARTERIOSUS Pulmonary Medical History: Reports: Pneumonia - SEPTIC SHOCK, Respiratory Failure Denies: Asthma, Bronchitis, Chronic Obstructive Pulmonary Disease (COPD) Neurological Medical History: Denies: Seizures Endocrine Medical History: Denies: Diabetes Mellitus Type 1, Diabetes Mellitus Type 2, Hyperthyroidism, Hypothyroidism GI Medical History: Denies: Cirrhosis, Crohn's Disease, Hepatitis, Ulcerative Colitis Musculoskeltal Medical History: Denies: Arthritis, Gout Skin Medical History: Denies: Eczema, Psoriasis Psychiatric Medical History: Reports: Depression Traumatic Medical History: Denies: Gunshot Wound, Pneumothorax Hematology: Denies: Anemia, Sickle Cell Disease, Bleeding Tendencies Infectious Medical History: Denies: Clostridium Difficile, HIV Past Surgical History Past Surgical History: Reports: Cardiac Catheterization, Cholecystectomy, Valve Replacement - Bovine pericardial tissue aortic valve replacement February 2015, Vascular Surgery - Closure of patent ductus arteriosus Social History Smoking Status: Never Smoker Electronic Cigarette use?: No Frequency of Alcohol Use: None Hx Recreational Drug Use: No Drugs: None Hx Prescription Drug Abuse: No - Advance Directive Resuscitation Status: Full Code Family History Family History: CAD, CVA, DM, Hyperlipidemia, Hypertension, Malignancy Parental Family History Reviewed: Yes Children Family History Reviewed: Yes Sibling(s) Family History Reviewed.: Yes Medication/Allergy Home Medications: Albuterol Sulfate [Proair HFA Inhalation Aerosol 8.5 gm MDI] 1 puff IH Q6HP PRN 06/20/19 Aspirin [Adult Low Dose Aspirin EC] 81 mg PO DAILY 06/20/19 Atorvastatin Calcium [Lipitor 20 mg Tablet] 20 mg PO QHS 06/20/19 Desloratadine [Clarinex] 5 mg PO DAILY 06/20/19 Fluoxetine HCl [Prozac 20 mg Capsule] 20 mg PO DAILY 06/20/19 Midodrine HCl 10 mg PO TID 06/20/19 Montelukast Sodium [Singulair 10 mg Tablet] 10 mg PO DAILY 06/20/19 Omeprazole 20 mg PO DAILY 06/20/19 Ondansetron HCl [Zofran 4 mg Tablet] 1 tab PO Q8 06/20/19 Sodium Bicarbonate [Sodium Bicarbonate 650 mg Tablet] 650 mg PO QID 06/20/19 Hydrocortisone [Hydrocortisone 1% Cream 28.35 gm] 1 applic TP Q12 tube 07/01/19 Magnesium Oxide [Mag-Ox 400 mg Tablet] 800 mg PO BID tablet 07/01/19 Multivitamins W-Iron [Flintstones Chewable Multivit W/Fe Tab] 2 tab PO DAILY tab.chew 07/01/19 Potassium Chloride [Klor-Con 10 Meq Tablet ER] 20 meq PO DAILY 14 Days #14 tablet.er 07/01/19 Prednisone [Deltasone 5 mg Tablet] 5 mg PO ASDIR PRN 28 Days #112 tablet 07/01/19 Azithromycin [Zithromax 250 mg Tablet] 250 mg PO DAILY #4 tablet 02/21/20 Allergies/Adverse Reactions: doxycycline Allergy (Verified 06/08/19 10:52) levofloxacin [From Levaquin] Allergy (Verified 06/08/19 10:52) Review of Systems Constitutional: ABSENT: headache(s), night sweats, weakness Eyes: ABSENT: visual disturbances Ears: ABSENT: hearing changes Nose, Mouth, and Throat: ABSENT: mouth pain, sore throat Gastrointestinal: PRESENT: nausea, vomiting Neurological: ABSENT: abnormal movements, abnormal speech, focal weakness, frequent falls, lack of coordination Physical Exam Vital Signs: Temp Pulse Resp BP Pulse Ox 97.2 F 58 L 20 94/66 L 100 05/22/20 06:46 05/22/20 11:46 05/22/20 05:41 05/22/20 11:46 05/22/20 05:41 Intake & Output 05/21/20 05/22/20 05/23/20 06:59 06:59 06:59 Intake Total 550 Balance 550 Weight 65.3 kg General appearance: PRESENT: no acute distress, cooperative Head exam: PRESENT: atraumatic, normocephalic Eye exam: PRESENT: EOMI, PERRLA Mouth exam: PRESENT: moist Neck exam: PRESENT: full ROM Respiratory exam: PRESENT: clear to auscultation trevin, symmetrical, unlabored Cardiovascular exam: PRESENT: RRR, +S1, +S2 Pulses: PRESENT: +2 pedal pulses bilateral GI/Abdominal exam: PRESENT: normal bowel sounds, soft. ABSENT: rebound, tenderness Extremities exam: PRESENT: full ROM Musculoskeletal exam: PRESENT: full ROM Neurological exam: PRESENT: alert, awake, oriented to person, oriented to place, oriented to time, oriented to situation Psychiatric exam: PRESENT: normal mood Skin exam: PRESENT: normal color Results Laboratory Results: 05/22/20 06:23 05/22/20 06:23 05/22/20 05/22/20 05/22/20 06:23 06:23 09:15 WBC 17.1 H RBC 4.27 L Hgb 13.6 Hct 39.9 MCV 94 MCH 31.9 MCHC 34.1 RDW 13.7 Plt Count 163 Seg Neutrophils % Not Reportable Sodium 140.7 Potassium 5.2 H Chloride 114 H Carbon Dioxide 21 L Anion Gap 6 BUN 26 H Creatinine 1.13 Est GFR ( Amer) > 60 Glucose 111 H Calcium 9.0 Total Bilirubin 0.3 AST 53 Alkaline Phosphatase 171 H Total Protein 5.6 L Albumin 3.5 Urine Color YELLOW Urine Appearance CLEAR Urine pH 7.0 Ur Specific [place] 1.014 Urine Protein NEGATIVE Urine Glucose (UA) NEGATIVE Urine Ketones NEGATIVE Urine Blood NEGATIVE Urine Nitrite NEGATIVE Ur Leukocyte Esterase NEGATIVE Urine WBC (Auto) 3 Urine RBC (Auto) 1 05/22/20 05/22/20 06:23 06:23 Creatine Kinase 32 L CK-MB (CK-2) 2.30 Troponin I < 0.012 Impressions: Head CT 05/22/20 08:36 IMPRESSION: Mild microvascular and involutional changes. Re- demonstration of paranasal sinusitis. EVIDENCE OF ACUTE STROKE: NO. Chest X-Ray 05/22/20 09:00 IMPRESSION: No evidence of acute cardiopulmonary abnormality. Assessment and Plan - Diagnosis (1) Pre-syncope Is this a current diagnosis for this admission?: Yes Plan: Patient came in due to dizziness after standing up from a lying down position -Blood pressure in the ED 94/66, negative orthostatic vitals. -EKG negative, troponin normal -Is on midodrine -SPECT patient had orthostatic hypotension causing a presyncopal event with dizziness and diaphoresis -We will admit him for observation give him IV fluids and restart his midodrine (2) HLD (hyperlipidemia) Qualifiers: Hyperlipidemia type: unspecified Qualified Code(s): E78.5 - Hyperlipidemia, unspecified Is this a current diagnosis for this admission?: Yes Plan: -Resume statin (3) Aortic valve prosthesis present Is this a current diagnosis for this admission?: Yes Plan: -5 years ago follows at [place] every 6 months and according to the patient per his last visit everything looks okay with his valve 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
[2020-05-22] MEDS: HEPARIN SOD (PORCINE) 5,000 UNIT/ML 1 ML VIAL SUBCUT SCH (22:15)
[2020-05-23 03:47] LABS: C DIFFICILE GDH POSITIVE (NEGATIVE)
[2020-05-23] MEDS: HEPARIN SOD (PORCINE) 5,000 UNIT/ML 1 ML VIAL SUBCUT SCH (05:20)
[2020-05-23 05:21] LABS: ABSOLUTE BASOPHILS # (AUTO) 0.1 10^3/uL (0.0-0.2); ABSOLUTE EOSINOPHILS # (AUTO) 0.4 10^3/uL (0.0-0.6); ABSOLUTE LYMPHOCYTES (AUTO) 0.8 10^3/uL (0.5-4.7); ABSOLUTE MONOCYTES (AUTO) 0.2 10^3/uL (0.1-1.4); ABSOLUTE NEUT (AUTO) 6.8 10^3/uL (1.7-8.2); BASOPHILS % (AUTO) 0.9 % (0-2); EOSINOPHILS % (AUTO) 5.3 % (0-6); HEMATOCRIT 34.7 % (37.9-51.0); HEMOGLOBIN 12.1 g/dL (13.5-17.0); LYMPHOCYTES % (AUTO) 9.7 % (13-45); MEAN CORPUSCULAR HEMOGLOBIN 32.4 pg (27.0-33.4); MEAN CORPUSCULAR HGB CONC 34.8 g/dL (32.0-36.0); MEAN CORPUSCULAR VOLUME 93 fl (80-97); MONOCYTES % (AUTO) 2.4 % (3-13); PLATELET COUNT 146 10^3/uL (150-450); RED BLOOD COUNT 3.73 10^6/uL (4.35-5.55); RED CELL DISTRIBUTION WIDTH 13.7 % (11.5-14.0); SEGMENTED NEUTROPHILS % (AUTO) 81.7 % (42-78); TOTAL CELLS COUNTED % (AUTO) 100 %; WHITE BLOOD COUNT 8.4 10^3/uL (4.0-10.5)
[2020-05-23 05:42] LABS: ALBUMIN 2.4 g/dL (3.5-5.0); ALKALINE PHOSPHATASE 112 U/L (38-126); ANION GAP 6 (5-19); ASPARTATE AMINO TRANSFERASE 23 U/L (17-59); BILIRUBIN,DIRECT 0.2 mg/dL (0.0-0.4); BILIRUBIN,TOTAL 0.2 mg/dL (0.2-1.3); BLOOD UREA NITROGEN 21 mg/dL (7-20); CALCIUM 8.2 mg/dL (8.4-10.2); CARBON DIOXIDE 17 mmol/L (22-30); CHLORIDE 114 mmol/L (98-107); GLUCOSE 119 mg/dL (75-110); POTASSIUM 4.6 mmol/L (3.6-5.0); TOTAL PROTEIN 4.1 g/dL (6.3-8.2)
--- NOTE | 2020-05-23 06:34 | EKG REPORT ---
SEVERITY:- BORDERLINE ECG - SINUS RHYTHM BORDERLINE T ABNORMALITIES, ANT-LAT LEADS : Confirmed by: Dago Haider MD 23-May-2020 06:33:37
[2020-05-23] MEDS: MIDODRINE HCL 5 MG TABLET PO SCH ×2 (07:10→10:00)
[2020-05-23] MEDS ORDERED: LORATADINE 10 MG TABLET PO SCH (10:00)
[2020-05-23] MEDS ORDERED: MONTELUKAST SODIUM 10 MG TABLET PO SCH (10:00)
[2020-05-23 10:16] VITALS: BP 112/73
--- NOTE | 2020-05-23 20:30 | PDOC DISCHARGE SUMMARY ---
Impression - Admit/DC Date/PCP Admission Date/Primary Care Provider: 05/22/20 15:32 ABBY ELLIOTT Discharge Date: 05/23/20 - Discharge Diagnosis (1) Pre-syncope Is this a current diagnosis for this admission?: Yes (2) HLD (hyperlipidemia) Is this a current diagnosis for this admission?: Yes (3) Aortic valve prosthesis present Is this a current diagnosis for this admission?: Yes (4) H/O repair of patent ductus arteriosus Is this a current diagnosis for this admission?: Yes (5) Leukocytosis Is this a current diagnosis for this admission?: Yes - Assessment Summary: (1) Pre-syncope Is this a current diagnosis for this admission?: Yes Plan: Patient came in due to dizziness after standing up from a lying down position -Blood pressure in the ED 94/66, negative orthostatic vitals. -EKG negative, troponin normal -Is on midodrine -SPECT patient had orthostatic hypotension causing a presyncopal event with dizziness and diaphoresis -We will admit him for observation give him IV fluids and restart his midodrine (2) HLD (hyperlipidemia) Qualifiers: Hyperlipidemia type: unspecified Qualified Code(s): E78.5 - Hyperlipidemia, unspecified Is this a current diagnosis for this admission?: Yes Plan: -Resume statin (3) Aortic valve prosthesis present Is this a current diagnosis for this admission?: Yes Plan: -5 years ago follows at [facility] every 6 months and according to the patient per his last visit everything looks okay with his valve 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 (4) H/O repair of patent ductus arteriosus Is this a current diagnosis for this admission?: Yes - Additional Information Resuscitation Status: Full Code Discharge Diet: As Tolerated Discharge Activity: Activity As Tolerated Referrals: JASON SINGH PA [Primary Care Provider] - 05/30/20 1:30 pm Home Medications: Atorvastatin Calcium [Lipitor 20 mg Tablet] 20 mg PO DAILY 06/20/19 Desloratadine [Clarinex] 5 mg PO DAILY 06/20/19 Fluoxetine HCl [Prozac 20 mg Capsule] 20 mg PO DAILY 06/20/19 Montelukast Sodium [Singulair 10 mg Tablet] 10 mg PO DAILY 06/20/19 Omeprazole 20 mg PO BID 06/20/19 Sodium Bicarbonate [Sodium Bicarbonate 650 mg Tablet] 650 mg PO QID 06/20/19 Furosemide [Lasix 40 mg Tablet] 40 mg PO BID 05/23/20 Midodrine HCl [Proamatine 5 Mg Tablet] 5 mg PO TID 05/23/20 Potassium Chloride [Klor-Con 10 Meq Tablet ER] 20 meq PO BID 05/23/20 History of Present Illiness History of Present Illness: BLU JIMENES JR is a 59 year old male past medical history of aortic valve replacement 5 years ago, hyperlipidemia, hypertension who came in the ED today due to dizziness. Symptoms started this morning when he got up at around 4 AM to move his bowels. He felt lightheaded soon after standing up and when he was trying to move his bowels in the restroom he developed rotatory dizziness, cold sweats and subsequently had several episodes of nonbloody vomiting. He denied chest pain, palpitations, syncope. In the ED blood pressure was 94/66 supine, negative orthostatic vitals, heart rate rate 61, respiratory rate 18, O2 sat 95% on room air. CBC showed a leukocytosis 17, normal hemoglobin. CMP showed mild hyperkalemia 5.2, creatinine 1.13, troponin less than 0.012. Patient was given a bolus of LR and NS and was given 1 dose of ceftriaxone. Hospitalist service was admitted for further evaluation and management. EKG showed sinus rhythm. . Hospital Course Hospital Course: Patient was seen the next day and he remained asymptomatic with no further episode of dizziness. Orthostatic repeated remained negative. Patient was eventually discharged. Physical Exam Vital Signs: Temp Pulse Resp BP Pulse Ox 97.9 F 59 L 18 112/73 92 05/23/20 10:13 05/23/20 10:13 05/23/20 10:13 05/23/20 10:13 05/23/20 10:13 Intake & Output 05/22/20 05/23/20 05/24/20 06:59 06:59 06:59 Intake Total 550 1068 Balance 550 1068 Weight 65.3 kg 65.3 kg 69.5 kg General appearance: PRESENT: no acute distress, cooperative Head exam: PRESENT: atraumatic, normocephalic Eye exam: PRESENT: EOMI, PERRLA Mouth exam: PRESENT: moist Neck exam: PRESENT: full ROM Respiratory exam: PRESENT: clear to auscultation trevin, symmetrical, unlabored Cardiovascular exam: PRESENT: RRR, +S1, +S2 GI/Abdominal exam: PRESENT: normal bowel sounds, soft. ABSENT: rebound, tenderness Extremities exam: PRESENT: full ROM Musculoskeletal exam: PRESENT: full ROM Neurological exam: PRESENT: alert, awake, oriented to person, oriented to place, oriented to time, oriented to situation Psychiatric exam: PRESENT: normal mood Skin exam: PRESENT: normal color Results Laboratory Results: WBC 8.4 10^3/uL (4.0-10.5) 05/23/20 04:49 RBC 3.73 10^6/uL (4.35-5.55) L 05/23/20 04:49 Hgb 12.1 g/dL (13.5-17.0) L 05/23/20 04:49 Hct 34.7 % (37.9-51.0) L 05/23/20 04:49 MCV 93 fl (80-97) 05/23/20 04:49 MCH 32.4 pg (27.0-33.4) 05/23/20 04:49 MCHC 34.8 g/dL (32.0-36.0) 05/23/20 04:49 RDW 13.7 % (11.5-14.0) 05/23/20 04:49 Plt Count 146 10^3/uL (150-450) L 05/23/20 04:49 Lymph % (Auto) 9.7 % (13-45) L 05/23/20 04:49 [place] % (Auto) 2.4 % (3-13) L 05/23/20 04:49 Eos % (Auto) 5.3 % (0-6) 05/23/20 04:49 Baso % (Auto) 0.9 % (0-2) 05/23/20 04:49 Absolute Neuts (auto) 6.8 10^3/uL (1.7-8.2) 05/23/20 04:49 Absolute Lymphs (auto) 0.8 10^3/uL (0.5-4.7) 05/23/20 04:49 Absolute Monos (auto) 0.2 10^3/uL (0.1-1.4) 05/23/20 04:49 Absolute Eos (auto) 0.4 10^3/uL (0.0-0.6) 05/23/20 04:49 Absolute Basos (auto) 0.1 10^3/uL (0.0-0.2) 05/23/20 04:49 Total Counted 100 05/22/20 06:23 Seg Neutrophils % 81.7 % (42-78) H 05/23/20 04:49 Seg Neuts % (Manual) 90 % (42-78) H 05/22/20 06:23 Lymphocytes % (Manual) 6 % (13-45) L 05/22/20 06:23 Monocytes % (Manual) 3 % (3-13) 05/22/20 06:23 Eosinophils % (Manual) 0 % (0-6) 05/22/20 06:23 Basophils % (Manual) 1 % (0-2) 05/22/20 06:23 Abs Neuts (Manual) 15.4 10^3/uL (1.7-8.2) H 05/22/20 06:23 Abs Lymphs (Manual) 1.0 10^3/uL (0.5-4.7) 05/22/20 06:23 Abs Monocytes (Manual) 0.5 10^3/uL (0.1-1.4) 05/22/20 06:23 Absolute Eos (Manual) 0.0 10^3/uL (0.0-0.6) 05/22/20 06:23 Abs Basophils (Manual) 0.2 10^3/uL (0.0-0.2) 05/22/20 06:23 Toxic Granulation 1+ 05/22/20 06:23 Platelet Comment ADEQUATE 05/22/20 06:23 Ovalocytes 1+ 05/22/20 06:23 Sodium 137.0 mmol/L (137-145) 05/23/20 04:49 Potassium 4.6 mmol/L (3.6-5.0) 05/23/20 04:49 Chloride 114 mmol/L (98-107) H 05/23/20 04:49 Carbon Dioxide 17 mmol/L (22-30) L 05/23/20 04:49 Anion Gap 6 (5-19) 05/23/20 04:49 BUN 21 mg/dL (7-20) H 05/23/20 04:49 Creatinine 1.17 mg/dL (0.52-1.25) 05/23/20 04:49 Est GFR ( Amer) > 60 (>60) 05/23/20 04:49 Est GFR (MDRD) Non-Af > 60 (>60) 05/23/20 04:49 Glucose 119 mg/dL (75-110) H 05/23/20 04:49 Lactic Acid 1.2 mmol/L (0.7-2.1) 05/22/20 16:45 Calcium 8.2 mg/dL (8.4-10.2) L 05/23/20 04:49 Total Bilirubin 0.2 mg/dL (0.2-1.3) 05/23/20 04:49 Direct Bilirubin 0.2 mg/dL (0.0-0.4) 05/23/20 04:49 Neonat Total Bilirubin Not Reportable 05/23/20 04:49 Neonat Direct Bilirubin Not Reportable 05/23/20 04:49 Neonat Indirect Bili Not Reportable 05/23/20 04:49 AST 23 U/L (17-59) 05/23/20 04:49 ALT 35 U/L (<50) 05/23/20 04:49 Alkaline Phosphatase 112 U/L (38-126) 05/23/20 04:49 Creatine Kinase 32 U/L (55-170) L 05/22/20 06:23 CK-MB (CK-2) 2.30 ng/mL (<4.55) 05/22/20 06:23 Troponin I < 0.012 ng/mL 05/22/20 06:23 Total Protein 4.1 g/dL (6.3-8.2) L 05/23/20 04:49 Albumin 2.4 g/dL (3.5-5.0) L 05/23/20 04:49 Urine Color YELLOW 05/22/20 09:15 Urine Appearance CLEAR 05/22/20 09:15 Urine pH 7.0 (5.0-9.0) 05/22/20 09:15 Ur Specific [place] 1.014 05/22/20 09:15 Urine Protein NEGATIVE mg/dL (NEGATIVE) 05/22/20 09:15 Urine Glucose (UA) NEGATIVE mg/dL (NEGATIVE) 05/22/20 09:15 Urine Ketones NEGATIVE mg/dL (NEGATIVE) 05/22/20 09:15 Urine Blood NEGATIVE (NEGATIVE) 05/22/20 09:15 Urine Nitrite NEGATIVE (NEGATIVE) 05/22/20 09:15 Urine Bilirubin NEGATIVE (NEGATIVE) 05/22/20 09:15 Urine Urobilinogen NEGATIVE mg/dL (<2.0) 05/22/20 09:15 Ur Leukocyte Esterase NEGATIVE (NEGATIVE) 05/22/20 09:15 Urine WBC (Auto) 3 /HPF 05/22/20 09:15 Urine RBC (Auto) 1 /HPF 05/22/20 09:15 Urine Mucus (Auto) RARE /LPF 05/22/20 09:15 Urine Ascorbic Acid NEGATIVE (NEGATIVE) 05/22/20 09:15 Stl C. Difficile GDH Ag POSITIVE (NEGATIVE) 05/22/20 22:30 Stl C.difficile Tox A&B NEGATIVE (NEGATIVE) 05/22/20 22:30 Stl C.difficile Tox PCR NEGATIVE (NEGATIVE) 05/22/20 22:30 05/22/20 06:23 CK-MB (CK-2) 2.30 Troponin I < 0.012 Impressions: Head CT 05/22/20 08:36 IMPRESSION: Mild microvascular and involutional changes. Re- demonstration of paranasal sinusitis. EVIDENCE OF ACUTE STROKE: NO. Chest X-Ray 05/22/20 09:00 IMPRESSION: No evidence of acute cardiopulmonary abnormality. Plan Plan of Treatment: - continue midodrine - ff.up with PCP Time Spent: Less than 30 Minutes Stroke Is this a Stroke Patient?: No Acute Heart Failure Is this a Heart Failure Patient?: No
== END 2020-05-23 11:20 | disposition home or self-care (01) ==
LOC: ER 05:27 → EH 15:32 → 4W 20:39
PROVIDERS: ADMIT Internal Medicine; ATTEND Internal Medicine
DX: R42 Dizziness and giddiness (principal); E78.5 Hyperlipidemia, unspecified; R11.2 Nausea with vomiting, unspecified; I10 Essential (primary) hypertension; D72.829 Elevated white blood cell count, unspecified; Z95.2 Presence of prosthetic heart valve; Z87.74 Personal history of (corrected) congenital malformations of heart and circulatory system; Z79.899 Other long term (current) drug therapy; Z88.8 Allergy status to other drugs, medicaments and biological substances
CPT/HCPCS: 93005 ×2; 99285; 96361; 96365; 36415 ×2; 87040; 82553; 82550; 83605; 85025 ×2; 80053 ×2; 81001; 84484; 87493 ×2; 87324; 87449; 71045; 70450; 93010 ×2; G0378 ×3; J7040; J0696; J7120